=== PATIENT | male | born 1960 | race Caucasian/White ===

== ENCOUNTER 2016-05-21 01:19 | Inpatient (IN) | payer MEDICARE, OTHER ==
[~2016-05-21] VITALS: Ht 193 cm; Wt 142.9 kg
[2016-05-21 01:24] VITALS: BP 127/78
[2016-05-21] MEDS ORDERED: TRAM50TA PO (01:57)
[2016-05-21] MEDS ORDERED: DULO60CA6 PO (01:57)
[2016-05-21] MEDS ORDERED: LISI1TAB5 PO (01:57)
[2016-05-21] MEDS ORDERED: SITA100T PO (01:57)
[2016-05-21] MEDS ORDERED: DEXTROSE 50% 25 GM / 50ML DISP.SYRIN. IV PRN (02:00)
[2016-05-21] MEDS ORDERED: 0.9 % SODIUM CHLORIDE 10 ML DISP.SYRIN. IV PRN (02:00)
[2016-05-21] MEDS: TRAMADOL 50 MG TABLET. PO PRN ×2 (03:28→09:29)
[2016-05-21 03:42] VITALS: BP 122/58
[2016-05-21 05:48] LABS: ALBUMIN 3.1 g/dL (3.4-5.0); ALBUMIN/GLOBULIN RATIO 0.8 (1.0-1.7); CALCIUM 8.8 mg/dL (8.5-10.1); CREATININE 0.9 mg/dL (0.7-1.3); POTASSIUM 3.1 mmol/L (3.5-5.1); TOTAL BILIRUBIN 0.3 mg/dL (0.2-1.0); TOTAL PROTEIN 6.9 g/dL (6.4-8.2)
[2016-05-21 05:59] LABS: CHOLESTEROL/HDL RATIO 6.9
[2016-05-21 07:00] VITALS: BP 133/82
[2016-05-21] MEDS: INSULIN ASPART 300 UNITS/3 ML INSULN.PEN SQ SCH ×2 (07:47→12:00)
[2016-05-21] MEDS ORDERED: HYDROCHLOROTHIAZIDE 25 MG TABLET PO SCH (09:00)
[2016-05-21] MEDS ORDERED: DULOXETINE HCL 30 MG CAPSULE.DR. PO SCH (09:00)
[2016-05-21] MEDS ORDERED: LINAGLIPTIN 5 MG TABLET PO SCH (09:00)
[2016-05-21] MEDS ORDERED: LISINOPRIL 40 MG TABLET. PO SCH (09:00)
[2016-05-21] MEDS ORDERED: POTASSIUM CHLORIDE 20 MEQ TABLET.ER. PO ONE (09:00)
[2016-05-21] MEDS ORDERED: LEVETIRACETAM 500 MG TABLET PO SCH (09:00)
[2016-05-21 10:50] VITALS: BP 129/82
[2016-05-21] MEDS ORDERED: GADOBUTROL 7.5 MMOL/7.5 ML VIAL IV ONE (12:45)
--- NOTE | 2016-05-21 12:55 | PDOC2 ---
NEUROLOGY CONSULT Date of Admission Date of Admission DATE: 05/21/16 TIME: 12:49 Reason for Consult Reason for Consult: Seizure Referring Physician Referring Physician: Dr. Huynh PCP: LINCOLN Thayer Source Source: Caregiver, Chart review, Patient History of Present Illness History of Present Illness The patient is a 55-year-old right-handed male who had his first seizure. I cannot discern from the chart the purpose of transferring him from [facility] for an acute hospital admission, as he had a 2 or 3 minute seizure without tongue biting or incontinence and a brief postictal state. He denies any new activities, medications, stress, sleep deprivation, infection, or substance abuse. Past Medical History Cardiovascular: HTN Musculoskeletal: low back pain Past Surgical History Past Surgical History: Other (Lumbar) Family History Family History: Other ( uncle had seizures) Social History Social History , smokes tobacco, no alcohol or drugs, on disability due to his back problems. Current Medications Current Medications Current Medications Sodium Chloride (Normal Saline Flush) 3 ml PRN DAILY PRN IV AFTER MEDS AND BLOOD DRAWS; Start 05/21/16 at 02:00 Insulin Aspart (Novolog) 0-5 UNITS TIDWMEALS SQ ; Start 05/21/16 at 08:00 Dextrose 12.5 gm PRN Q15MIN PRN IV SEE COMMENTS; Start 05/21/16 at 02:00 Tramadol HCl (Ultram) 100 mg PRN Q6HRS PRN PO MODERATE PAIN Last administered on 05/21/16 09:29; Start 05/21/16 at 03:00 Duloxetine HCl (Cymbalta) 60 mg DAILY PO Last administered on 05/21/16 09:29; Start 05/21/16 at 09:00 Lisinopril (Prinivil) 40 mg DAILY PO Last administered on 05/21/16 09:29; Start 05/21/16 at 09:00 Linagliptin (Tradjenta) 5 mg DAILY PO Last administered on 05/21/16 09:29; Start 05/21/16 at 09:00 Levetiracetam (Keppra) 500 mg BID PO Last administered on 05/21/16 09:28; Start 05/21/16 at 09:00 Hydrochlorothiazide (Hydrodiuril) 25 mg DAILY PO Last administered on 09:28; Start 05/21/16 at 09:00 Potassium Chloride (Klor-Con) 40 meq 1X ONCE PO Last administered on 09:29; Start 05/21/16 at 09:00; Stop 05/21/16 at 09:01; Status DC Gadobutrol (Gadavist) 14 mmol 1X ONCE IV ; Start 05/21/16 at 12:45; Stop at 12:46; Status DC Active Scripts Active Reported Cymbalta (Duloxetine Hcl) 60 Mg Capsule.dr 60 Mg PO DAILY Tramadol Hcl 50 Mg Tablet 100 Mg PO Q6H PRN Lisinopril-Hctz 20-12.5 Mg Tab (Lisinopril/Hydrochlorothiazide) 1 Each Tablet 2 Tab PO DAILY Januvia (Sitagliptin Phosphate) 100 Mg Tablet 100 Mg PO DAILY Allergies Allergies: Coded Allergies: aspirin (Verified Allergy, Intermediate, 05/21/16) gabapentin (Verified Allergy, Intermediate, 05/21/16) ROS Review of System Negative for fevers, chills, weight loss, shortness of breath, chest pain, indigestion, hematochezia, melena, dysuria. Full 14-point review systems is negative. Physical Exam Physical Examination PHYSICAL EXAMINATION: Vital signs: see above. General appearance is normal and in no acute distress. HEENT: Normocephalic and nontraumatic. Eyes, nose, ears, and throat are unremarkable. Neck is supple. No lymphadenopathy. No bruits are heard over the carotid artery. No crepitus. NEUROLOGICAL EXAMINATION: Mental Status Examination: Alert. Oriented to time, place, and person. Answers questions and follows commends. Pupils are equal round and reactive to light and accommodation. Extraocular movements are intact. Visual field exam shows no defect on the direct confrontation. No motor or sensory deficits on the facial exam. Uvula in the midline and the soft palate elevated symmetrically. No deviation of the tongue to any direction. Gross hearing is normal. Shoulder shrug normal. Muscle tone is normal. Muscle strength is 5. Deep tendon reflexes are 2+ all around. Plantar reflex is with flexion response bilaterally. [id number] test performance is accurate. Alternative movements are accurate. Romberg test is negative. Gait is normal. Sensory exam shows no deficits. No cerebellar signs are elicited. Vitals VITALS Vital Signs Date Time Temp Pulse Resp B/P Pulse Ox O2 Delivery O2 Flow Rate FiO2 05/21/16 10:50 98.1 85 18 129/82 93 Room Air 98.1 Labs Labs Laboratory Tests Test 05/21/16 04:02 05/21/16 04:12 05/21/16 07:12 Thyroid Stimulating Hormone (TSH) 2.991uIU/mL (0.358-3.74) Sodium Level 139mmol/L (136-145) Potassium Level 3.1mmol/L (3.5-5.1) Chloride Level 102mmol/L (98-107) Carbon Dioxide Level 27mmol/L (21-32) Anion Gap 10 (6-14) Blood Urea Nitrogen 7mg/dL (8-26) Creatinine 0.9mg/dL (0.7-1.3) Estimated GFR (Cockcroft-Gault) 87.0 BUN/Creatinine Ratio 8 (6-20) Glucose Level 140mg/dL (70-99) Calcium Level 8.8mg/dL (8.5-10.1) Magnesium Level 2.0mg/dL (1.8-2.4) Total Bilirubin 0.3mg/dL (0.2-1.0) Aspartate Amino Transf (AST/SGOT) 14U/L (15-37) Alanine Aminotransferase (ALT/SGPT) 21U/L (16-63) Alkaline Phosphatase 43U/L (46-116) Total Protein 6.9g/dL (6.4-8.2) Albumin 3.1g/dL (3.4-5.0) Albumin/Globulin Ratio 0.8 (1.0-1.7) Triglycerides Level 252mg/dL (0-150) Cholesterol Level 193mg/dL (0-200) LDL Cholesterol, Calculated 115mg/dL (0-100) VLDL Cholesterol, Calculated 50mg/dL (0-40) HDL Cholesterol 28mg/dL (40-60) Cholesterol/HDL Ratio 6.9 Glucose (Fingerstick) 140mg/dL (70-99) Laboratory Tests Test 05/21/16 04:02 05/21/16 04:12 05/21/16 07:12 Thyroid Stimulating Hormone (TSH) 2.991uIU/mL (0.358-3.74) Sodium Level 139mmol/L (136-145) Potassium Level 3.1mmol/L (3.5-5.1) Chloride Level 102mmol/L (98-107) Carbon Dioxide Level 27mmol/L (21-32) Anion Gap 10 (6-14) Blood Urea Nitrogen 7mg/dL (8-26) Creatinine 0.9mg/dL (0.7-1.3) Estimated GFR (Cockcroft-Gault) 87.0 BUN/Creatinine Ratio 8 (6-20) Glucose Level 140mg/dL (70-99) Calcium Level 8.8mg/dL (8.5-10.1) Magnesium Level 2.0mg/dL (1.8-2.4) Total Bilirubin 0.3mg/dL (0.2-1.0) Aspartate Amino Transf (AST/SGOT) 14U/L (15-37) Alanine Aminotransferase (ALT/SGPT) 21U/L (16-63) Alkaline Phosphatase 43U/L (46-116) Total Protein 6.9g/dL (6.4-8.2) Albumin 3.1g/dL (3.4-5.0) Albumin/Globulin Ratio 0.8 (1.0-1.7) Triglycerides Level 252mg/dL (0-150) Cholesterol Level 193mg/dL (0-200) LDL Cholesterol, Calculated 115mg/dL (0-100) VLDL Cholesterol, Calculated 50mg/dL (0-40) HDL Cholesterol 28mg/dL (40-60) Cholesterol/HDL Ratio 6.9 Glucose (Fingerstick) 140mg/dL (70-99) Assessment/Plan Assessment/Plan Impression: First seizure, already started on anticonvulsant and sent for inpatient hospitalization without consent of the on-call neurologist. Medication review: tramadol could lower seizure threshold, not a new medication for him Recommendations: Brain MRI EEG Home later today Follow-up with me in 6 weeks, and will decide then if we need to continue the anticonvulsant I informed the patient that he cannot drive until he has gone 6 months without a seizure. Thank you for letting me help with the patient's care. LISA ELLINGTON MD May 21, 2016 12:55
--- NOTE | 2016-05-21 13:23 | PDOC1 ---
History and Physical Date of Admission Date of Admission 05/21/16 Identification/Chief Complaint Chief Complaint seizure Problems: Source Source: Patient History of Present Illness History of Present Illness 55yo M, with dm2, htn, was transferred from [facility] for seizure, no H AND P was sent with pt. Pt cannot remember what happened, but said he was sitting in couch at home yesterday, then woke up finding ambulance around him. As per his to him, he was shaking with exts, didnot bite his tougne or loose BM/urine control. Pt said he continuted to be confused for about 1h. he feels good now, this is his first seizure, denies taking drugs or alcohol. Past Medical History Cardiovascular: HTN Past Surgical History Past Surgical History: Other (Lumbar) Social History Smoke: 1 pack per day ALCOHOL: social Drugs: None Current Medications Current Medications Current Medications Medications (Trade) Dose Ordered Sig/Olesya Start Time Stop Time Status Last Admin Dose Admin Dextrose 12.5 gm PRN Q15MIN PRN 05/21/16 02:00 Duloxetine HCl (Cymbalta) 60 mg DAILY 05/21/16 09:00 05/21/16 09:29 60 MG Gadobutrol (Gadavist) 14 mmol 1X ONCE 05/21/16 12:45 05/21/16 12:46 DC 05/21/16 12:52 14 MMOL Hydrochlorothiazide (Hydrodiuril) 25 mg DAILY 05/21/16 09:00 05/21/16 09:28 25 MG Insulin Aspart (Novolog) 0-5 UNITS TIDWMEALS 05/21/16 08:00 Levetiracetam (Keppra) 500 mg BID 05/21/16 09:00 05/21/16 09:28 500 MG Linagliptin (Tradjenta) 5 mg DAILY 05/21/16 09:00 05/21/16 09:29 5 MG Lisinopril (Prinivil) 40 mg DAILY 05/21/16 09:00 05/21/16 09:29 40 MG Potassium Chloride (Klor-Con) 40 meq 1X ONCE 05/21/16 09:00 05/21/16 09:01 DC 05/21/16 09:29 40 MEQ Sodium Chloride (Normal Saline Flush) 3 ml PRN DAILY PRN 05/21/16 02:00 Tramadol HCl (Ultram) 100 mg PRN Q6HRS PRN 05/21/16 03:00 05/21/16 09:29 100 MG Allergies Allergies Allergies Coded Allergies Type Severity Reaction Last Updated Verified aspirin Allergy Intermediate 05/21/16 Yes gabapentin Allergy Intermediate 05/21/16 Yes ROS Review of System CONSTITUTIONAL: No fever or chills EYES: No recent changes SKIN: No rash or itching CARDIOVASCULAR: No chest pain, syncope, palpitations, or edema RESPIRATORY: No SOB or cough GASTROINTESTINAL: No nausea, vomiting or abdominal pain NEUROLOGICAL: No headaches or weakness ENDOCRINE: No cold or heat intolerance GENITOURINARY: No urgency or frequency of urination MUSCULOSKELETAL: No back pain or joint pain LYMPHATICS: No enlarged lymph nodes PSYCHIATRIC: No anxiety or depression Physical Exam Physical Exam GEN.: No apparent distress. Alert and oriented. HEENT: Head is normocephalic, atraumatic NECK: Supple. LUNGS: Clear to auscultation. HEART: RRR, S1, S2 present. Peripheral pulses intact ABDOMEN: Soft, nontender. Positive bowel sounds. EXTREMITIES: Without any cyanosis. NEUROLOGIC: Normal speech, normal tone PSYCHIATRIC: Normal affect, normal mood. SKIN: No ulcerations Vitals Vitals Vital Signs Date Time Temp Pulse Resp B/P Pulse Ox O2 Delivery O2 Flow Rate FiO2 05/21/16 10:50 98.1 85 18 129/82 93 Room Air 98.1 Labs Labs Laboratory Tests Test 05/21/16 04:02 05/21/16 04:12 05/21/16 07:12 Thyroid Stimulating Hormone (TSH) 2.991uIU/mL (0.358-3.74) Sodium Level 139mmol/L (136-145) Potassium Level 3.1mmol/L (3.5-5.1) Chloride Level 102mmol/L (98-107) Carbon Dioxide Level 27mmol/L (21-32) Anion Gap 10 (6-14) Blood Urea Nitrogen 7mg/dL (8-26) Creatinine 0.9mg/dL (0.7-1.3) Estimated GFR (Cockcroft-Gault) 87.0 BUN/Creatinine Ratio 8 (6-20) Glucose Level 140mg/dL (70-99) Calcium Level 8.8mg/dL (8.5-10.1) Magnesium Level 2.0mg/dL (1.8-2.4) Total Bilirubin 0.3mg/dL (0.2-1.0) Aspartate Amino Transf (AST/SGOT) 14U/L (15-37) Alanine Aminotransferase (ALT/SGPT) 21U/L (16-63) Alkaline Phosphatase 43U/L (46-116) Total Protein 6.9g/dL (6.4-8.2) Albumin 3.1g/dL (3.4-5.0) Albumin/Globulin Ratio 0.8 (1.0-1.7) Triglycerides Level 252mg/dL (0-150) Cholesterol Level 193mg/dL (0-200) LDL Cholesterol, Calculated 115mg/dL (0-100) VLDL Cholesterol, Calculated 50mg/dL (0-40) HDL Cholesterol 28mg/dL (40-60) Cholesterol/HDL Ratio 6.9 Glucose (Fingerstick) 140mg/dL (70-99) Laboratory Tests Test 05/21/16 04:02 05/21/16 04:12 05/21/16 07:12 Thyroid Stimulating Hormone (TSH) 2.991uIU/mL (0.358-3.74) Sodium Level 139mmol/L (136-145) Potassium Level 3.1mmol/L (3.5-5.1) Chloride Level 102mmol/L (98-107) Carbon Dioxide Level 27mmol/L (21-32) Anion Gap 10 (6-14) Blood Urea Nitrogen 7mg/dL (8-26) Creatinine 0.9mg/dL (0.7-1.3) Estimated GFR (Cockcroft-Gault) 87.0 BUN/Creatinine Ratio 8 (6-20) Glucose Level 140mg/dL (70-99) Calcium Level 8.8mg/dL (8.5-10.1) Magnesium Level 2.0mg/dL (1.8-2.4) Total Bilirubin 0.3mg/dL (0.2-1.0) Aspartate Amino Transf (AST/SGOT) 14U/L (15-37) Alanine Aminotransferase (ALT/SGPT) 21U/L (16-63) Alkaline Phosphatase 43U/L (46-116) Total Protein 6.9g/dL (6.4-8.2) Albumin 3.1g/dL (3.4-5.0) Albumin/Globulin Ratio 0.8 (1.0-1.7) Triglycerides Level 252mg/dL (0-150) Cholesterol Level 193mg/dL (0-200) LDL Cholesterol, Calculated 115mg/dL (0-100) VLDL Cholesterol, Calculated 50mg/dL (0-40) HDL Cholesterol 28mg/dL (40-60) Cholesterol/HDL Ratio 6.9 Glucose (Fingerstick) 140mg/dL (70-99) VTE Prophylaxis Ordered VTE Prophylaxis Devices: Yes VTE Pharmacological Prophylaxi: Yes Assessment/Plan Assessment/Plan 1. seizure like activity 2. htn 3. dm2 4. hypokalemia 5. TOBaccoism plan: 1 . fu with neuro, EEG, BRAIN MRI today 2. cont home meds dc today or tmr dvt ppx replete RAKEL JAIN MD May 21, 2016 13:23
[2016-05-21] MEDS ORDERED: ACETAMINOPHEN 325 MG TABLET. PO PRN (13:30)
[2016-05-21] MEDS ORDERED: ONDANSETRON PF 4 MG/2 ML VIAL. IV PRN (13:30)
--- NOTE | 2016-05-21 13:39 | RAD ---
PROCEDURE MRI of the brain without and with contrast 05/21/2016 HISTORY Acute seizures. TECHNIQUE Unenhanced T1 weighted sagittal and axial and FLAIR, gradient echo, T2 weighted and diffusion weighted axial images of the brain were obtained. Additionally thin section FLAIR coronal images through the temporal lobes were obtained. After the intravenous administration of 14 cc of Gadavist, enhanced T1 weighted axial and coronal images of the brain were obtained. FINDINGS There is generalized parenchymal atrophy. Patchy and small scattered areas of abnormally increased signal intensity are seen within the periventricular and subcortical white matter of both cerebral hemispheres along with the javad on the FLAIR and T2 weighted images consistent most likely with areas of small vessel ischemic disease. A 4 centimeter arachnoid cyst is seen posterior to the cerebellum within the midline. There is no significant mass effect. No acute parenchymal abnormality is seen. No acute extra-axial fluid collection is noted. There is no MRI evidence of acute ischemia/infarction. No area of abnormal contrast enhancement is seen. Images through the temporal lobes are within normal limits. Mild mucosal thickening is seen scattered throughout the paranasal sinuses. There are minimal bilateral mastoid effusions. Normal flow voids are seen within the major vascular structures surrounding the brain parenchyma. IMPRESSION No acute parenchymal abnormality is seen. Electronically signed by: Roger Melendez MD (May 21, 2016 13:38:34)
[2016-05-21] MEDS ORDERED: ENOXAPARIN 40 MG/0.4 ML DISP.SYRIN. SQ SCH (14:00)
[2016-05-21 15:02] VITALS: BP 143/69
[2016-05-21] MEDS ORDERED: LEVE500T56 PO (15:08)
--- NOTE | 2016-05-21 15:10 | PDOC3 ---
Discharge Summary [facility] Date of Admission: May 20, 2016 Discharge Date: May 21, 2016 Admitting Diagnosis 1. seizure like activity, not clear etiology 2. htn 3. dm2 4. hypokalemia 5. TOBaccoism Problems: Final Diagnosis Problems Medical Problems: (1) Seizure Status: Acute CONSULTS neuro Brief Hospital Course 55yo M, with dm2, htn, was transferred from [facility] for seizure, no H AND P was sent with pt. Pt cannot remember what happened, but said he was sitting in couch at home yesterday, then woke up finding ambulance around him. As per his to him, he was shaking with exts, didnot bite his tougne or loose BM/urine control. Pt said he continuted to be confused for about 1h. he feels good now, this is his first seizure, denies taking drugs or alcohol. Brain MRI neg. EEG done, no result yet. Neuro consulted, started keppra, cont 500mg bid. fu with them in 4weeks. dc time 40min Patient History: FH: congestive heart failure 33 FATHER Family history: Cardiovascular disease (situation) 32 MOTHER Family history: Diabetes mellitus (situation) 33 FATHER Family history: Hypertension (situation) 33 FATHER Problems: Disposition home CONDITION AT DISCHARGE: Improved Diet regular Scheduled Duloxetine Hcl (Cymbalta) 60 MG PO DAILY (Reported) Levetiracetam (Keppra) 500 MG PO BID Lisinopril/Hydrochlorothiazide (Lisinopril-Hctz 20-12.5 Mg Tab) 2 TAB PO DAILY ( Reported) Sitagliptin Phosphate (Januvia) 100 MG PO DAILY (Reported) Scheduled PRN Tramadol Hcl (Tramadol Hcl) 100 MG PO Q6H PRN PRN PAIN (Reported) Follow Up pcp and neuro in 4 weeks RAKEL LI MD May 21, 2016 15:09
--- NOTE | 2016-05-21 18:17 | EEG ---
DATE OF SERVICE: 05/21/2016 ATTENDING PHYSICIAN: Dr. Huynh. EEG NUMBER: [id number]. DATE OF STUDY: 05/21/2016. OBJECTIVE: The patient is a 55-year-old male with new onset of seizures. DESCRIPTION: This is a digital study. Electrodes are placed according to the international 10-20 system. Bipolar and referential montages are available. Activation procedures typically include hyperventilation and intermittent photic stimulation. INTERPRETATION: The waking background consists of 10-11 Hz, 50-100 microvolt activity, symmetrically distributed over parietooccipital regions and reactive to eye opening. Hyperventilation and intermittent photic stimulation are noncontributory. Stage II sleep is achieved with normal electroencephalogram patterns. IMPRESSION: This electroencephalogram with the patient awake and asleep is within normal limits. There is no focal, paroxysmal, or epileptiform activity. Thank you for letting us help with the patient's care. LISA ELLINGTON MD DR: EUGENIO/denita JOB#: [id number] / [id number]
== END 2016-05-21 15:45 | disposition home or self-care (01) | DRG 101 ==
LOC: CVICU 01:19 → 2 SOUTH 12:40
PROVIDERS: ADMIT Internal Medicine Hematology & Oncology; ATTEND Internal Medicine Hematology & Oncology
DX: R56.9 Unspecified convulsions (principal); E87.6 Hypokalemia; E11.9 Type 2 diabetes mellitus without complications; M54.5 Low back pain; F17.200 Nicotine dependence, unspecified, uncomplicated; I10 Essential (primary) hypertension; Z82.49 Family history of ischemic heart disease and other diseases of the circulatory system; Z83.3 Family history of diabetes mellitus; Z88.6 Allergy status to analgesic agent; Z88.8 Allergy status to other drugs, medicaments and biological substances
CPT/HCPCS: 36415; 70553; 80053; 80061; 82947; 83036; 83735; 84443; 95816; J1815; A9585

== ENCOUNTER → 2016-12-06 | Outpatient (CLI) | payer MEDICARE, OTHER ==
[~2016-12-06] MED LIST: DULO60CA6 PO; LEVE500T56 PO; LISI1TAB5 PO; SITA100T PO; TRAM50TA PO
== END | disposition home or self-care (01) ==
LOC: KCIC MRI 16:03
PROVIDERS: ATTEND Family Medicine

== ENCOUNTER 2018-11-25 20:00 | Emergency (ER) | payer MEDICARE, OTHER ==
[~2018-11-25] VITALS: Ht 190.5 cm; Wt 124.7 kg
[~2018-11-25 20:00] MED LIST changes: +LISI1TAB19 PO; -LISI1TAB5 PO
[2018-11-25] MEDS ORDERED: IV NORMAL SALINE 1000ML BAG 1,000 ML IV ONE (20:30)
[2018-11-25] MEDS ORDERED: PIPERACILLIN/TAZOBACTAM 4.5 GM in IV NORMAL SALINE 100ML 100 ML IV ONE (20:30)
[2018-11-25] MEDS ORDERED: VANCOMYCIN PER PHARMACY MC PRN (20:30)
--- NOTE | 2018-11-25 20:30 | PHYS DOC ---
Adult General HPI HPI 58-year-old male with underlying history of diabetes, uncontrolled presents to the emergency department with complaints of foot infection. It appears patient had a transmetatarsal amputation of his right foot approximate 5-6 months ago at [facility] in [facility]. Patient states he's been doing "fine." States over the weekend he had a virus infection with nausea, not feeling well. States he went to his primary care physician today and she recommended direct admission. Patient arrives via EMS with no orders for direct admission. He denies any fever currently, does have some pain to his right lower extremity and foot, denies any nausea, vomiting, diarrhea. Review of Systems Review of Systems Constitutional: Subjective fever, chills Respiratory: Denies cough or shortness of breath [] Cardiovascular: No additional information not addressed in HPI [] GI: Denies abdominal pain, nausea, vomiting, bloody stools or diarrhea [] Integument: Denies rash or skin lesions, redness appreciated to the right foot, drainage, wound to the bottom part of his foot Neurologic: Denies headache, focal weakness or sensory changes [] Endocrine: Denies polyuria or polydipsia [] All other systems were reviewed and found to be within normal limits, except as documented in this note. Current Medications Current Medications Current Medications Medications (Trade) Dose Ordered Sig/Olesya Start Time Stop Time Status Last Admin Dose Admin Piperacillin Sod/ Tazobactam Sod 4.5 gm/Sodium Chloride 100 ml @ 200 mls/hr 1X ONCE 11/25/18 20:30 11/25/18 20:59 DC 11/25/18 21:25 200 MLS/HR Sodium Chloride 1,000 ml @ 1,000 mls/hr 1X ONCE 11/25/18 20:30 11/25/18 21:29 DC 11/25/18 21:17 1,000 MLS/HR Vancomycin HCl (Vanco Per Pharmacy) 1 each PRN DAILY PRN 11/25/18 20:30 UNV Vancomycin HCl 2 gm/Sodium Chloride 500 ml @ 250 mls/hr 1X ONCE 11/25/18 21:30 11/25/18 23:29 Allergies Allergies Allergies Coded Allergies Type Severity Reaction Last Updated Verified aspirin Allergy Intermediate 05/21/16 Yes gabapentin Allergy Intermediate 05/21/16 Yes morphine Allergy Unknown 11/25/18 Yes Physical Exam Physical Exam Constitutional: Well developed, well nourished, no acute distress, non-toxic appearance. [] HENT: Normocephalic, atraumatic, bilateral external ears normal, oropharynx moist, no oral exudates, nose normal. [] Eyes: PERRLA, EOMI, conjunctiva normal, no discharge. [] Cardiovascular:Heart rate regular rhythm, no murmur [] Lungs & Thorax: Bilateral breath sounds clear to auscultation [] Abdomen: Bowel sounds normal, soft, no tenderness, no masses, no pulsatile masses. [] Skin: Warm, dry, no erythema, no rash - see description of extremity below [] Extremities: Right foot status post transmetatarsal amputation, incision site fairly unremarkable, skin is fluffing from bottom of foot, redness appreciated, sero-sanguinous drainage with significant odor appreciated from round wound [id number] with tunneling up to 2 cm Neurologic: Alert and oriented X 3, no focal deficits noted. [] Psychologic: Affect normal, judgement normal, mood normal. [] Current Patient Data Vital Signs Vital Signs Date Time Temp Pulse Resp B/P (MAP) Pulse Ox O2 Delivery O2 Flow Rate FiO2 11/25/18 20:00 98.5 102 18 119/74 (89) 100 Room Air 98.5 Lab Values Laboratory Tests Test 11/25/18 20:25 White Blood Count 10.4 x10^3/uL (4.0-11.0) Red Blood Count 4.09 x10^6/uL (4.30-5.70) L Hemoglobin 10.8 g/dL (13.0-17.5) L Hematocrit 32.8 % (39.0-53.0) L Mean Corpuscular Volume 80 fL (79-100) Mean Corpuscular Hemoglobin 26 pg (25-35) Mean Corpuscular Hemoglobin Concent 33 g/dL (31-37) Red Cell Distribution Width 17.4 % (11.5-14.5) H Platelet Count 317 x10^3/uL (140-400) Neutrophils (%) (Auto) 72 % (31-73) Lymphocytes (%) (Auto) 15 % (24-48) L Monocytes (%) (Auto) 12 % (0-9) H Eosinophils (%) (Auto) 0 % (0-3) Basophils (%) (Auto) 0 % (0-3) Neutrophils # (Auto) 7.5 x10^3/uL (1.8-7.7) Lymphocytes # (Auto) 1.6 x10^3/uL (1.0-4.8) Monocytes # (Auto) 1.3 x10^3/uL (0.0-1.1) H Eosinophils # (Auto) 0.0 x10^3/uL (0.0-0.7) Basophils # (Auto) 0.0 x10^3/uL (0.0-0.2) Sodium Level 130 mmol/L (136-145) L Potassium Level 3.2 mmol/L (3.5-5.1) L Chloride Level 96 mmol/L (98-107) L Carbon Dioxide Level 23 mmol/L (21-32) Anion Gap 11 (6-14) Blood Urea Nitrogen 19 mg/dL (8-26) Creatinine 1.9 mg/dL (0.7-1.3) H Estimated GFR (Cockcroft-Gault) 36.3 BUN/Creatinine Ratio 10 (6-20) Glucose Level 136 mg/dL (70-99) H Lactic Acid Level 1.5 mmol/L (0.4-2.0) Calcium Level 8.8 mg/dL (8.5-10.1) Total Bilirubin 0.4 mg/dL (0.2-1.0) Aspartate Amino Transferase (AST) 29 U/L (15-37) Alanine Aminotransferase (ALT) 22 U/L (16-63) Alkaline Phosphatase 73 U/L (46-116) Total Protein 8.5 g/dL (6.4-8.2) H Albumin 2.4 g/dL (3.4-5.0) L Albumin/Globulin Ratio 0.4 (1.0-1.7) L Procalcitonin 0.55 ng/mL (0.00-0.10) H Laboratory Tests 11/25/18 20:25 Laboratory Tests 11/25/18 20:25 EKG EKG [] Radiology/Procedures Radiology/Procedures [facility] [address] [place] [address] IMAGING REPORT Signed PATIENT: FLORINDA MIMS ACCOUNT: [id number] : 1960 LOCATION: ER AGE: 58 SEX: M EXAM STATUS: REG ER ORD. PHYSICIAN: PAUL DEAN MD REASON: wound infection PROCEDURE: FOOT RIGHT 3V Three-view right foot dated 11/25/2018. No comparison available. CLINICAL INDICATION: Wound infection. FINDINGS: 3 views the right foot show evidence of prior amputation at the level of the Lisfranc joints. There is extensive soft tissue swelling and soft tissue gas distally near the resection site. There is bony fragmentation of the cuneiform bones and cuboid with ill-definition of the outer cortical margins. The hindfoot is intact. Degenerative changes of the tibiotalar joint, subtalar joints and talonavicular joint. There is diffuse soft tissue swelling. No apparent ankle joint effusion. IMPRESSION: 1. Extensive soft tissue swelling and soft tissue gas at the Lisfranc joint resection site, consistent with cellulitis. Underlying abscess with gas-forming organism cannot be excluded. 2. There is cortical irregularity and bony fragmentation at the amputation site of the midfoot. This could be related to acute or chronic osteomyelitis or sequela of prior surgery. Recommend correlation with prior imaging studies to assess for interval change. Electronically signed by: Jamel Bravo MD (11/25/2018 9:21 PM) [facility] DICTATED and SIGNED BY: JAMEL BRAVO MD DATE: 11/25/182120 [] Course & Med Decision Making Course & Med Decision Making Pertinent Labs and Imaging studies reviewed. (See chart for details) []58-year-old male with underlying history of diabetes, uncontrolled presents to the emergency department with complaints of foot infection. It appears patient had a transmetatarsal amputation of his right foot approximate 5-6 months ago at [facility] in [facility]. Patient states he's been doing "fine." States over the weekend he had a virus infection with nausea, not feeling well. States he went to his primary care physician today and she recommended direct admission. Patient arrives via EMS with no orders for direct admission. He denies any fever currently, does have some pain to his right lower extremity and foot, denies any nausea, vomiting, diarrhea. Labs reviewed, does count 10.4, lactic acid 1.5. X-ray reveals evidence of gas within the tissue concern for underlying abscess cannot be ruled out concerns as well for osteomyelitis. Creatinine is elevated at 1.9 plan for MRI in the a.m. Antibiotics provided, cultures obtained. Plan for admission and further orthopedic consultation in the a.m. Dragon Disclaimer Dragon Disclaimer This electronic medical record was generated, in whole or in part, using a voice recognition dictation system. Departure Departure Impression: Primary Impression: Cellulitis and abscess of foot Additional Impressions: Status post transmetatarsal amputation of right foot Uncontrolled diabetes mellitus TANG (acute kidney injury) Disposition: 09 ADMITTED INPATIENT Admitting Physician: LYNSEY Condition: STABLE Referrals: TRINIDAD MAC (PCP) Problem Qualifiers Additional Impressions: Uncontrolled diabetes mellitus Diabetes mellitus type: type 2 Glycemic state: with hyperglycemia Qualified Codes: E11.65 - Type 2 diabetes mellitus with hyperglycemia PAUL DEAN MD Nov 25, 2018 20:30
[2018-11-25 20:38] LABS: BASO % 0 % (0-3); EOS % 0 % (0-3); HEMATOCRIT 32.8 % (39.0-53.0); HEMOGLOBIN 10.8 g/dL (13.0-17.5); LYMPH # 1.6 x10^3/uL (1.0-4.8); LYMPH % 15 % (24-48); MEAN CORPUSCULAR HEMOGLOBIN 26 pg (25-35); MEAN CORPUSCULAR HGB CONC 33 g/dL (31-37); MEAN CORPUSCULAR VOLUME 80 fL (79-100); MONO # 1.3 x10^3/uL (0.0-1.1); MONO % 12 % (0-9); NEUT # 7.5 x10^3/uL (1.8-7.7); NEUT % 72 % (31-73); PLATELET COUNT 317 x10^3/uL (140-400); RED BLOOD COUNT 4.09 x10^6/uL (4.30-5.70); RED CELL DISTRIBUTION WIDTH 17.4 % (11.5-14.5); WHITE BLOOD COUNT 10.4 x10^3/uL (4.0-11.0)
[2018-11-25 20:46] LABS: CALCIUM 8.8 mg/dL (8.5-10.1); CREATININE 1.9 mg/dL (0.7-1.3); GFR 36.3; POTASSIUM 3.2 mmol/L (3.5-5.1)
[2018-11-25 20:52] LABS: ALBUMIN 2.4 g/dL (3.4-5.0); ALBUMIN/GLOBULIN RATIO 0.4 (1.0-1.7); TOTAL BILIRUBIN 0.4 mg/dL (0.2-1.0); TOTAL PROTEIN 8.5 g/dL (6.4-8.2)
--- NOTE | 2018-11-25 21:24 | RAD ---
Three-view right foot dated 11/25/2018. No comparison available. CLINICAL INDICATION: Wound infection. FINDINGS: 3 views the right foot show evidence of prior amputation at the level of the Lisfranc joints. There is extensive soft tissue swelling and soft tissue gas distally near the resection site. There is bony fragmentation of the cuneiform bones and cuboid with ill-definition of the outer cortical margins. The hindfoot is intact. Degenerative changes of the tibiotalar joint, subtalar joints and talonavicular joint. There is diffuse soft tissue swelling. No apparent ankle joint effusion. IMPRESSION: 1. Extensive soft tissue swelling and soft tissue gas at the Lisfranc joint resection site, consistent with cellulitis. Underlying abscess with gas-forming organism cannot be excluded. 2. There is cortical irregularity and bony fragmentation at the amputation site of the midfoot. This could be related to acute or chronic osteomyelitis or sequela of prior surgery. Recommend correlation with prior imaging studies to assess for interval change. Electronically signed by: Jamel Bravo MD (11/25/2018 9:21 PM) [facility]
[2018-11-25] MEDS ORDERED: VANCOMYCIN 2 GM in IV NORMAL SALINE 500ML BAG 500 ML IV ONE (21:30)
[2018-11-25] MEDS ORDERED: IV DEXTROSE 5% 250 ML BAG. IV PRN (22:00)
[2018-11-25] MEDS ORDERED: DEXTROSE 50% 25 GM / 50ML DISP.SYRIN. IV PRN (22:00)
[2018-11-25] MEDS ORDERED: ONDANSETRON PF 4 MG/2 ML VIAL. IV PRN (22:00)
[2018-11-25] MEDS ORDERED: fentaNYL PF VIAL 100 MCG/2 ML VIAL IV ONE (22:15)
[2018-11-26] MEDS: fentaNYL PF VIAL 100 MCG/2 ML VIAL IV PRN ×4 (02:06→09:56)
[2018-11-26 03:18] LABS: BASO # 0.1 x10^3/uL (0.0-0.2); BASO % 1 % (0-3); EOS # 0.1 x10^3/uL (0.0-0.7); EOS % 1 % (0-3); HEMATOCRIT 28.7 % (39.0-53.0); HEMOGLOBIN 9.4 g/dL (13.0-17.5); LYMPH # 1.1 x10^3/uL (1.0-4.8); LYMPH % 9 % (24-48); MEAN CORPUSCULAR HEMOGLOBIN 26 pg (25-35); MEAN CORPUSCULAR HGB CONC 33 g/dL (31-37); MEAN CORPUSCULAR VOLUME 80 fL (79-100); MONO # 1.1 x10^3/uL (0.0-1.1); MONO % 10 % (0-9); NEUT # 9.4 x10^3/uL (1.8-7.7); NEUT % 80 % (31-73); PLATELET COUNT 298 x10^3/uL (140-400); RED BLOOD COUNT 3.61 x10^6/uL (4.30-5.70); RED CELL DISTRIBUTION WIDTH 17.2 % (11.5-14.5); WHITE BLOOD COUNT 11.7 x10^3/uL (4.0-11.0)
[2018-11-26 03:31] LABS: ALBUMIN 2.1 g/dL (3.4-5.0); ALBUMIN/GLOBULIN RATIO 0.4 (1.0-1.7); CALCIUM 8.3 mg/dL (8.5-10.1); GFR 34.3; POTASSIUM 3.4 mmol/L (3.5-5.1); TOTAL BILIRUBIN 0.4 mg/dL (0.2-1.0); TOTAL PROTEIN 7.2 g/dL (6.4-8.2)
[2018-11-26] MEDS ORDERED: INSU100V13 SQ (05:18)
[2018-11-26] MEDS ORDERED: AMOX1TAB61 PO (05:18)
[2018-11-26] MEDS ORDERED: DULO30CA2 PO (05:18)
[2018-11-26] MEDS ORDERED: PREG100C PO (05:18)
[2018-11-26] MEDS ORDERED: CIPR500T94 PO (05:18)
[2018-11-26] MEDS ORDERED: OXYC5CAP PO (05:18)
[2018-11-26] MEDS ORDERED: CYCL10TA2 PO (05:18)
[2018-11-26] MEDS ORDERED: RANI-376 PO (05:18)
[2018-11-26] MEDS ORDERED: HYDR50CA2 PO (05:18)
[2018-11-26] MEDS ORDERED: METH10TA2 PO (05:18)
[2018-11-26] MEDS ORDERED: INSULIN LISPRO 300 UNITS/3 ML VIAL. SQ SCH (08:00)
[2018-11-26 10:49] VITALS: BP 141/73
--- NOTE | 2018-11-26 11:25 | NUR ---
Pharmacy Vancomycin Dosing Note S:Consulted to monitor and dose vancomycin started 11/25/18. O:FLORINDA MIMS is a 58 year old M with Abscess Cellulitis R/O OSTEO . Height: 6 feet, 3 inches Weight: 124.387982 kg [place] Body Weight: 84.50 Adjusted Body Weight: 100.30 Dosing Weight: Actual Other Antibiotics: ZOSYN X1 11/25 LABS: Last BUN: 23 Last Creatinine: 2.0 Creatinine Clearance: 55 mL/min Last WBC: 11.7 Last Procalcitonin: 0.55 Tmax (past 24 hours): 98.5 Microbiology: 11/26 PENDING I/O: - Drug Levels: Last level: on at Last dose given 11/25/18 at 2200 Vancomycin Dosing: Loading Dose: x1 Dosing Weight: Actual Target Trough: 15-20 A: Based on: WEIGHT, CRCL~55 P: 1. INITIATE Vancomycin 2000 mg IV q24h 2. Follow up Trough level on 11/27/18 at 2130 3. Pharmacy will continue to monitor, follow and adjust therapy as needed. HADLEY ELDER [facility], 11/26/18 0520
--- NOTE | 2018-11-26 14:59 | PDOC1 ---
History and Physical Date of Admission Date of Admission DATE: 11/26/18 TIME: 14:58 Identification/Chief Complaint Chief Complaint PATIENT LEFT AMA FROM ED BEFORE BEING SEEN Past Medical History Cardiovascular: HTN Musculoskeletal: low back pain Past Surgical History Past Surgical History: Other Social History ALCOHOL: social Drugs: None Current Problem List Problem List Problems Medical Problems: (1) TANG (acute kidney injury) Status: Acute (2) Cellulitis and abscess of foot Status: Acute Current Medications Current Medications Current Medications Piperacillin Sod/ Tazobactam Sod 4.5 gm/Sodium Chloride 100 ml @ 200 mls/hr 1X ONCE IV Last administered on 11/25/18at 21:25; Start 11/25/18 at 20:30; Stop 11/25/18 at 20:59; Status DC Vancomycin HCl (Vanco Per Pharmacy) 1 each PRN DAILY PRN MC SEE COMMENTS Last administered on 11/26/18at 11:18; Start 11/25/18 at 20:30 Sodium Chloride 1,000 ml @ 1,000 mls/hr 1X ONCE IV Last administered on 11/25/18at 21:17; Start 11/25/18 at 20:30; Stop 11/25/18 at 21:29; Status DC Vancomycin HCl 2 gm/Sodium Chloride 500 ml @ 250 mls/hr 1X ONCE IV Last adm inistered on 11/25/18at 22:00; Start 11/25/18 at 21:30; Stop 11/25/18 at 23:29; Status DC Ondansetron HCl (Zofran) 4 mg PRN Q8HRS PRN IV NAUSEA/VOMITING; Start 11/25/18 at 22:00; Stop 11/26/18 at 21:59 Insulin Human Lispro (HumaLOG) 0-9 UNITS TIDWMEALS SQ ; Start 11/26/18 at 08:00 Dextrose (Dextrose 50%-Water Syringe) 12.5 gm PRN Q15MIN PRN IV SEE COMMENTS; Start 11/25/18 at 22:00 Dextrose 250 ml PRN Q15MIN PRN IV SEE COMMENTS; Start 11/25/18 at 22:00 Fentanyl Citrate (Fentanyl 2ml Vial) 50 mcg PRN Q2HR ONCE IV Last administered on 11/25/18at 22:47; Start 11/25/18 at 22:15; Stop 11/25/18 at 22:16; Status DC Fentanyl Citrate (Fentanyl 2ml Vial) 50 mcg PRN Q2HR PRN IV PAIN Last administered on 11/26/18at 09:56; Start 11/26/18 at 02:15 Vancomycin HCl 2 gm/Sodium Chloride 500 ml @ 250 mls/hr Q24H IV ; Start 11/26/18 at 22:00 Active Scripts Active Keppra (Levetiracetam) 500 Mg Tablet 500 Mg PO BID 30 Days Reported Oxycodone Hcl 5 Mg Capsule 10 Mg PO PRN Q6HRS PRN Methadone Hcl 10 Mg Tablet 10 Mg PO TID Lyrica (Pregabalin) 100 Mg Capsule 100 Mg PO BID Zantac (Ranitidine Hcl) 150 Mg Tablet 150 Mg PO BID Hydroxyzine Pamoate 50 Mg Capsule 50 Mg PO Cyclobenzaprine Hcl 10 Mg Tablet 10 Mg PO BID Cymbalta (Duloxetine Hcl) 30 Mg Capsule.dr 30 Mg PO BID Augmentin 875-125 Tablet (Amoxicillin/Potassium Clav) 1 Each Tablet 1 Tab PO BID Cipro (Ciprofloxacin Hcl) 500 Mg Tablet 500 Mg PO BID Levemir (Insulin Detemir) 100 Unit/1 Ml Vial 20 Unit SQ BID Cymbalta (Duloxetine Hcl) 60 Mg Capsule.dr 60 Mg PO DAILY Tramadol Hcl 50 Mg Tablet 100 Mg PO Q6H PRN Lisinopril-Hctz 20-12.5 Mg Tab (Lisinopril/Hydrochlorothiazide) 1 Each Tablet 2 Tab PO DAILY Januvia (Sitagliptin Phosphate) 100 Mg Tablet 100 Mg PO DAILY Allergies Allergies: Coded Allergies: aspirin (Verified Allergy, Intermediate, 05/21/16) gabapentin (Verified Allergy, Intermediate, 05/21/16) morphine (Verified Allergy, Unknown, 11/25/18) Vitals Vitals Vital Signs Date Time Temp Pulse Resp B/P (MAP) Pulse Ox O2 Delivery O2 Flow Rate FiO2 11/26/18 09:58 16 99 11/26/18 09:56 Room Air 11/26/18 09:50 94 131/59 (83) 11/25/18 20:00 98.5 98.5 Labs Labs Laboratory Tests Test 11/25/18 20:25 11/26/18 02:00 11/26/18 03:05 11/26/18 07:56 White Blood Count 10.4 x10^3/uL (4.0-11.0) 11.7 x10^3/uL (4.0-11.0) Red Blood Count 4.09 x10^6/uL (4.30-5.70) 3.61 x10^6/uL (4.30-5.70) Hemoglobin 10.8 g/dL (13.0-17.5) 9.4 g/dL (13.0-17.5) Hematocrit 32.8 % (39.0-53.0) 28.7 % (39.0-53.0) Mean Corpuscular Volume 80 fL (79-100) 80 fL (79-100) Mean Corpuscular Hemoglobin 26 pg (25-35) 26 pg (25-35) Mean Corpuscular Hemoglobin Concent 33 g/dL (31-37) 33 g/dL (31-37) Red Cell Distribution Width 17.4 % (11.5-14.5) 17.2 % (11.5-14.5) Platelet Count 317 x10^3/uL (140-400) 298 x10^3/uL (140-400) Neutrophils (%) (Auto) 72 % (31-73) 80 % (31-73) Lymphocytes (%) (Auto) 15 % (24-48) 9 % (24-48) Monocytes (%) (Auto) 12 % (0-9) 10 % (0-9) Eosinophils (%) (Auto) 0 % (0-3) 1 % (0-3) Basophils (%) (Auto) 0 % (0-3) 1 % (0-3) Neutrophils # (Auto) 7.5 x10^3/uL (1.8-7.7) 9.4 x10^3/uL (1.8-7.7) Lymphocytes # (Auto) 1.6 x10^3/uL (1.0-4.8) 1.1 x10^3/uL (1.0-4.8) Monocytes # (Auto) 1.3 x10^3/uL (0.0-1.1) 1.1 x10^3/uL (0.0-1.1) Eosinophils # (Auto) 0.0 x10^3/uL (0.0-0.7) 0.1 x10^3/uL (0.0-0.7) Basophils # (Auto) 0.0 x10^3/uL (0.0-0.2) 0.1 x10^3/uL (0.0-0.2) Sodium Level 130 mmol/L (136-145) 130 mmol/L (136-145) Potassium Level 3.2 mmol/L (3.5-5.1) 3.4 mmol/L (3.5-5.1) Chloride Level 96 mmol/L (98-107) 99 mmol/L (98-107) Carbon Dioxide Level 23 mmol/L (21-32) 21 mmol/L (21-32) Anion Gap 11 (6-14) 10 (6-14) Blood Urea Nitrogen 19 mg/dL (8-26) 23 mg/dL (8-26) Creatinine 1.9 mg/dL (0.7-1.3) 2.0 mg/dL (0.7-1.3) Estimated GFR (Cockcroft-Gault) 36.3 34.3 BUN/Creatinine Ratio 10 (6-20) 12 (6-20) Glucose Level 136 mg/dL (70-99) 153 mg/dL (70-99) Lactic Acid Level 1.5 mmol/L (0.4-2.0) 1.1 mmol/L (0.4-2.0) Calcium Level 8.8 mg/dL (8.5-10.1) 8.3 mg/dL (8.5-10.1) Total Bilirubin 0.4 mg/dL (0.2-1.0) 0.4 mg/dL (0.2-1.0) Aspartate Amino Transf (AST/SGOT) 29 U/L (15-37) 22 U/L (15-37) Alanine Aminotransferase (ALT/SGPT) 22 U/L (16-63) 18 U/L (16-63) Alkaline Phosphatase 73 U/L (46-116) 63 U/L (46-116) Total Protein 8.5 g/dL (6.4-8.2) 7.2 g/dL (6.4-8.2) Albumin 2.4 g/dL (3.4-5.0) 2.1 g/dL (3.4-5.0) Albumin/Globulin Ratio 0.4 (1.0-1.7) 0.4 (1.0-1.7) Procalcitonin 0.55 ng/mL (0.00-0.10) Glucose (Fingerstick) 111 mg/dL (70-99) 85 mg/dL (70-99) Laboratory Tests Test 11/25/18 20:25 11/26/18 02:00 11/26/18 03:05 11/26/18 07:56 White Blood Count 10.4 x10^3/uL (4.0-11.0) 11.7 x10^3/uL (4.0-11.0) Red Blood Count 4.09 x10^6/uL (4.30-5.70) 3.61 x10^6/uL (4.30-5.70) Hemoglobin 10.8 g/dL (13.0-17.5) 9.4 g/dL (13.0-17.5) Hematocrit 32.8 % (39.0-53.0) 28.7 % (39.0-53.0) Mean Corpuscular Volume 80 fL (79-100) 80 fL (79-100) Mean Corpuscular Hemoglobin 26 pg (25-35) 26 pg (25-35) Mean Corpuscular Hemoglobin Concent 33 g/dL (31-37) 33 g/dL (31-37) Red Cell Distribution Width 17.4 % (11.5-14.5) 17.2 % (11.5-14.5) Platelet Count 317 x10^3/uL (140-400) 298 x10^3/uL (140-400) Neutrophils (%) (Auto) 72 % (31-73) 80 % (31-73) Lymphocytes (%) (Auto) 15 % (24-48) 9 % (24-48) Monocytes (%) (Auto) 12 % (0-9) 10 % (0-9) Eosinophils (%) (Auto) 0 % (0-3) 1 % (0-3) Basophils (%) (Auto) 0 % (0-3) 1 % (0-3) Neutrophils # (Auto) 7.5 x10^3/uL (1.8-7.7) 9.4 x10^3/uL (1.8-7.7) Lymphocytes # (Auto) 1.6 x10^3/uL (1.0-4.8) 1.1 x10^3/uL (1.0-4.8) Monocytes # (Auto) 1.3 x10^3/uL (0.0-1.1) 1.1 x10^3/uL (0.0-1.1) Eosinophils # (Auto) 0.0 x10^3/uL (0.0-0.7) 0.1 x10^3/uL (0.0-0.7) Basophils # (Auto) 0.0 x10^3/uL (0.0-0.2) 0.1 x10^3/uL (0.0-0.2) Sodium Level 130 mmol/L (136-145) 130 mmol/L (136-145) Potassium Level 3.2 mmol/L (3.5-5.1) 3.4 mmol/L (3.5-5.1) Chloride Level 96 mmol/L (98-107) 99 mmol/L (98-107) Carbon Dioxide Level 23 mmol/L (21-32) 21 mmol/L (21-32) Anion Gap 11 (6-14) 10 (6-14) Blood Urea Nitrogen 19 mg/dL (8-26) 23 mg/dL (8-26) Creatinine 1.9 mg/dL (0.7-1.3) 2.0 mg/dL (0.7-1.3) Estimated GFR (Cockcroft-Gault) 36.3 34.3 BUN/Creatinine Ratio 10 (6-20) 12 (6-20) Glucose Level 136 mg/dL (70-99) 153 mg/dL (70-99) Lactic Acid Level 1.5 mmol/L (0.4-2.0) 1.1 mmol/L (0.4-2.0) Calcium Level 8.8 mg/dL (8.5-10.1) 8.3 mg/dL (8.5-10.1) Total Bilirubin 0.4 mg/dL (0.2-1.0) 0.4 mg/dL (0.2-1.0) Aspartate Amino Transf (AST/SGOT) 29 U/L (15-37) 22 U/L (15-37) Alanine Aminotransferase (ALT/SGPT) 22 U/L (16-63) 18 U/L (16-63) Alkaline Phosphatase 73 U/L (46-116) 63 U/L (46-116) Total Protein 8.5 g/dL (6.4-8.2) 7.2 g/dL (6.4-8.2) Albumin 2.4 g/dL (3.4-5.0) 2.1 g/dL (3.4-5.0) Albumin/Globulin Ratio 0.4 (1.0-1.7) 0.4 (1.0-1.7) Procalcitonin 0.55 ng/mL (0.00-0.10) Glucose (Fingerstick) 111 mg/dL (70-99) 85 mg/dL (70-99) VTE Prophylaxis Ordered VTE Prophylaxis Devices: Yes VTE Pharmacological Prophylaxi: Yes SUZY CAMERON MD Nov 26, 2018 14:59
[2018-11-26] MEDS ORDERED: VANCOMYCIN 2 GM in IV NORMAL SALINE 500ML BAG 500 ML IV SCH (22:00)
== END 2018-11-26 11:00 | disposition left against medical advice (07) ==
LOC: ER 20:00 → ED HOLD 23:23 → UNDOADMIN 23:23
DX: N17.9 Acute kidney failure, unspecified (principal); L03.115 Cellulitis of right lower limb; L02.611 Cutaneous abscess of right foot; E11.65 Type 2 diabetes mellitus with hyperglycemia; Z89.431 Acquired absence of right foot; Z88.6 Allergy status to analgesic agent; Z88.8 Allergy status to other drugs, medicaments and biological substances
CPT/HCPCS: 99285; J2543; J3010; J3370; J7030; J7040; 36415; 73630; 80053; 82962; 83605; 84145; 85025; 87040; 87071; 87075; 87077; 87186; 87205; 96365; 96366; 96367; 96368; 96375; 96376

== ENCOUNTER 2018-11-28 19:48 | Inpatient (IN) | payer MEDICARE, OTHER ==
[~2018-11-28] VITALS: Ht 193 cm; Wt 127.0 kg
[~2018-11-28 19:48] MED LIST changes: +AMOX1TAB61 PO; +CIPR500T94 PO; +CYCL10TA2 PO; +DULO30CA2 PO; +HYDR50CA2 PO; +INSU100V13 SQ; +METH10TA2 PO; +OXYC5CAP PO; +PREG100C PO; +RANI-376 PO
[2018-11-28] MEDS ORDERED: VANCOMYCIN 1GM IVPB FOR OMNI 250 ML IV ONE (21:00)
[2018-11-28 21:10] LABS: BASO % 1 % (0-3); EOS # 0.2 x10^3/uL (0.0-0.7); EOS % 3 % (0-3); HEMATOCRIT 33.2 % (39.0-53.0); HEMOGLOBIN 10.9 g/dL (13.0-17.5); LYMPH # 1.6 x10^3/uL (1.0-4.8); LYMPH % 26 % (24-48); MEAN CORPUSCULAR HEMOGLOBIN 26 pg (25-35); MEAN CORPUSCULAR HGB CONC 33 g/dL (31-37); MEAN CORPUSCULAR VOLUME 80 fL (79-100); MONO # 0.8 x10^3/uL (0.0-1.1); MONO % 14 % (0-9); NEUT # 3.3 x10^3/uL (1.8-7.7); NEUT % 56 % (31-73); PLATELET COUNT 334 x10^3/uL (140-400); RED BLOOD COUNT 4.17 x10^6/uL (4.30-5.70); RED CELL DISTRIBUTION WIDTH 17.4 % (11.5-14.5)
[2018-11-28 21:37] LABS: CREATININE 1.2 mg/dL (0.7-1.3); GFR 61.8; POTASSIUM 3.1 mmol/L (3.5-5.1)
--- NOTE | 2018-11-28 21:39 | PHYS DOC ---
Past Medical History Past Medical History: Anxiety, Depression, Diabetes-Type II, GERD, Hypertension, Other Additional Past Medical Histor: NEUROPATHY, HERNIATED DISCS, CHRONIC PAIN Past Surgical History: Other Additional Past Surgical Histo: RIGHT TOES AMPUTATED 09/17/18 Alcohol Use: None Drug Use: None Adult General Chief Complaint Chief Complaint: LOWER EXTREMITY SWELLING HPI HPI Patient is a 58 year old male with history of diabetes mellitus and right toes amputation about 6 months ago who presents with feeling of pain and swelling of right foot. Patient complaining of pain and swelling of right foot that started several days ago and seen by primary care physician was told to come to the hospital and was seen in this emergency room 2 nights ago and treated with antibiotic without improvement of his condition. Patient states the edema and erythema and pain getting worse. Patient denies fever and chills, nausea and vomiting, chest pain or shortness of breath. Review of Systems Review of Systems Constitutional: Denies fever or chills [] Eyes: Denies change in visual acuity, redness, or eye pain [] HENT: Denies nasal congestion or sore throat [] Respiratory: Denies cough or shortness of breath [] Cardiovascular: No additional information not addressed in HPI [] GI: Denies abdominal pain, nausea, vomiting, bloody stools or diarrhea [] : Denies dysuria or hematuria [] Musculoskeletal: Denies back pain, reports joint pain [] Integument: Denies rash or skin lesions [] Neurologic: Denies headache, focal weakness or sensory changes [] Endocrine: Denies polyuria or polydipsia [] All other systems were reviewed and found to be within normal limits, except as documented in this note. Current Medications Current Medications Current Medications Medications (Trade) Dose Ordered Sig/Olesya Start Time Stop Time Status Last Admin Dose Admin Cefazolin Sodium/ Dextrose 50 ml @ 100 mls/hr 1X ONCE 11/28/18 21:00 11/28/18 21:29 DC 11/28/18 21:54 100 MLS/HR Vancomycin HCl 250 ml @ 250 mls/hr 1X ONCE 11/28/18 21:00 11/28/18 21:59 DC 11/28/18 22:20 250 MLS/HR Allergies Allergies Allergies Coded Allergies Type Severity Reaction Last Updated Verified aspirin Allergy Intermediate 05/21/16 Yes gabapentin Allergy Intermediate 05/21/16 Yes Physical Exam Physical Exam Constitutional: Well developed, well nourished, mild distress, non-toxic appearance. [] HENT: Normocephalic, atraumatic. Eyes: PERRLA, EOMI, conjunctiva normal, no discharge. [] Neck: Normal range of motion, no tenderness, supple, no stridor. [] Cardiovascular:Heart rate regular rhythm, no murmur [] Lungs & Thorax: Bilateral breath sounds clear to auscultation [] Abdomen: Bowel sounds normal, soft, no tenderness, no masses, no pulsatile masses. [] Skin: Warm, dry, no erythema, no rash. [] Back: No tenderness, no CVA tenderness. [] Extremities: Right foot with missing WITH moderate edema and erythema and mild tenderness with warmth Neurologic: Alert and oriented X 3, no focal deficits noted. [] Psychologic: Affect normal, judgement normal, mood normal. [] Current Patient Data Vital Signs Vital Signs Date Time Temp Pulse Resp B/P (MAP) Pulse Ox O2 Delivery O2 Flow Rate FiO2 11/28/18 21:31 101 153/118 (130) 11/28/18 20:00 97.3 20 97 Room Air 97.3 Lab Values Laboratory Tests Test 11/28/18 20:55 White Blood Count 6.0 x10^3/uL (4.0-11.0) Red Blood Count 4.17 x10^6/uL (4.30-5.70) L Hemoglobin 10.9 g/dL (13.0-17.5) L Hematocrit 33.2 % (39.0-53.0) L Mean Corpuscular Volume 80 fL (79-100) Mean Corpuscular Hemoglobin 26 pg (25-35) Mean Corpuscular Hemoglobin Concent 33 g/dL (31-37) Red Cell Distribution Width 17.4 % (11.5-14.5) H Platelet Count 334 x10^3/uL (140-400) Neutrophils (%) (Auto) 56 % (31-73) Lymphocytes (%) (Auto) 26 % (24-48) Monocytes (%) (Auto) 14 % (0-9) H Eosinophils (%) (Auto) 3 % (0-3) Basophils (%) (Auto) 1 % (0-3) Neutrophils # (Auto) 3.3 x10^3/uL (1.8-7.7) Lymphocytes # (Auto) 1.6 x10^3/uL (1.0-4.8) Monocytes # (Auto) 0.8 x10^3/uL (0.0-1.1) Eosinophils # (Auto) 0.2 x10^3/uL (0.0-0.7) Basophils # (Auto) 0.0 x10^3/uL (0.0-0.2) Sodium Level 134 mmol/L (136-145) L Potassium Level 3.1 mmol/L (3.5-5.1) L Chloride Level 98 mmol/L (98-107) Carbon Dioxide Level 26 mmol/L (21-32) Anion Gap 10 (6-14) Blood Urea Nitrogen 13 mg/dL (8-26) Creatinine 1.2 mg/dL (0.7-1.3) Estimated GFR (Cockcroft-Gault) 61.8 BUN/Creatinine Ratio 11 (6-20) Glucose Level 141 mg/dL (70-99) H Lactic Acid Level 1.5 mmol/L (0.4-2.0) Calcium Level 9.0 mg/dL (8.5-10.1) Total Bilirubin 0.2 mg/dL (0.2-1.0) Aspartate Amino Transferase (AST) 32 U/L (15-37) Alanine Aminotransferase (ALT) 29 U/L (16-63) Alkaline Phosphatase 85 U/L (46-116) Total Protein 9.0 g/dL (6.4-8.2) H Albumin 2.4 g/dL (3.4-5.0) L Albumin/Globulin Ratio 0.4 (1.0-1.7) L Laboratory Tests 11/28/18 20:55 Laboratory Tests 11/28/18 20:55 EKG EKG [] Radiology/Procedures Radiology/Procedures [facility] [address] [place] [address] IMAGING REPORT Signed PATIENT: FLORINDA MIMS ACCOUNT: [id number] : 1960 LOCATION: ER AGE: 58 SEX: M EXAM STATUS: REG ER ORD. PHYSICIAN: EL ZAPIEN MD REASON: diabetic foot PROCEDURE: FOOT RIGHT 3V Indication:Diabetic foot. TECHNIQUE: 3 views of the right foot COMPARISON: 11/25/2018 FINDINGS: Status post partial foot amputation. Stable soft tissue gas is seen in the distal stump. Cortical erosions are seen in the distal tarsal bones. Diffuse soft tissue edema noted. IMPRESSION: Findings are concerning for osteomyelitis of the residual tarsal bones. Stable soft tissue emphysema concerning for anaerobic infection. Findings not significantly changed compared to previous exam from 11/25/2018. Electronically signed by: Caesar Lazar DO (11/28/2018 9:44 PM) [facility] DICTATED and SIGNED BY: CAESAR LAZAR DO DATE: 11/28/182143 Course & Med Decision Making Course & Med Decision Making Pertinent Labs and Imaging studies reviewed. (See chart for details) Evaluation of patient in ER showed 58-year-old male patient with history of diabetes mellitus and right toes amputation presented with complaining of increasing edema and tenderness and erythema right foot that did not get better with outpatient treatment. Patient was afebrile in ER and did not have hypotension or elevation of lactic acid. X-ray was concern for possible osteomyelitis. Patient requiring admission for further evaluation and treatment. Discussed with Dr. Madsen who is in agreement with admission. Discussed findings and plan with patient and family, who acknowledge understanding and agreement. Dragon Disclaimer Dragon Disclaimer This electronic medical record was generated, in whole or in part, using a voice recognition dictation system. Departure Departure Impression: Primary Impression: Diabetic foot ulcer Additional Impressions: Status post transmetatarsal amputation of right foot Hypokalemia Anemia Osteomyelitis of foot Disposition: ADMITTED INPATIENT (at 2056) Admitting Physician: LYNSEY (Dr Madsen accepted admission at 2055) Condition: IMPROVED Referrals: UNKNOWN PCP NAME (PCP) Problem Qualifiers Primary Impression: Diabetic foot ulcer Diabetic foot ulcer location: unspecified part of foot Diabetes mellitus type: type 2 Laterality: right Non-pressure ulcer stage: unspecified non-pressure ulcer stage Qualified Codes: E11.621 - Type 2 diabetes mellitus with foot ulcer; L97.519 - Non-pressure chronic ulcer of other part of right foot with unspecified severity Additional Impressions: Anemia Anemia type: unspecified type Qualified Codes: D64.9 - Anemia, unspecified Osteomyelitis of foot Osteomyelitis type: unspecified type Laterality: right Qualified Codes: M86.9 - Osteomyelitis, unspecified EL ZAPIEN MD Nov 28, 2018 21:39
[2018-11-28 21:43] LABS: ALBUMIN 2.4 g/dL (3.4-5.0); ALBUMIN/GLOBULIN RATIO 0.4 (1.0-1.7); TOTAL BILIRUBIN 0.2 mg/dL (0.2-1.0)
--- NOTE | 2018-11-28 21:47 | RAD ---
Indication:Diabetic foot. TECHNIQUE: 3 views of the right foot COMPARISON: 11/25/2018 FINDINGS: Status post partial foot amputation. Stable soft tissue gas is seen in the distal stump. Cortical erosions are seen in the distal tarsal bones. Diffuse soft tissue edema noted. IMPRESSION: Findings are concerning for osteomyelitis of the residual tarsal bones. Stable soft tissue emphysema concerning for anaerobic infection. Findings not significantly changed compared to previous exam from 11/25/2018. Electronically signed by: Caesar Lazar DO (11/28/2018 9:44 PM) [facility]
[2018-11-28 22:50] VITALS: BP 141/82
--- NOTE | 2018-11-28 22:56 | NUR ---
The patient, FLORINDA MIMS, 58 y/o, M admitted by JAGUAR VIDALES MD, was given written information regarding hospital policies, unit procedures and contact persons. Valuables were checked and left with him.
[2018-11-29] MEDS ORDERED: DEXTROSE 50% 25 GM / 50ML DISP.SYRIN. IV PRN (01:15)
[2018-11-29] MEDS: fentaNYL PF VIAL 100 MCG/2 ML VIAL IV PRN ×3 (02:49→22:34)
[2018-11-29 03:00] VITALS: BP 122/52
[2018-11-29 07:00] VITALS: BP 140/58
[2018-11-29] MEDS ORDERED: INSULIN LISPRO 300 UNITS/3 ML VIAL. SQ SCH (08:00)
[2018-11-29] MEDS ORDERED: fentaNYL PF VIAL 100 MCG/2 ML VIAL IV PRN (08:15)
[2018-11-29] MEDS ORDERED: ACETAMINOPHEN 500 MG TABLET PO PRN (08:15)
[2018-11-29] MEDS ORDERED: traMADol 50 MG TABLET PO PRN (08:15)
[2018-11-29] MEDS: INSULIN GLARGINE SYRINGE. SQ SCH ×2 (08:26→20:31)
[2018-11-29] MEDS: INSULIN LISPRO 300 UNITS/3 ML VIAL. SQ SCH ×3 (08:26→16:50)
[2018-11-29] MEDS: CYCLOBENZAPRINE 10 MG TABLET. PO SCH ×2 (08:41→20:28)
[2018-11-29] MEDS: hydroCHLOROthiazide 25 MG TABLET PO SCH (08:41)
[2018-11-29] MEDS: FAMOTIDINE 20 MG TABLET. PO SCH ×2 (08:42→20:30)
[2018-11-29] MEDS: LINAGLIPTIN 5 MG TABLET PO SCH (08:42)
[2018-11-29] MEDS: LISINOPRIL 20 MG TABLET PO SCH (08:42)
[2018-11-29] MEDS: DULoxetine HCL 30 MG CAPSULE.DR PO SCH ×2 (08:42→20:30)
[2018-11-29] MEDS: PREGABALIN 50 MG CAPSULE PO SCH ×2 (08:42→20:30)
[2018-11-29] MEDS: levETIRAcetam 500 MG TABLET PO SCH ×2 (08:42→20:29)
[2018-11-29] MEDS: METHADONE 10 MG TABLET. PO SCH ×3 (08:42→20:29)
[2018-11-29] MEDS: hydrOXYzine 25 MG TABLET PO SCH (08:43)
[2018-11-29] MEDS ORDERED: [UNRECOGNIZED DRUG - OTHER] PO SCH (09:00)
[2018-11-29] MEDS ORDERED: NON FORMULARY ITEM (Duloxetine Hcl (Cymbalta) 60 MG) PO SCH (09:00)
[2018-11-29] MEDS ORDERED: LISINOPRIL PO SCH (09:00)
[2018-11-29] MEDS ORDERED: HYDROCHLOROTHIAZIDE PO SCH (09:00)
[2018-11-29] MEDS ORDERED: PIP/TAZO PER PHARMACY MC PRN (10:15)
--- NOTE | 2018-11-29 10:16 | PDOC1 ---
History and Physical Date of Admission Date of Admission DATE: 11/29/18 TIME: 10:10 Identification/Chief Complaint Chief Complaint Foot pain, right Source Source: Caregiver, Chart review, Patient History of Present Illness History of Present Illness 58-year-old male with diabetes with unknown A1c but claims blood sugars at home runs between 1 50s to 200s at home, has history of all toes amputated on the right done one and half months ago at [place] in [place]. Decides to come here because he's closer to home here and has right foot pain and on imaging at the emergency room was found to have high likelihood of oste omyelitis involving that right foot hence subsequently admitted. He has minimal pain in that area. Blood sugars are not too bad but A1c I have ordered and still pending. We will consult ID and orthopedics Get records from [facility] in [place] regarding his similar issues one and half months ago. He denies needing IV antibiotics prolonged PICC line etc. one and half months ago Hemoglobin and, WBC 6, sodium 134 with potassium 3.1. He is nontoxic appearing Past Medical History Cardiovascular: HTN Musculoskeletal: low back pain Endocrine: Diabetes Past Surgical History Past Surgical History: Other (all rt toes amputated 1,5 mos ago [facility]) Family History Family History: Diabetes, High Cholestrol, Hypertension Social History Smoke: No ALCOHOL: none Drugs: None Current Problem List Problem List Problems Medical Problems: (1) Anemia Status: Acute (2) Osteomyelitis of foot Status: Acute Current Medications Current Medications Current Medications Cefazolin Sodium/ Dextrose 50 ml @ 100 mls/hr 1X ONCE IV Last administered on 11/28/18at 21:54; Start 11/28/18 at 21:00; Stop 11/28/18 at 21:29; Status DC Vancomycin HCl 250 ml @ 250 mls/hr 1X ONCE IV Last administered on 11/28/18at 22:20; Start 11/28/18 at 21:00; Stop 11/28/18 at 21:59; Status DC Fentanyl Citrate (Fentanyl 2ml Vial) 50 mcg PRN Q2HR PRN IV SEVERE PAIN 7-10 Last administered on 11/29/18at 05:06; Start 11/29/18 at 01:00 Insulin Human Lispro (HumaLOG) 0-5 UNITS TIDWMEALS SQ ; Start 11/29/18 at 08:00; Stop 11/29/18 at 08:12; Status DC Dextrose (Dextrose 50%-Water Syringe) 12.5 gm PRN Q15MIN PRN IV SEE COMMENTS; Start 11/29/18 at 01:15 Insulin Human Lispro (HumaLOG) 0-9 UNITS TIDWMEALS SQ ; Start 11/29/18 at 09:00 Dextrose (Dextrose 50%-Water Syringe) 12.5 gm PRN Q15MIN PRN IV SEE COMMENTS; Start 11/29/18 at 08:15 Acetaminophen (Tylenol) 500 mg PRN Q6HRS PRN PO MILD PAIN / TEMP; Start 11/29/18 at 08:15 Fentanyl Citrate (Fentanyl 2ml Vial) 50 mcg PRN Q2HR PRN IV PAIN; Start 11/29/18 at 08:15 Tramadol HCl (Ultram) 50 mg PRN Q6HRS PRN PO PAIN; Start 11/29/18 at 08:15 Zolpidem Tartrate (Ambien) 5 mg PRN QHS PRN PO INSOMNIA; Start 11/29/18 at 08: 15 Cyclobenzaprine HCl (Flexeril) 10 mg BID PO ; Start 11/29/18 at 09:00 Duloxetine HCl (Cymbalta) 30 mg BID PO Last administered on 11/29/18at 08:42; Start 11/29/18 at 09:00 Levetiracetam (Keppra) 500 mg BID PO Last administered on 11/29/18at 08:42; Start 11/29/18 at 09:00 Methadone HCl (Dolophine) 10 mg TID PO Last administered on 11/29/18at 08:42; Start 11/29/18 at 09:00 Non-Formulary Medication (Duloxetine Hcl (Cymbalta)) 60 mg DAILY PO ; Start 11/29/18 at 09:00; Status UNV Insulin Glargine (Lantus Syringe) 20 unit BID SQ ; Start 11/29/18 at 09:00 Non-Formulary Medication (Lisinopril/ Hydrochlorothiazide (Lisinopril-Hctz 20-12.5 Mg Tab)) 2 tab DAILY PO ; Start 11/29/18 at 09:00; Status UNV Oxycodone HCl (Roxicodone) 10 mg PRN Q6HRS PRN PO SEVERE PAIN; Start 11/29/18 at 08:30 Pregabalin (Lyrica) 100 mg BID PO Last administered on 11/29/18at 08:42; Start 11/29/18 at 09:00 Famotidine (Pepcid) 20 mg BID PO Last administered on 11/29/18at 08:42; Start 11/29/18 at 09:00 Linagliptin (Tradjenta) 5 mg DAILY PO Last administered on 11/29/18 08:42; Start 11/29/18 at 09:00 Hydroxyzine HCl (Atarax) 50 mg DAILY PO Last administered on 11/29/18at 08:43; Start 11/29/18 at 09:00 Lisinopril (Prinivil) 40 mg DAILY PO Last administered on 11/29/18at 08:42; Start 11/29/18 at 09:00 Hydrochlorothiazide (Hydrodiuril) 25 mg DAILY PO ; Start 11/29/18 at 09:00 Active Scripts Active Keppra (Levetiracetam) 500 Mg Tablet 500 Mg PO BID 30 Days Reported Oxycodone Hcl 5 Mg Capsule 10 Mg PO PRN Q6HRS PRN Methadone Hcl 10 Mg Tablet 10 Mg PO TID Lyrica (Pregabalin) 100 Mg Capsule 100 Mg PO BID Zantac (Ranitidine Hcl) 150 Mg Tablet 150 Mg PO BID Hydroxyzine Pamoate 50 Mg Capsule 50 Mg PO Cyclobenzaprine Hcl 10 Mg Tablet 10 Mg PO BID Cymbalta (Duloxetine Hcl) 30 Mg Capsule.dr 30 Mg PO BID Augmentin 875-125 Tablet (Amoxicillin/Potassium Clav) 1 Each Tablet 1 Tab PO BID Cipro (Ciprofloxacin Hcl) 500 Mg Tablet 500 Mg PO BID Levemir (Insulin Detemir) 100 Unit/1 Ml Vial 20 Unit SQ BID Cymbalta (Duloxetine Hcl) 60 Mg Capsule.dr 60 Mg PO DAILY Tramadol Hcl 50 Mg Tablet 100 Mg PO Q6H PRN Lisinopril-Hctz 20-12.5 Mg Tab (Lisinopril/Hydrochlorothiazide) 1 Each Tablet 2 Tab PO DAILY Januvia (Sitagliptin Phosphate) 100 Mg Tablet 100 Mg PO DAILY Allergies Allergies: Coded Allergies: aspirin (Verified Allergy, Intermediate, 05/21/16) gabapentin (Verified Allergy, Intermediate, 05/21/16) morphine (Verified Allergy, Intermediate, 11/29/18) ROS Review of System chronic bilateral legs neuropathy otherwise rest of ROS 14 point negative Physical Exam General: Alert, Oriented X3, Cooperative, No acute distress HEENT: Atraumatic, PERRLA, EOMI Lungs: Clear to auscultation, Normal air movement Heart: S1S2, RRR, no thrills, no rubs, no gallops, no murmurs Cardiovascular: S1, S2 Abdomen: Normal bowel sounds, Soft, No tenderness, No hepatosplenomegaly, No masses Male Genitals Exam: normal genitalia, normal prostate Rectal Exam: not examined PELVIC: Nml ext genitalia Skin: Other (all right toes amputated, dressing, lesions or juicy Wet, poor overall hygiene) Neuro: Normal gait, Normal speech, Strength at 5/5 X4 ext, Normal tone, Sensation intact, Cranial nerves 3-12 NL, Reflexes 2+ Psych/Mental Status: Mental status NL, Mood NL Vitals Vitals Vital Signs Date Time Temp Pulse Resp B/P (MAP) Pulse Ox O2 Delivery O2 Flow Rate FiO2 11/29/18 08:42 72 140/58 11/29/18 07:41 Room Air 11/29/18 07:00 97.8 16 99 97.8 Labs Labs Laboratory Tests Test 11/28/18 20:55 11/29/18 07:14 White Blood Count 6.0 x10^3/uL (4.0-11.0) Red Blood Count 4.17 x10^6/uL (4.30-5.70) Hemoglobin 10.9 g/dL (13.0-17.5) Hematocrit 33.2 % (39.0-53.0) Mean Corpuscular Volume 80 fL (79-100) Mean Corpuscular Hemoglobin 26 pg (25-35) Mean Corpuscular Hemoglobin Concent 33 g/dL (31-37) Red Cell Distribution Width 17.4 % (11.5-14.5) Platelet Count 334 x10^3/uL (140-400) Neutrophils (%) (Auto) 56 % (31-73) Lymphocytes (%) (Auto) 26 % (24-48) Monocytes (%) (Auto) 14 % (0-9) Eosinophils (%) (Auto) 3 % (0-3) Basophils (%) (Auto) 1 % (0-3) Neutrophils # (Auto) 3.3 x10^3/uL (1.8-7.7) Lymphocytes # (Auto) 1.6 x10^3/uL (1.0-4.8) Monocytes # (Auto) 0.8 x10^3/uL (0.0-1.1) Eosinophils # (Auto) 0.2 x10^3/uL (0.0-0.7) Basophils # (Auto) 0.0 x10^3/uL (0.0-0.2) Sodium Level 134 mmol/L (136-145) Potassium Level 3.1 mmol/L (3.5-5.1) Chloride Level 98 mmol/L (98-107) Carbon Dioxide Level 26 mmol/L (21-32) Anion Gap 10 (6-14) Blood Urea Nitrogen 13 mg/dL (8-26) Creatinine 1.2 mg/dL (0.7-1.3) Estimated GFR (Cockcroft-Gault) 61.8 BUN/Creatinine Ratio 11 (6-20) Glucose Level 141 mg/dL (70-99) Lactic Acid Level 1.5 mmol/L (0.4-2.0) Calcium Level 9.0 mg/dL (8.5-10.1) Total Bilirubin 0.2 mg/dL (0.2-1.0) Aspartate Amino Transf (AST/SGOT) 32 U/L (15-37) Alanine Aminotransferase (ALT/SGPT) 29 U/L (16-63) Alkaline Phosphatase 85 U/L (46-116) Total Protein 9.0 g/dL (6.4-8.2) Albumin 2.4 g/dL (3.4-5.0) Albumin/Globulin Ratio 0.4 (1.0-1.7) Glucose (Fingerstick) 95 mg/dL (70-99) Laboratory Tests Test 11/28/18 20:55 11/29/18 07:14 White Blood Count 6.0 x10^3/uL (4.0-11.0) Red Blood Count 4.17 x10^6/uL (4.30-5.70) Hemoglobin 10.9 g/dL (13.0-17.5) Hematocrit 33.2 % (39.0-53.0) Mean Corpuscular Volume 80 fL (79-100) Mean Corpuscular Hemoglobin 26 pg (25-35) Mean Corpuscular Hemoglobin Concent 33 g/dL (31-37) Red Cell Distribution Width 17.4 % (11.5-14.5) Platelet Count 334 x10^3/uL (140-400) Neutrophils (%) (Auto) 56 % (31-73) Lymphocytes (%) (Auto) 26 % (24-48) Monocytes (%) (Auto) 14 % (0-9) Eosinophils (%) (Auto) 3 % (0-3) Basophils (%) (Auto) 1 % (0-3) Neutrophils # (Auto) 3.3 x10^3/uL (1.8-7.7) Lymphocytes # (Auto) 1.6 x10^3/uL (1.0-4.8) Monocytes # (Auto) 0.8 x10^3/uL (0.0-1.1) Eosinophils # (Auto) 0.2 x10^3/uL (0.0-0.7) Basophils # (Auto) 0.0 x10^3/uL (0.0-0.2) Sodium Level 134 mmol/L (136-145) Potassium Level 3.1 mmol/L (3.5-5.1) Chloride Level 98 mmol/L (98-107) Carbon Dioxide Level 26 mmol/L (21-32) Anion Gap 10 (6-14) Blood Urea Nitrogen 13 mg/dL (8-26) Creatinine 1.2 mg/dL (0.7-1.3) Estimated GFR (Cockcroft-Gault) 61.8 BUN/Creatinine Ratio 11 (6-20) Glucose Level 141 mg/dL (70-99) Lactic Acid Level 1.5 mmol/L (0.4-2.0) Calcium Level 9.0 mg/dL (8.5-10.1) Total Bilirubin 0.2 mg/dL (0.2-1.0) Aspartate Amino Transf (AST/SGOT) 32 U/L (15-37) Alanine Aminotransferase (ALT/SGPT) 29 U/L (16-63) Alkaline Phosphatase 85 U/L (46-116) Total Protein 9.0 g/dL (6.4-8.2) Albumin 2.4 g/dL (3.4-5.0) Albumin/Globulin Ratio 0.4 (1.0-1.7) Glucose (Fingerstick) 95 mg/dL (70-99) VTE Prophylaxis Ordered VTE Prophylaxis Devices: Yes VTE Pharmacological Prophylaxi: Yes Assessment/Plan Assessment/Plan OsteoMyelitis right foot Diabetes type 2 unknown A1c Diabetes type 2 with neuropathy History of all toes AMPUTATION, rt foot one and half months ago [facility] Plan consult ID, consult Ortho, get records from [facility] Antibiotics Sliding scale insulin, check A1c I have reconciled home meds Further conditions pending course wound care I have undressed and personally inspected the wound Full code time >40 JAGUAR VIDALES MD Nov 29, 2018 10:16
[2018-11-29] MEDS ORDERED: POTASSIUM CHLORIDE 20 MEQ TABLET.ER. PO ONE (10:30)
[2018-11-29 11:00] VITALS: BP 107/68
[2018-11-29] MEDS ORDERED: VANCOMYCIN 2 GM in IV NORMAL SALINE 500ML BAG 500 ML IV ONE (11:00)
[2018-11-29] MEDS: PIPERACILLIN/TAZOBACTAM 4.5 GM in IV NORMAL SALINE 100ML 100 ML IV SCH ×3 (11:23→23:12)
[2018-11-29] MEDS: oxyCODONE IR 5 MG TABLET PO PRN ×2 (12:39→20:30)
--- NOTE | 2018-11-29 14:07 | PDOC ---
Infectious Disease Note Vital Sign Vital Signs Vital Signs Date Time Temp Pulse Resp B/P (MAP) Pulse Ox O2 Delivery O2 Flow Rate FiO2 11/29/18 12:39 99 Room Air 11/29/18 11:00 97.7 74 16 107/68 (81) 97.7 Labs Lab Laboratory Tests Test 11/28/18 20:55 11/29/18 07:14 11/29/18 11:24 White Blood Count 6.0 x10^3/uL (4.0-11.0) Red Blood Count 4.17 x10^6/uL (4.30-5.70) Hemoglobin 10.9 g/dL (13.0-17.5) Hematocrit 33.2 % (39.0-53.0) Mean Corpuscular Volume 80 fL (79-100) Mean Corpuscular Hemoglobin 26 pg (25-35) Mean Corpuscular Hemoglobin Concent 33 g/dL (31-37) Red Cell Distribution Width 17.4 % (11.5-14.5) Platelet Count 334 x10^3/uL (140-400) Neutrophils (%) (Auto) 56 % (31-73) Lymphocytes (%) (Auto) 26 % (24-48) Monocytes (%) (Auto) 14 % (0-9) Eosinophils (%) (Auto) 3 % (0-3) Basophils (%) (Auto) 1 % (0-3) Neutrophils # (Auto) 3.3 x10^3/uL (1.8-7.7) Lymphocytes # (Auto) 1.6 x10^3/uL (1.0-4.8) Monocytes # (Auto) 0.8 x10^3/uL (0.0-1.1) Eosinophils # (Auto) 0.2 x10^3/uL (0.0-0.7) Basophils # (Auto) 0.0 x10^3/uL (0.0-0.2) Sodium Level 134 mmol/L (136-145) Potassium Level 3.1 mmol/L (3.5-5.1) Chloride Level 98 mmol/L (98-107) Carbon Dioxide Level 26 mmol/L (21-32) Anion Gap 10 (6-14) Blood Urea Nitrogen 13 mg/dL (8-26) Creatinine 1.2 mg/dL (0.7-1.3) Estimated GFR (Cockcroft-Gault) 61.8 BUN/Creatinine Ratio 11 (6-20) Glucose Level 141 mg/dL (70-99) Lactic Acid Level 1.5 mmol/L (0.4-2.0) Calcium Level 9.0 mg/dL (8.5-10.1) Total Bilirubin 0.2 mg/dL (0.2-1.0) Aspartate Amino Transf (AST/SGOT) 32 U/L (15-37) Alanine Aminotransferase (ALT/SGPT) 29 U/L (16-63) Alkaline Phosphatase 85 U/L (46-116) Total Protein 9.0 g/dL (6.4-8.2) Albumin 2.4 g/dL (3.4-5.0) Albumin/Globulin Ratio 0.4 (1.0-1.7) Glucose (Fingerstick) 95 mg/dL (70-99) 123 mg/dL (70-99) Micro 11/25. BLOOD CULTURE Final GRAM POSITIVE COCCI IN CLUSTERS IN 1 OF 4 BOTTLES (2 SETS COLLECTED). CALLED TO SAMIR HERNÁNDEZ IN ER 11/27/18 AT 0948 BY Larry BHATTI. CULTURE HAS BEEN SENT TO [facility] FOR FURTHER IDENTIFICATION. 11/25. AEROBIC RES 1 Preliminary Staphylococcus aureus Objective Assessment GPC bacteremia from 11/25. Repeat BC 11/26 NGTD Infected diabetic ulcer w/ OM, right foot. Staph aureus so far s/p TMA right foot around August 2018 at [facility] quit OP IV abx due to transportation issues and was switched to orals Peripheral neuropathy HTN Plan Plan of Care Continue vancomycin and Zosyn Monitor renal function closely ESR Repeat BC have been ordered Local wound care and offloading Records from [facility] requested Awaiting ortho eval D/w nursing Thank you [phone] Patient seen and examined. Chart reviewed in detail. Case discussed with AGILE BUSINESS ANALYST. Agree with above plan. KRISTIE GREENE APRN Nov 29, 2018 14:07 CODEY BOOTH MD Nov 29, 2018 19:33
[2018-11-29 15:00] VITALS: BP 110/61
[2018-11-29] MEDS: VANCOMYCIN PER PHARMACY MC PRN ×2 (15:06→15:08)
--- NOTE | 2018-11-29 15:07 | NUR ---
Pharmacy Vancomycin Dosing Note S:Consulted to monitor and dose vancomycin started 11/29/18. O:FLORINDA MIMS is a 58 year old M with Osteomyelitis DFU S/P TMA . Height: 6 feet, 4 inches Weight: 127.580978 kg [place] Body Weight: 86.80 Adjusted Body Weight: 102.88 Dosing Weight: Actual Other Antibiotics: ZOSYN 4.5G 11/29 - LABS: Last BUN: 13 Last Creatinine: 1.2 Creatinine Clearance: 95 mL/min Last WBC: 6 Last Procalcitonin: - Tmax (past 24 hours): 97.8 Microbiology: 11/29 BCX NGTD, WOUND CX STAPH AUREUS I/O: 780/2 Drug Levels: Last level: on at Last dose given 11/29/18 at 1300 Vancomycin Dosing: Loading Dose: x1 Dosing Weight: Actual Target Trough: 15-20 A: Based on: WEIGHT, CRCL~95 WITH SCR=1.2, P: 1. INITIATE Vancomycin 2000 mg IV q12h 2. Follow up level 12/01 0030 3. Pharmacy will continue to monitor, follow and adjust therapy as needed. HADLEY ELDER [facility], 11/29/18 1007
[2018-11-29 19:00] VITALS: BP 116/66
--- NOTE | 2018-11-29 22:28 | CONS ---
DATE OF CONSULTATION: 11/29/2018 REFERRING PHYSICIAN: Daniela Madsen MD REASON FOR CONSULTATION: Osteomyelitis, right foot. HISTORY OF PRESENT ILLNESS: This patient is a 58-year-old male with a past medical history of diabetes type 2 and peripheral neuropathy, who says about 3 months ago, was admitted to [facility] in [place], [place] where he underwent a TMA, right foot, due to infection. He was treated with IV antibiotics, outpatient, until transportation issues arose. He apparently was switched to oral antibiotics up until about a month ago. The patient says over the last 2 weeks or so, he has been having worsening pain, redness and swelling of right foot. On 11/25, he was seen here at [facility]. A foot x-ray at that time showed extensive soft tissue swelling and soft tissue gas at the Lisfranc joint resection site consistent with cellulitis. Underlying abscess with gas forming organism cannot be excluded and cortical irregularity and bony fragmentation at the amputation site of the mid foot. This could be related to acute or chronic osteomyelitis or sequela of prior surgery. A culture is showing Staph aureus and blood cultures were positive for gram-positive cocci in clusters in 1 of 4 bottles. He was admitted and dosed with vancomycin and Zosyn. However, the following day, he left AMA. The patient says he returned because he was worried about his foot infection. PAST MEDICAL HISTORY: Diabetes mellitus type 2, peripheral neuropathy, hyperlipidemia, hypertension, gastroesophageal reflux, degenerative disk disease, back pain, depression, anxiety. PAST SURGICAL HISTORY: Right TMA, back surgery and left eye surgery. FAMILY HISTORY: Positive for hypertension, diabetes, cardiovascular disease and congestive heart failure. SOCIAL HISTORY: The patient is and lives at home. Current smoker. ALLERGIES: ASPIRIN, GABAPENTIN, MORPHINE. MEDICATIONS: Vancomycin and Zosyn. Other medications are available and have been reviewed on the MAY. REVIEW OF SYSTEMS: The patient says he spiked a temperature of 102 a couple days ago associated with body aches. He denies headache, sinus congestion or sore throat. Denies shortness of air, cough or chest discomfort. Denies nausea, vomiting or diarrhea. Denies difficulty passing his urine. Denies rash. PHYSICAL EXAMINATION: VITAL SIGNS: Temperature is 97.7, blood pressure 107/68, heart rate 74, respiratory rate 16, pulse oximetry is 99% on room air. BMI 34. GENERAL: The patient is propped up in bed, alert, no apparent distress. HEENT: Pupils equally round and reactive. Oropharynx pink and moist, in dentures. NECK: Supple. LUNGS: Clear to auscultation. HEART: S1, S2. ABDOMEN: Obese, soft, nontender with bowel sounds present. EXTREMITIES: Trace edema, right lower extremity. Previous right TMA. He has a plantar ulcer with drainage and probes to bone. His foot is mildly erythematous and dry cracks. He has a callus on his left foot. SKIN: Warm to touch. No signs of rash. NEUROLOGIC: Alert and answering questions appropriately. Peripheral IV. LABORATORY DATA: On admission, WBC 6.0, hemoglobin 10.9, platelets 334,000. Creatinine 1.2, BUN 13, sodium 134, potassium 3.1. Lactic acid 1.5, glucose is 123, total bilirubin 0.2, AST 32, ALT 29, albumin 2.4. Blood cultures from 11/26, negative to date and 11/28 pending. IMAGING: A repeat foot x-ray showed findings concerning for osteomyelitis of residual tarsal bones. Stable soft tissue emphysema concerning for anaerobic infection. Findings not significantly changed compared to previous exam from 11/25. Cultures per HPI. IMPRESSION: 1. Gram-positive cocci bacteremia from 11/25. 2. Infected diabetic ulcer with osteomyelitis, right foot, Staph aureus so far. 3. Status post transmetatarsal amputation, right foot, around 08/2018 at [facility]. 4. Peripheral neuropathy. 5. Hypertension. PLAN: Continue the vancomycin and Zosyn. Monitor renal function closely. Check ESR. Repeat blood cultures have been ordered. Continue local wound care and offloading. Records from [facility] have been requested. Awaiting ortho evaluation. Thank you, Dr. Madsen, for asking us to participate in this patient's care. Should you have further questions or concerns, please call. OCDEY BOOTH MD DR: CAM/denita JOB#: [id number] / [id number]
[2018-11-29 23:00] VITALS: BP 109/72
[2018-11-30] MEDS: VANCOMYCIN 2 GM in IV NORMAL SALINE 500ML BAG 500 ML IV SCH ×2 (01:11→12:57)
[2018-11-30] MEDS: PIPERACILLIN/TAZOBACTAM 4.5 GM in IV NORMAL SALINE 100ML 100 ML IV SCH (05:40)
[2018-11-30] MEDS: oxyCODONE IR 5 MG TABLET PO PRN ×2 (05:46→16:50)
[2018-11-30] MEDS: fentaNYL PF VIAL 100 MCG/2 ML VIAL IV PRN ×2 (05:48→08:17)
[2018-11-30 06:33] VITALS: BP 133/66
[2018-11-30 07:05] LABS: CREATININE 1.3 mg/dL (0.7-1.3); GFR 56.3
[2018-11-30] MEDS: INSULIN LISPRO 300 UNITS/3 ML VIAL. SQ SCH ×3 (07:47→16:33)
[2018-11-30] MEDS: INSULIN GLARGINE SYRINGE. SQ SCH ×2 (07:47→20:27)
[2018-11-30] MEDS: CYCLOBENZAPRINE 10 MG TABLET. PO SCH ×2 (09:00→20:19)
[2018-11-30] MEDS: hydroCHLOROthiazide 25 MG TABLET PO SCH (09:00)
[2018-11-30] MEDS: DULoxetine HCL 30 MG CAPSULE.DR PO SCH ×2 (09:37→20:17)
[2018-11-30] MEDS: FAMOTIDINE 20 MG TABLET. PO SCH ×2 (09:37→20:17)
[2018-11-30] MEDS: PREGABALIN 50 MG CAPSULE PO SCH ×2 (09:37→20:16)
[2018-11-30] MEDS: LISINOPRIL 20 MG TABLET PO SCH (09:38)
[2018-11-30] MEDS: METHADONE 10 MG TABLET. PO SCH ×3 (09:38→20:16)
[2018-11-30] MEDS: hydrOXYzine 25 MG TABLET PO SCH (09:38)
[2018-11-30] MEDS: LINAGLIPTIN 5 MG TABLET PO SCH (09:38)
[2018-11-30] MEDS: levETIRAcetam 500 MG TABLET PO SCH ×2 (09:38→20:17)
--- NOTE | 2018-11-30 10:02 | PDOC ---
Infectious Disease Note Subjective Subjective Doing alright Some foot pain No F/C/N/V/D ROS ROS per HPI Vital Sign Vital Signs Vital Signs Date Time Temp Pulse Resp B/P (MAP) Pulse Ox O2 Delivery O2 Flow Rate FiO2 11/30/18 09:38 76 133/66 11/30/18 08:52 96 Room Air 11/30/18 06:33 98.1 12 98.1 Physical Exam PHYSICAL EXAM GENERAL: Propped up in bed, alert, no apparent distress. HEENT: Pupils equally round and reactive. Normal conjunctivae. oropharynx pink and moist, edentulous NECK: Supple. LUNGS: Clear to auscultation. HEART: S1, S2. ABDOMEN: Obese, soft, nontender with bowel sounds present. EXTREMITIES: Trace edema, right lower extremity. Previous right TMA. Plantar ulcer with copious drainage, probes to bone. Smaller adjacent ulcer and dry peeling skin. He has a callus on his left foot. SKIN: Warm to touch. No signs of rash. NEUROLOGIC: Alert and answering questions appropriately. Peripheral IV. Labs Lab Laboratory Tests Test 11/29/18 11:24 11/29/18 14:43 11/29/18 16:45 11/29/18 20:26 Glucose (Fingerstick) 123 mg/dL (70-99) 102 mg/dL (70-99) 117 mg/dL (70-99) Erythrocyte Sedimentation Rate 120 (0-15) Test 11/30/18 06:30 11/30/18 07:22 Creatinine 1.3 mg/dL (0.7-1.3) Estimated GFR (Cockcroft-Gault) 56.3 Glucose (Fingerstick) 158 mg/dL (70-99) Micro 11/25. BLD CULT RESULT 1 Preliminary Staphylococcus aureus 11/25. Right foot ANAEROBIC RES 1 PENDING AEROBIC RES 1 Final Staphylococcus aureus MICS are expressed in micrograms per mL Antibiotic RSLT#1 Ciprofloxacin I =2 Clindamycin S<=0.25 Erythromycin S =0.5 Gentamicin S<=0.5 Levofloxacin S =2 Linezolid S =2 Moxifloxacin S =0.5 Oxacillin S =0.5 Penicillin R>=0.5 Quinupristin/Dalfopristin S<=0.25 Rifampin S<=0.5 Tetracycline S<=1 Trimethoprim/Sulfa R>=320 Vancomycin S =1 11/26. BLOOD CULTURE Preliminary NO GROWTH AFTER 4 DAYS 11/28. BLOOD CULTURE Preliminary NO GROWTH AFTER 1 DAY Objective Assessment Staph aureus bacteremia from 11/25. Repeat BC 11/26 & NGTD Infected diabetic ulcer w/ OM, right foot. MSSA aureus so far s/p TMA right foot around August 2018 at [facility] quit OP IV abx due to transportation issues and was switched to orals Peripheral neuropathy HTN Plan Plan of Care Continue vancomycin for now, awaiting BC susceptibilities Continue Zosyn (dose adjusted) Monitor renal function closely ESR 120 f/u blood cultures Local wound care and offloading Awaiting records from [facility] Arterial US D/w nursing D/w Dr. Hugo Patient seen and examined. Chart reviewed in detail. Case discussed with MOTEL KEEPER. Agree with above plan. KRISTIE GREENE APRN Nov 30, 2018 10:02 CODEY BOOTH MD Nov 30, 2018 20:30
[2018-11-30 11:00] VITALS: BP 143/63
[2018-11-30] MEDS: PIPERACILLIN/TAZOBACTAM 3.375 GM in IV NORMAL SALINE 50ML 50 ML IV SCH ×2 (11:24→16:47)
--- NOTE | 2018-11-30 11:58 | PDOC ---
PROGRESS NOTES Chief Complaint Chief Complaint OsteoMyelitis right foot Diabetes type 2 unknown A1c Diabetes type 2 with neuropathy History of all toes AMPUTATION, rt foot one and half months ago [facility] History of Present Illness History of Present Illness NO complaints I have inspected wound personally All toes gone, that foot obviously more swollen than the left Ortho has seen and ordered arterial dopplers- done but read is still pending BC prelim neg growth HE has never had IV PICC abx for prolonged time the last time REcords from another facility (1.5 mos ago admissioN), in the works ID has okayed my iV vanc and zosyn which i empirically started PLAN: IV vanc , zosyn Wound care ff up [id number] - so far BS are great\ Obtaining records in the works (1.,5 mo ago, admission for the same) ff up arterial dopplers results Vitals Vitals Vital Signs Date Time Temp Pulse Resp B/P (MAP) Pulse Ox O2 Delivery O2 Flow Rate FiO2 11/30/18 09:38 76 133/66 11/30/18 08:52 96 Room Air 11/30/18 06:33 98.1 12 98.1 Physical Exam Physical Exam GENERAL: Propped up in bed, alert, no apparent distress. HEENT: Pupils equally round and reactive. Normal conjunctivae. oropharynx pink and moist, edentulous NECK: Supple. LUNGS: Clear to auscultation. HEART: S1, S2. ABDOMEN: Obese, soft, nontender with bowel sounds present. EXTREMITIES: Trace edema, right lower extremity. Previous right TMA. Plantar ulcer with copious drainage, probes to bone. Smaller adjacent ulcer and dry peeling skin. He has a callus on his left foot. SKIN: Warm to touch. No signs of rash. NEUROLOGIC: Alert and answering questions appropriately. Peripheral IV. General: Alert, Oriented X3, Cooperative, No acute distress Heart: Regular rate, Normal S1, Normal S2 Lungs: Clear Abdomen: Normal bowel sounds, Soft, No tenderness, No hepatosplenomegaly, No masses Skin: Other (all right toes amputated, dressing, lesions or juicy Wet, poor overall hygiene) Labs LABS Laboratory Tests Test 11/29/18 14:43 11/29/18 16:45 11/29/18 20:26 11/30/18 06:30 Erythrocyte Sedimentation Rate 120 (0-15) Glucose (Fingerstick) 102 mg/dL (70-99) 117 mg/dL (70-99) Creatinine 1.3 mg/dL (0.7-1.3) Estimated GFR (Cockcroft-Gault) 56.3 Test 11/30/18 07:22 11/30/18 11:08 Glucose (Fingerstick) 158 mg/dL (70-99) 117 mg/dL (70-99) Review of Systems Review of Systems neg 14 pt reviewed with him, very minimal pain on concerning foot Assessment and Plan Assessmemt and Plan Problems Medical Problems: (1) Anemia Status: Acute (2) Osteomyelitis of foot Status: Acute Comment Review of Relevant I have reviewed the following items wilber (where applicable) has been applied. Labs Laboratory Tests Test 11/28/18 20:55 11/29/18 07:14 11/29/18 11:24 11/29/18 14:43 White Blood Count 6.0 x10^3/uL (4.0-11.0) Red Blood Count 4.17 x10^6/uL (4.30-5.70) Hemoglobin 10.9 g/dL (13.0-17.5) Hematocrit 33.2 % (39.0-53.0) Mean Corpuscular Volume 80 fL (79-100) Mean Corpuscular Hemoglobin 26 pg (25-35) Mean Corpuscular Hemoglobin Concent 33 g/dL (31-37) Red Cell Distribution Width 17.4 % (11.5-14.5) Platelet Count 334 x10^3/uL (140-400) Neutrophils (%) (Auto) 56 % (31-73) Lymphocytes (%) (Auto) 26 % (24-48) Monocytes (%) (Auto) 14 % (0-9) Eosinophils (%) (Auto) 3 % (0-3) Basophils (%) (Auto) 1 % (0-3) Neutrophils # (Auto) 3.3 x10^3/uL (1.8-7.7) Lymphocytes # (Auto) 1.6 x10^3/uL (1.0-4.8) Monocytes # (Auto) 0.8 x10^3/uL (0.0-1.1) Eosinophils # (Auto) 0.2 x10^3/uL (0.0-0.7) Basophils # (Auto) 0.0 x10^3/uL (0.0-0.2) Sodium Level 134 mmol/L (136-145) Potassium Level 3.1 mmol/L (3.5-5.1) Chloride Level 98 mmol/L (98-107) Carbon Dioxide Level 26 mmol/L (21-32) Anion Gap 10 (6-14) Blood Urea Nitrogen 13 mg/dL (8-26) Creatinine 1.2 mg/dL (0.7-1.3) Estimated GFR (Cockcroft-Gault) 61.8 BUN/Creatinine Ratio 11 (6-20) Glucose Level 141 mg/dL (70-99) Lactic Acid Level 1.5 mmol/L (0.4-2.0) Calcium Level 9.0 mg/dL (8.5-10.1) Total Bilirubin 0.2 mg/dL (0.2-1.0) Aspartate Amino Transf (AST/SGOT) 32 U/L (15-37) Alanine Aminotransferase (ALT/SGPT) 29 U/L (16-63) Alkaline Phosphatase 85 U/L (46-116) Total Protein 9.0 g/dL (6.4-8.2) Albumin 2.4 g/dL (3.4-5.0) Albumin/Globulin Ratio 0.4 (1.0-1.7) Glucose (Fingerstick) 95 mg/dL (70-99) 123 mg/dL (70-99) Erythrocyte Sedimentation Rate 120 (0-15) Test 11/29/18 16:45 11/29/18 20:26 11/30/18 06:30 11/30/18 07:22 Glucose (Fingerstick) 102 mg/dL (70-99) 117 mg/dL (70-99) 158 mg/dL (70-99) Creatinine 1.3 mg/dL (0.7-1.3) Estimated GFR (Cockcroft-Gault) 56.3 Test 11/30/18 11:08 Glucose (Fingerstick) 117 mg/dL (70-99) Laboratory Tests Test 11/29/18 14:43 11/29/18 16:45 11/29/18 20:26 11/30/18 06:30 Erythrocyte Sedimentation Rate 120 (0-15) Glucose (Fingerstick) 102 mg/dL (70-99) 117 mg/dL (70-99) Creatinine 1.3 mg/dL (0.7-1.3) Estimated GFR (Cockcroft-Gault) 56.3 Test 11/30/18 07:22 11/30/18 11:08 Glucose (Fingerstick) 158 mg/dL (70-99) 117 mg/dL (70-99) Microbiology 11/28/18 Blood Culture - Preliminary, Resulted NO GROWTH AFTER 1 DAY Medications Current Medications Cefazolin Sodium/ Dextrose 50 ml @ 100 mls/hr 1X ONCE IV Last administered on 11/28/18at 21:54; Start 11/28/18 at 21:00; Stop 11/28/18 at 21:29; Status DC Vancomycin HCl 250 ml @ 250 mls/hr 1X ONCE IV Last administered on 11/28/18at 22:20; Start 11/28/18 at 21:00; Stop 11/28/18 at 21:59; Status DC Fentanyl Citrate (Fentanyl 2ml Vial) 50 mcg PRN Q2HR PRN IV SEVERE PAIN 7-10 Last administered on 11/30/18at 08:17; Start 11/29/18 at 01:00 Insulin Human Lispro (HumaLOG) 0-5 UNITS TIDWMEALS SQ ; Start 11/29/18 at 08:00; Stop 11/29/18 at 08:12; Status DC Dextrose (Dextrose 50%-Water Syringe) 12.5 gm PRN Q15MIN PRN IV SEE COMMENTS; Start 11/29/18 at 01:15; Status Cancel Insulin Human Lispro (HumaLOG) 0-9 UNITS TIDWMEALS SQ ; Start 11/29/18 at 09:00 Dextrose (Dextrose 50%-Water Syringe) 12.5 gm PRN Q15MIN PRN IV SEE COMMENTS; Start 11/29/18 at 08:15 Acetaminophen (Tylenol) 500 mg PRN Q6HRS PRN PO MILD PAIN / TEMP; Start 11/29/18 at 08:15 Fentanyl Citrate (Fentanyl 2ml Vial) 50 mcg PRN Q2HR PRN IV PAIN; Start 11/29/18 at 08:15; Stop 11/30/18 at 11:35; Status DC Tramadol HCl (Ultram) 50 mg PRN Q6HRS PRN PO PAIN MILD TO MOD; Start 11/29/18 at 08:15 Zolpidem Tartrate (Ambien) 5 mg PRN QHS PRN PO INSOMNIA; Start 11/29/18 at 08 :15 Cyclobenzaprine HCl (Flexeril) 10 mg BID PO ; Start 11/29/18 at 09:00 Duloxetine HCl (Cymbalta) 30 mg BID PO Last administered on 11/30/18 09:37; Start 11/29/18 at 09:00 Levetiracetam (Keppra) 500 mg BID PO Last administered on 11/30/18 09:38; Sta rt 11/29/18 at 09:00 Methadone HCl (Dolophine) 10 mg TID PO Last administered on 11/30/18 09:38; Start 11/29/18 at 09:00 Non-Formulary Medication (Duloxetine Hcl (Cymbalta)) 60 mg DAILY PO ; Start 11/29/18 at 09:00; Status UNV Insulin Glargine (Lantus Syringe) 20 unit BID SQ ; Start 11/29/18 at 09:00 Non-Formulary Medication (Lisinopril/ Hydrochlorothiazide (Lisinopril-Hctz 20-12 .5 Mg Tab)) 2 tab DAILY PO ; Start 11/29/18 at 09:00; Status UNV Oxycodone HCl (Roxicodone) 10 mg PRN Q6HRS PRN PO SEVERE PAIN Last administered on 11/30/18at 05:46; Start 11/29/18 at 08:30 Pregabalin (Lyrica) 100 mg BID PO Last administered on 11/30/18 09:37; Start 11/29/18 at 09:00 Famotidine (Pepcid) 20 mg BID PO Last administered on 11/30/18 09:37; Start 11/29/18 at 09:00 Linagliptin (Tradjenta) 5 mg DAILY PO Last administered on 11/30/18 09:38; Start 11/29/18 at 09:00 Hydroxyzine HCl (Atarax) 50 mg DAILY PO Last administered on 11/30/18 09:38; Start 11/29/18 at 09:00 Lisinopril (Prinivil) 40 mg DAILY PO Last administered on 11/30/18 09:38; Start 11/29/18 at 09:00 Hydrochlorothiazide (Hydrodiuril) 25 mg DAILY PO ; Start 11/29/18 at 09:00 Potassium Chloride (Klor-Con) 40 meq 1X ONCE PO Last administered on 11/29/18at 11:22; Start 11/29/18 at 10:30; Stop 11/29/18 at 10:31; Status DC Vancomycin HCl (Vanco Per Pharmacy) 1 each PRN DAILY PRN MC SEE COMMENTS Last administered on 11/29/18at 15:08; Start 11/29/18 at 10:15 Piperacillin Sod/ Tazobactam Sod (Zosyn Per Pharmacy) 1 each PRN DAILY PRN MC SEE COMMENTS; Start 11/29/18 at 10:15; Stop 11/30/18 at 10:03; Status DC Piperacillin Sod/ Tazobactam Sod 4.5 gm/Sodium Chloride 100 ml @ 200 mls/hr Q6H RS IV Last administered on 11/30/18at 05:40; Start 11/29/18 at 11:00; Stop 11/30/18 at 10:03; Status DC Vancomycin HCl 2 gm/Sodium Chloride 500 ml @ 250 mls/hr 1X ONCE IV Last administered on 11/29/18at 12:38; Start 11/29/18 at 11:00; Stop 11/29/18 at 1 2:59; Status DC Vancomycin HCl 2 gm/Sodium Chloride 500 ml @ 250 mls/hr Q12H IV Last administered on 11/30/18at 01:11; Start 11/30/18 at 01:00 Vancomycin HCl (Vancomycin Trough Level) 1 each 1X ONCE MC ; Start 12/01/18 at 00:30; Stop 12/01/18 at 00:31 Piperacillin Sod/ Tazobactam Sod 3.375 gm/Sodium Chloride 50 ml @ 100 mls/hr Q6HRS IV Last administered on 11/30/18at 11:24; Start 11/30/18 at 12:00 Active Scripts Active Keppra (Levetiracetam) 500 Mg Tablet 500 Mg PO BID 30 Days Reported Oxycodone Hcl 5 Mg Capsule 10 Mg PO PRN Q6HRS PRN Methadone Hcl 10 Mg Tablet 10 Mg PO TID Lyrica (Pregabalin) 100 Mg Capsule 100 Mg PO BID Zantac (Ranitidine Hcl) 150 Mg Tablet 150 Mg PO BID Hydroxyzine Pamoate 50 Mg Capsule 50 Mg PO Cyclobenzaprine Hcl 10 Mg Tablet 10 Mg PO BID Cymbalta (Duloxetine Hcl) 30 Mg Capsule.dr 30 Mg PO BID Augmentin 875-125 Tablet (Amoxicillin/Potassium Clav) 1 Each Tablet 1 Tab PO BID Cipro (Ciprofloxacin Hcl) 500 Mg Tablet 500 Mg PO BID Levemir (Insulin Detemir) 100 Unit/1 Ml Vial 20 Unit SQ BID Cymbalta (Duloxetine Hcl) 60 Mg Capsule.dr 60 Mg PO DAILY Tramadol Hcl 50 Mg Tablet 100 Mg PO Q6H PRN Lisinopril-Hctz 20-12.5 Mg Tab (Lisinopril/Hydrochlorothiazide) 1 Each Tablet 2 Tab PO DAILY Januvia (Sitagliptin Phosphate) 100 Mg Tablet 100 Mg PO DAILY Vitals/I & O Vital Sign - Last 24 Hours 11/29/18 11/29/18 11/29/18 11/29/18 12:39 13:26 15:00 19:00 Temp 98.0 97.4 98.0 97.4 Pulse 70 67 Resp 14 18 B/P (MAP) 110/61 (77) 116/66 (83) Pulse Ox 99 99 97 100 O2 Delivery Room Air Room Air Room Air Room Air 11/29/18 11/29/18 11/29/18 11/29/18 19:31 20:30 21:30 22:34 Pulse Ox 100 O2 Delivery Room Air Room Air Room Air Room Air 11/29/18 11/29/18 11/30/18 11/30/18 23:00 23:04 05:46 05:48 Temp 97.4 97.4 Pulse 73 Resp 18 B/P (MAP) 109/72 (84) Pulse Ox 98 100 O2 Delivery Room Air Room Air Room Air Room Air 11/30/18 11/30/18 11/30/18 11/30/18 06:18 06:33 07:10 07:12 Temp 98.1 98.1 Pulse 76 Resp 12 B/P (MAP) 133/66 (88) Pulse Ox 96 96 O2 Delivery Room Air Room Air Room Air Room Air 11/30/18 11/30/18 11/30/18 08:17 08:52 09:38 Pulse 76 B/P (MAP) 133/66 Pulse Ox 96 96 O2 Delivery Room Air Room Air Intake and Output 11/29/18 11/29/18 11/30/18 15:00 23:00 07:00 Intake Total 600 ml 700 ml 1100 ml Balance 600 ml 700 ml 1100 ml JAGUAR VIDALES MD Nov 30, 2018 11:58
--- NOTE | 2018-11-30 12:35 | RAD ---
EXAM: Bradshaw scale and color Doppler right lower extremity arterial sonogram. HISTORY: Ulcer. TECHNIQUE: Bradshaw scale and color Doppler sonographic imaging of the right lower extremity arteries with spectral waveform analysis was performed. COMPARISON: None. FINDINGS: There are normal triphasic waveforms within the right common femoral and superficial femoral artery and there is a biphasic waveform within the right dorsalis pedis artery. There are abnormal monophasic waveforms due to hemodynamically significant proximal stenosis involving the popliteal, posterior tibial, peroneal and anterior tibial arteries. There are elevated peak systolic velocities within the right common femoral artery measuring 167 cm/s, the proximal superficial femoral artery measuring 151 cm/s, the popliteal artery measuring 184 cm/s, the distal posterior tibial artery measuring 187 cm/s, and anterior tibial artery measuring 168 cm/s. There is also relatively elevated peak systolic velocity within the right dorsalis pedis artery measuring 133 cm/s. IMPRESSION: Monophasic waveforms involving the popliteal, posterior and anterior tibial and peroneal arteries due to hemodynamically significant proximal stenosis. There are also elevated peak systolic velocities due to stenosis involving the common femoral, proximal superficial femoral, popliteal, distal posterior tibial, anterior tibial and dorsalis pedis arteries. No occlusion is seen. Electronically signed by: Adelia Smith MD (11/30/2018 12:32 PM) [facility]
[2018-11-30] MEDS: VANCOMYCIN PER PHARMACY MC PRN (14:25)
[2018-11-30 15:00] VITALS: BP 141/70
--- NOTE | 2018-11-30 15:21 | CONS ---
DATE OF CONSULTATION: 11/30/2018 ORTHOPEDIC CONSULTATION REQUESTING PHYSICIAN: Dr. Daniela Madsen. REASON FOR CONSULTATION: Right foot infection. HISTORY OF PRESENT ILLNESS: The patient is a 58-year-old male with type 2 diabetes that it apparently had a longstanding right foot infection. He had been treated at [facility] in [place], [place] culminating an amputation of his toes on his right foot on 09/17/2018. Apparently, he says healed up initially, but when he was brought off antibiotics he started to have continued drainage and wound opened up on the bottom of his foot, which has been ongoing since then despite wound care. He denies any fever or chills currently, but pain, swelling of his right foot. Apparently, he was seen in the Emergency Department a couple days ago, was given some antibiotics, but no improvement. PAST MEDICAL HISTORY: Significant for type 2 diabetes, hypertension, reflux disease, anxiety, depression, neuropathy, chronic pain syndrome. PAST SURGICAL HISTORY: Significant for the right forefoot amputation in 09/2018. MEDICATIONS: List is reviewed. ALLERGIES: INCLUDE ASPIRIN AND GABAPENTIN. SOCIAL HISTORY: Denies tobacco, alcohol or drug use. FAMILY HISTORY: Noncontributory. REVIEW OF SYSTEMS: Again significant for the right foot pain, swelling and drainage. Denies any chest pain, shortness of breath, any other joint pain, focal weakness, numbness, tingling, chest pain, fever or chills. Reports his diabetes is reasonably controlled. No other constitutional complaints. PHYSICAL EXAMINATION: GENERAL: Pleasant, cooperative 58-year-old male conversational. VITAL SIGNS: Temperature 97.3. EXTREMITIES: Examination of the right foot, he has a draining wound on the plantar aspect of his foot about a centimeter long surrounding redness. The whole foot is swollen. I am not able to directly palpate pulses, but the skin is warm, really has no significant swelling or calf tenderness of the leg or redness or streaking. He is able to move the ankle without difficulty or pain. No instability noted. Although he has a well-healed incision distally on the forefoot, he does have significant very thick dry skin over the area of his lateral foot and somewhat less over the forefoot and medial aspect of his foot as well. He does have some surrounding skin breakdown to the plantar aspect of the foot surrounding the draining wound. Draining wound does palpate to bone. No foul odor is noted. Aside from neuropathy, he has normal examination of the contralateral foot. Normal motion and stability of bilateral hips and knees. LABORATORY DATA: White count from admission 6.0. Apparently, he does have Staph bacteremia and cultures in his foot from previous. IMAGING DATA: X-rays show some soft tissue gas in the distal stump not surprising due to his open wound. He has cortical erosion of the distal tarsal bones, suspicious for osteomyelitis that is also confirmed on the radiology report. IMPRESSION: Right foot infection with osteomyelitis and history of previous forefoot amputation. TREATMENT PLAN: I went over with him that this does appear to be chronic in nature following a previous procedure elsewhere. My main concern is his vascular status distally and ability to heal this area. In discussing this with the Infectious Disease consultants, they are going to order some arterial Doppler studies and vascular consultation. I likewise ordered transcutaneous oxygen measurements as well for some additional information regarding the possibility of efficacy of debridement versus whether amputation has to be considered at a higher level. All his questions were answered for the moment. Ongoing treatment really would be dependent on vascular evaluation and results. MELISSA YORK MD DR: KAREN/denita JOB#: [id number] / [id number]
[2018-11-30 19:00] VITALS: BP 162/75
[2018-11-30] MEDS: LACTOBACILLUS RHAMNOSUS GG 1 CAPSULE. PO SCH (20:15)
[2018-11-30 23:07] VITALS: BP 167/83
[2018-12-01] MEDS: PIPERACILLIN/TAZOBACTAM 3.375 GM in IV NORMAL SALINE 50ML 50 ML IV SCH ×4 (00:01→19:05)
[2018-12-01 01:06] LABS: BASO % 1 % (0-3); EOS # 0.2 x10^3/uL (0.0-0.7); EOS % 6 % (0-3); HEMATOCRIT 27.4 % (39.0-53.0); LYMPH # 1.3 x10^3/uL (1.0-4.8); LYMPH % 36 % (24-48); MEAN CORPUSCULAR HEMOGLOBIN 26 pg (25-35); MEAN CORPUSCULAR HGB CONC 33 g/dL (31-37); MEAN CORPUSCULAR VOLUME 80 fL (79-100); MONO # 0.3 x10^3/uL (0.0-1.1); MONO % 9 % (0-9); NEUT # 1.8 x10^3/uL (1.8-7.7); NEUT % 48 % (31-73); PLATELET COUNT 275 x10^3/uL (140-400); RED BLOOD COUNT 3.44 x10^6/uL (4.30-5.70); RED CELL DISTRIBUTION WIDTH 17.4 % (11.5-14.5); WHITE BLOOD COUNT 3.7 x10^3/uL (4.0-11.0)
[2018-12-01 01:13] LABS: CREATININE 1.2 mg/dL (0.7-1.3); GFR 61.8
[2018-12-01 01:20] LABS: VANC TR 26.2 mcg/mL (10.0-20.0)
[2018-12-01 02:08] LABS: HEMOGLOBIN A1C 7.7 % (4.8-5.6)
[2018-12-01] MEDS: VANCOMYCIN PER PHARMACY MC PRN (02:13)
--- NOTE | 2018-12-01 02:13 | NUR ---
Pharmacy Vancomycin Dosing Note S:Consulted to monitor and dose vancomycin started 11/29/18. O:FLORINDA MIMS is a 58 year old M with Osteomyelitis DFU S/P TMA . Height: 6 feet, 4 inches Weight: 127.010153 kg Dexter Body Weight: 86.80 Adjusted Body Weight: 102.88 Dosing Weight: Actual Other Antibiotics: ZOSYN 4.5G 11/29 - LABS: Last BUN: 13 Last Creatinine: 1.3 Creatinine Clearance: 87 mL/min Last WBC: 6 Last Procalcitonin: - Tmax (past 24 hours): 98.1 Microbiology: 11/29 BCX NGTD, WOUND CX MSSA I/O: 780/2 Drug Levels: Last Trough level: 26.2 on 12/01/18 at 0030 Last dose given 11/30/18 at 1300 Vancomycin Dosing: Loading Dose: x1 Dosing Weight: Actual Target Trough: 15-20 A: Based on: TROUGH P: 1. Hold Vancomycin 2000 mg IV q12h 2. Follow up Trough level on 12/01/18 at 1000 3. Pharmacy will continue to monitor, follow and adjust therapy as needed. KEENAN MARIE RPH, 12/01/18212 Signed: 12/01/18 at 212 by KEENAN MARIE RPH PHA
[2018-12-01 03:14] VITALS: BP 161/80
[2018-12-01 03:58] LABS: % EOS 5 % (0-5); % LYMPHS 40 % (24-48); % MONOS 7 % (0-10); % SEGS 48 % (35-66)
[2018-12-01 03:59] LABS: ANISOCYTOSIS SLIGHT; PLT ESTIMATE ADEQUATE (ADEQUATE)
[2018-12-01 07:00] VITALS: BP 138/61
--- NOTE | 2018-12-01 07:59 | PDOC ---
PROGRESS NOTES Chief Complaint Chief Complaint OsteoMyelitis right foot Diabetes type 2 - A1c 7.7 Diabetes type 2 with neuropathy H/o TMA - rt foot one and half months [facility] Peripheral arterial disease - confirmed with RLE arterial doppler History of Present Illness History of Present Illness Mr Pires is a 58-year-old male with a past medical history of diabetes type 2 and peripheral neuropathy, smoker s/p TMA 3 months ago at [facility] in [place], [place] where he underwent a TMA, right foot, due to infection. Initially treated with IV antibiotics, outpatient, until transportation issues arose, transitioned to oral antibiotics up until about a m onth ago. He came to ED c/o worsening pain, redness and swelling of right foot since 11/11/18. On 11/25, he was seen here at [facility]. A foot x-ray at that time showed extensive soft tissue swelling and soft tissue gas at the Lisfranc joint resection site consistent with cellulitis. A culture is showing Staph aureus and blood cultures were positive for gram-positive cocci in clusters in 1 of 4 bottles. He was admitted and dosed with vancomycin and Zosyn. However, the following day, he left AMA. The patient says he returned because he was worried about his foot infection. Monophasic on RLE doppler. Has some foot pain. No SOB or CP. PLAN: IV zosyn for MSSA Wound care Obtaining records in the works (1.,5 mo ago, admission for the same) Vitals Vitals Vital Signs Date Time Temp Pulse Resp B/P (MAP) Pulse Ox O2 Delivery O2 Flow Rate FiO2 12/01/18 03:14 98.7 68 20 161/80 (107) 93 Room Air 98.7 Physical Exam Physical Exam GENERAL: Propped up in bed, alert, no apparent distress. HEENT: Pupils equally round and reactive. Normal conjunctivae. oropharynx pink and moist, edentulous NECK: Supple. LUNGS: Clear to auscultation. HEART: S1, S2. ABDOMEN: Obese, soft, nontender with bowel sounds present. EXTREMITIES: Trace edema, right lower extremity. Previous right TMA. Plantar ulcer with copious drainage, probes to bone. Smaller adjacent ulcer and dry peeling skin. He has a callus on his left foot. SKIN: Warm to touch. No signs of rash. NEUROLOGIC: Alert and answering questions appropriately. Peripheral IV. General: Alert, Oriented X3, Cooperative, No acute distress Heart: Regular rate, Normal S1, Normal S2 Lungs: Clear Abdomen: Normal bowel sounds, Soft, No tenderness, No hepatosplenomegaly, No masses Skin: Other (all right toes amputated, dressing, lesions or juicy Wet, poor overall hygiene) Labs LABS Laboratory Tests Test 11/30/18 11:08 11/30/18 16:28 11/30/18 20:23 12/01/18 00:55 Glucose (Fingerstick) 117 mg/dL (70-99) 121 mg/dL (70-99) 215 mg/dL (70-99) White Blood Count 3.7 x10^3/uL (4.0-11.0) Red Blood Count 3.44 x10^6/uL (4.30-5.70) Hemoglobin 9.0 g/dL (13.0-17.5) Hematocrit 27.4 % (39.0-53.0) Mean Corpuscular Volume 80 fL (79-100) Mean Corpuscular Hemoglobin 26 pg (25-35) Mean Corpuscular Hemoglobin Concent 33 g/dL (31-37) Red Cell Distribution Width 17.4 % (11.5-14.5) Platelet Count 275 x10^3/uL (140-400) Neutrophils (%) (Auto) 48 % (31-73) Lymphocytes (%) (Auto) 36 % (24-48) Monocytes (%) (Auto) 9 % (0-9) Eosinophils (%) (Auto) 6 % (0-3) Basophils (%) (Auto) 1 % (0-3) Neutrophils # (Auto) 1.8 x10^3/uL (1.8-7.7) Lymphocytes # (Auto) 1.3 x10^3/uL (1.0-4.8) Monocytes # (Auto) 0.3 x10^3/uL (0.0-1.1) Eosinophils # (Auto) 0.2 x10^3/uL (0.0-0.7) Basophils # (Auto) 0.0 x10^3/uL (0.0-0.2) Segmented Neutrophils % 48 % (35-66) Lymphocytes % 40 % (24-48) Monocytes % 7 % (0-10) Eosinophils % 5 % (0-5) Platelet Estimate Adequate (ADEQUATE) Anisocytosis Slight Creatinine 1.2 mg/dL (0.7-1.3) Estimated GFR (Cockcroft-Gault) 61.8 Vancomycin Level Trough 26.2 mcg/mL (10.0-20.0) Vancomycin Last Dose Date Vancomycin Last Dose Time Assessment and Plan Assessmemt and Plan Problems Medical Problems: (1) Anemia Status: Acute (2) Osteomyelitis of foot Status: Acute Comment Review of Relevant I have reviewed the following items wilber (where applicable) has been applied. Labs Laboratory Tests Test 11/29/18 11:24 11/29/18 14:43 11/29/18 16:45 11/29/18 20:26 Glucose (Fingerstick) 123 mg/dL (70-99) 102 mg/dL (70-99) 117 mg/dL (70-99) Erythrocyte Sedimentation Rate 120 (0-15) Test 11/30/18 06:30 11/30/18 07:22 11/30/18 11:08 11/30/18 16:28 Creatinine 1.3 mg/dL (0.7-1.3) Estimated GFR (Cockcroft-Gault) 56.3 Glucose (Fingerstick) 158 mg/dL (70-99) 117 mg/dL (70-99) 121 mg/dL (70-99) Test 11/30/18 20:23 12/01/18 00:55 Glucose (Fingerstick) 215 mg/dL (70-99) White Blood Count 3.7 x10^3/uL (4.0-11.0) Red Blood Count 3.44 x10^6/uL (4.30-5.70) Hemoglobin 9.0 g/dL (13.0-17.5) Hematocrit 27.4 % (39.0-53.0) Mean Corpuscular Volume 80 fL (79-100) Mean Corpuscular Hemoglobin 26 pg (25-35) Mean Corpuscular Hemoglobin Concent 33 g/dL (31-37) Red Cell Distribution Width 17.4 % (11.5-14.5) Platelet Count 275 x10^3/uL (140-400) Neutrophils (%) (Auto) 48 % (31-73) Lymphocytes (%) (Auto) 36 % (24-48) Monocytes (%) (Auto) 9 % (0-9) Eosinophils (%) (Auto) 6 % (0-3) Basophils (%) (Auto) 1 % (0-3) Neutrophils # (Auto) 1.8 x10^3/uL (1.8-7.7) Lymphocytes # (Auto) 1.3 x10^3/uL (1.0-4.8) Monocytes # (Auto) 0.3 x10^3/uL (0.0-1.1) Eosinophils # (Auto) 0.2 x10^3/uL (0.0-0.7) Basophils # (Auto) 0.0 x10^3/uL (0.0-0.2) Segmented Neutrophils % 48 % (35-66) Lymphocytes % 40 % (24-48) Monocytes % 7 % (0-10) Eosinophils % 5 % (0-5) Platelet Estimate Adequate (ADEQUATE) Anisocytosis Slight Creatinine 1.2 mg/dL (0.7-1.3) Estimated GFR (Cockcroft-Gault) 61.8 Vancomycin Level Trough 26.2 mcg/mL (10.0-20.0) Vancomycin Last Dose Date Vancomycin Last Dose Time Laboratory Tests Test 11/30/18 11:08 11/30/18 16:28 11/30/18 20:23 12/01/18 00:55 Glucose (Fingerstick) 117 mg/dL (70-99) 121 mg/dL (70-99) 215 mg/dL (70-99) White Blood Count 3.7 x10^3/uL (4.0-11.0) Red Blood Count 3.44 x10^6/uL (4.30-5.70) Hemoglobin 9.0 g/dL (13.0-17.5) Hematocrit 27.4 % (39.0-53.0) Mean Corpuscular Volume 80 fL (79-100) Mean Corpuscular Hemoglobin 26 pg (25-35) Mean Corpuscular Hemoglobin Concent 33 g/dL (31-37) Red Cell Distribution Width 17.4 % (11.5-14.5) Platelet Count 275 x10^3/uL (140-400) Neutrophils (%) (Auto) 48 % (31-73) Lymphocytes (%) (Auto) 36 % (24-48) Monocytes (%) (Auto) 9 % (0-9) Eosinophils (%) (Auto) 6 % (0-3) Basophils (%) (Auto) 1 % (0-3) Neutrophils # (Auto) 1.8 x10^3/uL (1.8-7.7) Lymphocytes # (Auto) 1.3 x10^3/uL (1.0-4.8) Monocytes # (Auto) 0.3 x10^3/uL (0.0-1.1) Eosinophils # (Auto) 0.2 x10^3/uL (0.0-0.7) Basophils # (Auto) 0.0 x10^3/uL (0.0-0.2) Segmented Neutrophils % 48 % (35-66) Lymphocytes % 40 % (24-48) Monocytes % 7 % (0-10) Eosinophils % 5 % (0-5) Platelet Estimate Adequate (ADEQUATE) Anisocytosis Slight Creatinine 1.2 mg/dL (0.7-1.3) Estimated GFR (Cockcroft-Gault) 61.8 Vancomycin Level Trough 26.2 mcg/mL (10.0-20.0) Vancomycin Last Dose Date Vancomycin Last Dose Time Microbiology 11/28/18 Blood Culture - Preliminary, Resulted NO GROWTH AFTER 2 DAYS Medications Current Medications Cefazolin Sodium/ Dextrose 50 ml @ 100 mls/hr 1X ONCE IV Last administered on 11/28/18at 21:54; Start 11/28/18 at 21:00; Stop 11/28/18 at 21:29; Status DC Vancomycin HCl 250 ml @ 250 mls/hr 1X ONCE IV Last administered on 11/28/18at 22:20; Start 11/28/18 at 21:00; Stop 11/28/18 at 21:59; Status DC Fentanyl Citrate (Fentanyl 2ml Vial) 50 mcg PRN Q2HR PRN IV SEVERE PAIN 7-10 Last administered on 11/30/18at 08:17; Start 11/29/18 at 01:00 Insulin Human Lispro (HumaLOG) 0-5 UNITS TIDWMEALS SQ ; Start 11/29/18 at 08:00; Stop 11/29/18 at 08:12; Status DC Dextrose (Dextrose 50%-Water Syringe) 12.5 gm PRN Q15MIN PRN IV SEE COMMENTS; Start 11/29/18 at 01:15; Status Cancel Insulin Human Lispro (HumaLOG) 0-9 UNITS TIDWMEALS SQ ; Start 11/29/18 at 09:00 Dextrose (Dextrose 50%-Water Syringe) 12.5 gm PRN Q15MIN PRN IV SEE COMMENTS; Start 11/29/18 at 08:15 Acetaminophen (Tylenol) 500 mg PRN Q6HRS PRN PO MILD PAIN / TEMP; Start 11/29/18 at 08:15 Fentanyl Citrate (Fentanyl 2ml Vial) 50 mcg PRN Q2HR PRN IV PAIN; Start 11/29/18 at 08:15; Stop 11/30/18 at 11:35; Status DC Tramadol HCl (Ultram) 50 mg PRN Q6HRS PRN PO PAIN MILD TO MOD; Start 11/29/18 at 08:15 Zolpidem Tartrate (Ambien) 5 mg PRN QHS PRN PO INSOMNIA; Start 11/29/18 at 08:15 Cyclobenzaprine HCl (Flexeril) 10 mg BID PO ; Start 11/29/18 at 09:00 Duloxetine HCl (Cymbalta) 30 mg BID PO Last administered on 11/30/18 20:17; Start 11/29/18 at 09:00 Levetiracetam (Keppra) 500 mg BID PO Last administered on 11/30/18 20:17; Start 11/29/18 at 09:00 Methadone HCl (Dolophine) 10 mg TID PO Last administered on 11/30/18at 20:16; Start 11/29/18 at 09:00 Non-Formulary Medication (Duloxetine Hcl (Cymbalta)) 60 mg DAILY PO ; Start 11/29/18 at 09:00; Status UNV Insulin Glargine (Lantus Syringe) 20 unit BID SQ Last administered on 11/30/18at 20:27; Start 11/29/18 at 09:00 Non-Formulary Medication (Lisinopril/ Hydrochlorothiazide (Lisinopril-Hctz 20- 12.5 Mg Tab)) 2 tab DAILY PO ; Start 11/29/18 at 09:00; Status UNV Oxycodone HCl (Roxicodone) 10 mg PRN Q6HRS PRN PO SEVERE PAIN Last administered on 11/30/18at 16:50; Start 11/29/18 at 08:30 Pregabalin (Lyrica) 100 mg BID PO Last administered on 11/30/18at 09:37; Start 11/29/18 at 09:00 Famotidine (Pepcid) 20 mg BID PO Last administered on 11/30/18at 20:17; Start 11/29/18 at 09:00 Linagliptin (Tradjenta) 5 mg DAILY PO Last administered on 11/30/18at 09:38; Start 11/29/18 at 09:00 Hydroxyzine HCl (Atarax) 50 mg DAILY PO Last administered on 11/30/18at 09:38; Start 11/29/18 at 09:00 Lisinopril (Prinivil) 40 mg DAILY PO Last administered on 11/30/18at 09:38; Start 11/29/18 at 09:00 Hydrochlorothiazide (Hydrodiuril) 25 mg DAILY PO ; Start 11/29/18 at 09:00 Potassium Chloride (Klor-Con) 40 meq 1X ONCE PO Last administered on 11/29/18at 11:22; Start 11/29/18 at 10:30; Stop 11/29/18 at 10:31; Status DC Vancomycin HCl (Vanco Per Pharmacy) 1 each PRN DAILY PRN MC SEE COMMENTS Last administered on 12/01/18at 02:13; Start 11/29/18 at 10:15 Piperacillin Sod/ Tazobactam Sod (Zosyn Per Pharmacy) 1 each PRN DAILY PRN MC SEE COMMENTS; Start 11/29/18 at 10:15; Stop 11/30/18 at 10:03; Status DC Piperacillin Sod/ Tazobactam Sod 4.5 gm/Sodium Chloride 100 ml @ 200 mls/hr Q6HRS IV Last administered on 11/30/18at 05:40; Start 11/29/18 at 11:00; Stop 11/30/18 at 10:03; Status DC Vancomycin HCl 2 gm/Sodium Chloride 500 ml @ 250 mls/hr 1X ONCE IV Last administered on 11/29/18at 12:38; Start 11/29/18 at 11:00; Stop 11/29/18 at 12:59; Status DC Vancomycin HCl 2 gm/Sodium Chloride 500 ml @ 250 mls/hr Q12H IV Last administered on 11/30/18at 12:57; Start 11/30/18 at 01:00; Stop 12/01/18 at 01:53; Status DC Vancomycin HCl (Vancomycin Trough Level) 1 each 1X ONCE MC Last administered on 12/01/18at 00:30; Start 12/01/18 at 00:30; Stop 12/01/18 at 00:31; Status DC Piperacillin Sod/ Tazobactam Sod 3.375 gm/Sodium Chloride 50 ml @ 100 mls/hr Q6HRS IV Last administered on 12/01/18at 05:30; Start 11/30/18 at 12:00 Lactobacillus Rhamnosus (Culturelle) 1 cap BID PO Last administered on 11/30/18at 20:15; Start 11/30/18 at 21:00 Vancomycin HCl (Vancomycin Random Level) 1 each 1X ONCE MC ; Start 12/01/18 at 10:00; Stop 12/01/18 at 10:01 Active Scripts Active Keppra (Levetiracetam) 500 Mg Tablet 500 Mg PO BID 30 Days Reported Oxycodone Hcl 5 Mg Capsule 10 Mg PO PRN Q6HRS PRN Methadone Hcl 10 Mg Tablet 10 Mg PO TID Lyrica (Pregabalin) 100 Mg Capsule 100 Mg PO BID Zantac (Ranitidine Hcl) 150 Mg Tablet 150 Mg PO BID Hydroxyzine Pamoate 50 Mg Capsule 50 Mg PO Cyclobenzaprine Hcl 10 Mg Tablet 10 Mg PO BID Cymbalta (Duloxetine Hcl) 30 Mg Capsule.dr 30 Mg PO BID Augmentin 875-125 Tablet (Amoxicillin/Potassium Clav) 1 Each Tablet 1 Tab PO BID Cipro (Ciprofloxacin Hcl) 500 Mg Tablet 500 Mg PO BID Levemir (Insulin Detemir) 100 Unit/1 Ml Vial 20 Unit SQ BID Cymbalta (Duloxetine Hcl) 60 Mg Capsule.dr 60 Mg PO DAILY Tramadol Hcl 50 Mg Tablet 100 Mg PO Q6H PRN Lisinopril-Hctz 20-12.5 Mg Tab (Lisinopril/Hydrochlorothiazide) 1 Each Tablet 2 Tab PO DAILY Januvia (Sitagliptin Phosphate) 100 Mg Tablet 100 Mg PO DAILY Vitals/I & O Vital Sign - Last 24 Hours 9/29/19 9/29/19 9/29/19 9/29/19 08:17 08:52 09:38 11:00 Temp 98.2 98.2 Pulse 76 72 Resp 16 B/P (MAP) 133/66 143/63 (89) Pulse Ox 96 96 98 O2 Delivery Room Air Room Air Room Air 11/30/18 11/30/18 11/30/18 11/30/18 15:00 16:50 18:03 19:00 Temp 97.9 99.1 97.9 99.1 Pulse 70 77 Resp 16 20 B/P (MAP) 141/70 (93) 162/75 (104) Pulse Ox 100 100 100 99 O2 Delivery Room Air Room Air Room Air Room Air 11/30/18 11/30/18 12/01/18 19:30 23:07 03:14 Temp 97.5 98.7 97.5 98.7 Pulse 83 68 Resp 20 20 B/P (MAP) 167/83 (111) 161/80 (107) Pulse Ox 94 93 O2 Delivery Room Air Room Air Room Air Intake and Output 11/30/18 11/30/18 12/01/18 15:00 23:00 07:00 Intake Total 450 ml 400 ml Output Total 2 ml Balance 450 ml 398 ml CLAYTON LEARY MD Dec 01, 2018 07:59
--- NOTE | 2018-12-01 08:14 | PDOC ---
ORTHO PROGRESS NOTES Subjective Patient with no complaint of pain with longstanding open wound plantar surface of right foot. Procedure Open wound plantar right foot, open to the bone. Vitals Vital Signs Date Time Temp Pulse Resp B/P (MAP) Pulse Ox O2 Delivery O2 Flow Rate FiO2 12/01/18 03:14 98.7 68 20 161/80 (107) 93 Room Air 98.7 Labs Laboratory Tests Test 11/29/18 11:24 11/29/18 14:43 11/29/18 16:45 11/29/18 20:26 Glucose (Fingerstick) 123 mg/dL (70-99) 102 mg/dL (70-99) 117 mg/dL (70-99) Erythrocyte Sedimentation Rate 120 (0-15) Test 11/30/18 06:30 11/30/18 07:22 11/30/18 11:08 11/30/18 16:28 Creatinine 1.3 mg/dL (0.7-1.3) Estimated GFR (Cockcroft-Gault) 56.3 Glucose (Fingerstick) 158 mg/dL (70-99) 117 mg/dL (70-99) 121 mg/dL (70-99) Test 11/30/18 20:23 12/01/18 00:55 12/01/18 07:48 Glucose (Fingerstick) 215 mg/dL (70-99) 183 mg/dL (70-99) White Blood Count 3.7 x10^3/uL (4.0-11.0) Red Blood Count 3.44 x10^6/uL (4.30-5.70) Hemoglobin 9.0 g/dL (13.0-17.5) Hematocrit 27.4 % (39.0-53.0) Mean Corpuscular Volume 80 fL (79-100) Mean Corpuscular Hemoglobin 26 pg (25-35) Mean Corpuscular Hemoglobin Concent 33 g/dL (31-37) Red Cell Distribution Width 17.4 % (11.5-14.5) Platelet Count 275 x10^3/uL (140-400) Neutrophils (%) (Auto) 48 % (31-73) Lymphocytes (%) (Auto) 36 % (24-48) Monocytes (%) (Auto) 9 % (0-9) Eosinophils (%) (Auto) 6 % (0-3) Basophils (%) (Auto) 1 % (0-3) Neutrophils # (Auto) 1.8 x10^3/uL (1.8-7.7) Lymphocytes # (Auto) 1.3 x10^3/uL (1.0-4.8) Monocytes # (Auto) 0.3 x10^3/uL (0.0-1.1) Eosinophils # (Auto) 0.2 x10^3/uL (0.0-0.7) Basophils # (Auto) 0.0 x10^3/uL (0.0-0.2) Segmented Neutrophils % 48 % (35-66) Lymphocytes % 40 % (24-48) Monocytes % 7 % (0-10) Eosinophils % 5 % (0-5) Platelet Estimate Adequate (ADEQUATE) Anisocytosis Slight Creatinine 1.2 mg/dL (0.7-1.3) Estimated GFR (Cockcroft-Gault) 61.8 Vancomycin Level Trough 26.2 mcg/mL (10.0-20.0) Vancomycin Last Dose Date Vancomycin Last Dose Time Laboratory Tests Test 11/30/18 11:08 11/30/18 16:28 11/30/18 20:23 12/01/18 00:55 Glucose (Fingerstick) 117 mg/dL (70-99) 121 mg/dL (70-99) 215 mg/dL (70-99) White Blood Count 3.7 x10^3/uL (4.0-11.0) Red Blood Count 3.44 x10^6/uL (4.30-5.70) Hemoglobin 9.0 g/dL (13.0-17.5) Hematocrit 27.4 % (39.0-53.0) Mean Corpuscular Volume 80 fL (79-100) Mean Corpuscular Hemoglobin 26 pg (25-35) Mean Corpuscular Hemoglobin Concent 33 g/dL (31-37) Red Cell Distribution Width 17.4 % (11.5-14.5) Platelet Count 275 x10^3/uL (140-400) Neutrophils (%) (Auto) 48 % (31-73) Lymphocytes (%) (Auto) 36 % (24-48) Monocytes (%) (Auto) 9 % (0-9) Eosinophils (%) (Auto) 6 % (0-3) Basophils (%) (Auto) 1 % (0-3) Neutrophils # (Auto) 1.8 x10^3/uL (1.8-7.7) Lymphocytes # (Auto) 1.3 x10^3/uL (1.0-4.8) Monocytes # (Auto) 0.3 x10^3/uL (0.0-1.1) Eosinophils # (Auto) 0.2 x10^3/uL (0.0-0.7) Basophils # (Auto) 0.0 x10^3/uL (0.0-0.2) Segmented Neutrophils % 48 % (35-66) Lymphocytes % 40 % (24-48) Monocytes % 7 % (0-10) Eosinophils % 5 % (0-5) Platelet Estimate Adequate (ADEQUATE) Anisocytosis Slight Creatinine 1.2 mg/dL (0.7-1.3) Estimated GFR (Cockcroft-Gault) 61.8 Vancomycin Level Trough 26.2 mcg/mL (10.0-20.0) Vancomycin Last Dose Date Vancomycin Last Dose Time Test 12/01/18 07:48 Glucose (Fingerstick) 183 mg/dL (70-99) Notes awake and alert on acute distress. Assessment and Plan Patient with history of right foot infection and toes amputated in [facility] approximately 3 months ago. Here now with open wound over plantar surface of right foot tunneling to bone. Vascular here as well for consult. Unable to palpate pulses Studies ordered Doppler indicates proximal disease. Will await study results and vascular opinion for further recommendations. YARIEL HUGHES APRN Dec 01, 2018 08:14
--- NOTE | 2018-12-01 09:05 | PDOC2 ---
CONSULT Date of Consult Date of Consult DATE: 12/01/18 TIME: 08:44 Reason for Consult Reason for Consult: Abnormal doppler right leg with right foot wound Referring Physician Referring Physician: Dr. Madsen Identification/Chief Complaint Chief Complaint Draining right foot wound Source Source: Chart review, Patient History of Present Illness Reason for Visit: This is a 58 year old male with diabetes, recent right transmetatarsal amputation that presented with draining right plantar foot wound. The patient was treated at [facility] in [facility] with right foot TMA approximately 3 months ago. The patient states he has had difficulty healing the incision and now has a plantar wound that is draining and penetrates to the bone. Plain film x-rays concerning for osteomyelitis of the residual tarsal bones. In addition he has soft tissue emphysema that is concerning for an anaerobic infection. Arterial Ultrasound suggests Monophasic waveforms involving the popliteal, posterior and anterior tibial and peroneal arteries due to hemodynamically significant proximal stenosis. He does complain of pain and swelling in his right foot. The patient denies any history of lower extremity claudication. In addition has not had any lower extremity arterial interventions. Past Medical History Cardiovascular: HTN Musculoskeletal: low back pain Endocrine: Diabetes Past Surgical History Past Surgical History: Other (right transmetatarsal amputation) Family History Family History: Diabetes, High Cholestrol, Hypertension Social History No ALCOHOL: none Drugs: None Current Problem List Problem List Problems Medical Problems: (1) Anemia Status: Acute (2) Osteomyelitis of foot Status: Acute Current Medications Current Medications Current Medications Cefazolin Sodium/ Dextrose 50 ml @ 100 mls/hr 1X ONCE IV Last administered on 11/28/18at 21:54; Start 11/28/18 at 21:00; Stop 11/28/18 at 21:29; Status DC Vancomycin HCl 250 ml @ 250 mls/hr 1X ONCE IV Last administered on 11/28/18at 22:20; Start 11/28/18 at 21:00; Stop 11/28/18 at 21:59; Status DC Fentanyl Citrate (Fentanyl 2ml Vial) 50 mcg PRN Q2HR PRN IV SEVERE PAIN 7-10 Last administered on 11/30/18at 08:17; Start 11/29/18 at 01:00 Insulin Human Lispro (HumaLOG) 0-5 UNITS TIDWMEALS SQ ; Start 11/29/18 at 08:00; Stop 11/29/18 at 08:12; Status DC Dextrose (Dextrose 50%-Water Syringe) 12.5 gm PRN Q15MIN PRN IV SEE COMMENTS; Start 11/29/18 at 01:15; Status Cancel Insulin Human Lispro (HumaLOG) 0-9 UNITS TIDWMEALS SQ ; Start 11/29/18 at 09:00 Dextrose (Dextrose 50%-Water Syringe) 12.5 gm PRN Q15MIN PRN IV SEE COMMENTS; Start 11/29/18 at 08:15 Acetaminophen (Tylenol) 500 mg PRN Q6HRS PRN PO MILD PAIN / TEMP; Start 11/29/18 at 08:15 Fentanyl Citrate (Fentanyl 2ml Vial) 50 mcg PRN Q2HR PRN IV PAIN; Start 11/29/18 at 08:15; Stop 11/30/18 at 11:35; Status DC Tramadol HCl (Ultram) 50 mg PRN Q6HRS PRN PO PAIN MILD TO MOD; Start 11/29/18 at 08:15 Zolpidem Tartrate (Ambien) 5 mg PRN QHS PRN PO INSOMNIA; Start 11/29/18 at 08:15 Cyclobenzaprine HCl (Flexeril) 10 mg BID PO ; Start 11/29/18 at 09:00 Duloxetine HCl (Cymbalta) 30 mg BID PO Last administered on 11/30/18at 20:17; Start 11/29/18 at 09:00 Levetiracetam (Keppra) 500 mg BID PO Last administered on 11/30/18at 20:17; Start 11/29/18 at 09:00 Methadone HCl (Dolophine) 10 mg TID PO Last administered on 11/30/18at 20:16; Start 11/29/18 at 09:00 Non-Formulary Medication (Duloxetine Hcl (Cymbalta)) 60 mg DAILY PO ; Start 11/29/18 at 09:00; Status UNV Insulin Glargine (Lantus Syringe) 20 unit BID SQ Last administered on 11/30/18at 20:27; Start 11/29/18 at 09:00 Non-Formulary Medication (Lisinopril/ Hydrochlorothiazide (Lisinopril-Hctz 20- 12.5 Mg Tab)) 2 tab DAILY PO ; Start 11/29/18 at 09:00; Status UNV Oxycodone HCl (Roxicodone) 10 mg PRN Q6HRS PRN PO SEVERE PAIN Last administered on 11/30/18 16:50; Start 11/29/18 at 08:30 Pregabalin (Lyrica) 100 mg BID PO Last administered on 11/30/18at 09:37; Start 11/29/18 at 09:00 Famotidine (Pepcid) 20 mg BID PO Last administered on 11/30/18at 20:17; Start 11/29/18 at 09:00 Linagliptin (Tradjenta) 5 mg DAILY PO Last administered on 11/30/18 09:38; Start 11/29/18 at 09:00 Hydroxyzine HCl (Atarax) 50 mg DAILY PO Last administered on 11/30/18 09:38; Start 11/29/18 at 09:00 Lisinopril (Prinivil) 40 mg DAILY PO Last administered on 11/30/18at 09:38; Start 11/29/18 at 09:00 Hydrochlorothiazide (Hydrodiuril) 25 mg DAILY PO ; Start 11/29/18 at 09:00 Potassium Chloride (Klor-Con) 40 meq 1X ONCE PO Last administered on 11/29/18at 11:22; Start 11/29/18 at 10:30; Stop 11/29/18 at 10:31; Status DC Vancomycin HCl (Vanco Per Pharmacy) 1 each PRN DAILY PRN MC SEE COMMENTS Last administered on 12/01/18at 02:13; Start 11/29/18 at 10:15 Piperacillin Sod/ Tazobactam Sod (Zosyn Per Pharmacy) 1 each PRN DAILY PRN MC SEE COMMENTS; Start 11/29/18 at 10:15; Stop 11/30/18 at 10:03; Status DC Piperacillin Sod/ Tazobactam Sod 4.5 gm/Sodium Chloride 100 ml @ 200 mls/hr Q6HRS IV Last administered on 11/30/18at 05:40; Start 11/29/18 at 11:00; Stop 11/30/18 at 10:03; Status DC Vancomycin HCl 2 gm/Sodium Chloride 500 ml @ 250 mls/hr 1X ONCE IV Last administered on 11/29/18at 12:38; Start 11/29/18 at 11:00; Stop 11/29/18 at 12:59; Status DC Vancomycin HCl 2 gm/Sodium Chloride 500 ml @ 250 mls/hr Q12H IV Last administered on 11/30/18at 12:57; Start 11/30/18 at 01:00; Stop 12/01/18 at 01:53; Status DC Vancomycin HCl (Vancomycin Trough Level) 1 each 1X ONCE MC Last administered on 12/01/18at 00:30; Start 12/01/18 at 00:30; Stop 12/01/18 at 00:31; Status DC Piperacillin Sod/ Tazobactam Sod 3.375 gm/Sodium Chloride 50 ml @ 100 mls/hr Q6HRS IV Last administered on 12/01/18at 05:30; Start 11/30/18 at 12:00 Lactobacillus Rhamnosus (Culturelle) 1 cap BID PO Last administered on 11/30/18at 20:15; Start 11/30/18 at 21:00 Vancomycin HCl (Vancomycin Random Level) 1 each 1X ONCE MC ; Start 12/01/18 at 10:00; Stop 12/01/18 at 10:01 Active Scripts Active Keppra (Levetiracetam) 500 Mg Tablet 500 Mg PO BID 30 Days Reported Oxycodone Hcl 5 Mg Capsule 10 Mg PO PRN Q6HRS PRN Methadone Hcl 10 Mg Tablet 10 Mg PO TID Lyrica (Pregabalin) 100 Mg Capsule 100 Mg PO BID Zantac (Ranitidine Hcl) 150 Mg Tablet 150 Mg PO BID Hydroxyzine Pamoate 50 Mg Capsule 50 Mg PO Cyclobenzaprine Hcl 10 Mg Tablet 10 Mg PO BID Cymbalta (Duloxetine Hcl) 30 Mg Capsule.dr 30 Mg PO BID Augmentin 875-125 Tablet (Amoxicillin/Potassium Clav) 1 Each Tablet 1 Tab PO BID Cipro (Ciprofloxacin Hcl) 500 Mg Tablet 500 Mg PO BID Levemir (Insulin Detemir) 100 Unit/1 Ml Vial 20 Unit SQ BID Cymbalta (Duloxetine Hcl) 60 Mg Capsule.dr 60 Mg PO DAILY Tramadol Hcl 50 Mg Tablet 100 Mg PO Q6H PRN Lisinopril-Hctz 20-12.5 Mg Tab (Lisinopril/Hydrochlorothiazide) 1 Each Tablet 2 Tab PO DAILY Januvia (Sitagliptin Phosphate) 100 Mg Tablet 100 Mg PO DAILY Allergies Allergies: Coded Allergies: aspirin (Verified Allergy, Intermediate, 05/21/16) gabapentin (Verified Allergy, Intermediate, 05/21/16) morphine (Verified Allergy, Intermediate, 11/29/18) ROS Review of System Constitutional: No fever, chills, fatigue or weight loss. Respiratory: No cough or sputum production. Cardiovascular: No chest pain, palpitations or peripheral edema. Gastrointestinal: No abdominal pain, nausea, constipation or diarrhea. Integumentary/breast: As per HPI Musculoskeletal: As per HPI Neurological: No gross deficits All other reviews systems negative except history of present illness. Physical Exam Physical Exam Gen.: Alert and oriented �3. Cardiac: Heart rate regular. Lungs: CTA, Nonlabored respirations. Abdomen: Soft, nontender, nondistended, no palpable masses. Extremities: 2+ bilateral radial, femoral pulses unable to palpate distal pulses, foot warm, mild swelling right foot. Skin: Right foot open ulcer, draining serous fluid, penetrates to bone. Mild surrounding erythema and swelling. Periwound with mild maceration. Neurological: Motor and sensation intact Vitals VITALS Vital Signs Date Time Temp Pulse Resp B/P (MAP) Pulse Ox O2 Delivery O2 Flow Rate FiO2 12/01/18 03:14 98.7 68 20 161/80 (107) 93 Room Air 98.7 Labs Labs Laboratory Tests Test 11/29/18 11:24 11/29/18 14:43 11/29/18 16:45 11/29/18 20:26 Glucose (Fingerstick) 123 mg/dL (70-99) 102 mg/dL (70-99) 117 mg/dL (70-99) Erythrocyte Sedimentation Rate 120 (0-15) Test 11/30/18 06:30 11/30/18 07:22 11/30/18 11:08 11/30/18 16:28 Creatinine 1.3 mg/dL (0.7-1.3) Estimated GFR (Cockcroft-Gault) 56.3 Glucose (Fingerstick) 158 mg/dL (70-99) 117 mg/dL (70-99) 121 mg/dL (70-99) Test 11/30/18 20:23 12/01/18 00:55 12/01/18 07:48 Glucose (Fingerstick) 215 mg/dL (70-99) 183 mg/dL (70-99) White Blood Count 3.7 x10^3/uL (4.0-11.0) Red Blood Count 3.44 x10^6/uL (4.30-5.70) Hemoglobin 9.0 g/dL (13.0-17.5) Hematocrit 27.4 % (39.0-53.0) Mean Corpuscular Volume 80 fL (79-100) Mean Corpuscular Hemoglobin 26 pg (25-35) Mean Corpuscular Hemoglobin Concent 33 g/dL (31-37) Red Cell Distribution Width 17.4 % (11.5-14.5) Platelet Count 275 x10^3/uL (140-400) Neutrophils (%) (Auto) 48 % (31-73) Lymphocytes (%) (Auto) 36 % (24-48) Monocytes (%) (Auto) 9 % (0-9) Eosinophils (%) (Auto) 6 % (0-3) Basophils (%) (Auto) 1 % (0-3) Neutrophils # (Auto) 1.8 x10^3/uL (1.8-7.7) Lymphocytes # (Auto) 1.3 x10^3/uL (1.0-4.8) Monocytes # (Auto) 0.3 x10^3/uL (0.0-1.1) Eosinophils # (Auto) 0.2 x10^3/uL (0.0-0.7) Basophils # (Auto) 0.0 x10^3/uL (0.0-0.2) Segmented Neutrophils % 48 % (35-66) Lymphocytes % 40 % (24-48) Monocytes % 7 % (0-10) Eosinophils % 5 % (0-5) Platelet Estimate Adequate (ADEQUATE) Anisocytosis Slight Creatinine 1.2 mg/dL (0.7-1.3) Estimated GFR (Cockcroft-Gault) 61.8 Vancomycin Level Trough 26.2 mcg/mL (10.0-20.0) Vancomycin Last Dose Date Vancomycin Last Dose Time Laboratory Tests Test 11/30/18 11:08 11/30/18 16:28 11/30/18 20:23 12/01/18 00:55 Glucose (Fingerstick) 117 mg/dL (70-99) 121 mg/dL (70-99) 215 mg/dL (70-99) White Blood Count 3.7 x10^3/uL (4.0-11.0) Red Blood Count 3.44 x10^6/uL (4.30-5.70) Hemoglobin 9.0 g/dL (13.0-17.5) Hematocrit 27.4 % (39.0-53.0) Mean Corpuscular Volume 80 fL (79-100) Mean Corpuscular Hemoglobin 26 pg (25-35) Mean Corpuscular Hemoglobin Concent 33 g/dL (31-37) Red Cell Distribution Width 17.4 % (11.5-14.5) Platelet Count 275 x10^3/uL (140-400) Neutrophils (%) (Auto) 48 % (31-73) Lymphocytes (%) (Auto) 36 % (24-48) Monocytes (%) (Auto) 9 % (0-9) Eosinophils (%) (Auto) 6 % (0-3) Basophils (%) (Auto) 1 % (0-3) Neutrophils # (Auto) 1.8 x10^3/uL (1.8-7.7) Lymphocytes # (Auto) 1.3 x10^3/uL (1.0-4.8) Monocytes # (Auto) 0.3 x10^3/uL (0.0-1.1) Eosinophils # (Auto) 0.2 x10^3/uL (0.0-0.7) Basophils # (Auto) 0.0 x10^3/uL (0.0-0.2) Segmented Neutrophils % 48 % (35-66) Lymphocytes % 40 % (24-48) Monocytes % 7 % (0-10) Eosinophils % 5 % (0-5) Platelet Estimate Adequate (ADEQUATE) Anisocytosis Slight Creatinine 1.2 mg/dL (0.7-1.3) Estimated GFR (Cockcroft-Gault) 61.8 Vancomycin Level Trough 26.2 mcg/mL (10.0-20.0) Vancomycin Last Dose Date Vancomycin Last Dose Time Test 12/01/18 07:48 Glucose (Fingerstick) 183 mg/dL (70-99) Images Images Right Foot xray IMPRESSION: Findings are concerning for osteomyelitis of the residual tarsal bones. Stable soft tissue emphysema concerning for anaerobic infection. Findings not significantly changed compared to previous exam from 11/25/2018. Arterial US: FINDINGS: There are normal triphasic waveforms within the right common femoral and superficial femoral artery and there is a biphasic waveform within the right dorsalis pedis artery. There are abnormal monophasic waveforms due to hemodynamically significant proximal stenosis involving the popliteal, posterior tibial, peroneal and anterior tibial arteries. There are elevated peak systolic velocities within the right common femoral artery measuring 167 cm/s, the proximal superficial femoral artery measuring 151 cm/s, the popliteal artery measuring 184 cm/s, the distal posterior tibial artery measuring 187 cm/s, and anterior tibial artery measuring 168 cm/s. There is also relatively elevated peak systolic velocity within the right dorsalis pedis artery measuring 133 cm/s. IMPRESSION: Monophasic waveforms involving the popliteal, posterior and anterior tibial and peroneal arteries due to hemodynamically significant proximal stenosis. There are also elevated peak systolic velocities due to stenosis involving the common femoral, proximal superficial femoral, popliteal, distal posterior tibial, anterior tibial and dorsalis pedis arteries. No occlusion is seen. Assessment/Plan Assessment/Plan 58 year old male with healed right transmetatarsal amputation with plantar foot wound that penetrates to bone. Plain foot xray consistent with osteomyelitis of tarsal bones and possible infection. Diminished pulses and abnormal arterial Doppler suggesting hemodynamically significant stenosis. Recommend aortogram with runoff and possible intervention right leg. Recommend MRI to evaluate the extensiveness of his wound and any bone involvement. The patient will need surgical debridement versus amputation pending the results of the arteriogram and MRI. Continue local wound care and antibiotics per Infectious Disease. Strict off-loading right foot. Discussed plan of care with Orthopedics. A Vascular surgeon will see patient and review images and make additional recommendations as needed. Thank you for the opportunity participate this patient's care. Will continue to follow. JOSESITO GOLDMAN APRN Dec 01, 2018 09:05
[2018-12-01] MEDS ORDERED: VANCOMYCIN RANDOM LEVEL. MC ONE (10:00)
[2018-12-01] MEDS: levETIRAcetam 500 MG TABLET PO SCH ×2 (10:00→21:46)
[2018-12-01] MEDS: METHADONE 10 MG TABLET. PO SCH ×3 (10:00→21:46)
[2018-12-01] MEDS: PREGABALIN 50 MG CAPSULE PO SCH ×2 (10:01→21:47)
[2018-12-01] MEDS: LACTOBACILLUS RHAMNOSUS GG 1 CAPSULE. PO SCH ×2 (10:01→21:00)
[2018-12-01] MEDS: FAMOTIDINE 20 MG TABLET. PO SCH ×2 (10:01→21:46)
[2018-12-01] MEDS: hydrOXYzine 25 MG TABLET PO SCH (10:01)
[2018-12-01] MEDS: hydroCHLOROthiazide 25 MG TABLET PO SCH (10:01)
[2018-12-01] MEDS: CYCLOBENZAPRINE 10 MG TABLET. PO SCH ×2 (10:01→21:00)
[2018-12-01] MEDS: LINAGLIPTIN 5 MG TABLET PO SCH (10:01)
[2018-12-01] MEDS: LISINOPRIL 20 MG TABLET PO SCH (10:01)
[2018-12-01] MEDS: DULoxetine HCL 30 MG CAPSULE.DR PO SCH ×2 (10:01→21:46)
[2018-12-01] MEDS: INSULIN GLARGINE SYRINGE. SQ SCH ×2 (10:08→21:51)
[2018-12-01] MEDS: INSULIN LISPRO 300 UNITS/3 ML VIAL. SQ SCH ×3 (10:10→16:38)
[2018-12-01 10:41] LABS: PROTHROMBIN TIME PATIENT 14.7 SEC (11.7-14.0)
[2018-12-01 11:00] VITALS: BP 160/72
[2018-12-01] MEDS ORDERED: VANCOMYCIN 2 GM in IV NORMAL SALINE 500ML BAG 500 ML IV SCH (11:30)
--- NOTE | 2018-12-01 11:56 | PDOC ---
Infectious Disease Note Subjective Subjective Doing alright Some foot pain No F/C/N/V/D ROS ROS per HPI Vital Sign Vital Signs Vital Signs Date Time Temp Pulse Resp B/P (MAP) Pulse Ox O2 Delivery O2 Flow Rate FiO2 12/01/18 10:01 68 138/61 12/01/18 07:00 98.9 18 97 Room Air 98.9 Physical Exam PHYSICAL EXAM GENERAL: Propped up in bed, alert, no apparent distress. HEENT: Pupils equally round and reactive. Normal conjunctivae. oropharynx pink and moist, edentulous NECK: Supple. LUNGS: Clear to auscultation. HEART: S1, S2. ABDOMEN: Obese, soft, nontender with bowel sounds present. EXTREMITIES: Trace edema, right lower extremity. Previous right TMA. Plantar ulcer with copious drainage, probes to bone. Smaller adjacent ulcer and dry peeling skin. + callus left foot. SKIN: Warm to touch. No signs of rash. NEUROLOGIC: Alert and answering questions appropriately. Peripheral IV. Labs Lab Laboratory Tests Test 11/30/18 16:28 11/30/18 20:23 12/01/18 00:55 12/01/18 07:48 Glucose (Fingerstick) 121 mg/dL (70-99) 215 mg/dL (70-99) 183 mg/dL (70-99) White Blood Count 3.7 x10^3/uL (4.0-11.0) Red Blood Count 3.44 x10^6/uL (4.30-5.70) Hemoglobin 9.0 g/dL (13.0-17.5) Hematocrit 27.4 % (39.0-53.0) Mean Corpuscular Volume 80 fL (79-100) Mean Corpuscular Hemoglobin 26 pg (25-35) Mean Corpuscular Hemoglobin Concent 33 g/dL (31-37) Red Cell Distribution Width 17.4 % (11.5-14.5) Platelet Count 275 x10^3/uL (140-400) Neutrophils (%) (Auto) 48 % (31-73) Lymphocytes (%) (Auto) 36 % (24-48) Monocytes (%) (Auto) 9 % (0-9) Eosinophils (%) (Auto) 6 % (0-3) Basophils (%) (Auto) 1 % (0-3) Neutrophils # (Auto) 1.8 x10^3/uL (1.8-7.7) Lymphocytes # (Auto) 1.3 x10^3/uL (1.0-4.8) Monocytes # (Auto) 0.3 x10^3/uL (0.0-1.1) Eosinophils # (Auto) 0.2 x10^3/uL (0.0-0.7) Basophils # (Auto) 0.0 x10^3/uL (0.0-0.2) Segmented Neutrophils % 48 % (35-66) Lymphocytes % 40 % (24-48) Monocytes % 7 % (0-10) Eosinophils % 5 % (0-5) Platelet Estimate Adequate (ADEQUATE) Anisocytosis Slight Creatinine 1.2 mg/dL (0.7-1.3) Estimated GFR (Cockcroft-Gault) 61.8 Vancomycin Level Trough 26.2 mcg/mL (10.0-20.0) Vancomycin Last Dose Date Vancomycin Last Dose Time Test 12/01/18 10:00 12/01/18 11:24 Prothrombin Time 14.7 SEC (11.7-14.0) Prothromb Time International Ratio 1.2 (0.8-1.1) Activated Partial Thromboplast Time 29 SEC (24-38) Random Vancomycin Level 19.9 mcg/mL Glucose (Fingerstick) 117 mg/dL (70-99) IMPRESSION: Monophasic waveforms involving the popliteal, posterior and anterior tibial and peroneal arteries due to hemodynamically significant proximal stenosis. There are also elevated peak systolic velocities due to stenosis involving the common femoral, proximal superficial femoral, popliteal, distal posterior tibial, anterior tibial and dorsalis pedis arteries. No occlusion is seen. Micro 11/25. BLD CULT RESULT 1 Final Staphylococcus aureus MICS are expressed in micrograms per mL Antibiotic RSLT#1 Ciprofloxacin I =2 Gentamicin S<=0.5 Levofloxacin S =1 Linezolid S =2 Moxifloxacin S<=0.25 Nitrofurantoin S<=16 Oxacillin S =0.5 Penicillin R>=0.5 Quinupristin/Dalfopristin S<=0.25 Rifampin S<=0.5 Tetracycline S<=1 Trimethoprim/Sulfa R>=320 Vancomycin S<=0.5 11/25. Right foot ANAEROBIC RES 1 PENDING AEROBIC RES 1 Final Staphylococcus aureus MICS are expressed in micrograms per mL Antibiotic RSLT#1 Ciprofloxacin I =2 Clindamycin S<=0.25 Erythromycin S =0.5 Gentamicin S<=0.5 Levofloxacin S =2 Linezolid S =2 Moxifloxacin S =0.5 Oxacillin S =0.5 Penicillin R>=0.5 Quinupristin/Dalfopristin S<=0.25 Rifampin S<=0.5 Tetracycline S<=1 Trimethoprim/Sulfa R>=320 Vancomycin S =1 ANAEROBIC RES 1 PENDING 11/26. BLOOD CULTURE Preliminary NO GROWTH AFTER 5 DAYS 11/28. BLOOD CULTURE Preliminary NO GROWTH AFTER 2 DAY Objective Assessment MSSA bacteremia from 11/25. Repeat BC 11/26 & NGTD Infected diabetic ulcer w/ OM, right foot. MSSA aureus so far Leukopenia PAD s/p TMA right foot around August 2018 at [facility] quit OP IV abx due to transportation issues and was switched to orals Peripheral neuropathy HTN Plan Plan of Care D/c vancomycin Continue Zosyn ESR 120 Local wound care and offloading Awaiting records from [facility] following with plans for arteriogram f/u MRI Attending Co-Sign Attending Co-Sign The patient was seen and interviewed as well as examined at the bedside. The chart was reviewed. The case was discussed. Agree with the plan of care. KRISTIE GREENE APRN Dec 01, 2018 11:56 MAI GONSALEZ MD Dec 01, 2018 16:57
[2018-12-01] MEDS: ASCORBIC ACID 500 MG TABLET PO SCH (14:16)
[2018-12-01] MEDS: MULTIVITAMIN with MINERAL TABLET. PO SCH (14:17)
--- NOTE | 2018-12-01 14:56 | NUR ---
TCOM completed. Results will be placed in chart after test is dictated on 12/02/18. A temporary copy was going to be placed in chart, but patient was off the unit having an MRI.
--- NOTE | 2018-12-01 16:09 | NUR ---
SS following for discharge planning. SS reviewed pt chart. Pt is from home with spouse and is currently on room air. PT/OT ordered. SS will continue to follow for discharge planning.
--- NOTE | 2018-12-01 16:25 | NUR ---
Wound Care Wound care consult for DFU to right plantar foot. Pt right foot is red, swollen and warm to touch. Cleansed wound and measured depth of 6.8cm with CTA, releasing a large amount of serosanguineous fluid. Discussed with pt and Sumit NOLANDRTawanna about treatment options. Packed wound with Aquacel Ag, covered with ABD and Kerlix, recommend to change daily and PRN for drainage. Pt left on his back with Azucena, HBO tech, doing a t-com. WC will continue to follow for possible changes.
--- NOTE | 2018-12-01 17:00 | RAD ---
Examination: MRI of the right foot without contrast HISTORY: History of right foot wound , osteomyelitis Comparison: None available TECHNIQUE: Multiplanar, multisequence MR imaging of the right foot was performed without contrast FINDINGS: The attachment of the Achilles tendon to the calcaneus grossly appears intact. The attachment of plantar fascia to the inferior aspect of the calcaneus grossly appears intact. There is increased T2 signal with corresponding diffuse decreased T1 signal identified involving the cuboid, the tarsal bones throughout involving the cuboid, cuneiform bones with bony destructive changes laterally and diffuse soft tissue swelling with diffuse increased T2 signal and multiple foci of air in the soft tissue at the amputation site likely diffuse osteomyelitis and gangrenous foot. Examination limited due to motion artifact. A 1 cm probable old osteochondral defect medial talar dome. The evaluation of the tendons is limited. Small ankle joint effusion is identified. IMPRESSION: 1. Gangrenous foot with osteomyelitis involving the cuboid and the cuneiform bones as described above. Electronically signed by: Rashad Chew MD (12/01/2018 4:57 PM) [id number]
[2018-12-01 19:00] VITALS: BP 188/86
[2018-12-01 23:00] VITALS: BP 151/76
[2018-12-02] VITALS (12 sets, daily range): BP systolic 123–173; BP diastolic 63–97
[2018-12-02] MEDS: PIPERACILLIN/TAZOBACTAM 3.375 GM in IV NORMAL SALINE 50ML 50 ML IV SCH ×5 (00:04→23:35)
[2018-12-02 05:22] LABS: CREATININE 1.2 mg/dL (0.7-1.3); GFR 61.8
[2018-12-02] MEDS: fentaNYL PF VIAL 100 MCG/2 ML VIAL IV PRN ×3 (06:03→23:41)
--- NOTE | 2018-12-02 07:44 | PDOC ---
TCOM NOTE Transcutaneous oximetry is performed at the request of Dr. Warren. This is a 58-year-old patient who has undergone right TMA and is demonstrating poor healing with subsequent infection. No vasoactive medications are ongoing at this time. Patient is demonstrating 97% pulse oximetry and no evidence of respiratory distress. Other vital signs are stable and he is noted to be afebrile. He is resting quietly at this time. He demonstrates modest edema in the right lower extremity. Nelson electrodes are placed in the following physicians: Lead 1 is lateral TMA location and lead 4 is medial TMA location. Lead 2 is posterior proximal calf and lead 3 is medial proximal lower leg. Lead 5 is an AKA placement and lead 6 his contralateral extremity. On room air at 1 kemar, distal leads 1 and 4 are 4 mmHg and 8 mmHg respectively. Posterior calf lead 2 and lower leg medial lead 3 are 52 mmHg and 83 mmHg respectively. AKA position lead 5 is 69 mmHg. Breathing 100% oxygen at 1 kemar, distal leads 1 and 4 are 71 mmHg and 50 mmHg. Posterior calf lead 2 and lower leg medial lead 3 are 157 mmHg and 184 mmHg. AKA position lead 5 is 155 mmHg. Transcutaneous oximetry suggested very poor healing and critical ischemia at TMA location and even with oxygen augmentation transcutaneous oximetry readings do not exceed 100 mmHg suggesting poor result even with adjunctive hyperbaric oxygen therapy at this time. BKA and AKA level readings also suggested adequate tissue oxygenation for healing. STEPHANIE BRITTON DO Dec 02, 2018 07:44
[2018-12-02] MEDS: INSULIN LISPRO 300 UNITS/3 ML VIAL. SQ SCH ×3 (07:59→17:00)
[2018-12-02] MEDS: levETIRAcetam 500 MG TABLET PO SCH ×2 (08:59→20:25)
[2018-12-02] MEDS: METHADONE 10 MG TABLET. PO SCH ×3 (08:59→20:26)
[2018-12-02] MEDS: FAMOTIDINE 20 MG TABLET. PO SCH ×2 (09:00→20:26)
[2018-12-02] MEDS: hydroCHLOROthiazide 25 MG TABLET PO SCH (09:00)
[2018-12-02] MEDS: LISINOPRIL 20 MG TABLET PO SCH (09:00)
[2018-12-02] MEDS: PREGABALIN 50 MG CAPSULE PO SCH ×2 (09:00→20:25)
[2018-12-02] MEDS: CYCLOBENZAPRINE 10 MG TABLET. PO SCH ×2 (09:00→20:25)
[2018-12-02] MEDS: MULTIVITAMIN with MINERAL TABLET. PO SCH (09:00)
[2018-12-02] MEDS: LINAGLIPTIN 5 MG TABLET PO SCH (09:00)
[2018-12-02] MEDS: hydrOXYzine 25 MG TABLET PO SCH (09:00)
[2018-12-02] MEDS: LACTOBACILLUS RHAMNOSUS GG 1 CAPSULE. PO SCH ×2 (09:00→20:25)
[2018-12-02] MEDS: ASCORBIC ACID 500 MG TABLET PO SCH (09:00)
[2018-12-02] MEDS: DULoxetine HCL 30 MG CAPSULE.DR PO SCH ×2 (09:00→20:26)
--- NOTE | 2018-12-02 09:35 | PDOC ---
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 Peripheral arterial disease - confirmed with RLE arterial doppler History of Present Illness History of Present Illness 12/02/18 Pt seen and examined at bedside Was in good spirits Was sitting up in bed, right foot bandaged Charts and labs reviewed ID confirmed Staph aureus infection Consulting with vascular surgery and ortho 12/01/[address] Madsen at bedside Treated with IV antibiotics 3 months ago in [place], [place] after TMA Left AMA, returned due to concerns about foot infection Monophasic on RLE doppler. Has some foot pain. No SOB or CP Obtaining records from prior hospitalization Vitals/I&O Vitals/I&O: Vital Signs Date Time Temp Pulse Resp B/P (MAP) Pulse Ox O2 Delivery O2 Flow Rate FiO2 12/02/18 08:59 16 Room Air 12/02/18 07:00 98.0 64 151/93 (112) 94 98.0 I & O 12/01/18 12/01/18 12/02/18 14:59 22:59 06:59 Intake Total 960 ml 620 ml 100 ml Balance 960 ml 620 ml 100 ml Physical Exam Physical Exam: GENERAL: Propped up in bed, alert, no apparent distress. HEENT: Pupils equally round and reactive. Normal conjunctivae. oropharynx pink and moist, edentulous NECK: Supple. LUNGS: Clear to auscultation. HEART: S1, S2. ABDOMEN: Obese, soft, nontender with bowel sounds present. EXTREMITIES: Trace edema, right lower extremity. Previous right TMA. Plantar ulcer with copious drainage, probes to bone. Smaller adjacent ulcer and dry peeling skin. + callus left foot. SKIN: Warm to touch. No signs of rash. NEUROLOGIC: Alert and answering questions appropriately. Peripheral IV. General: Alert, Oriented X3, Cooperative, No acute distress Heart: Regular rate, Normal S1, Normal S2 Lungs: Clear Abdomen: Normal bowel sounds, Soft, No tenderness, No hepatosplenomegaly, No masses Skin: Other (all right toes amputated, dressing, lesions or juicy Wet, poor overall hygiene) Labs Labs: Laboratory Tests Test 12/01/18 10:00 12/01/18 11:24 12/01/18 16:36 12/01/18 20:32 Prothrombin Time 14.7 SEC (11.7-14.0) Prothromb Time International Ratio 1.2 (0.8-1.1) Activated Partial Thromboplast Time 29 SEC (24-38) Random Vancomycin Level 19.9 mcg/mL Glucose (Fingerstick) 117 mg/dL (70-99) 69 mg/dL (70-99) 137 mg/dL (70-99) Test 12/02/18 03:30 12/02/18 07:36 Creatinine 1.2 mg/dL (0.7-1.3) Estimated GFR (Cockcroft-Gault) 61.8 Glucose (Fingerstick) 79 mg/dL (70-99) Review of Systems Review of Systems: No nausea, no vomiting No chest pain, no palpitations Assessment and Plan Assessmemt and Plan Problems Medical Problems: (1) Anemia Status: Acute (2) Osteomyelitis of foot Status: Acute Assessment Osteomyelitis Diabetes Mellitus Diabetic neuropathy Peripheral artery disease Plan IV Zosyn for MSSA Wound care Vascular surgery consulted PT/OT Control blood sugar DVT prophylaxis Full code Comment Review of Relevant I have reviewed the following items wilber (where applicable) has been applied. Medications: Current Medications Medications (Trade) Dose Ordered Sig/Olesya Route PRN Reason Start Time Stop Time Status Last Admin Dose Admin Ascorbic Acid (Vitamin C) 500 mg DAILY PO 12/01/18 13:00 12/01/18 14:16 Multivitamins (Thera M Plus) 1 tab DAILY PO 12/01/18 13:00 12/01/18 14:17 EZEKIEL TONG III DO Dec 02, 2018 09:35
--- NOTE | 2018-12-02 09:57 | NUR ---
TCOM test completed and dictated. The results are in the patients chart under the blue progress notes tab.
[2018-12-02] MEDS ORDERED: LIDOCAINE WITH 8.4% SOD BICARB 3 ML DISP.SYRIN. ONE (10:01)
[2018-12-02] MEDS ORDERED: IODIXANOL 320 MG/ML 100 ML VIAL. ONE (10:01)
[2018-12-02] MEDS ORDERED: fentaNYL PF VIAL 250 MCG/5 ML VIAL ONE (10:16)
[2018-12-02] MEDS ORDERED: MIDAZOLAM HCL/PF 5 MG/5 ML VIAL. ONE (10:16)
[2018-12-02] MEDS ORDERED: HEPARIN for IV BOLUS 10,000 UNIT/10 ML VIAL. ONE (10:16)
[2018-12-02] MEDS ORDERED: diphenhydrAMINE 50 MG/ML VIAL ONE (10:49)
[2018-12-02] MEDS ORDERED: LIDOCAINE WITH 8.4% SOD BICARB 3 ML DISP.SYRIN. IJ ONE (11:15)
[2018-12-02] MEDS ORDERED: HEPARIN for IV BOLUS 10,000 UNIT/10 ML VIAL. IV ONE (11:15)
[2018-12-02] MEDS ORDERED: IODIXANOL 320 MG/ML 100 ML VIAL. IART ONE (11:15)
[2018-12-02] MEDS ORDERED: diphenhydrAMINE 50 MG/ML VIAL IVP ONE (11:15)
[2018-12-02] MEDS ORDERED: MIDAZOLAM HCL/PF 5 MG/5 ML VIAL. IV ONE (11:15)
[2018-12-02] MEDS ORDERED: fentaNYL PF VIAL 250 MCG/5 ML VIAL IV ONE (11:15)
--- NOTE | 2018-12-02 11:34 | NUR ---
SS following up with discharge planning. PT/OT recommended prison [facility]. SS attempted to meet with pt to discuss discharge planning but pt currently out of the room for angiogram. SS will attempt to follow up with pt at a later time.
--- NOTE | 2018-12-02 11:48 | PDOC ---
MODERATE SEDATION ASSESSMENT RISKS/ALTERNATIVES Risks/Alternatives Risks and alternatives of this type of sedation and procedure discussed with: RISK/ALTERNATIVES: Patient H & P ON CHART H & P H & P on chart and reviewed for co-morbid conditions and appropriate labs. H&P ON CHART: Yes STATUS PREG STATUS ASSESSED: Yes MEDS/ALLERGIES REVIEWED Meds/Allergies Reviewed Medications and Allergies including time and route of recently administered narcotics and sedatives. MEDS/ALLERGIES REVIEWED: Yes ASA RATING ASA RATING: III AIRWAY ASSESSMENT Airway Assessment Airway patency, oral function limitations, presence of caps, crowns, dentures, partials, and ability to extend neck assessed. AIRWAY ASSESSMENT: Yes MALLAMPATI SCORE MALLAMPATI SCORE: II, III PRE-SEDATION ASSESSMENT PRE-SEDATION ASSESSMENT: Yes RAYSHAWN CHRISTIANSEN MD Dec 02, 2018 11:48
--- NOTE | 2018-12-02 11:51 | PDOC ---
BRIEF OPERATIVE NOTE Pre-Op Diagnosis diabetic foot ulcer, non-healing amputation Post-Op Diagnosis same Procedure Performed Angiogram and popliteal artery angioplasty, right Surgeon Mima Anesthesia Type: Conscious Sedation Findings multifocal calcified atherosclerosis with no significant aortoiliofemoral stenoses. Focal moderate stenosis of the right popliteal artery, with minimal stenosis of the runoff vessels to the foot. Severe microvascular disease of the midfoot with an absent pedal arch. Following angioplasty of the popliteal stenosis there is < 30% residual disease with luminal patency > 5.5mm. Complications No immediate RAYSHAWN CHRISTIANSEN MD Dec 02, 2018 11:51
[2018-12-02] MEDS ORDERED: CLOPIDOGREL BISULFATE 75 MG TABLET PO ONE (12:30)
[2018-12-02] MEDS: INSULIN GLARGINE SYRINGE. SQ SCH ×2 (12:33→20:31)
--- NOTE | 2018-12-02 13:55 | PDOC ---
Infectious Disease Note Subjective Subjective s/p angiogram and popliteal artery angioplasty, right Patient says preparing self for a possible amputation. Having some pain with ongoing drainage Denies F/C/N/V/D/SOA ROS ROS per HPI Vital Sign Vital Signs Vital Signs Date Time Temp Pulse Resp B/P (MAP) Pulse Ox O2 Delivery O2 Flow Rate FiO2 12/02/18 12:00 98 18 123/67 (85) 99 Room Air 12/02/18 11:15 2.0 12/02/18 07:00 98.0 98.0 Physical Exam PHYSICAL EXAM GENERAL: Propped up in bed, alert, NAD HEENT: Pupils equally round and reactive. Normal conjunctivae. oropharynx pink and moist, edentulous NECK: Supple. LUNGS: Clear to auscultation. HEART: S1, S2. ABDOMEN: Obese, soft, nontender with bowel sounds present. EXTREMITIES: Trace edema, right lower extremity. Previous right TMA. Plantar ulcer with copious drainage, probes to bone. Smaller adjacent ulcer and dry peeling skin. + callus left foot. SKIN: Warm to touch. No signs of rash. NEUROLOGIC: Alert and answering questions appropriately. Peripheral IV. Labs Lab Laboratory Tests Test 12/01/18 16:36 12/01/18 20:32 12/02/18 03:30 12/02/18 07:36 Glucose (Fingerstick) 69 mg/dL (70-99) 137 mg/dL (70-99) 79 mg/dL (70-99) Creatinine 1.2 mg/dL (0.7-1.3) Estimated GFR (Cockcroft-Gault) 61.8 Test 12/02/18 12:08 Glucose (Fingerstick) 120 mg/dL (70-99) MRI, right foot FINDINGS: The attachment of the Achilles tendon to the calcaneus grossly appears intact. The attachment of plantar fascia to the inferior aspect of the calcaneus grossly appears intact. There is increased T2 signal with corresponding diffuse decreased T1 signal identified involving the cuboid, the tarsal bones throughout involving the cuboid, cuneiform bones with bony destructive changes laterally and diffuse soft tissue swelling with diffuse increased T2 signal and multiple foci of air in the soft tissue at the amputation site likely diffuse osteomyelitis and gangrenous foot. Examination limited due to motion artifact. A 1 cm probable old osteochondral defect medial talar dome. The evaluation of the tendons is limited. Small ankle joint effusion is identified. IMPRESSION: 1. Gangrenous foot with osteomyelitis involving the cuboid and the cuneiform bones as described above. Micro 11/25. BLD CULT RESULT 1 Final Staphylococcus aureus MICS are expressed in micrograms per mL Antibiotic RSLT#1 Ciprofloxacin I =2 Gentamicin S<=0.5 Levofloxacin S =1 Linezolid S =2 Moxifloxacin S<=0.25 Nitrofurantoin S<=16 Oxacillin S =0.5 Penicillin R>=0.5 Quinupristin/Dalfopristin S<=0.25 Rifampin S<=0.5 Tetracycline S<=1 Trimethoprim/Sulfa R>=320 Vancomycin S<=0.5 11/25. Right foot ANAEROBIC RES 1 PENDING AEROBIC RES 1 Final Staphylococcus aureus MICS are expressed in micrograms per mL Antibiotic RSLT#1 Ciprofloxacin I =2 Clindamycin S<=0.25 Erythromycin S =0.5 Gentamicin S<=0.5 Levofloxacin S =2 Linezolid S =2 Moxifloxacin S =0.5 Oxacillin S =0.5 Penicillin R>=0.5 Quinupristin/Dalfopristin S<=0.25 Rifampin S<=0.5 Tetracycline S<=1 Trimethoprim/Sulfa R>=320 Vancomycin S =1 ANAEROBIC RES 1 Final Comment No anaerobic growth in 72 hours. 11/26. BLOOD CULTURE Preliminary NO GROWTH AFTER 5 DAYS 11/28. BLOOD CULTURE Preliminary NO GROWTH AFTER 3 DAY Objective Assessment MSSA bacteremia from 11/25. Repeat BC 11/26 & NGTD Infected diabetic ulcer w/ OM, right foot. MSSA Leukopenia PAD s/p angioplasty right leg, 12/02 s/p TMA right foot around August 2018 at [facility] quit OP IV abx due to transportation issues and was switched to orals Peripheral neuropathy HTN Plan Plan of Care Continue Zosyn ESR 120 Local wound care and offloading Awaiting records from [facility] Awaiting ortho surgical plans IR recommending BKA f/u labs in am D/w Dr. Hurtado D/w nursing Attending Co-Sign Attending Co-Sign The patient was seen and interviewed as well as examined at the bedside. The chart was reviewed. The case was discussed. Agree with the plan of care. KRISTIE GREENE APRN Dec 02, 2018 13:55 MAI GONSALEZ MD Dec 02, 2018 16:33
--- NOTE | 2018-12-02 14:13 | PDOC ---
PROGRESS NOTES Subjective Subjective Patient resting in bed, eating lunch. He is s/p angiogram. Objective Objective Vital Signs Date Time Temp Pulse Resp B/P (MAP) Pulse Ox O2 Delivery O2 Flow Rate FiO2 12/02/18 13:45 85 144/77 (99) 99 Room Air 12/02/18 12:00 18 12/02/18 11:15 2.0 12/02/18 07:00 98.0 98.0 Intake and Output 12/02/18 07:00 Intake Total 1680 ml Balance 1680 ml Intake Oral 1580 ml Other 100 ml # Voids 5 Physical Exam Heart: Regular rate Extremities: Other (left femoral access site dressing dry and intact) General: Alert, Oriented X3 Lungs: Normal air movement Skin: Other (right foot dressing soaked with drainage.) Assessment Assessment Problems Medical Problems: (1) Anemia Status: Acute (2) Osteomyelitis of foot Status: Acute Plan Plan of Care 58 year old male with peripheral arterial disease and right foot wound. The wound is deep and penetrates to bone. Angiogram: multifocal calcified atherosclerosis with no significant aortoiliofemoral stenoses. Focal moderate stenosis of the right popliteal artery, with minimal stenosis of the runoff vessels to the foot. Severe microvascular disease of the midfoot with an absent pedal arch. Following angioplasty of the popliteal stenosis there is < 30% residual disease with luminal patency > 5.5mm. Recommend right below knee amputation, the patient should have adequate arterial circulation to heal a BKA. Discussed recommendations with the patient. Will defer management to Orthopedics. Patient seen and examined with Dr. Hurtado. Comment Review of Relevant I have reviewed the following items wilber (where applicable) has been applied. Labs Laboratory Tests Test 11/30/18 16:28 11/30/18 20:23 12/01/18 00:55 12/01/18 07:48 Glucose (Fingerstick) 121 mg/dL (70-99) 215 mg/dL (70-99) 183 mg/dL (70-99) White Blood Count 3.7 x10^3/uL (4.0-11.0) Red Blood Count 3.44 x10^6/uL (4.30-5.70) Hemoglobin 9.0 g/dL (13.0-17.5) Hematocrit 27.4 % (39.0-53.0) Mean Corpuscular Volume 80 fL (79-100) Mean Corpuscular Hemoglobin 26 pg (25-35) Mean Corpuscular Hemoglobin Concent 33 g/dL (31-37) Red Cell Distribution Width 17.4 % (11.5-14.5) Platelet Count 275 x10^3/uL (140-400) Neutrophils (%) (Auto) 48 % (31-73) Lymphocytes (%) (Auto) 36 % (24-48) Monocytes (%) (Auto) 9 % (0-9) Eosinophils (%) (Auto) 6 % (0-3) Basophils (%) (Auto) 1 % (0-3) Neutrophils # (Auto) 1.8 x10^3/uL (1.8-7.7) Lymphocytes # (Auto) 1.3 x10^3/uL (1.0-4.8) Monocytes # (Auto) 0.3 x10^3/uL (0.0-1.1) Eosinophils # (Auto) 0.2 x10^3/uL (0.0-0.7) Basophils # (Auto) 0.0 x10^3/uL (0.0-0.2) Segmented Neutrophils % 48 % (35-66) Lymphocytes % 40 % (24-48) Monocytes % 7 % (0-10) Eosinophils % 5 % (0-5) Platelet Estimate Adequate (ADEQUATE) Anisocytosis Slight Creatinine 1.2 mg/dL (0.7-1.3) Estimated GFR (Cockcroft-Gault) 61.8 Vancomycin Level Trough 26.2 mcg/mL (10.0-20.0) Vancomycin Last Dose Date Vancomycin Last Dose Time Test 12/01/18 10:00 12/01/18 11:24 12/01/18 16:36 12/01/18 20:32 Prothrombin Time 14.7 SEC (11.7-14.0) Prothromb Time International Ratio 1.2 (0.8-1.1) Activated Partial Thromboplast Time 29 SEC (24-38) Random Vancomycin Level 19.9 mcg/mL Glucose (Fingerstick) 117 mg/dL (70-99) 69 mg/dL (70-99) 137 mg/dL (70-99) Test 12/02/18 03:30 12/02/18 07:36 12/02/18 12:08 Creatinine 1.2 mg/dL (0.7-1.3) Estimated GFR (Cockcroft-Gault) 61.8 Glucose (Fingerstick) 79 mg/dL (70-99) 120 mg/dL (70-99) Laboratory Tests Test 12/01/18 16:36 12/01/18 20:32 12/02/18 03:30 12/02/18 07:36 Glucose (Fingerstick) 69 mg/dL (70-99) 137 mg/dL (70-99) 79 mg/dL (70-99) Creatinine 1.2 mg/dL (0.7-1.3) Estimated GFR (Cockcroft-Gault) 61.8 Test 12/02/18 12:08 Glucose (Fingerstick) 120 mg/dL (70-99) Microbiology 11/28/18 Blood Culture - Preliminary, Resulted NO GROWTH AFTER 3 DAYS Medications Current Medications Cefazolin Sodium/ Dextrose 50 ml @ 100 mls/hr 1X ONCE IV Last administered on 11/28/18at 21:54; Start 11/28/18 at 21:00; Stop 11/28/18 at 21:29; Status DC Vancomycin HCl 250 ml @ 250 mls/hr 1X ONCE IV Last administered on 11/28/18at 22:20; Start 11/28/18 at 21:00; Stop 11/28/18 at 21:59; Status DC Fentanyl Citrate (Fentanyl 2ml Vial) 50 mcg PRN Q2HR PRN IV SEVERE PAIN 7-10 Last administered on 12/02/18at 08:59; Start 11/29/18 at 01:00 Insulin Human Lispro (HumaLOG) 0-5 UNITS TIDWMEALS SQ ; Start 11/29/18 at 08:00; Stop 11/29/18 at 08:12; Status DC Dextrose (Dextrose 50%-Water Syringe) 12.5 gm PRN Q15MIN PRN IV SEE COMMENTS; Start 11/29/18 at 01:15; Status Cancel Insulin Human Lispro (HumaLOG) 0-9 UNITS TIDWMEALS SQ Last administered on 12/01/18at 10:10; Start 11/29/18 at 09:00 Dextrose (Dextrose 50%-Water Syringe) 12.5 gm PRN Q15MIN PRN IV SEE COMMENTS; Start 11/29/18 at 08:15 Acetaminophen (Tylenol) 500 mg PRN Q6HRS PRN PO MILD PAIN / TEMP; Start 11/29/18 at 08:15 Fentanyl Citrate (Fentanyl 2ml Vial) 50 mcg PRN Q2HR PRN IV PAIN; Start 11/03 10/20 at 08:15; Stop 11/30/18 at 11:35; Status DC Tramadol HCl (Ultram) 50 mg PRN Q6HRS PRN PO MODERATE PAIN; Start 11/29/18 at 08:15 Zolpidem Tartrate (Ambien) 5 mg PRN QHS PRN PO INSOMNIA; Start 11/29/18 at 08:15 Cyclobenzaprine HCl (Flexeril) 10 mg BID PO Last administered on 12/01/18at 10:01; Start 11/29/18 at 09:00 Duloxetine HCl (Cymbalta) 30 mg BID PO Last administered on 12/01/18at 21:46; Start 11/29/18 at 09:00 Levetiracetam (Keppra) 500 mg BID PO Last administered on 12/02/18at 08:59; Start 11/29/18 at 09:00 Methadone HCl (Dolophine) 10 mg TID PO Last administered on 12/02/18at 08:59; Start 11/29/18 at 09:00 Non-Formulary Medication (Duloxetine Hcl (Cymbalta)) 60 mg DAILY PO ; Start 11/29/18 at 09:00; Status UNV Insulin Glargine (Lantus Syringe) 20 unit BID SQ Last administered on 12/02/18at 12:33; Start 11/29/18 at 09:00 Non-Formulary Medication (Lisinopril/ Hydrochlorothiazide (Lisinopril-Hctz 20- 12.5 Mg Tab)) 2 tab DAILY PO ; Start 11/29/18 at 09:00; Status UNV Oxycodone HCl (Roxicodone) 10 mg PRN Q6HRS PRN PO SEVERE PAIN Last administered on 11/30/18at 16:50; Start 11/29/18 at 08:30 Pregabalin (Lyrica) 100 mg BID PO Last administered on 12/01/18at 21:47; Start 11/29/18 at 09:00 Famotidine (Pepcid) 20 mg BID PO Last administered on 12/01/18at 21:46; Start 11/29/18 at 09:00 Linagliptin (Tradjenta) 5 mg DAILY PO Last administered on 12/01/18at 10:01; Start 11/29/18 at 09:00 Hydroxyzine HCl (Atarax) 50 mg DAILY PO Last administered on 12/01/18at 10:01; Start 11/29/18 at 09:00 Lisinopril (Prinivil) 40 mg DAILY PO Last administered on 12/01/18at 10:01; Start 11/29/18 at 09:00 Hydrochlorothiazide (Hydrodiuril) 25 mg DAILY PO Last administered on 12/01/18at 10:01; Start 11/29/18 at 09:00 Potassium Chloride (Klor-Con) 40 meq 1X ONCE PO Last administered on 11/29/18at 11:22; Start 11/29/18 at 10:30; Stop 11/29/18 at 10:31; Status DC Vancomycin HCl (Vanco Per Pharmacy) 1 each PRN DAILY PRN MC SEE COMMENTS Last administered on 12/01/18at 02:13; Start 11/29/18 at 10:15; Stop 12/01/18 at 11:47; Status DC Piperacillin Sod/ Tazobactam Sod (Zosyn Per Pharmacy) 1 each PRN DAILY PRN MC SEE COMMENTS; Start 11/29/18 at 10:15; Stop 11/30/18 at 10:03; Status DC Piperacillin Sod/ Tazobactam Sod 4.5 gm/Sodium Chloride 100 ml @ 200 mls/hr Q6HRS IV Last administered on 11/30/18at 05:40; Start 11/29/18 at 11:00; Stop 11/30/18 at 10:03; Status DC Vancomycin HCl 2 gm/Sodium Chloride 500 ml @ 250 mls/hr 1X ONCE IV Last administered on 11/29/18at 12:38; Start 11/29/18 at 11:00; Stop 11/29/18 at 12:59; Status DC Vancomycin HCl 2 gm/Sodium Chloride 500 ml @ 250 mls/hr Q12H IV Last administered on 11/30/18at 12:57; Start 11/30/18 at 01:00; Stop 12/01/18 at 01:53; Status DC Vancomycin HCl (Vancomycin Trough Level) 1 each 1X ONCE MC Last administered on 12/01/18at 00:30; Start 12/01/18 at 00:30; Stop 12/01/18 at 00:31; Status DC Piperacillin Sod/ Tazobactam Sod 3.375 gm/Sodium Chloride 50 ml @ 100 mls/hr Q6HRS IV Last administered on 12/02/18at 12:26; Start 11/30/18 at 12:00 Lactobacillus Rhamnosus (Culturelle) 1 cap BID PO Last administered on 12/01/18at 21:00; Start 11/30/18 at 21:00 Vancomycin HCl (Vancomycin Random Level) 1 each 1X ONCE MC ; Start 12/01/18 at 10:00; Stop 12/01/18 at 10:01; Status DC Vancomycin HCl 2 gm/Sodium Chloride 500 ml @ 250 mls/hr Q18H IV ; Start 12/01/18 at 11:30; Stop 12/01/18 at 11:47; Status DC Vancomycin HCl (Vancomycin Trough Level) 1 each 1X ONCE MC ; Start 12/02/18 at 23:00; Stop 12/01/18 at 11:55; Status DC Ascorbic Acid (Vitamin C) 500 mg DAILY PO Last administered on 12/01/18at 14:16; Start 12/01/18 at 13:00 Multivitamins (Thera M Plus) 1 tab DAILY PO Last administered on 12/01/18at 14:17; Start 12/01/18 at 13:00 Iodixanol (Visipaque 320) 100 ml STK-MED ONCE .ROUTE ; Start 12/02/18 at 10:01; Stop 12/02/18 at 10:01; Status DC Lidocaine/Sodium Bicarbonate (Buffered Lidocaine 1%) 3 ml STK-MED ONCE .ROUTE ; Start 12/02/18 at 10:01; Stop 12/02/18 at 10:01; Status DC Heparin Sodium/ Sodium Chloride 1,000 ml @ As Directed STK-MED ONCE .ROUTE ; Start 12/02/18 at 10:03; Stop 12/02/18 at 10:03; Status DC Midazolam HCl (Versed) 5 mg STK-MED ONCE .ROUTE ; Start 12/02/18 at 10:16; Stop 12/02/18 at 10:16; Status DC Fentanyl Citrate (Fentanyl 5ml Vial) 250 mcg STK-MED ONCE .ROUTE ; Start 12/02/18 at 10:16; Stop 12/02/18 at 10:16; Status DC Heparin Sodium (Porcine) (Heparin Sodium) 10,000 unit STK-MED ONCE .ROUTE ; Start 12/02/18 at 10:16; Stop 12/02/18 at 10:16; Status DC Diphenhydramine HCl (Benadryl) 50 mg STK-MED ONCE .ROUTE ; Start 12/02/18 at 10:49; Stop 12/02/18 at 10:49; Status DC Lidocaine/Sodium Bicarbonate (Buffered Lidocaine 1%) 3 ml 1X ONCE IJ Last administered on 12/02/18at 11:15; Start 12/02/18 at 11:15; Stop 12/02/18 at 11:16; Status DC Midazolam HCl (Versed) 5 mg 1X ONCE IV Last administered on 12/02/18at 11:15; Start 12/02/18 at 11:15; Stop 12/02/18 at 11:16; Status DC Fentanyl Citrate (Fentanyl 5ml Vial) 100 mcg 1X ONCE IV Last administered on 12/02/18at 11:15; Start 12/02/18 at 11:15; Stop 12/02/18 at 11:16; Status DC Iodixanol (Visipaque 320) 100 ml 1X ONCE IART Last administered on 12/02/18at 11:15; Start 12/02/18 at 11:15; Stop 12/02/18 at 11:16; Status DC Heparin Sodium (Porcine) (Heparin Sodium) 5,000 unit 1X ONCE IV Last administered on 12/02/18at 11:15; Start 12/02/18 at 11:15; Stop 12/02/18 at 11:16; Status DC Diphenhydramine HCl (Benadryl) 25 mg 1X ONCE IVP Last administered on 12/02/18at 11:15; Start 12/02/18 at 11:15; Stop 12/02/18 at 11:16; Status DC Clopidogrel Bisulfate (Plavix) 300 mg 1X ONCE PO Last administered on 12/02/18at 12:28; Start 12/02/18 at 12:30; Stop 12/02/18 at 12:31; Status DC Clopidogrel Bisulfate (Plavix) 75 mg DAILYWBKFT PO ; Start 12/03/18 at 08:00 Active Scripts Active Keppra (Levetiracetam) 500 Mg Tablet 500 Mg PO BID 30 Days Reported Oxycodone Hcl 5 Mg Capsule 10 Mg PO PRN Q6HRS PRN Methadone Hcl 10 Mg Tablet 10 Mg PO TID Lyrica (Pregabalin) 100 Mg Capsule 100 Mg PO BID Zantac (Ranitidine Hcl) 150 Mg Tablet 150 Mg PO BID Hydroxyzine Pamoate 50 Mg Capsule 50 Mg PO Cyclobenzaprine Hcl 10 Mg Tablet 10 Mg PO BID Cymbalta (Duloxetine Hcl) 30 Mg Capsule.dr 30 Mg PO BID Augmentin 875-125 Tablet (Amoxicillin/Potassium Clav) 1 Each Tablet 1 Tab PO BID Cipro (Ciprofloxacin Hcl) 500 Mg Tablet 500 Mg PO BID Levemir (Insulin Detemir) 100 Unit/1 Ml Vial 20 Unit SQ BID Cymbalta (Duloxetine Hcl) 60 Mg Capsule.dr 60 Mg PO DAILY Tramadol Hcl 50 Mg Tablet 100 Mg PO Q6H PRN Lisinopril-Hctz 20-12.5 Mg Tab (Lisinopril/Hydrochlorothiazide) 1 Each Tablet 2 Tab PO DAILY Januvia (Sitagliptin Phosphate) 100 Mg Tablet 100 Mg PO DAILY Vitals/I & O Vital Sign - Last 24 Hours 12/01/18 12/01/18 12/01/18 12/02/18 19:00 20:10 23:00 03:00 Temp 98.9 98.9 99.0 98.9 98.9 99.0 Pulse 71 72 74 Resp 18 18 18 B/P (MAP) 188/86 (120) 151/76 (101) 128/68 (88) Pulse Ox 96 98 98 O2 Delivery Room Air Room Air Room Air Room Air 12/02/18 12/02/18 12/02/18 12/02/18 06:03 06:33 07:00 08:00 Temp 98.0 98.0 Pulse 64 Resp 20 20 18 B/P (MAP) 151/93 (112) Pulse Ox 94 O2 Delivery Room Air Room Air Room Air Room Air 12/02/18 12/02/18 12/02/18 12/02/18 08:59 10:33 11:15 11:47 Pulse 75 Resp 16 16 12 12 Pulse Ox 95 95 O2 Delivery Room Air Room Air Nasal Cannula Room Air O2 Flow Rate 2.0 12/02/18 12/02/18 12/02/18 12/02/18 12:00 12:30 12:45 13:00 Pulse 98 74 79 81 Resp 18 B/P (MAP) 123/67 (85) 128/67 (87) 131/66 (87) 138/69 (92) Pulse Ox 99 100 100 97 O2 Delivery Room Air Room Air Room Air Room Air 12/02/18 12/02/18 13:15 13:45 Pulse 78 85 B/P (MAP) 140/71 (94) 144/77 (99) Pulse Ox 99 99 O2 Delivery Room Air Room Air Intake and Output 12/01/18 12/01/18 12/02/18 15:00 23:00 07:00 Intake Total 960 ml 620 ml 100 ml Balance 960 ml 620 ml 100 ml JOSESITO GOLDMAN APRN Dec 02, 2018 14:13
--- NOTE | 2018-12-02 15:27 | RAD ---
Procedure: Aortogram, right lower extremity arteriogram, and angioplasty of the popliteal artery. 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 Sedation: Conscious sedation was administered with a total intraprocedural [id number] time of 70 minutes. The patient was monitored by a qualified independent observer throughout the time of sedation. Please refer to the medical record for exact doses of medications utilized to achieve moderate sedation. Antibiotics: None Exposure: Kerma-Area Product: 338 Gycm2 Contrast: 92 cc of Omnipaque 320 contrast media Sterility: All elements of maximal sterile barrier technique including the use of a cap, mask, sterile gown, sterile gloves, large sterile sheet, appropriate hand hygiene, and 2% chlorhexidine for cutaneous antisepsis (or acceptable alternative antiseptic per current guidelines) were followed for this procedure. Consent: The procedure was explained in its entirety to the patient or the patients designated premium representative by a member of the treatment team, including a discussion of the risks, benefits and commonly accepted alternatives to the procedure, as well as the expected consequences of no therapy whatsoever. Discussion of the risks included, but was not limited to, those that are most frequent and those that are rare but possibly severe or life-threatening, as well as the possibility of unforeseen complications. Technique and Findings: Following informed consent, the patient was prepped and draped in usual sterile fashion. Ultrasound interrogation of the left groin revealed patency of the left common femoral artery. A Hardcopy ultrasound image was recorded. As a 21-gauge micropuncture needle was used to gain access to this vessel. The needle was exchanged over wire for 5 Chinese sheath. A flush catheter was advanced into the abdominal aorta and contrast aortography was performed. There is moderate multifocal atherosclerosis with no significant stenosis or area of aneurysmal dilatation. There is symmetric flow within the celiac and superior mesenteric arteries. Minimal stenosis of both renal arteries is seen. Both common iliac arteries are widely patent despite moderate coarse calcification. The catheter was then withdrawn to just above the aortic bifurcation and contrast angiography of the pelvis was performed in multiple obliquities. There is moderate ostial stenosis of both internal iliac arteries, with wide patency of both external iliac and common femoral arteries. A Glidewire was then used in conjunction with the catheter to cross to the contralateral right common femoral artery. Contrast angiography the right leg was then performed. There is wide patency of the right superficial femoral artery with only minimal atherosclerosis. Within the right popliteal artery, there is a single focal short segment eccentric stenosis which appears to narrow the lumen by roughly 1/3. The guide catheter was then removed, and the 5 Chinese sheath was exchanged for 6 Chinese Ansell sheath which was advanced to the contralateral right common femoral artery. An angled catheter was then advanced into the popliteal artery on the right side and contrast angiography below the knee was performed. There is wide patency of the anterior tibial artery throughout, as well as the tibioperoneal trunk, peroneal artery, and posterior tibial arteries. No significant stenosis of these runoff vessels is observed in any distribution. Flow is brisk in all distributions. Anterior tibial artery perfuses the dorsalis pedis artery at the ankle, however there is abrupt occlusion of the dorsalis pedis artery after about 2 cm, with no significant vascular perfusion to the dorsum of the midfoot. Similarly, the posterior tibial artery perfuses the plantar surface of the hindfoot, and gives rise to a patent calcaneal branch, however both promptly occlude at the junction of the mid and hindfoot, with only a few small poorly developed collaterals providing some reactive hyperemia to the midfoot. No pedal arch is present. Microvasculature throughout the midfoot is extremely poor. The popliteal artery stenosis was then measured and found to represent 32% reduction in flow diameter, with a patent luminal diameter of less than 4 mm. In order to optimize perfusion to the foot, this artery was then angioplastied using a 5 mm x 40 mm angioplasty balloon. This balloon was inflated to maximum profile of 5.5 mm, but was found to be under size, suggesting inaccurate earlier measurements, and confirming a true patent luminal diameter greater than 5 mm. The balloon was then removed and repeat angiogram was performed demonstrating minimal morphologic change in the appearance of the plaque with persistent brisk flow through the lumen. The balloon and wire were removed, and the left groin sheath was exchanged for a minx closure device which was successfully utilized to obtain hemostasis. Complications: No immediate Impression: 1. 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 There is some hyperemia on delayed phase imaging which is likely reactive to the recent surgery. 2. Intact proximal dorsalis pedis artery and intact posterior tibial and calcaneal arteries of the hindfoot. 3. Intact three-vessel runoff with no significant stenosis of the runoff vessels. 4. Focal borderline stenosis of the popliteal artery, which was angioplastied resulting in mild residual stenosis and a patent luminal diameter of greater than 5 mm. 5. Widely patent aortoiliofemoral and mesenteric arteries.
--- NOTE | 2018-12-02 15:35 | CARD ---
MR#: [id number] Date of Study: 12/02/2018 Ordering Physician: MAI GONSALEZ, Referring Physician: MAI GONSALEZ, Tech: Kandice Willett APPROVED REPORT EXAM: Two-dimensional and M-mode echocardiogram with Doppler and color Doppler. Other Information Quality : AverageHR: 72bpm INDICATION Sepsis, MRSA RISK FACTORS Diabetes Smoking 2D DIMENSIONS RVDd2.9 (2.9-3.5cm)Left Atrium(2D)3.5 (1.6-4.0cm) IVSd1.0 (0.7-1.1cm)Aortic Root(2D)3.2 (2.0-3.7cm) LVDd5.9 (3.9-5.9cm)LVOT Diameter2.3 (1.8-2.4cm) PWd1.1 (0.7-1.1cm)LVDs4.2 (2.5-4.0cm) FS (%) 29.4 %SV96.8 ml LVEF(%)55.5 (>50%) Aortic Valve AoV Peak Flakito.146.7cm/sAoV VTI32.0cm AO Peak GR.8.6mmHgLVOT Peak Flakito.111.9cm/s LVOT VTI 23.04cmAO Mean GR.5mmHg MARTA (VMAX)2.08wy3ASE (VTI)3.03cm2 Mitral Valve MV E Apzaqmum89.9cm/sMV DECEL [id number] MV A Wecflima289.1cm/sMV CSS50sp E/A Ratio0.9MVA (PHT)3.35cm2 TDI E/Lateral E'10.0E/Medial E'9.7 Pulmonary Valve PV Peak Jreihzhk36.9cm/sPV Peak Grad.4mmHg Tricuspid Valve RAP [id number] Peak Gr.22mmHg [id number] Pulmonary Vein S1 Kgqnmyme08.5cm/sD2 Arfcrpop68.4cm/s PVa [id number] LEFT VENTRICLE The Left Ventricle is borderline dilated. There is borderline concentric left ventricular hypertrophy . The left ventricular systolic function is normal and the ejection fraction is within normal range. The Ejection Fraction is 50-55%. There is normal LV segmental wall motion. Transmitral Doppler flow p attern is Grade I-abnormal relaxation pattern. RIGHT VENTRICLE The right ventricle is mildly dilated. There is normal right ventricular wall thickness. The right ve ntricular systolic function is normal. ATRIA The left atrium is borderline dilated. The right atrium is mildly dilated. The interatrial septum is intact with no evidence for an atrial septal defect or patent foramen ovale as noted on 2-D or Dopple r imaging. AORTIC VALVE The aortic valve is thickened but opens well. Doppler and Color Flow revealed trace aortic regurgitat ion. There is no significant aortic valvular stenosis. MITRAL VALVE The mitral valve is thickened but opens well. There is no evidence of mitral valve prolapse. There is no mitral valve stenosis. Doppler and Color Flow revealed no mitral valve regurgitation noted. TRICUSPID VALVE The tricuspid valve is normal in structure and function. Doppler and Color Flow revealed trace tricus pid regurgitation with an estimated PAP of 25 mmHg. There is no tricuspid valve prolapse or vegetatio n. There is no tricuspid valve stenosis. PULMONIC VALVE The pulmonic valve is not well visualized. Doppler and Color Flow revealed no pulmonic valvular regur gitation. There is no pulmonic valvular stenosis. GREAT VESSELS The aortic root is normal in size. The IVC is normal in size and collapses >50% with inspiration. PERICARDIAL EFFUSION There is no evidence of significant pericardial effusion. Critical Notification Critical Value: No <Conclusion> The left ventricular systolic function is normal and the ejection fraction is within normal range. Th e Ejection Fraction is 50-55%. There is normal LV segmental wall motion. Signed by : Poncho De Anda, Electronically Approved : 12/02/2018 15:35:17
[2018-12-02] MEDS: ZOLPIDEM 5 MG TABLET. PO PRN (20:34)
--- NOTE | 2018-12-03 | NUR ---
1999-- Pt. wanted this nurse to change his dressing but became irritable when it took longer to get to him. Pt. started changing his own dressing. This nurse changed it that time. 5 minutes later, pt. calls and yells into call light phone to "hurry" and that he needs help. This nurse finds pool of blood throughout the floor. Dressing was changed again. Dressing was changed a total of 4 times throughout the night. Pt. is very non-compliant with his diabetes diagnosis. Teaching was given about changing eating habits but pt. does not seem to care. Pt. became upset because he did not want to stop eating at midnight. This nurse explained why he was NPO at midnight but pt. needed reinforcement.
[2018-12-03 03:00] VITALS: BP 146/64
[2018-12-03 03:53] LABS: BASO % 1 % (0-3); EOS # 0.2 x10^3/uL (0.0-0.7); EOS % 2 % (0-3); HEMATOCRIT 29.7 % (39.0-53.0); HEMOGLOBIN 9.7 g/dL (13.0-17.5); LYMPH # 1.3 x10^3/uL (1.0-4.8); LYMPH % 15 % (24-48); MEAN CORPUSCULAR HEMOGLOBIN 26 pg (25-35); MEAN CORPUSCULAR HGB CONC 33 g/dL (31-37); MEAN CORPUSCULAR VOLUME 80 fL (79-100); MONO # 0.6 x10^3/uL (0.0-1.1); MONO % 7 % (0-9); NEUT # 6.6 x10^3/uL (1.8-7.7); NEUT % 75 % (31-73); PLATELET COUNT 329 x10^3/uL (140-400); RED CELL DISTRIBUTION WIDTH 17.5 % (11.5-14.5); WHITE BLOOD COUNT 8.8 x10^3/uL (4.0-11.0)
[2018-12-03 04:14] LABS: ALBUMIN 2.2 g/dL (3.4-5.0); ALBUMIN/GLOBULIN RATIO 0.3 (1.0-1.7); CALCIUM 8.8 mg/dL (8.5-10.1); CREATININE 1.6 mg/dL (0.7-1.3); GFR 44.3; POTASSIUM 4.6 mmol/L (3.5-5.1); TOTAL BILIRUBIN 0.3 mg/dL (0.2-1.0); TOTAL PROTEIN 8.7 g/dL (6.4-8.2)
[2018-12-03] MEDS: PIPERACILLIN/TAZOBACTAM 3.375 GM in IV NORMAL SALINE 50ML 50 ML IV SCH ×4 (05:43→23:06)
[2018-12-03] MEDS: fentaNYL PF VIAL 100 MCG/2 ML VIAL IV PRN ×2 (05:43→23:06)
[2018-12-03 07:00] VITALS: BP 129/63
[2018-12-03] MEDS: CLOPIDOGREL BISULFATE 75 MG TABLET PO SCH (08:00)
[2018-12-03] MEDS: INSULIN LISPRO 300 UNITS/3 ML VIAL. SQ SCH ×3 (08:00→16:50)
[2018-12-03] MEDS: CYCLOBENZAPRINE 10 MG TABLET. PO SCH ×3 (09:00→21:33)
[2018-12-03] MEDS: hydroCHLOROthiazide 25 MG TABLET PO SCH ×2 (09:00→10:48)
--- NOTE | 2018-12-03 10:03 | PDOC ---
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 foot one and half months ago [facility] Peripheral arterial disease - confirmed with RLE arterial doppler History of Present Illness History of Present Illness 12/03/18 Pt seen and examined at bedside Sitting up in bed, alert and oriented Consented to surgery Wants to be informed about when surgery will take place so he can tell his family Consulting with vascular surgery and ortho Charts and labs reviewed KATIE COOLEY 12/02/18 Pt seen and examined at bedside Was in good spirits Was sitting up in bed, right foot bandaged Charts and labs reviewed ID confirmed Staph aureus infection Consulting with vascular surgery and ortho 12/01/[address] Madsen at bedside Treated with IV antibiotics 3 months ago in [place], [place] after TMA Left AMA, returned due to concerns about foot infection Monophasic on RLE doppler. Has some foot pain. No SOB or CP Obtaining records from prior hospitalization Vitals/I&O Vitals/I&O: Vital Signs Date Time Temp Pulse Resp B/P (MAP) Pulse Ox O2 Delivery O2 Flow Rate FiO2 12/03/18 07:00 99.4 90 18 129/63 (85) 90 Room Air 99.4 12/02/18 11:15 2.0 I & O 12/02/18 12/02/18 12/03/18 15:00 23:00 07:00 Intake Total 800 ml 800 ml 1500 ml Balance 800 ml 800 ml 1500 ml Physical Exam Physical Exam: GENERAL: Propped up in bed, alert, NAD HEENT: Pupils equally round and reactive. Normal conjunctivae. oropharynx pink and moist, edentulous NECK: Supple. LUNGS: Clear to auscultation. HEART: S1, S2. ABDOMEN: Obese, soft, nontender with bowel sounds present. EXTREMITIES: Trace edema, right lower extremity. Previous right TMA. Plantar ulcer with copious drainage, probes to bone. Smaller adjacent ulcer and dry peeling skin. + callus left foot. SKIN: Warm to touch. No signs of rash. NEUROLOGIC: Alert and answering questions appropriately. Peripheral IV. General: Alert, Oriented X3, Cooperative, No acute distress Heart: Regular rate Lungs: Clear Abdomen: Normal bowel sounds, Soft, No tenderness, No hepatosplenomegaly, No masses Extremities: No clubbing, Other (left femoral access site dressing dry and intact) Skin: Other (right foot dressing soaked with drainage.) Labs Labs: Laboratory Tests Test 12/02/18 12:08 12/02/18 16:12 12/02/18 20:27 12/03/18 03:10 Glucose (Fingerstick) 120 mg/dL (70-99) 99 mg/dL (70-99) 134 mg/dL (70-99) White Blood Count 8.8 x10^3/uL (4.0-11.0) Red Blood Count 3.70 x10^6/uL (4.30-5.70) Hemoglobin 9.7 g/dL (13.0-17.5) Hematocrit 29.7 % (39.0-53.0) Mean Corpuscular Volume 80 fL (79-100) Mean Corpuscular Hemoglobin 26 pg (25-35) Mean Corpuscular Hemoglobin Concent 33 g/dL (31-37) Red Cell Distribution Width 17.5 % (11.5-14.5) Platelet Count 329 x10^3/uL (140-400) Neutrophils (%) (Auto) 75 % (31-73) Lymphocytes (%) (Auto) 15 % (24-48) Monocytes (%) (Auto) 7 % (0-9) Eosinophils (%) (Auto) 2 % (0-3) Basophils (%) (Auto) 1 % (0-3) Neutrophils # (Auto) 6.6 x10^3/uL (1.8-7.7) Lymphocytes # (Auto) 1.3 x10^3/uL (1.0-4.8) Monocytes # (Auto) 0.6 x10^3/uL (0.0-1.1) Eosinophils # (Auto) 0.2 x10^3/uL (0.0-0.7) Basophils # (Auto) 0.0 x10^3/uL (0.0-0.2) Sodium Level 136 mmol/L (136-145) Potassium Level 4.6 mmol/L (3.5-5.1) Chloride Level 97 mmol/L (98-107) Carbon Dioxide Level 33 mmol/L (21-32) Anion Gap 6 (6-14) Blood Urea Nitrogen 11 mg/dL (8-26) Creatinine 1.6 mg/dL (0.7-1.3) Estimated GFR (Cockcroft-Gault) 44.3 BUN/Creatinine Ratio 7 (6-20) Glucose Level 111 mg/dL (70-99) Calcium Level 8.8 mg/dL (8.5-10.1) Total Bilirubin 0.3 mg/dL (0.2-1.0) Aspartate Amino Transf (AST/SGOT) 14 U/L (15-37) Alanine Aminotransferase (ALT/SGPT) 12 U/L (16-63) Alkaline Phosphatase 66 U/L (46-116) Total Protein 8.7 g/dL (6.4-8.2) Albumin 2.2 g/dL (3.4-5.0) Albumin/Globulin Ratio 0.3 (1.0-1.7) Test 12/03/18 07:25 Glucose (Fingerstick) 101 mg/dL (70-99) Review of Systems Review of Systems: No nausea, no vomiting No chest pain, no palpitations Assessment and Plan Assessmemt and Plan Problems Medical Problems: (1) Anemia Status: Acute (2) Osteomyelitis of foot Status: Acute Assessment Osteomyelitis of right foot Diabetes mellitus Peripheral artery disease Diabetic neuropathy S/p right leg angioplasty Plan BKA recommended per vascular surgery Wound care IV abx PT/OT Full code Appreciate recommendations from vascular surgery and ortho Comment Review of Relevant I have reviewed the following items wilber (where applicable) has been applied. Medications: Current Medications Medications (Trade) Dose Ordered Sig/Olesya Route PRN Reason Start Time Stop Time Status Last Admin Dose Admin Lidocaine/Sodium Bicarbonate (Buffered Lidocaine 1%) 3 ml 1X ONCE IJ 12/02/18 11:15 12/02/18 11:16 DC 12/02/18 11:15 Midazolam HCl (Versed) 5 mg 1X ONCE IV 12/02/18 11:15 12/02/18 11:16 DC 12/02/18 11:15 Fentanyl Citrate (Fentanyl 5ml Vial) 100 mcg 1X ONCE IV 12/02/18 11:15 12/02/18 11:16 DC 12/02/18 11:15 Iodixanol (Visipaque 320) 100 ml 1X ONCE IART 12/02/18 11:15 12/02/18 11:16 DC 12/02/18 11:15 Heparin Sodium (Porcine) (Heparin Sodium) 5,000 unit 1X ONCE IV 12/02/18 11:15 12/02/18 11:16 DC 12/02/18 11:15 Diphenhydramine HCl (Benadryl) 25 mg 1X ONCE IVP 12/02/18 11:15 12/02/18 11:16 DC 12/02/18 11:15 Clopidogrel Bisulfate (Plavix) 300 mg 1X ONCE PO 12/02/18 12:30 12/02/18 12:31 DC 12/02/18 12:28 EZEKIEL TONG III DO Dec 03, 2018 10:03
--- NOTE | 2018-12-03 10:28 | PDOC ---
ORTHO PROGRESS NOTES Subjective Patient stating pain and bleeding at foot and understands and agrees that surgery is needed. Procedure Infected right foot with bleeding Vitals Vital Signs Date Time Temp Pulse Resp B/P (MAP) Pulse Ox O2 Delivery O2 Flow Rate FiO2 12/03/18 07:00 99.4 90 18 129/63 (85) 90 Room Air 99.4 12/02/18 11:15 2.0 Labs Laboratory Tests Test 12/01/18 11:24 12/01/18 16:36 12/01/18 20:32 12/02/18 03:30 Glucose (Fingerstick) 117 mg/dL (70-99) 69 mg/dL (70-99) 137 mg/dL (70-99) Creatinine 1.2 mg/dL (0.7-1.3) Estimated GFR (Cockcroft-Gault) 61.8 Test 12/02/18 07:36 12/02/18 12:08 12/02/18 16:12 12/02/18 20:27 Glucose (Fingerstick) 79 mg/dL (70-99) 120 mg/dL (70-99) 99 mg/dL (70-99) 134 mg/dL (70-99) Test 12/03/18 03:10 12/03/18 07:25 White Blood Count 8.8 x10^3/uL (4.0-11.0) Red Blood Count 3.70 x10^6/uL (4.30-5.70) Hemoglobin 9.7 g/dL (13.0-17.5) Hematocrit 29.7 % (39.0-53.0) Mean Corpuscular Volume 80 fL (79-100) Mean Corpuscular Hemoglobin 26 pg (25-35) Mean Corpuscular Hemoglobin Concent 33 g/dL (31-37) Red Cell Distribution Width 17.5 % (11.5-14.5) Platelet Count 329 x10^3/uL (140-400) Neutrophils (%) (Auto) 75 % (31-73) Lymphocytes (%) (Auto) 15 % (24-48) Monocytes (%) (Auto) 7 % (0-9) Eosinophils (%) (Auto) 2 % (0-3) Basophils (%) (Auto) 1 % (0-3) Neutrophils # (Auto) 6.6 x10^3/uL (1.8-7.7) Lymphocytes # (Auto) 1.3 x10^3/uL (1.0-4.8) Monocytes # (Auto) 0.6 x10^3/uL (0.0-1.1) Eosinophils # (Auto) 0.2 x10^3/uL (0.0-0.7) Basophils # (Auto) 0.0 x10^3/uL (0.0-0.2) Sodium Level 136 mmol/L (136-145) Potassium Level 4.6 mmol/L (3.5-5.1) Chloride Level 97 mmol/L (98-107) Carbon Dioxide Level 33 mmol/L (21-32) Anion Gap 6 (6-14) Blood Urea Nitrogen 11 mg/dL (8-26) Creatinine 1.6 mg/dL (0.7-1.3) Estimated GFR (Cockcroft-Gault) 44.3 BUN/Creatinine Ratio 7 (6-20) Glucose Level 111 mg/dL (70-99) Calcium Level 8.8 mg/dL (8.5-10.1) Total Bilirubin 0.3 mg/dL (0.2-1.0) Aspartate Amino Transf (AST/SGOT) 14 U/L (15-37) Alanine Aminotransferase (ALT/SGPT) 12 U/L (16-63) Alkaline Phosphatase 66 U/L (46-116) Total Protein 8.7 g/dL (6.4-8.2) Albumin 2.2 g/dL (3.4-5.0) Albumin/Globulin Ratio 0.3 (1.0-1.7) Glucose (Fingerstick) 101 mg/dL (70-99) Laboratory Tests Test 12/02/18 12:08 12/02/18 16:12 12/02/18 20:27 12/03/18 03:10 Glucose (Fingerstick) 120 mg/dL (70-99) 99 mg/dL (70-99) 134 mg/dL (70-99) White Blood Count 8.8 x10^3/uL (4.0-11.0) Red Blood Count 3.70 x10^6/uL (4.30-5.70) Hemoglobin 9.7 g/dL (13.0-17.5) Hematocrit 29.7 % (39.0-53.0) Mean Corpuscular Volume 80 fL (79-100) Mean Corpuscular Hemoglobin 26 pg (25-35) Mean Corpuscular Hemoglobin Concent 33 g/dL (31-37) Red Cell Distribution Width 17.5 % (11.5-14.5) Platelet Count 329 x10^3/uL (140-400) Neutrophils (%) (Auto) 75 % (31-73) Lymphocytes (%) (Auto) 15 % (24-48) Monocytes (%) (Auto) 7 % (0-9) Eosinophils (%) (Auto) 2 % (0-3) Basophils (%) (Auto) 1 % (0-3) Neutrophils # (Auto) 6.6 x10^3/uL (1.8-7.7) Lymphocytes # (Auto) 1.3 x10^3/uL (1.0-4.8) Monocytes # (Auto) 0.6 x10^3/uL (0.0-1.1) Eosinophils # (Auto) 0.2 x10^3/uL (0.0-0.7) Basophils # (Auto) 0.0 x10^3/uL (0.0-0.2) Sodium Level 136 mmol/L (136-145) Potassium Level 4.6 mmol/L (3.5-5.1) Chloride Level 97 mmol/L (98-107) Carbon Dioxide Level 33 mmol/L (21-32) Anion Gap 6 (6-14) Blood Urea Nitrogen 11 mg/dL (8-26) Creatinine 1.6 mg/dL (0.7-1.3) Estimated GFR (Cockcroft-Gault) 44.3 BUN/Creatinine Ratio 7 (6-20) Glucose Level 111 mg/dL (70-99) Calcium Level 8.8 mg/dL (8.5-10.1) Total Bilirubin 0.3 mg/dL (0.2-1.0) Aspartate Amino Transf (AST/SGOT) 14 U/L (15-37) Alanine Aminotransferase (ALT/SGPT) 12 U/L (16-63) Alkaline Phosphatase 66 U/L (46-116) Total Protein 8.7 g/dL (6.4-8.2) Albumin 2.2 g/dL (3.4-5.0) Albumin/Globulin Ratio 0.3 (1.0-1.7) Test 12/03/18 07:25 Glucose (Fingerstick) 101 mg/dL (70-99) Notes awake and alert ready to proceed with surgery Assessment and Plan Patient with non healing wound,bleeding and infection of right foot. Per vascular recommendations after arterial studies indicate insufficient blood flow for healing. Patient understands need for BKA and agrees. Will discuss with staff for planning YARIEL HUGHES APRN Dec 03, 2018 10:28
[2018-12-03] MEDS: PREGABALIN 50 MG CAPSULE PO SCH ×2 (10:49→21:32)
[2018-12-03] MEDS: LISINOPRIL 20 MG TABLET PO SCH (10:49)
[2018-12-03] MEDS: DULoxetine HCL 30 MG CAPSULE.DR PO SCH ×2 (10:49→21:32)
[2018-12-03] MEDS: levETIRAcetam 500 MG TABLET PO SCH ×2 (10:50→21:32)
[2018-12-03] MEDS: LINAGLIPTIN 5 MG TABLET PO SCH (10:50)
[2018-12-03] MEDS: MULTIVITAMIN with MINERAL TABLET. PO SCH (10:50)
[2018-12-03] MEDS: hydrOXYzine 25 MG TABLET PO SCH (10:50)
[2018-12-03] MEDS: METHADONE 10 MG TABLET. PO SCH ×3 (10:50→21:33)
[2018-12-03] MEDS: LACTOBACILLUS RHAMNOSUS GG 1 CAPSULE. PO SCH ×2 (10:50→21:32)
[2018-12-03] MEDS: FAMOTIDINE 20 MG TABLET. PO SCH ×2 (10:50→21:33)
[2018-12-03] MEDS: ASCORBIC ACID 500 MG TABLET PO SCH (10:51)
[2018-12-03 11:00] VITALS: BP 127/73
[2018-12-03] MEDS: INSULIN GLARGINE SYRINGE. SQ SCH ×2 (11:04→21:00)
--- NOTE | 2018-12-03 14:01 | PDOC ---
Infectious Disease Note Subjective Subjective Comfortable, pain controlled Feeling alright No F/C/N/V ROS ROS per HPI Vital Sign Vital Signs Vital Signs Date Time Temp Pulse Resp B/P (MAP) Pulse Ox O2 Delivery O2 Flow Rate FiO2 12/03/18 11:00 98.0 82 18 127/73 (91) 96 Room Air 98.0 12/02/18 11:15 2.0 Physical Exam PHYSICAL EXAM GENERAL: Propped up in bed, alert, NAD HEENT: Pupils equally round and reactive. Normal conjunctivae. oropharynx pink and moist, edentulous NECK: Supple. LUNGS: Clear to auscultation. HEART: S1, S2. ABDOMEN: Obese, soft, nontender with bowel sounds present. EXTREMITIES: Trace edema, right lower extremity. Right foot bandaged. SKIN: Warm to touch. No signs of rash. NEUROLOGIC: Alert and answering questions appropriately. Peripheral IV. Labs Lab Laboratory Tests Test 12/02/18 16:12 12/02/18 20:27 12/03/18 03:10 12/03/18 07:25 Glucose (Fingerstick) 99 mg/dL (70-99) 134 mg/dL (70-99) 101 mg/dL (70-99) White Blood Count 8.8 x10^3/uL (4.0-11.0) Red Blood Count 3.70 x10^6/uL (4.30-5.70) Hemoglobin 9.7 g/dL (13.0-17.5) Hematocrit 29.7 % (39.0-53.0) Mean Corpuscular Volume 80 fL (79-100) Mean Corpuscular Hemoglobin 26 pg (25-35) Mean Corpuscular Hemoglobin Concent 33 g/dL (31-37) Red Cell Distribution Width 17.5 % (11.5-14.5) Platelet Count 329 x10^3/uL (140-400) Neutrophils (%) (Auto) 75 % (31-73) Lymphocytes (%) (Auto) 15 % (24-48) Monocytes (%) (Auto) 7 % (0-9) Eosinophils (%) (Auto) 2 % (0-3) Basophils (%) (Auto) 1 % (0-3) Neutrophils # (Auto) 6.6 x10^3/uL (1.8-7.7) Lymphocytes # (Auto) 1.3 x10^3/uL (1.0-4.8) Monocytes # (Auto) 0.6 x10^3/uL (0.0-1.1) Eosinophils # (Auto) 0.2 x10^3/uL (0.0-0.7) Basophils # (Auto) 0.0 x10^3/uL (0.0-0.2) Sodium Level 136 mmol/L (136-145) Potassium Level 4.6 mmol/L (3.5-5.1) Chloride Level 97 mmol/L (98-107) Carbon Dioxide Level 33 mmol/L (21-32) Anion Gap 6 (6-14) Blood Urea Nitrogen 11 mg/dL (8-26) Creatinine 1.6 mg/dL (0.7-1.3) Estimated GFR (Cockcroft-Gault) 44.3 BUN/Creatinine Ratio 7 (6-20) Glucose Level 111 mg/dL (70-99) Calcium Level 8.8 mg/dL (8.5-10.1) Total Bilirubin 0.3 mg/dL (0.2-1.0) Aspartate Amino Transf (AST/SGOT) 14 U/L (15-37) Alanine Aminotransferase (ALT/SGPT) 12 U/L (16-63) Alkaline Phosphatase 66 U/L (46-116) Total Protein 8.7 g/dL (6.4-8.2) Albumin 2.2 g/dL (3.4-5.0) Albumin/Globulin Ratio 0.3 (1.0-1.7) Test 12/03/18 10:46 Glucose (Fingerstick) 230 mg/dL (70-99) Micro 11/25. BLD CULT RESULT 1 Final Staphylococcus aureus MICS are expressed in micrograms per mL Antibiotic RSLT#1 Ciprofloxacin I =2 Gentamicin S<=0.5 Levofloxacin S =1 Linezolid S =2 Moxifloxacin S<=0.25 Nitrofurantoin S<=16 Oxacillin S =0.5 Penicillin R>=0.5 Quinupristin/Dalfopristin S<=0.25 Rifampin S<=0.5 Tetracycline S<=1 Trimethoprim/Sulfa R>=320 Vancomycin S<=0.5 11/25. Right foot ANAEROBIC RES 1 PENDING AEROBIC RES 1 Final Staphylococcus aureus MICS are expressed in micrograms per mL Antibiotic RSLT#1 Ciprofloxacin I =2 Clindamycin S<=0.25 Erythromycin S =0.5 Gentamicin S<=0.5 Levofloxacin S =2 Linezolid S =2 Moxifloxacin S =0.5 Oxacillin S =0.5 Penicillin R>=0.5 Quinupristin/Dalfopristin S<=0.25 Rifampin S<=0.5 Tetracycline S<=1 Trimethoprim/Sulfa R>=320 Vancomycin S =1 ANAEROBIC RES 1 Final Comment No anaerobic growth in 72 hours. 11/26. BLOOD CULTURE Preliminary NO GROWTH AFTER 5 DAYS 11/28. BLOOD CULTURE Preliminary NO GROWTH AFTER 3 DAY Objective Assessment MSSA bacteremia from 11/25. Repeat BC 11/26 & NGTD Infected diabetic ulcer w/ OM, right foot. MSSA Leukopenia - better TANG PAD s/p angioplasty right leg, 12/02 s/p TMA right foot around August 2018 at [facility] quit OP IV abx due to transportation issues and was switched to orals Peripheral neuropathy HTN Plan Plan of Care Continue Zosyn ESR 120 Local wound care and offloading BKA planned for 12/04 Attending Co-Sign Attending Co-Sign The patient was seen and interviewed as well as examined at the bedside. The chart was reviewed. The case was discussed. Agree with the plan of care. KRISTIE GREENE APRN Dec 03, 2018 14:01 MAI GONSALEZ MD Dec 03, 2018 16:39
[2018-12-03 15:00] VITALS: BP 157/81
[2018-12-03 19:00] VITALS: BP 138/47
[2018-12-03] MEDS: ZOLPIDEM 5 MG TABLET. PO PRN (21:33)
[2018-12-03 23:00] VITALS: BP 133/74
--- NOTE | 2018-12-03 23:39 | NUR ---
pt right ft dressing changed 2x this shift, patient always putting his wt and ambulates to bathroom, will bleed from dressing, pt is fall risks but does not asked for assistance, fall precautions in plaed but refused his bed alarm on .
[2018-12-04] VITALS (13 sets, daily range): BP systolic 126–178; BP diastolic 57–89
[2018-12-04] MEDS: PIPERACILLIN/TAZOBACTAM 3.375 GM in IV NORMAL SALINE 50ML 50 ML IV SCH ×4 (05:53→23:54)
[2018-12-04] MEDS: CLOPIDOGREL BISULFATE 75 MG TABLET PO SCH (05:56)
[2018-12-04] MEDS: fentaNYL PF VIAL 100 MCG/2 ML VIAL IV PRN ×6 (06:57→17:47)
[2018-12-04] MEDS ORDERED: HYDROmorphone 2 MG/ML VIAL IV PRN (07:00)
[2018-12-04] MEDS ORDERED: MORPHINE SULFATE 2 MG/ML VIAL. IV PRN (07:00)
[2018-12-04] MEDS ORDERED: fentaNYL PF VIAL 100 MCG/2 ML VIAL IV PRN ×2 (07:00)
[2018-12-04] MEDS ORDERED: ONDANSETRON PF 4 MG/2 ML VIAL. IV PRN (07:00)
[2018-12-04] MEDS ORDERED: LIDOCAINE 1% PF 2 ML VIAL. ID PRN (07:00)
[2018-12-04] MEDS ORDERED: IV RINGERS,LACTATED 1000ML 1,000 ML IV SCH (07:00)
[2018-12-04] MEDS ORDERED: PROCHLORPERAZINE 10 MG/2 ML VIAL. IV PRN (07:00)
[2018-12-04 07:25] LABS: BASO # 0.1 x10^3/uL (0.0-0.2); BASO % 1 % (0-3); EOS # 0.2 x10^3/uL (0.0-0.7); EOS % 2 % (0-3); HEMATOCRIT 24.7 % (39.0-53.0); HEMOGLOBIN 8.1 g/dL (13.0-17.5); LYMPH # 1.6 x10^3/uL (1.0-4.8); LYMPH % 18 % (24-48); MEAN CORPUSCULAR HEMOGLOBIN 26 pg (25-35); MEAN CORPUSCULAR HGB CONC 33 g/dL (31-37); MEAN CORPUSCULAR VOLUME 80 fL (79-100); MONO # 0.9 x10^3/uL (0.0-1.1); MONO % 10 % (0-9); NEUT % 69 % (31-73); PLATELET COUNT 311 x10^3/uL (140-400); RED BLOOD COUNT 3.08 x10^6/uL (4.30-5.70); RED CELL DISTRIBUTION WIDTH 17.4 % (11.5-14.5); WHITE BLOOD COUNT 8.7 x10^3/uL (4.0-11.0)
[2018-12-04] MEDS: INSULIN LISPRO 300 UNITS/3 ML VIAL. SQ SCH ×3 (07:49→17:07)
[2018-12-04] MEDS: DEXTROSE 50% 25 GM / 50ML DISP.SYRIN. IV PRN ×4 (08:02→10:22)
[2018-12-04] MEDS ORDERED: fentaNYL PF VIAL 100 MCG/2 ML VIAL ONE ×3 (08:12→13:29)
[2018-12-04] MEDS ORDERED: PROPOFOL 20 ML IV ONE (08:12)
[2018-12-04] MEDS ORDERED: ROCURONIUM 50 MG/5 ML VIAL. ONE (08:12)
[2018-12-04] MEDS ORDERED: LIDOCAINE 2% PF 5 ML VIAL. ONE (08:12)
[2018-12-04 08:16] LABS: ALBUMIN/GLOBULIN RATIO 0.3 (1.0-1.7); CALCIUM 8.6 mg/dL (8.5-10.1); CREATININE 1.3 mg/dL (0.7-1.3); GFR 56.3; POTASSIUM 4.3 mmol/L (3.5-5.1); TOTAL BILIRUBIN 0.4 mg/dL (0.2-1.0); TOTAL PROTEIN 7.9 g/dL (6.4-8.2)
[2018-12-04] MEDS: ASCORBIC ACID 500 MG TABLET PO SCH (09:00)
[2018-12-04] MEDS: METHADONE 10 MG TABLET. PO SCH ×3 (09:00→20:59)
[2018-12-04] MEDS: LINAGLIPTIN 5 MG TABLET PO SCH (09:00)
[2018-12-04] MEDS: MULTIVITAMIN with MINERAL TABLET. PO SCH (09:00)
[2018-12-04] MEDS: INSULIN GLARGINE SYRINGE. SQ SCH ×2 (09:00→21:06)
[2018-12-04] MEDS: DULoxetine HCL 30 MG CAPSULE.DR PO SCH ×2 (09:00→21:01)
[2018-12-04] MEDS: LACTOBACILLUS RHAMNOSUS GG 1 CAPSULE. PO SCH ×2 (09:00→20:58)
[2018-12-04] MEDS: PREGABALIN 50 MG CAPSULE PO SCH ×2 (09:00→20:58)
[2018-12-04] MEDS: levETIRAcetam 500 MG TABLET PO SCH ×2 (09:00→20:59)
[2018-12-04] MEDS: CYCLOBENZAPRINE 10 MG TABLET. PO SCH ×2 (09:00→20:59)
--- NOTE | 2018-12-04 09:45 | PDOC ---
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 foot one and half months ago [facility] Peripheral arterial disease - confirmed with RLE arterial doppler History of Present Illness History of Present Illness 12/04/18 Pt seen and examined at bedside Pt was seen resting in bed BKA scheduled for later today Consulting with vascular surgery and ortho Charts and labs reviewed KATIE COOLEY 12/03/18 Pt seen and examined at bedside Sitting up in bed, alert and oriented Consented to surgery Wants to be informed about when surgery will take place so he can tell his family Consulting with vascular surgery and ortho Charts and labs reviewed KATIE COOLEY 12/02/18 Pt seen and examined at bedside Was in good spirits Was sitting up in bed, right foot bandaged Charts and labs reviewed ID confirmed Staph aureus infection Consulting with vascular surgery and ortho 12/01/[address] Madsen at bedside Treated with IV antibiotics 3 months ago in [place], [place] after TMA Left AMA, returned due to concerns about foot infection Monophasic on RLE doppler. Has some foot pain. No SOB or CP Obtaining records from prior hospitalization Vitals/I&O Vitals/I&O: Vital Signs Date Time Temp Pulse Resp B/P (MAP) Pulse Ox O2 Delivery O2 Flow Rate FiO2 12/04/18 07:50 94 Room Air 2.0 12/04/18 07:00 97.8 72 16 144/57 (86) 97.8 I & O 12/03/18 12/04/18 12/04/18 17:00 01:00 09:00 Intake Total 1360 ml 200 ml 100 ml Balance 1360 ml 200 ml 100 ml Physical Exam Physical Exam: GENERAL: Propped up in bed, alert, NAD HEENT: Pupils equally round and reactive. Normal conjunctivae. oropharynx pink and moist, edentulous NECK: Supple. LUNGS: Clear to auscultation. HEART: S1, S2. ABDOMEN: Obese, soft, nontender with bowel sounds present. EXTREMITIES: Trace edema, right lower extremity. Right foot bandaged. SKIN: Warm to touch. No signs of rash. NEUROLOGIC: Alert and answering questions appropriately. Peripheral IV. General: Alert, Oriented X3, Cooperative, No acute distress Heart: Regular rate Lungs: Clear Abdomen: Normal bowel sounds, Soft, No tenderness, No hepatosplenomegaly, No masses Extremities: No clubbing, Other (left femoral access site dressing dry and intact) Skin: Other (right foot dressing soaked with drainage.) Labs Labs: Laboratory Tests Test 12/03/18 10:46 12/03/18 15:56 12/03/18 20:18 12/04/18 06:40 Glucose (Fingerstick) 230 mg/dL (70-99) 79 mg/dL (70-99) 110 mg/dL (70-99) White Blood Count 8.7 x10^3/uL (4.0-11.0) Red Blood Count 3.08 x10^6/uL (4.30-5.70) Hemoglobin 8.1 g/dL (13.0-17.5) Hematocrit 24.7 % (39.0-53.0) Mean Corpuscular Volume 80 fL (79-100) Mean Corpuscular Hemoglobin 26 pg (25-35) Mean Corpuscular Hemoglobin Concent 33 g/dL (31-37) Red Cell Distribution Width 17.4 % (11.5-14.5) Platelet Count 311 x10^3/uL (140-400) Neutrophils (%) (Auto) 69 % (31-73) Lymphocytes (%) (Auto) 18 % (24-48) Monocytes (%) (Auto) 10 % (0-9) Eosinophils (%) (Auto) 2 % (0-3) Basophils (%) (Auto) 1 % (0-3) Neutrophils # (Auto) 6.0 x10^3/uL (1.8-7.7) Lymphocytes # (Auto) 1.6 x10^3/uL (1.0-4.8) Monocytes # (Auto) 0.9 x10^3/uL (0.0-1.1) Eosinophils # (Auto) 0.2 x10^3/uL (0.0-0.7) Basophils # (Auto) 0.1 x10^3/uL (0.0-0.2) Sodium Level 135 mmol/L (136-145) Potassium Level 4.3 mmol/L (3.5-5.1) Chloride Level 98 mmol/L (98-107) Carbon Dioxide Level 33 mmol/L (21-32) Anion Gap 4 (6-14) Blood Urea Nitrogen 12 mg/dL (8-26) Creatinine 1.3 mg/dL (0.7-1.3) Estimated GFR (Cockcroft-Gault) 56.3 BUN/Creatinine Ratio 9 (6-20) Glucose Level 59 mg/dL (70-99) Calcium Level 8.6 mg/dL (8.5-10.1) Total Bilirubin 0.4 mg/dL (0.2-1.0) Aspartate Amino Transf (AST/SGOT) 11 U/L (15-37) Alanine Aminotransferase (ALT/SGPT) 10 U/L (16-63) Alkaline Phosphatase 49 U/L (46-116) Total Protein 7.9 g/dL (6.4-8.2) Albumin 2.0 g/dL (3.4-5.0) Albumin/Globulin Ratio 0.3 (1.0-1.7) Test 12/04/18 07:36 12/04/18 09:11 Glucose (Fingerstick) 58 mg/dL (70-99) 61 mg/dL (70-99) Review of Systems Review of Systems: No nausea, no vomiting No chest pain, no palpitations Assessment and Plan Assessmemt and Plan Problems Medical Problems: (1) Anemia Status: Acute (2) Osteomyelitis of foot Status: Acute Assessment Osteomyelitis, right foot Diabetes mellitus Diabetic neuropathy Peripheral artery disease Plan BKA as scheduled Continue Zosyn Ortho following ID following IV abx Wound care post surgery PT/OT DVT prophylaxis Full code Comment Review of Relevant I have reviewed the following items wilber (where applicable) has been applied. EZEKIEL TNOG III DO Dec 04, 2018 09:45
[2018-12-04] MEDS ORDERED: LIDOCAINE 1% PF 30 ML VIAL. ONE (10:10)
[2018-12-04] MEDS ORDERED: BUPIVACAINE MPF 0.5% 30 ML VIAL. ONE (10:11)
--- NOTE | 2018-12-04 10:39 | PDOC4 ---
Operative Note Operative Note Date of procedure: 12/04/2018 Surgeon: Basil Zendejas.: Emily Jarvis, certified medical aide, was necessary to position the patient, provide retraction and help with wound closure Preoperative diagnosis: Chronic right foot infection Postoperative diagnosis: Same Procedure performed: Right below knee amputation Anesthesia: Gen. Findings: Viable margins at amputation site, grossly Blood loss: 800 mL Tourniquet time: Less than 1 hour Specimens: Amputated portion sent to pathology Complications: none Reason for procedure: Patient is a very pleasant 58-year-old gentleman who developed a foot wound that has failed irrigation and debridement. He was evaluated by vascular surgery as well as by myself and we recommended amputation. We discussed the rationale for this as well as the risks, benefits, alternatives and he wished to proceed. Description of procedure: Patient was greeted in the preoperative area by myself where the correct extremity was verified and marked. He was taken to the operative suite and his antibiotics were started as he was brought back. Once in the operating room, he was transferred gently supine to the operative room table and secured to the bed with all pressure points padded and had successful induction of a general anesthetic. A nonsterile tourniquet was taped in place to his right upper thigh. Right lower extremity was prepped and draped with Betadine paint. We conducted our standard preoperative timeout. I then measured from his joint line and lisa a line from anticipated bony cut. I then fashioned a fishmouth incision with a marker on skin based on this. I then inspected the circumferentially. Marion was used to exsanguinate the extremity and tourniquet was insufflated to 250 mmHg. After this, I incised skin over the anterior portion of the planned incision and dissected subcutaneous tissue and cauterized bleeders with electrocautery. I used a Dumas elevator once I encountered the tibial shaft as well as fibular shaft. I continued my dissection and transected muscle with electrocautery facilitated by delivery with a hemostat. Vessels were clamped with hemostats as needed. After dissecting around the anterior portion, I incised skin for my posterior flap and dissected subcutaneous tissue and cauterized bleeders with electrocautery. I incised fascia in line with my skin incision. I then again dissected and transected muscle with electrocautery. After this, I used a large saw to cut the tibia, as well as the fibula at a more proximal level. I was unable to deliver the distal right leg from the operative field. After this, tourniquet was let down and bleeders were cauterized or tied off with silk as needed. Once we had a dry field, I performed a thorough irri gation. At this point, I closed fascia using my large posterior flap to cover the amputation site, it was secured with simple interrupted #1 Vicryl. Prior to closing this layer in its entirety, placed a 1/8 inch Hemovac exiting superolaterally from the wound bed. After this, subcutaneous tissues tissue was closed with inverted interrupted 2-0 Vicryl and meghana for skin. All counts correct �2 prior to wound closure. We then fashioned a large well-padded posterior splint after we applied a sterile dressing. Patient was then awakened from anesthesia and transferred gently supine to the hospital bed and taken to PACU in a stable and extubated condition. Postoperative plan is to readmitted to the floor. [facility] prosthetics will come by for early stump prosthesis fitting. I will follow along with his postoperative course. BASIL GREGORIO II, MD Dec 04, 2018 10:39
[2018-12-04] MEDS ORDERED: ONDANSETRON PF 4 MG/2 ML VIAL. ONE (10:43)
[2018-12-04] MEDS ORDERED: DEXAMETHASONE SOD PHOS 4 MG/ML VIAL ONE (10:43)
[2018-12-04] MEDS ORDERED: GLYCOPYRROLATE 1 MG/5 ML VIAL. ONE (10:44)
[2018-12-04] MEDS ORDERED: NEOSTIGMINE METHYLSULFATE 5 MG/5 ML SYRINGE. ONE (10:44)
[2018-12-04] MEDS ORDERED: KETAMINE HCL IN NACL, ISO-OSM 50 MG/5 ML SYRINGE ONE (10:44)
[2018-12-04] MEDS ORDERED: ceFAZolin SODIUM 1 GM VIAL ONE (11:01)
[2018-12-04 12:45] LABS: HEMATOCRIT 24.6 % (39.0-53.0); HEMOGLOBIN 8.3 g/dL (13.0-17.5); WHITE BLOOD COUNT 4.9 x10^3/uL (4.0-11.0)
[2018-12-04 12:56] LABS: ALBUMIN 1.8 g/dL (3.4-5.0); ALBUMIN/GLOBULIN RATIO 0.3 (1.0-1.7); CALCIUM 7.9 mg/dL (8.5-10.1); CREATININE 1.2 mg/dL (0.7-1.3); GFR 61.8; TOTAL BILIRUBIN 0.3 mg/dL (0.2-1.0)
[2018-12-04 12:59] LABS: POTASSIUM 3.9 mmol/L (3.5-5.1)
[2018-12-04] MEDS ORDERED: ePHEDrine PF IN SALINE 50 MG/10 ML SYRINGE. IV ONE (13:06)
[2018-12-04] MEDS ORDERED: ALBUMIN HUMAN 5% 500 ML IV ONE (13:06)
[2018-12-04] MEDS ORDERED: PHENYLEPHRINE in 0.9% NACL PF 1 MG/10 ML SYRINGE. IV ONE (13:06)
[2018-12-04] MEDS ORDERED: SEVOFLURANE > 120 MINUTES. IH ONE (13:06)
[2018-12-04] MEDS: IV DEXTROSE 5% - 0.9 % NACL 1,000 ML IV SCH ×2 (13:09→23:59)
[2018-12-04] MEDS ORDERED: PROCHLORPERAZINE 10 MG/2 ML VIAL. ONE (13:29)
[2018-12-04] MEDS ORDERED: HYDROmorphone 2 MG/ML VIAL ONE ×2 (13:34→14:01)
[2018-12-04] MEDS: HYDROmorphone 2 MG/ML VIAL IV PRN ×3 (14:07→14:48)
[2018-12-04] MEDS ORDERED: IV NORMAL SALINE 1000ML BAG 1,000 ML IV ONE (14:15)
--- NOTE | 2018-12-04 14:29 | NUR ---
SS following up with discharge planning. Pt having BKA today. material planner and SS still attempting to discuss halfway unit and discharge planning with pt's spouse. SS will continue to follow for discharge planning.
[2018-12-04] MEDS: hydroCHLOROthiazide 25 MG TABLET PO SCH (15:33)
[2018-12-04] MEDS: hydrOXYzine 25 MG TABLET PO SCH (15:33)
[2018-12-04] MEDS: FAMOTIDINE 20 MG TABLET. PO SCH ×2 (15:33→20:58)
[2018-12-04] MEDS: LISINOPRIL 20 MG TABLET PO SCH (15:34)
[2018-12-04] MEDS: oxyCODONE IR 5 MG TABLET PO PRN (16:39)
[2018-12-04] MEDS: ceFAZolin SODIUM 3 GM in IV DEXTROSE 5% 100ML 100 ML IV SCH ×2 (16:39→22:00)
--- NOTE | 2018-12-04 17:26 | PDOC ---
Infectious Disease Note Subjective Subjective s/p right BKA c/o pain and spasms No fevers/chills/N/V/D/SOA Vital Sign Vital Signs Vital Signs Date Time Temp Pulse Resp B/P (MAP) Pulse Ox O2 Delivery O2 Flow Rate FiO2 12/04/18 16:49 96 Room Air 12.0 12/04/18 15:34 84 158/67 12/04/18 15:00 98.1 18 98.1 Physical Exam PHYSICAL EXAM GENERAL: Propped up in bed, alert, grimacing HEENT: Pupils equal, oropharynx pink and moist, edentulous NECK: Supple. LUNGS: Clear to auscultation. HEART: S1, S2. ABDOMEN: Obese, soft, nontender with bowel sounds present. EXTREMITIES: s/p right BKA, post-op dressing dry, hemavac in place SKIN: Warm to touch. No signs of rash. NEUROLOGIC: Alert and answering questions appropriately. Peripheral IV. Labs Lab Laboratory Tests Test 12/03/18 20:18 12/04/18 06:40 12/04/18 07:36 12/04/18 09:11 Glucose (Fingerstick) 110 mg/dL (70-99) 58 mg/dL (70-99) 61 mg/dL (70-99) White Blood Count 8.7 x10^3/uL (4.0-11.0) Red Blood Count 3.08 x10^6/uL (4.30-5.70) Hemoglobin 8.1 g/dL (13.0-17.5) Hematocrit 24.7 % (39.0-53.0) Mean Corpuscular Volume 80 fL (79-100) Mean Corpuscular Hemoglobin 26 pg (25-35) Mean Corpuscular Hemoglobin Concent 33 g/dL (31-37) Red Cell Distribution Width 17.4 % (11.5-14.5) Platelet Count 311 x10^3/uL (140-400) Neutrophils (%) (Auto) 69 % (31-73) Lymphocytes (%) (Auto) 18 % (24-48) Monocytes (%) (Auto) 10 % (0-9) Eosinophils (%) (Auto) 2 % (0-3) Basophils (%) (Auto) 1 % (0-3) Neutrophils # (Auto) 6.0 x10^3/uL (1.8-7.7) Lymphocytes # (Auto) 1.6 x10^3/uL (1.0-4.8) Monocytes # (Auto) 0.9 x10^3/uL (0.0-1.1) Eosinophils # (Auto) 0.2 x10^3/uL (0.0-0.7) Basophils # (Auto) 0.1 x10^3/uL (0.0-0.2) Sodium Level 135 mmol/L (136-145) Potassium Level 4.3 mmol/L (3.5-5.1) Chloride Level 98 mmol/L (98-107) Carbon Dioxide Level 33 mmol/L (21-32) Anion Gap 4 (6-14) Blood Urea Nitrogen 12 mg/dL (8-26) Creatinine 1.3 mg/dL (0.7-1.3) Estimated GFR (Cockcroft-Gault) 56.3 BUN/Creatinine Ratio 9 (6-20) Glucose Level 59 mg/dL (70-99) Calcium Level 8.6 mg/dL (8.5-10.1) Total Bilirubin 0.4 mg/dL (0.2-1.0) Aspartate Amino Transf (AST/SGOT) 11 U/L (15-37) Alanine Aminotransferase (ALT/SGPT) 10 U/L (16-63) Alkaline Phosphatase 49 U/L (46-116) Total Protein 7.9 g/dL (6.4-8.2) Albumin 2.0 g/dL (3.4-5.0) Albumin/Globulin Ratio 0.3 (1.0-1.7) Test 12/04/18 09:56 12/04/18 10:18 12/04/18 10:38 12/04/18 11:08 Glucose (Fingerstick) 65 mg/dL (70-99) 73 mg/dL (70-99) 103 mg/dL (70-99) 85 mg/dL (70-99) Test 12/04/18 11:19 12/04/18 11:40 12/04/18 12:02 12/04/18 12:27 Glucose (Fingerstick) 75 mg/dL (70-99) 94 mg/dL (70-99) 89 mg/dL (70-99) 101 mg/dL (70-99) Test 12/04/18 12:30 12/04/18 13:15 12/04/18 13:57 12/04/18 16:46 White Blood Count 4.9 x10^3/uL (4.0-11.0) Hemoglobin 8.3 g/dL (13.0-17.5) Hematocrit 24.6 % (39.0-53.0) Platelet Count 253 x10^3/uL (140-400) Sodium Level 137 mmol/L (136-145) Potassium Level 3.9 mmol/L (3.5-5.1) Chloride Level 102 mmol/L (98-107) Carbon Dioxide Level 28 mmol/L (21-32) Anion Gap 7 (6-14) Blood Urea Nitrogen 11 mg/dL (8-26) Creatinine 1.2 mg/dL (0.7-1.3) Estimated GFR (Cockcroft-Gault) 61.8 BUN/Creatinine Ratio 9 (6-20) Glucose Level 93 mg/dL (70-99) Calcium Level 7.9 mg/dL (8.5-10.1) Total Bilirubin 0.3 mg/dL (0.2-1.0) Aspartate Amino Transf (AST/SGOT) 15 U/L (15-37) Alanine Aminotransferase (ALT/SGPT) 8 U/L (16-63) Alkaline Phosphatase 43 U/L (46-116) Total Protein 7.0 g/dL (6.4-8.2) Albumin 1.8 g/dL (3.4-5.0) Albumin/Globulin Ratio 0.3 (1.0-1.7) Glucose (Fingerstick) 85 mg/dL (70-99) 102 mg/dL (70-99) 178 mg/dL (70-99) Micro 11/25. BLD CULT RESULT 1 Final Staphylococcus aureus MICS are expressed in micrograms per mL Antibiotic RSLT#1 Ciprofloxacin I =2 Gentamicin S<=0.5 Levofloxacin S =1 Linezolid S =2 Moxifloxacin S<=0.25 Nitrofurantoin S<=16 Oxacillin S =0.5 Penicillin R>=0.5 Quinupristin/Dalfopristin S<=0.25 Rifampin S<=0.5 Tetracycline S<=1 Trimethoprim/Sulfa R>=320 Vancomycin S<=0.5 11/25. Right foot ANAEROBIC RES 1 PENDING AEROBIC RES 1 Final Staphylococcus aureus MICS are expressed in micrograms per mL Antibiotic RSLT#1 Ciprofloxacin I =2 Clindamycin S<=0.25 Erythromycin S =0.5 Gentamicin S<=0.5 Levofloxacin S =2 Linezolid S =2 Moxifloxacin S =0.5 Oxacillin S =0.5 Penicillin R>=0.5 Quinupristin/Dalfopristin S<=0.25 Rifampin S<=0.5 Tetracycline S<=1 Trimethoprim/Sulfa R>=320 Vancomycin S =1 ANAEROBIC RES 1 Final Comment No anaerobic growth in 72 hours. 11/26. BLOOD CULTURE Preliminary NO GROWTH AFTER 5 DAYS 11/28. BLOOD CULTURE Preliminary NO GROWTH AFTER 3 DAY Objective Assessment MSSA bacteremia from 11/25. Repeat BC 11/26 & neg. TTE neg Infected diabetic ulcer w/ OM, right foot. MSSA s/p BKA 12/04 Leukopenia - better TANG - better PAD s/p angioplasty right leg, 12/02 s/p TMA right foot around August 2018 at [facility] quit OP IV abx due to transportation issues and was switched to orals Peripheral neuropathy HTN Plan Plan of Care Continue Zosyn ESR 120 f/u am labs PICC placement Consult social media community manager for long-term abx Pain management per primary D/w nursing Psot -op now and has some pain o/w ok D/w nursing re pain Attending Co-Sign Attending Co-Sign The patient was seen and interviewed as well as examined at the bedside. The ambrocio vanessa was reviewed. The case was discussed. Agree with the plan of care. KRISTIE GREENE APRN Dec 04, 2018 17:26 MAI GONSALEZ MD Dec 04, 2018 17:33
[2018-12-04] MEDS: ZOLPIDEM 5 MG TABLET. PO PRN (22:55)
[2018-12-05] MEDS: fentaNYL PF VIAL 100 MCG/2 ML VIAL IV PRN ×4 (00:54→21:06)
[2018-12-05 03:42] VITALS: BP 145/74
[2018-12-05] MEDS: ceFAZolin SODIUM 3 GM in IV DEXTROSE 5% 100ML 100 ML IV SCH (03:52)
[2018-12-05] MEDS: oxyCODONE IR 5 MG TABLET PO PRN ×4 (03:57→17:31)
[2018-12-05 04:39] LABS: BASO # 0.1 x10^3/uL (0.0-0.2); BASO % 1 % (0-3); EOS % 0 % (0-3); HEMATOCRIT 25.7 % (39.0-53.0); HEMOGLOBIN 8.6 g/dL (13.0-17.5); LYMPH % 11 % (24-48); MEAN CORPUSCULAR HEMOGLOBIN 27 pg (25-35); MEAN CORPUSCULAR HGB CONC 33 g/dL (31-37); MEAN CORPUSCULAR VOLUME 81 fL (79-100); MONO # 0.6 x10^3/uL (0.0-1.1); MONO % 7 % (0-9); NEUT # 7.2 x10^3/uL (1.8-7.7); NEUT % 81 % (31-73); PLATELET COUNT 274 x10^3/uL (140-400); RED BLOOD COUNT 3.17 x10^6/uL (4.30-5.70); RED CELL DISTRIBUTION WIDTH 16.6 % (11.5-14.5); WHITE BLOOD COUNT 8.9 x10^3/uL (4.0-11.0)
[2018-12-05 04:50] LABS: ALBUMIN 2.1 g/dL (3.4-5.0); ALBUMIN/GLOBULIN RATIO 0.4 (1.0-1.7); CALCIUM 8.2 mg/dL (8.5-10.1); CREATININE 1.3 mg/dL (0.7-1.3); GFR 56.3; POTASSIUM 4.1 mmol/L (3.5-5.1); TOTAL BILIRUBIN 0.2 mg/dL (0.2-1.0); TOTAL PROTEIN 7.5 g/dL (6.4-8.2)
[2018-12-05] MEDS: PIPERACILLIN/TAZOBACTAM 3.375 GM in IV NORMAL SALINE 50ML 50 ML IV SCH ×2 (05:15→12:03)
[2018-12-05 07:00] VITALS: BP 141/75
[2018-12-05] MEDS: METHADONE 10 MG TABLET. PO SCH ×3 (08:06→21:05)
[2018-12-05] MEDS: LACTOBACILLUS RHAMNOSUS GG 1 CAPSULE. PO SCH ×2 (08:06→21:04)
[2018-12-05] MEDS: hydroCHLOROthiazide 25 MG TABLET PO SCH (08:07)
[2018-12-05] MEDS: LINAGLIPTIN 5 MG TABLET PO SCH (08:07)
[2018-12-05] MEDS: MULTIVITAMIN with MINERAL TABLET. PO SCH (08:08)
[2018-12-05] MEDS: LISINOPRIL 20 MG TABLET PO SCH (08:08)
[2018-12-05] MEDS: levETIRAcetam 500 MG TABLET PO SCH ×2 (08:08→21:04)
[2018-12-05] MEDS: FAMOTIDINE 20 MG TABLET. PO SCH ×2 (08:08→21:04)
[2018-12-05] MEDS: PREGABALIN 50 MG CAPSULE PO SCH ×2 (08:09→21:04)
[2018-12-05] MEDS: ASCORBIC ACID 500 MG TABLET PO SCH (08:09)
[2018-12-05] MEDS: hydrOXYzine 25 MG TABLET PO SCH (08:09)
[2018-12-05] MEDS: CLOPIDOGREL BISULFATE 75 MG TABLET PO SCH (08:09)
[2018-12-05] MEDS: DULoxetine HCL 30 MG CAPSULE.DR PO SCH ×2 (08:09→21:05)
[2018-12-05] MEDS: INSULIN GLARGINE SYRINGE. SQ SCH ×2 (08:11→21:05)
[2018-12-05] MEDS: INSULIN LISPRO 300 UNITS/3 ML VIAL. SQ SCH ×3 (08:12→17:00)
[2018-12-05] MEDS: CYCLOBENZAPRINE 10 MG TABLET. PO SCH ×2 (08:12→21:04)
--- NOTE | 2018-12-05 08:39 | PDOC ---
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 He is covered in chocolate ice cream. Hemovac in place, pain well controlled. Labs reviewed. 12/04/18 Pt seen and examined at bedside Pt was seen resting in bed BKA scheduled for later today Consulting with vascular surgery and ortho Charts and labs reviewed KATIE RN 12/03/18 Pt seen and examined at bedside Sitting up in bed, alert and oriented Consented to surgery Wants to be informed about when surgery will take place so he can tell his family Consulting with vascular surgery and ortho Charts and labs reviewed KATIE COOLEY 12/02/18 Pt seen and examined at bedside Was in good spirits Was sitting up in bed, right foot bandaged Charts and labs reviewed ID confirmed Staph aureus infection Consulting with vascular surgery and ortho 12/01/[address] Madsen at bedside Treated with IV antibiotics 3 months ago in [place], [place] after TMA Left AMA, returned due to concerns about foot infection Monophasic on RLE doppler. Has some foot pain. No SOB or CP Obtaining records from prior hospitalization Vitals Vitals Vital Signs Date Time Temp Pulse Resp B/P (MAP) Pulse Ox O2 Delivery O2 Flow Rate FiO2 12/05/18 08:08 81 141/75 12/05/18 07:00 97.8 16 98 Room Air 97.8 12/04/18 17:47 12.0 Physical Exam Physical Exam GENERAL: Propped up in bed, alert, grimacing HEENT: Pupils equal, oropharynx pink and moist, edentulous NECK: Supple. LUNGS: Clear to auscultation. HEART: S1, S2. ABDOMEN: Obese, soft, nontender with bowel sounds present. EXTREMITIES: s/p right BKA, post-op dressing dry, hemavac in place SKIN: Warm to touch. No signs of rash. NEUROLOGIC: Alert and answering questions appropriately. Peripheral IV. General: Alert, Oriented X3, Cooperative, No acute distress Heart: Regular rate Lungs: Clear Abdomen: Normal bowel sounds, Soft, No tenderness, No hepatosplenomegaly, No masses Extremities: No clubbing, Other (left femoral access site dressing dry and intact) Skin: Other (right foot dressing soaked with drainage.) Labs LABS Laboratory Tests Test 12/04/18 09:11 12/04/18 09:56 12/04/18 10:18 12/04/18 10:38 Glucose (Fingerstick) 61 mg/dL (70-99) 65 mg/dL (70-99) 73 mg/dL (70-99) 103 mg/dL (70-99) Test 12/04/18 11:08 12/04/18 11:19 12/04/18 11:40 12/04/18 12:02 Glucose (Fingerstick) 85 mg/dL (70-99) 75 mg/dL (70-99) 94 mg/dL (70-99) 89 mg/dL (70-99) Test 12/04/18 12:27 12/04/18 12:30 12/04/18 13:15 12/04/18 13:57 Glucose (Fingerstick) 101 mg/dL (70-99) 85 mg/dL (70-99) 102 mg/dL (70-99) White Blood Count 4.9 x10^3/uL (4.0-11.0) Hemoglobin 8.3 g/dL (13.0-17.5) Hematocrit 24.6 % (39.0-53.0) Platelet Count 253 x10^3/uL (140-400) Sodium Level 137 mmol/L (136-145) Potassium Level 3.9 mmol/L (3.5-5.1) Chloride Level 102 mmol/L (98-107) Carbon Dioxide Level 28 mmol/L (21-32) Anion Gap 7 (6-14) Blood Urea Nitrogen 11 mg/dL (8-26) Creatinine 1.2 mg/dL (0.7-1.3) Estimated GFR (Cockcroft-Gault) 61.8 BUN/Creatinine Ratio 9 (6-20) Glucose Level 93 mg/dL (70-99) Calcium Level 7.9 mg/dL (8.5-10.1) Total Bilirubin 0.3 mg/dL (0.2-1.0) Aspartate Amino Transf (AST/SGOT) 15 U/L (15-37) Alanine Aminotransferase (ALT/SGPT) 8 U/L (16-63) Alkaline Phosphatase 43 U/L (46-116) Total Protein 7.0 g/dL (6.4-8.2) Albumin 1.8 g/dL (3.4-5.0) Albumin/Globulin Ratio 0.3 (1.0-1.7) Test 12/04/18 16:46 12/04/18 20:47 12/05/18 04:00 12/05/18 07:39 Glucose (Fingerstick) 178 mg/dL (70-99) 196 mg/dL (70-99) 151 mg/dL (70-99) White Blood Count 8.9 x10^3/uL (4.0-11.0) Red Blood Count 3.17 x10^6/uL (4.30-5.70) Hemoglobin 8.6 g/dL (13.0-17.5) Hematocrit 25.7 % (39.0-53.0) Mean Corpuscular Volume 81 fL (79-100) Mean Corpuscular Hemoglobin 27 pg (25-35) Mean Corpuscular Hemoglobin Concent 33 g/dL (31-37) Red Cell Distribution Width 16.6 % (11.5-14.5) Platelet Count 274 x10^3/uL (140-400) Neutrophils (%) (Auto) 81 % (31-73) Lymphocytes (%) (Auto) 11 % (24-48) Monocytes (%) (Auto) 7 % (0-9) Eosinophils (%) (Auto) 0 % (0-3) Basophils (%) (Auto) 1 % (0-3) Neutrophils # (Auto) 7.2 x10^3/uL (1.8-7.7) Lymphocytes # (Auto) 1.0 x10^3/uL (1.0-4.8) Monocytes # (Auto) 0.6 x10^3/uL (0.0-1.1) Eosinophils # (Auto) 0.0 x10^3/uL (0.0-0.7) Basophils # (Auto) 0.1 x10^3/uL (0.0-0.2) Sodium Level 139 mmol/L (136-145) Potassium Level 4.1 mmol/L (3.5-5.1) Chloride Level 104 mmol/L (98-107) Carbon Dioxide Level 31 mmol/L (21-32) Anion Gap 4 (6-14) Blood Urea Nitrogen 10 mg/dL (8-26) Creatinine 1.3 mg/dL (0.7-1.3) Estimated GFR (Cockcroft-Gault) 56.3 BUN/Creatinine Ratio 8 (6-20) Glucose Level 175 mg/dL (70-99) Calcium Level 8.2 mg/dL (8.5-10.1) Total Bilirubin 0.2 mg/dL (0.2-1.0) Aspartate Amino Transf (AST/SGOT) 16 U/L (15-37) Alanine Aminotransferase (ALT/SGPT) 6 U/L (16-63) Alkaline Phosphatase 43 U/L (46-116) Total Protein 7.5 g/dL (6.4-8.2) Albumin 2.1 g/dL (3.4-5.0) Albumin/Globulin Ratio 0.4 (1.0-1.7) Assessment and Plan Assessmemt and Plan Problems Medical Problems: (1) Acute kidney injury Status: Acute (2) Cellulitis, unspecified Status: Acute Comment Review of Relevant I have reviewed the following items wilber (where applicable) has been applied. Labs Laboratory Tests Test 12/03/18 10:46 12/03/18 15:56 12/03/18 20:18 12/04/18 06:40 Glucose (Fingerstick) 230 mg/dL (70-99) 79 mg/dL (70-99) 110 mg/dL (70-99) White Blood Count 8.7 x10^3/uL (4.0-11.0) Red Blood Count 3.08 x10^6/uL (4.30-5.70) Hemoglobin 8.1 g/dL (13.0-17.5) Hematocrit 24.7 % (39.0-53.0) Mean Corpuscular Volume 80 fL (79-100) Mean Corpuscular Hemoglobin 26 pg (25-35) Mean Corpuscular Hemoglobin Concent 33 g/dL (31-37) Red Cell Distribution Width 17.4 % (11.5-14.5) Platelet Count 311 x10^3/uL (140-400) Neutrophils (%) (Auto) 69 % (31-73) Lymphocytes (%) (Auto) 18 % (24-48) Monocytes (%) (Auto) 10 % (0-9) Eosinophils (%) (Auto) 2 % (0-3) Basophils (%) (Auto) 1 % (0-3) Neutrophils # (Auto) 6.0 x10^3/uL (1.8-7.7) Lymphocytes # (Auto) 1.6 x10^3/uL (1.0-4.8) Monocytes # (Auto) 0.9 x10^3/uL (0.0-1.1) Eosinophils # (Auto) 0.2 x10^3/uL (0.0-0.7) Basophils # (Auto) 0.1 x10^3/uL (0.0-0.2) Sodium Level 135 mmol/L (136-145) Potassium Level 4.3 mmol/L (3.5-5.1) Chloride Level 98 mmol/L (98-107) Carbon Dioxide Level 33 mmol/L (21-32) Anion Gap 4 (6-14) Blood Urea Nitrogen 12 mg/dL (8-26) Creatinine 1.3 mg/dL (0.7-1.3) Estimated GFR (Cockcroft-Gault) 56.3 BUN/Creatinine Ratio 9 (6-20) Glucose Level 59 mg/dL (70-99) Calcium Level 8.6 mg/dL (8.5-10.1) Total Bilirubin 0.4 mg/dL (0.2-1.0) Aspartate Amino Transf (AST/SGOT) 11 U/L (15-37) Alanine Aminotransferase (ALT/SGPT) 10 U/L (16-63) Alkaline Phosphatase 49 U/L (46-116) Total Protein 7.9 g/dL (6.4-8.2) Albumin 2.0 g/dL (3.4-5.0) Albumin/Globulin Ratio 0.3 (1.0-1.7) Test 12/04/18 07:36 12/04/18 09:11 12/04/18 09:56 12/04/18 10:18 Glucose (Fingerstick) 58 mg/dL (70-99) 61 mg/dL (70-99) 65 mg/dL (70-99) 73 mg/dL (70-99) Test 12/04/18 10:38 12/04/18 11:08 10/3/19 11:19 12/04/18 11:40 Glucose (Fingerstick) 103 mg/dL (70-99) 85 mg/dL (70-99) 75 mg/dL (70-99) 94 mg/dL (70-99) Test 12/04/18 12:02 12/04/18 12:27 12/04/18 12:30 12/04/18 13:15 Glucose (Fingerstick) 89 mg/dL (70-99) 101 mg/dL (70-99) 85 mg/dL (70-99) White Blood Count 4.9 x10^3/uL (4.0-11.0) Hemoglobin 8.3 g/dL (13.0-17.5) Hematocrit 24.6 % (39.0-53.0) Platelet Count 253 x10^3/uL (140-400) Sodium Level 137 mmol/L (136-145) Potassium Level 3.9 mmol/L (3.5-5.1) Chloride Level 102 mmol/L (98-107) Carbon Dioxide Level 28 mmol/L (21-32) Anion Gap 7 (6-14) Blood Urea Nitrogen 11 mg/dL (8-26) Creatinine 1.2 mg/dL (0.7-1.3) Estimated GFR (Cockcroft-Gault) 61.8 BUN/Creatinine Ratio 9 (6-20) Glucose Level 93 mg/dL (70-99) Calcium Level 7.9 mg/dL (8.5-10.1) Total Bilirubin 0.3 mg/dL (0.2-1.0) Aspartate Amino Transf (AST/SGOT) 15 U/L (15-37) Alanine Aminotransferase (ALT/SGPT) 8 U/L (16-63) Alkaline Phosphatase 43 U/L (46-116) Total Protein 7.0 g/dL (6.4-8.2) Albumin 1.8 g/dL (3.4-5.0) Albumin/Globulin Ratio 0.3 (1.0-1.7) Test 12/04/18 13:57 12/04/18 16:46 12/04/18 20:47 12/05/18 04:00 Glucose (Fingerstick) 102 mg/dL (70-99) 178 mg/dL (70-99) 196 mg/dL (70-99) White Blood Count 8.9 x10^3/uL (4.0-11.0) Red Blood Count 3.17 x10^6/uL (4.30-5.70) Hemoglobin 8.6 g/dL (13.0-17.5) Hematocrit 25.7 % (39.0-53.0) Mean Corpuscular Volume 81 fL (79-100) Mean Corpuscular Hemoglobin 27 pg (25-35) Mean Corpuscular Hemoglobin Concent 33 g/dL (31-37) Red Cell Distribution Width 16.6 % (11.5-14.5) Platelet Count 274 x10^3/uL (140-400) Neutrophils (%) (Auto) 81 % (31-73) Lymphocytes (%) (Auto) 11 % (24-48) Monocytes (%) (Auto) 7 % (0-9) Eosinophils (%) (Auto) 0 % (0-3) Basophils (%) (Auto) 1 % (0-3) Neutrophils # (Auto) 7.2 x10^3/uL (1.8-7.7) Lymphocytes # (Auto) 1.0 x10^3/uL (1.0-4.8) Monocytes # (Auto) 0.6 x10^3/uL (0.0-1.1) Eosinophils # (Auto) 0.0 x10^3/uL (0.0-0.7) Basophils # (Auto) 0.1 x10^3/uL (0.0-0.2) Sodium Level 139 mmol/L (136-145) Potassium Level 4.1 mmol/L (3.5-5.1) Chloride Level 104 mmol/L (98-107) Carbon Dioxide Level 31 mmol/L (21-32) Anion Gap 4 (6-14) Blood Urea Nitrogen 10 mg/dL (8-26) Creatinine 1.3 mg/dL (0.7-1.3) Estimated GFR (Cockcroft-Gault) 56.3 BUN/Creatinine Ratio 8 (6-20) Glucose Level 175 mg/dL (70-99) Calcium Level 8.2 mg/dL (8.5-10.1) Total Bilirubin 0.2 mg/dL (0.2-1.0) Aspartate Amino Transf (AST/SGOT) 16 U/L (15-37) Alanine Aminotransferase (ALT/SGPT) 6 U/L (16-63) Alkaline Phosphatase 43 U/L (46-116) Total Protein 7.5 g/dL (6.4-8.2) Albumin 2.1 g/dL (3.4-5.0) Albumin/Globulin Ratio 0.4 (1.0-1.7) Test 12/05/18 07:39 Glucose (Fingerstick) 151 mg/dL (70-99) Laboratory Tests Test 12/04/18 09:11 12/04/18 09:56 12/04/18 10:18 12/04/18 10:38 Glucose (Fingerstick) 61 mg/dL (70-99) 65 mg/dL (70-99) 73 mg/dL (70-99) 103 mg/dL (70-99) Test 12/04/18 11:08 12/04/18 11:19 12/04/18 11:40 12/04/18 12:02 Glucose (Fingerstick) 85 mg/dL (70-99) 75 mg/dL (70-99) 94 mg/dL (70-99) 89 mg/dL (70-99) Test 12/04/18 12:27 12/04/18 12:30 12/04/18 13:15 12/04/18 13:57 Glucose (Fingerstick) 101 mg/dL (70-99) 85 mg/dL (70-99) 102 mg/dL (70-99) White Blood Count 4.9 x10^3/uL (4.0-11.0) Hemoglobin 8.3 g/dL (13.0-17.5) Hematocrit 24.6 % (39.0-53.0) Platelet Count 253 x10^3/uL (140-400) Sodium Level 137 mmol/L (136-145) Potassium Level 3.9 mmol/L (3.5-5.1) Chloride Level 102 mmol/L (98-107) Carbon Dioxide Level 28 mmol/L (21-32) Anion Gap 7 (6-14) Blood Urea Nitrogen 11 mg/dL (8-26) Creatinine 1.2 mg/dL (0.7-1.3) Estimated GFR (Cockcroft-Gault) 61.8 BUN/Creatinine Ratio 9 (6-20) Glucose Level 93 mg/dL (70-99) Calcium Level 7.9 mg/dL (8.5-10.1) Total Bilirubin 0.3 mg/dL (0.2-1.0) Aspartate Amino Transf (AST/SGOT) 15 U/L (15-37) Alanine Aminotransferase (ALT/SGPT) 8 U/L (16-63) Alkaline Phosphatase 43 U/L (46-116) Total Protein 7.0 g/dL (6.4-8.2) Albumin 1.8 g/dL (3.4-5.0) Albumin/Globulin Ratio 0.3 (1.0-1.7) Test 12/04/18 16:46 12/04/18 20:47 12/05/18 04:00 12/05/18 07:39 Glucose (Fingerstick) 178 mg/dL (70-99) 196 mg/dL (70-99) 151 mg/dL (70-99) White Blood Count 8.9 x10^3/uL (4.0-11.0) Red Blood Count 3.17 x10^6/uL (4.30-5.70) Hemoglobin 8.6 g/dL (13.0-17.5) Hematocrit 25.7 % (39.0-53.0) Mean Corpuscular Volume 81 fL (79-100) Mean Corpuscular Hemoglobin 27 pg (25-35) Mean Corpuscular Hemoglobin Concent 33 g/dL (31-37) Red Cell Distribution Width 16.6 % (11.5-14.5) Platelet Count 274 x10^3/uL (140-400) Neutrophils (%) (Auto) 81 % (31-73) Lymphocytes (%) (Auto) 11 % (24-48) Monocytes (%) (Auto) 7 % (0-9) Eosinophils (%) (Auto) 0 % (0-3) Basophils (%) (Auto) 1 % (0-3) Neutrophils # (Auto) 7.2 x10^3/uL (1.8-7.7) Lymphocytes # (Auto) 1.0 x10^3/uL (1.0-4.8) Monocytes # (Auto) 0.6 x10^3/uL (0.0-1.1) Eosinophils # (Auto) 0.0 x10^3/uL (0.0-0.7) Basophils # (Auto) 0.1 x10^3/uL (0.0-0.2) Sodium Level 139 mmol/L (136-145) Potassium Level 4.1 mmol/L (3.5-5.1) Chloride Level 104 mmol/L (98-107) Carbon Dioxide Level 31 mmol/L (21-32) Anion Gap 4 (6-14) Blood Urea Nitrogen 10 mg/dL (8-26) Creatinine 1.3 mg/dL (0.7-1.3) Estimated GFR (Cockcroft-Gault) 56.3 BUN/Creatinine Ratio 8 (6-20) Glucose Level 175 mg/dL (70-99) Calcium Level 8.2 mg/dL (8.5-10.1) Total Bilirubin 0.2 mg/dL (0.2-1.0) Aspartate Amino Transf (AST/SGOT) 16 U/L (15-37) Alanine Aminotransferase (ALT/SGPT) 6 U/L (16-63) Alkaline Phosphatase 43 U/L (46-116) Total Protein 7.5 g/dL (6.4-8.2) Albumin 2.1 g/dL (3.4-5.0) Albumin/Globulin Ratio 0.4 (1.0-1.7) Microbiology 11/28/18 Blood Culture - Final, Complete NO GROWTH AFTER 5 DAYS Medications Current Medications Cefazolin Sodium/ Dextrose 50 ml @ 100 mls/hr 1X ONCE IV Last administered on 11/28/18at 21:54; Start 11/28/18 at 21:00; Stop 11/28/18 at 21:29; Status DC Vancomycin HCl 250 ml @ 250 mls/hr 1X ONCE IV Last administered on 11/28/18at 22:20; Start 11/28/18 at 21:00; Stop 11/28/18 at 21:59; Status DC Fentanyl Citrate (Fentanyl 2ml Vial) 50 mcg PRN Q2HR PRN IV SEVERE PAIN 7-10 Last administered on 12/05/18at 00:54; Start 11/29/18 at 01:00 Insulin Human Lispro (HumaLOG) 0-5 UNITS TIDWMEALS SQ ; Start 11/29/18 at 08:00; Stop 11/29/18 at 08:12; Status DC Dextrose (Dextrose 50%-Water Syringe) 12.5 gm PRN Q15MIN PRN IV SEE COMMENTS; Start 11/29/18 at 01:15; Status Cancel Insulin Human Lispro (HumaLOG) 0-9 UNITS TIDWMEALS SQ Last administered on 12/05/18 08:12; Start 11/29/18 at 09:00 Dextrose (Dextrose 50%-Water Syringe) 12.5 gm PRN Q15MIN PRN IV SEE COMMENTS Last administered on 12/04/18 10:22; Start 11/29/18 at 08:15 Acetaminophen (Tylenol) 500 mg PRN Q6HRS PRN PO MILD PAIN / TEMP; Start 11/29/18 at 08:15 Fentanyl Citrate (Fentanyl 2ml Vial) 50 mcg PRN Q2HR PRN IV PAIN; Start 11/29/18 at 08:15; Stop 11/30/18 at 11:35; Status DC Tramadol HCl (Ultram) 50 mg PRN Q6HRS PRN PO MODERATE PAIN; Start 11/29/18 at 08:15 Zolpidem Tartrate (Ambien) 5 mg PRN QHS PRN PO INSOMNIA Last administered on 12/04/18 22:55; Start 11/29/18 at 08:15 Cyclobenzaprine HCl (Flexeril) 10 mg BID PO Last administered on 12/04/18 20:59; Start 11/29/18 at 09:00 Duloxetine HCl (Cymbalta) 30 mg BID PO Last administered on 12/05/18 08:09; Start 11/29/18 at 09:00 Levetiracetam (Keppra) 500 mg BID PO Last administered on 12/05/18 08:08; Start 11/29/18 at 09:00 Methadone HCl (Dolophine) 10 mg TID PO Last administered on 12/05/18 08:06; Start 11/29/18 at 09:00 Non-Formulary Medication (Duloxetine Hcl (Cymbalta)) 60 mg DAILY PO ; Start 11/29/18 at 09:00; Status UNV Insulin Glargine (Lantus Syringe) 20 unit BID SQ Last administered on 12/05/18 08:11; Start 11/29/18 at 09:00 Non-Formulary Medication (Lisinopril/ Hydrochlorothiazide (Lisinopril-Hctz 20- 12.5 Mg Tab)) 2 tab DAILY PO ; Start 11/29/18 at 09:00; Status UNV Oxycodone HCl (Roxicodone) 10 mg PRN Q6HRS PRN PO SEVERE PAIN Last administered on 12/05/18at 03:57; Start 11/29/18 at 08:30 Pregabalin (Lyrica) 100 mg BID PO Last administered on 12/05/18 08:09; Start 11/29/18 at 09:00 Famotidine (Pepcid) 20 mg BID PO Last administered on 12/05/18 08:08; Start 11/29/18 at 09:00 Linagliptin (Tradjenta) 5 mg DAILY PO Last administered on 12/05/18 08:07; Start 11/29/18 at 09:00 Hydroxyzine HCl (Atarax) 50 mg DAILY PO Last administered on 12/05/18 08:09; Start 11/29/18 at 09:00 Lisinopril (Prinivil) 40 mg DAILY PO Last administered on 12/05/18 08:08; Start 11/29/18 at 09:00 Hydrochlorothiazide (Hydrodiuril) 25 mg DAILY PO Last administered on 12/05/18 08:07; Start 11/29/18 at 09:00 Potassium Chloride (Klor-Con) 40 meq 1X ONCE PO Last administered on 11/29/18at 11:22; Start 11/29/18 at 10:30; Stop 11/29/18 at 10:31; Status DC Vancomycin HCl (Vanco Per Pharmacy) 1 each PRN DAILY PRN MC SEE COMMENTS Last administered on 12/01/18at 02:13; Start 11/29/18 at 10:15; Stop 12/01/18 at 11:47; Status DC Piperacillin Sod/ Tazobactam Sod (Zosyn Per Pharmacy) 1 each PRN DAILY PRN MC SEE COMMENTS; Start 11/29/18 at 10:15; Stop 11/30/18 at 10:03; Status DC Piperacillin Sod/ Tazobactam Sod 4.5 gm/Sodium Chloride 100 ml @ 200 mls/hr Q6HRS IV Last administered on 11/30/18at 05:40; Start 11/29/18 at 11:00; Stop 11/30/18 at 10:03; Status DC Vancomycin HCl 2 gm/Sodium Chloride 500 ml @ 250 mls/hr 1X ONCE IV Last administered on 11/29/18at 12:38; Start 11/29/18 at 11:00; Stop 11/29/18 at 12:59; Status DC Vancomycin HCl 2 gm/Sodium Chloride 500 ml @ 250 mls/hr Q12H IV Last administered on 11/30/18at 12:57; Start 11/30/18 at 01:00; Stop 12/01/18 at 01:53; Status DC Vancomycin HCl (Vancomycin Trough Level) 1 each 1X ONCE MC Last administered on 12/01/18at 00:30; Start 12/01/18 at 00:30; Stop 12/01/18 at 00:31; Status DC Piperacillin Sod/ Tazobactam Sod 3.375 gm/Sodium Chloride 50 ml @ 100 mls/hr Q6HRS IV Last administered on 12/05/18at 05:15; Start 11/30/18 at 12:00 Lactobacillus Rhamnosus (Culturelle) 1 cap BID PO Last administered on 12/05/18at 08:06; Start 11/30/18 at 21:00 Vancomycin HCl (Vancomycin Random Level) 1 each 1X ONCE MC ; Start 12/01/18 at 10:00; Stop 12/01/18 at 10:01; Status DC Vancomycin HCl 2 gm/Sodium Chloride 500 ml @ 250 mls/hr Q18H IV ; Start 12/01/18 at 11:30; Stop 12/01/18 at 11:47; Status DC Vancomycin HCl (Vancomycin Trough Level) 1 each 1X ONCE MC ; Start 12/02/18 at 23:00; Stop 12/01/18 at 11:55; Status DC Ascorbic Acid (Vitamin C) 500 mg DAILY PO Last administered on 12/05/18at 08:09; Start 12/01/18 at 13:00 Multivitamins (Thera M Plus) 1 tab DAILY PO Last administered on 12/05/18at 08:08; Start 12/01/18 at 13:00 Iodixanol (Visipaque 320) 100 ml STK-MED ONCE .ROUTE ; Start 12/02/18 at 10:01; Stop 12/02/18 at 10:01; Status DC Lidocaine/Sodium Bicarbonate (Buffered Lidocaine 1%) 3 ml STK-MED ONCE .ROUTE ; Start 12/02/18 at 10:01; Stop 12/02/18 at 10:01; Status DC Heparin Sodium/ Sodium Chloride 1,000 ml @ As Directed STK-MED ONCE .ROUTE ; Start 12/02/18 at 10:03; Stop 12/02/18 at 10:03; Status DC Midazolam HCl (Versed) 5 mg STK-MED ONCE .ROUTE ; Start 12/02/18 at 10:16; Stop 12/02/18 at 10:16; Status DC Fentanyl Citrate (Fentanyl 5ml Vial) 250 mcg STK-MED ONCE .ROUTE ; Start at 10:16; Stop 12/02/18 at 10:16; Status DC Heparin Sodium (Porcine) (Heparin Sodium) 10,000 unit STK-MED ONCE .ROUTE ; Start 12/02/18 at 10:16; Stop 12/02/18 at 10:16; Status DC Diphenhydramine HCl (Benadryl) 50 mg STK-MED ONCE .ROUTE ; Start 12/02/18 at 10:49; Stop 12/02/18 at 10:49; Status DC Lidocaine/Sodium Bicarbonate (Buffered Lidocaine 1%) 3 ml 1X ONCE IJ Last ad ministered on 12/02/18at 11:15; Start 12/02/18 at 11:15; Stop 12/02/18 at 11:16; Status DC Midazolam HCl (Versed) 5 mg 1X ONCE IV Last administered on 12/02/18at 11:15; Start 12/02/18 at 11:15; Stop 12/02/18 at 11:16; Status DC Fentanyl Citrate (Fentanyl 5ml Vial) 100 mcg 1X ONCE IV Last administered on 12/02/18at 11:15; Start 12/02/18 at 11:15; Stop 12/02/18 at 11:16; Status DC Iodixanol (Visipaque 320) 100 ml 1X ONCE IART Last administered on 12/02/18at 11:15; Start 12/02/18 at 11:15; Stop 12/02/18 at 11:16; Status DC Heparin Sodium (Porcine) (Heparin Sodium) 5,000 unit 1X ONCE IV Last administered on 12/02/18at 11:15; Start 12/02/18 at 11:15; Stop 12/02/18 at 11:16; Status DC Diphenhydramine HCl (Benadryl) 25 mg 1X ONCE IVP Last administered on 12/02/18at 11:15; Start 12/02/18 at 11:15; Stop 12/02/18 at 11:16; Status DC Clopidogrel Bisulfate (Plavix) 300 mg 1X ONCE PO Last administered on 12/02/18at 12:28; Start 12/02/18 at 12:30; Stop 12/02/18 at 12:31; Status DC Clopidogrel Bisulfate (Plavix) 75 mg DAILYWBKFT PO Last administered on 12/05/18at 08:09; Start 12/03/18 at 08:00 Ondansetron HCl (Zofran) 4 mg PRN Q6HRS PRN IV NAUSEA/VOMITING; Start 12/04/18 at 07:00; Stop 12/05/18 at 06:59; Status DC Fentanyl Citrate (Fentanyl 2ml Vial) 25 mcg PRN Q5MIN PRN IV MILD PAIN 1-3; Start 12/04/18 at 07:00; Stop 12/05/18 at 06:59; Status DC Fentanyl Citrate (Fentanyl 2ml Vial) 50 mcg PRN Q5MIN PRN IV MODERATE TO SEVERE PAIN; Start 12/04/18 at 07:00; Stop 12/05/18 at 06:59; Status DC Morphine Sulfate (Morphine Sulfate) 1 mg PRN Q10MIN PRN IV SEVERE PAIN 7-10; Start 12/04/18 at 07:00; Stop 12/05/18 at 06:59; Status UNV Ringer's Solution 1,000 ml @ 30 mls/hr Q24H IV Last administered on 12/04/18at 10:06; Start 12/04/18 at 07:00; Stop 12/04/18 at 18:59; Status DC Lidocaine HCl (Xylocaine-Mpf 1% 2ml Vial) 2 ml PRN 1X PRN ID PRIOR TO IV START; Start 12/04/18 at 07:00; Stop 12/05/18 at 06:59; Status DC Hydromorphone HCl (Dilaudid) 0.5 mg PRN Q10MIN PRN IV SEV PAIN, Second choice; Start 12/04/18 at 07:00; Stop 12/05/18 at 06:59; Status UNV Prochlorperazine Edisylate (Compazine) 5 mg PACU PRN PRN IV NAUSEA, MRX1 Last administered on 12/04/18at 13:35; Start 12/04/18 at 07:00; Stop 12/05/18 at 06:59; Status DC Lidocaine HCl (Lidocaine Pf 2% Vial) 5 ml STK-MED ONCE .ROUTE ; Start 12/04/18 at 08:12; Stop 12/04/18 at 08:12; Status DC Propofol 20 ml @ As Directed STK-MED ONCE IV ; Start 12/04/18 at 08:12; Stop 12/04/18 at 08:12; Status DC Fentanyl Citrate (Fentanyl 2ml Vial) 100 mcg STK-MED ONCE .ROUTE ; Start 12/04/18 at 08:12; Stop 12/04/18 at 08:12; Status DC Rocuronium [place] (Zemuron) 50 mg STK-MED ONCE .ROUTE ; Start 12/04/18 at 08:12; Stop 12/04/18 at 08:12; Status DC Cefazolin Sodium/ Dextrose 50 ml @ 100 mls/hr 1X ONCE IV Last administered on 12/04/18at 10:32; Start 12/04/18 at 10:30; Stop 12/04/18 at 10:59; Status DC Lidocaine HCl (Xylocaine 1% Pf 30ml Vial) 30 ml STK-MED ONCE .ROUTE ; Start 12/04/18 at 10:10; Stop 12/04/18 at 10:11; Status DC Bupivacaine HCl (Sensorcaine Mpf 0.5%) 30 ml STK-MED ONCE .ROUTE ; Start 12/04/18 at 10:11; Stop 12/04/18 at 10:11; Status DC Ondansetron HCl (Zofran) 4 mg STK-MED ONCE .ROUTE ; Start 12/04/18 at 10:43; Stop 12/04/18 at 10:43; Status DC Dexamethasone Sodium Phosphate (Decadron) 4 mg STK-MED ONCE .ROUTE ; Start 12/04/18 at 10:43; Stop 12/04/18 at 10:43; Status DC Glycopyrrolate (Robinul) 1 mg STK-MED ONCE .ROUTE ; Start 12/04/18 at 10:44; Stop 12/04/18 at 10:44; Status DC Neostigmine Methylsulfate (Neostigmine Methylsulfate) 5 mg STK-MED ONCE .ROUTE ; Start 12/04/18 at 10:44; Stop 12/04/18 at 10:44; Status DC Ketamine HCl (Ketamine) 50 mg STK-MED ONCE .ROUTE ; Start 12/04/18 at 10:44; Stop 12/04/18 at 10:45; Status DC Cefazolin Sodium (Ancef) 1 gm STK-MED ONCE .ROUTE ; Start 12/04/18 at 11:01; Stop 12/04/18 at 11:01; Status DC Phenylephrine HCl (PHENYLEPHRINE in 0.9% NACL PF) 1 mg STK-MED ONCE IV ; Start 12/04/18 at 13:06; Stop 12/04/18 at 13:06; Status DC Ephedrine Sulfate (ePHEDrine PF IN SALINE SYRINGE) 50 mg STK-MED ONCE IV ; Start 12/04/18 at 13:06; Stop 12/04/18 at 13:06; Status DC Albumin Human 500 ml @ As Directed STK-MED ONCE IV ; Start 12/04/18 at 13:06; Stop 12/04/18 at 13:06; Status DC Sevoflurane (Ultane) 90 ml STK-MED ONCE IH ; Start 12/04/18 at 13:06; Stop 12/04/18 at 13:06; Status DC Fentanyl Citrate (Fentanyl 2ml Vial) 100 mcg STK-MED ONCE .ROUTE ; Start 12/04/18 at 13:06; Stop 12/04/18 at 13:07; Status DC Fentanyl Citrate (Fentanyl 2ml Vial) 100 mcg STK-MED ONCE .ROUTE ; Start 12/04/18 at 13:29; Stop 12/04/18 at 13:29; Status DC Prochlorperazine Edisylate (Compazine) 10 mg STK-MED ONCE .ROUTE ; Start 12/04/18 at 13:29; Stop 12/04/18 at 13:29; Status DC Hydromorphone HCl (Dilaudid) 2 mg STK-MED ONCE .ROUTE ; Start 12/04/18 at 13:34; Stop 12/04/18 at 13:34; Status DC Hydromorphone HCl (Dilaudid) 0.5 mg PRN Q10MIN PRN IV PAIN Last administered on 12/04/18at 14:48; Start 12/04/18 at 13:45 Cefazolin Sodium 3 gm/Dextrose 100 ml @ 200 mls/hr Q6H IV Last administered on 12/05/18at 03:52; Start 12/04/18 at 16:00; Stop 12/05/18 at 04:29; Status DC Hydromorphone HCl (Dilaudid) 2 mg STK-MED ONCE .ROUTE ; Start 12/04/18 at 14:01; Stop 12/04/18 at 14:02; Status DC Dextrose/Sodium Chloride 1,000 ml @ 75 mls/hr [id number] IV Last administered on 12/04/18at 23:59; Start 12/04/18 at 14:15 Sodium Chloride 1,000 ml @ 0 mls/hr 1X ONCE IV Last administered on 12/04/18at 13:09; Start 12/04/18 at 14:15; Stop 12/04/18 at 14:18; Status DC Active Scripts Active Keppra (Levetiracetam) 500 Mg Tablet 500 Mg PO BID 30 Days Reported Oxycodone Hcl 5 Mg Capsule 10 Mg PO PRN Q6HRS PRN Methadone Hcl 10 Mg Tablet 10 Mg PO TID Lyrica (Pregabalin) 100 Mg Capsule 100 Mg PO BID Zantac (Ranitidine Hcl) 150 Mg Tablet 150 Mg PO BID Hydroxyzine Pamoate 50 Mg Capsule 50 Mg PO Cyclobenzaprine Hcl 10 Mg Tablet 10 Mg PO BID Cymbalta (Duloxetine Hcl) 30 Mg Capsule.dr 30 Mg PO BID Augmentin 875-125 Tablet (Amoxicillin/Potassium Clav) 1 Each Tablet 1 Tab PO BID Cipro (Ciprofloxacin Hcl) 500 Mg Tablet 500 Mg PO BID Levemir (Insulin Detemir) 100 Unit/1 Ml Vial 20 Unit SQ BID Cymbalta (Duloxetine Hcl) 60 Mg Capsule.dr 60 Mg PO DAILY Tramadol Hcl 50 Mg Tablet 100 Mg PO Q6H PRN Lisinopril-Hctz 20-12.5 Mg Tab (Lisinopril/Hydrochlorothiazide) 1 Each Tablet 2 Tab PO DAILY Januvia (Sitagliptin Phosphate) 100 Mg Tablet 100 Mg PO DAILY Vitals/I & O Vital Sign - Last 24 Hours 12/04/18 12/04/18 12/04/18 12/04/18 09:52 10:10 13:09 13:09 Temp 98.2 97.2 98.2 97.2 Pulse 70 90 Resp 20 20 16 B/P (MAP) 114/54 130/91 Pulse Ox 99 100 85 O2 Delivery Room Air Room Air Simple Mask Mask O2 Flow Rate 2.0 12 12 12/04/18 12/04/18 12/04/18 12/04/18 13:25 13:33 13:40 13:51 Temp 97.2 97.2 97.2 97.2 Pulse 94 90 Resp 17 18 18 18 B/P (MAP) 143/87 144/66 Pulse Ox 87 94 98 97 O2 Delivery Simple Mask Simple Mask Simple Mask Simple Mask O2 Flow Rate 15 12.0 12.0 12.0 12/04/18 12/04/18 12/04/18 12/04/18 13:55 14:07 14:29 14:48 Temp 97.2 97.2 Pulse 84 Resp 16 17 18 16 B/P (MAP) 158/67 Pulse Ox 97 96 96 96 O2 Delivery Room Air Simple Mask Room Air Room Air O2 Flow Rate 12.0 12/04/18 12/04/18 12/04/18 12/04/18 15:00 15:05 15:12 15:12 Temp 98.1 98.1 Pulse 90 93 Resp 18 B/P (MAP) 151/71 (97) 151/71 (97) Pulse Ox 93 90 96 96 O2 Delivery Room Air Room Air Room Air O2 Flow Rate 12.0 12.0 12/04/18 12/04/18 12/04/18 12/04/18 15:12 15:12 15:14 15:14 Pulse Ox 96 96 96 96 O2 Delivery Room Air Room Air Room Air Room Air O2 Flow Rate 12.0 12.0 12.0 12.0 12/04/18 12/04/18 12/04/18 12/04/18 15:15 15:30 15:34 15:45 Pulse 93 95 84 97 B/P (MAP) 153/66 (95) 163/70 (101) 158/67 171/62 (98) Pulse Ox 93 92 10/05/2012/04/18 12/04/18 12/04/18 15:45 16:00 16:30 16:39 Pulse 104 100 B/P (MAP) 178/67 (104) 154/67 (96) Pulse Ox 96 88 90 96 O2 Delivery Room Air Room Air O2 Flow Rate 12.0 12.0 12/04/18 12/04/18 12/04/18 12/04/18 16:49 17:01 17:47 18:00 Pulse 104 101 B/P (MAP) 126/64 (84) 144/81 (102) Pulse Ox 96 96 96 89 O2 Delivery Room Air Room Air O2 Flow Rate 12.0 12.0 12/04/18 12/04/18 12/04/18 12/05/18 19:11 20:00 23:38 00:54 Temp 98.3 97.9 98.3 97.9 Pulse 100 92 Resp 18 18 20 B/P (MAP) 130/67 (88) 149/61 (90) Pulse Ox 97 97 97 O2 Delivery Room Air Room Air Room Air Room Air 12/05/18 12/05/18 12/05/18 12/05/18 01:24 03:42 03:57 04:57 Temp 97.5 97.5 Pulse 88 Resp 18 20 20 20 B/P (MAP) 145/74 (97) Pulse Ox 94 98 94 94 O2 Delivery Room Air Room Air Room Air Room Air 12/05/18 12/05/18 07:00 08:08 Temp 97.8 97.8 Pulse 81 81 Resp 16 B/P (MAP) 141/75 (97) 141/75 Pulse Ox 98 O2 Delivery Room Air Intake and Output 12/04/18 12/04/18 12/05/18 14:59 22:59 06:59 Intake Total 1750 ml 500 ml 500 ml Output Total 800 ml 650 ml 600 ml Balance 950 ml -150 ml -100 ml CLAYTON LEARY MD Dec 05, 2018 08:39
--- NOTE | 2018-12-05 08:58 | PDOC ---
ORTHO PROGRESS NOTES Subjective Patient tells me he is in quite a bit of pain. We discussed this pain medicines and he is on the regular dose of methadone and he takes supplemental oxycodone on top of that. Vitals Vital Signs Date Time Temp Pulse Resp B/P (MAP) Pulse Ox O2 Delivery O2 Flow Rate FiO2 12/05/18 08:08 81 141/75 12/05/18 07:00 97.8 16 98 Room Air 97.8 12/04/18 17:47 12.0 Labs Laboratory Tests Test 12/03/18 10:46 12/03/18 15:56 12/03/18 20:18 12/04/18 06:40 Glucose (Fingerstick) 230 mg/dL (70-99) 79 mg/dL (70-99) 110 mg/dL (70-99) White Blood Count 8.7 x10^3/uL (4.0-11.0) Red Blood Count 3.08 x10^6/uL (4.30-5.70) Hemoglobin 8.1 g/dL (13.0-17.5) Hematocrit 24.7 % (39.0-53.0) Mean Corpuscular Volume 80 fL (79-100) Mean Corpuscular Hemoglobin 26 pg (25-35) Mean Corpuscular Hemoglobin Concent 33 g/dL (31-37) Red Cell Distribution Width 17.4 % (11.5-14.5) Platelet Count 311 x10^3/uL (140-400) Neutrophils (%) (Auto) 69 % (31-73) Lymphocytes (%) (Auto) 18 % (24-48) Monocytes (%) (Auto) 10 % (0-9) Eosinophils (%) (Auto) 2 % (0-3) Basophils (%) (Auto) 1 % (0-3) Neutrophils # (Auto) 6.0 x10^3/uL (1.8-7.7) Lymphocytes # (Auto) 1.6 x10^3/uL (1.0-4.8) Monocytes # (Auto) 0.9 x10^3/uL (0.0-1.1) Eosinophils # (Auto) 0.2 x10^3/uL (0.0-0.7) Basophils # (Auto) 0.1 x10^3/uL (0.0-0.2) Sodium Level 135 mmol/L (136-145) Potassium Level 4.3 mmol/L (3.5-5.1) Chloride Level 98 mmol/L (98-107) Carbon Dioxide Level 33 mmol/L (21-32) Anion Gap 4 (6-14) Blood Urea Nitrogen 12 mg/dL (8-26) Creatinine 1.3 mg/dL (0.7-1.3) Estimated GFR (Cockcroft-Gault) 56.3 BUN/Creatinine Ratio 9 (6-20) Glucose Level 59 mg/dL (70-99) Calcium Level 8.6 mg/dL (8.5-10.1) Total Bilirubin 0.4 mg/dL (0.2-1.0) Aspartate Amino Transf (AST/SGOT) 11 U/L (15-37) Alanine Aminotransferase (ALT/SGPT) 10 U/L (16-63) Alkaline Phosphatase 49 U/L (46-116) Total Protein 7.9 g/dL (6.4-8.2) Albumin 2.0 g/dL (3.4-5.0) Albumin/Globulin Ratio 0.3 (1.0-1.7) Test 12/04/18 07:36 12/04/18 09:11 12/04/18 09:56 12/04/18 10:18 Glucose (Fingerstick) 58 mg/dL (70-99) 61 mg/dL (70-99) 65 mg/dL (70-99) 73 mg/dL (70-99) Test 12/04/18 10:38 12/04/18 11:08 12/04/18 11:19 12/04/18 11:40 Glucose (Fingerstick) 103 mg/dL (70-99) 85 mg/dL (70-99) 75 mg/dL (70-99) 94 mg/dL (70-99) Test 12/04/18 12:02 12/04/18 12:27 12/04/18 12:30 12/04/18 13:15 Glucose (Fingerstick) 89 mg/dL (70-99) 101 mg/dL (70-99) 85 mg/dL (70-99) White Blood Count 4.9 x10^3/uL (4.0-11.0) Hemoglobin 8.3 g/dL (13.0-17.5) Hematocrit 24.6 % (39.0-53.0) Platelet Count 253 x10^3/uL (140-400) Sodium Level 137 mmol/L (136-145) Potassium Level 3.9 mmol/L (3.5-5.1) Chloride Level 102 mmol/L (98-107) Carbon Dioxide Level 28 mmol/L (21-32) Anion Gap 7 (6-14) Blood Urea Nitrogen 11 mg/dL (8-26) Creatinine 1.2 mg/dL (0.7-1.3) Estimated GFR (Cockcroft-Gault) 61.8 BUN/Creatinine Ratio 9 (6-20) Glucose Level 93 mg/dL (70-99) Calcium Level 7.9 mg/dL (8.5-10.1) Total Bilirubin 0.3 mg/dL (0.2-1.0) Aspartate Amino Transf (AST/SGOT) 15 U/L (15-37) Alanine Aminotransferase (ALT/SGPT) 8 U/L (16-63) Alkaline Phosphatase 43 U/L (46-116) Total Protein 7.0 g/dL (6.4-8.2) Albumin 1.8 g/dL (3.4-5.0) Albumin/Globulin Ratio 0.3 (1.0-1.7) Test 12/04/18 13:57 12/04/18 16:46 12/04/18 20:47 12/05/18 04:00 Glucose (Fingerstick) 102 mg/dL (70-99) 178 mg/dL (70-99) 196 mg/dL (70-99) White Blood Count 8.9 x10^3/uL (4.0-11.0) Red Blood Count 3.17 x10^6/uL (4.30-5.70) Hemoglobin 8.6 g/dL (13.0-17.5) Hematocrit 25.7 % (39.0-53.0) Mean Corpuscular Volume 81 fL (79-100) Mean Corpuscular Hemoglobin 27 pg (25-35) Mean Corpuscular Hemoglobin Concent 33 g/dL (31-37) Red Cell Distribution Width 16.6 % (11.5-14.5) Platelet Count 274 x10^3/uL (140-400) Neutrophils (%) (Auto) 81 % (31-73) Lymphocytes (%) (Auto) 11 % (24-48) Monocytes (%) (Auto) 7 % (0-9) Eosinophils (%) (Auto) 0 % (0-3) Basophils (%) (Auto) 1 % (0-3) Neutrophils # (Auto) 7.2 x10^3/uL (1.8-7.7) Lymphocytes # (Auto) 1.0 x10^3/uL (1.0-4.8) Monocytes # (Auto) 0.6 x10^3/uL (0.0-1.1) Eosinophils # (Auto) 0.0 x10^3/uL (0.0-0.7) Basophils # (Auto) 0.1 x10^3/uL (0.0-0.2) Sodium Level 139 mmol/L (136-145) Potassium Level 4.1 mmol/L (3.5-5.1) Chloride Level 104 mmol/L (98-107) Carbon Dioxide Level 31 mmol/L (21-32) Anion Gap 4 (6-14) Blood Urea Nitrogen 10 mg/dL (8-26) Creatinine 1.3 mg/dL (0.7-1.3) Estimated GFR (Cockcroft-Gault) 56.3 BUN/Creatinine Ratio 8 (6-20) Glucose Level 175 mg/dL (70-99) Calcium Level 8.2 mg/dL (8.5-10.1) Total Bilirubin 0.2 mg/dL (0.2-1.0) Aspartate Amino Transf (AST/SGOT) 16 U/L (15-37) Alanine Aminotransferase (ALT/SGPT) 6 U/L (16-63) Alkaline Phosphatase 43 U/L (46-116) Total Protein 7.5 g/dL (6.4-8.2) Albumin 2.1 g/dL (3.4-5.0) Albumin/Globulin Ratio 0.4 (1.0-1.7) Test 12/05/18 07:39 Glucose (Fingerstick) 151 mg/dL (70-99) Laboratory Tests Test 12/04/18 09:11 12/04/18 09:56 12/04/18 10:18 12/04/18 10:38 Glucose (Fingerstick) 61 mg/dL (70-99) 65 mg/dL (70-99) 73 mg/dL (70-99) 103 mg/dL (70-99) Test 12/04/18 11:08 12/04/18 11:19 12/04/18 11:40 12/04/18 12:02 Glucose (Fingerstick) 85 mg/dL (70-99) 75 mg/dL (70-99) 94 mg/dL (70-99) 89 mg/dL (70-99) Test 12/04/18 12:27 12/04/18 12:30 12/04/18 13:15 12/04/18 13:57 Glucose (Fingerstick) 101 mg/dL (70-99) 85 mg/dL (70-99) 102 mg/dL (70-99) White Blood Count 4.9 x10^3/uL (4.0-11.0) Hemoglobin 8.3 g/dL (13.0-17.5) Hematocrit 24.6 % (39.0-53.0) Platelet Count 253 x10^3/uL (140-400) Sodium Level 137 mmol/L (136-145) Potassium Level 3.9 mmol/L (3.5-5.1) Chloride Level 102 mmol/L (98-107) Carbon Dioxide Level 28 mmol/L (21-32) Anion Gap 7 (6-14) Blood Urea Nitrogen 11 mg/dL (8-26) Creatinine 1.2 mg/dL (0.7-1.3) Estimated GFR (Cockcroft-Gault) 61.8 BUN/Creatinine Ratio 9 (6-20) Glucose Level 93 mg/dL (70-99) Calcium Level 7.9 mg/dL (8.5-10.1) Total Bilirubin 0.3 mg/dL (0.2-1.0) Aspartate Amino Transf (AST/SGOT) 15 U/L (15-37) Alanine Aminotransferase (ALT/SGPT) 8 U/L (16-63) Alkaline Phosphatase 43 U/L (46-116) Total Protein 7.0 g/dL (6.4-8.2) Albumin 1.8 g/dL (3.4-5.0) Albumin/Globulin Ratio 0.3 (1.0-1.7) Test 12/04/18 16:46 12/04/18 20:47 12/05/18 04:00 12/05/18 07:39 Glucose (Fingerstick) 178 mg/dL (70-99) 196 mg/dL (70-99) 151 mg/dL (70-99) White Blood Count 8.9 x10^3/uL (4.0-11.0) Red Blood Count 3.17 x10^6/uL (4.30-5.70) Hemoglobin 8.6 g/dL (13.0-17.5) Hematocrit 25.7 % (39.0-53.0) Mean Corpuscular Volume 81 fL (79-100) Mean Corpuscular Hemoglobin 27 pg (25-35) Mean Corpuscular Hemoglobin Concent 33 g/dL (31-37) Red Cell Distribution Width 16.6 % (11.5-14.5) Platelet Count 274 x10^3/uL (140-400) Neutrophils (%) (Auto) 81 % (31-73) Lymphocytes (%) (Auto) 11 % (24-48) Monocytes (%) (Auto) 7 % (0-9) Eosinophils (%) (Auto) 0 % (0-3) Basophils (%) (Auto) 1 % (0-3) Neutrophils # (Auto) 7.2 x10^3/uL (1.8-7.7) Lymphocytes # (Auto) 1.0 x10^3/uL (1.0-4.8) Monocytes # (Auto) 0.6 x10^3/uL (0.0-1.1) Eosinophils # (Auto) 0.0 x10^3/uL (0.0-0.7) Basophils # (Auto) 0.1 x10^3/uL (0.0-0.2) Sodium Level 139 mmol/L (136-145) Potassium Level 4.1 mmol/L (3.5-5.1) Chloride Level 104 mmol/L (98-107) Carbon Dioxide Level 31 mmol/L (21-32) Anion Gap 4 (6-14) Blood Urea Nitrogen 10 mg/dL (8-26) Creatinine 1.3 mg/dL (0.7-1.3) Estimated GFR (Cockcroft-Gault) 56.3 BUN/Creatinine Ratio 8 (6-20) Glucose Level 175 mg/dL (70-99) Calcium Level 8.2 mg/dL (8.5-10.1) Total Bilirubin 0.2 mg/dL (0.2-1.0) Aspartate Amino Transf (AST/SGOT) 16 U/L (15-37) Alanine Aminotransferase (ALT/SGPT) 6 U/L (16-63) Alkaline Phosphatase 43 U/L (46-116) Total Protein 7.5 g/dL (6.4-8.2) Albumin 2.1 g/dL (3.4-5.0) Albumin/Globulin Ratio 0.4 (1.0-1.7) Notes He is awake and alert in bed. His splint is intact. Assessment and Plan I did write a prescription for [employer] to fit an appendectomy shield. The drink and be removed. I did adjust his pain medicines to increase his oxycodone to his more regular level. I do not think he will need long-term antibiotics. DARIANA GREGORIO II, MD Dec 05, 2018 08:58
[2018-12-05 11:00] VITALS: BP 129/63
--- NOTE | 2018-12-05 12:22 | PDOC ---
Infectious Disease Note Subjective Subjective More comfortable today, pain better controlled with increase adjustment of pain medication Feeling better, appetite good Denies F/C/S/N/V/D/SOA ROS ROS per HPI Vital Sign Vital Signs Vital Signs Date Time Temp Pulse Resp B/P (MAP) Pulse Ox O2 Delivery O2 Flow Rate FiO2 12/05/18 12:03 Room Air 12/05/18 08:08 81 141/75 12/05/18 07:00 97.8 16 98 97.8 12/04/18 17:47 12.0 Physical Exam PHYSICAL EXAM GENERAL: Propped up in bed, alert, laughing HEENT: Pupils equal, oropharynx pink and moist, edentulous NECK: Supple. LUNGS: Clear to auscultation. HEART: S1, S2. ABDOMEN: Obese, soft, nontender with bowel sounds present. EXTREMITIES: s/p right BKA, post-op dressing dry, hemavac in place SKIN: Warm to touch. No signs of rash. NEUROLOGIC: Alert and answering questions appropriately. Peripheral IV. Labs Lab Laboratory Tests Test 12/04/18 12:27 12/04/18 12:30 12/04/18 13:15 12/04/18 13:57 Glucose (Fingerstick) 101 mg/dL (70-99) 85 mg/dL (70-99) 102 mg/dL (70-99) White Blood Count 4.9 x10^3/uL (4.0-11.0) Hemoglobin 8.3 g/dL (13.0-17.5) Hematocrit 24.6 % (39.0-53.0) Platelet Count 253 x10^3/uL (140-400) Sodium Level 137 mmol/L (136-145) Potassium Level 3.9 mmol/L (3.5-5.1) Chloride Level 102 mmol/L (98-107) Carbon Dioxide Level 28 mmol/L (21-32) Anion Gap 7 (6-14) Blood Urea Nitrogen 11 mg/dL (8-26) Creatinine 1.2 mg/dL (0.7-1.3) Estimated GFR (Cockcroft-Gault) 61.8 BUN/Creatinine Ratio 9 (6-20) Glucose Level 93 mg/dL (70-99) Calcium Level 7.9 mg/dL (8.5-10.1) Total Bilirubin 0.3 mg/dL (0.2-1.0) Aspartate Amino Transf (AST/SGOT) 15 U/L (15-37) Alanine Aminotransferase (ALT/SGPT) 8 U/L (16-63) Alkaline Phosphatase 43 U/L (46-116) Total Protein 7.0 g/dL (6.4-8.2) Albumin 1.8 g/dL (3.4-5.0) Albumin/Globulin Ratio 0.3 (1.0-1.7) Test 12/04/18 16:46 12/04/18 20:47 12/05/18 04:00 12/05/18 07:39 Glucose (Fingerstick) 178 mg/dL (70-99) 196 mg/dL (70-99) 151 mg/dL (70-99) White Blood Count 8.9 x10^3/uL (4.0-11.0) Red Blood Count 3.17 x10^6/uL (4.30-5.70) Hemoglobin 8.6 g/dL (13.0-17.5) Hematocrit 25.7 % (39.0-53.0) Mean Corpuscular Volume 81 fL (79-100) Mean Corpuscular Hemoglobin 27 pg (25-35) Mean Corpuscular Hemoglobin Concent 33 g/dL (31-37) Red Cell Distribution Width 16.6 % (11.5-14.5) Platelet Count 274 x10^3/uL (140-400) Neutrophils (%) (Auto) 81 % (31-73) Lymphocytes (%) (Auto) 11 % (24-48) Monocytes (%) (Auto) 7 % (0-9) Eosinophils (%) (Auto) 0 % (0-3) Basophils (%) (Auto) 1 % (0-3) Neutrophils # (Auto) 7.2 x10^3/uL (1.8-7.7) Lymphocytes # (Auto) 1.0 x10^3/uL (1.0-4.8) Monocytes # (Auto) 0.6 x10^3/uL (0.0-1.1) Eosinophils # (Auto) 0.0 x10^3/uL (0.0-0.7) Basophils # (Auto) 0.1 x10^3/uL (0.0-0.2) Sodium Level 139 mmol/L (136-145) Potassium Level 4.1 mmol/L (3.5-5.1) Chloride Level 104 mmol/L (98-107) Carbon Dioxide Level 31 mmol/L (21-32) Anion Gap 4 (6-14) Blood Urea Nitrogen 10 mg/dL (8-26) Creatinine 1.3 mg/dL (0.7-1.3) Estimated GFR (Cockcroft-Gault) 56.3 BUN/Creatinine Ratio 8 (6-20) Glucose Level 175 mg/dL (70-99) Calcium Level 8.2 mg/dL (8.5-10.1) Total Bilirubin 0.2 mg/dL (0.2-1.0) Aspartate Amino Transf (AST/SGOT) 16 U/L (15-37) Alanine Aminotransferase (ALT/SGPT) 6 U/L (16-63) Alkaline Phosphatase 43 U/L (46-116) Total Protein 7.5 g/dL (6.4-8.2) Albumin 2.1 g/dL (3.4-5.0) Albumin/Globulin Ratio 0.4 (1.0-1.7) Test 12/05/18 11:18 Glucose (Fingerstick) 66 mg/dL (70-99) Micro 11/25. BLD CULT RESULT 1 Final Staphylococcus aureus MICS are expressed in micrograms per mL Antibiotic RSLT#1 Ciprofloxacin I =2 Gentamicin S<=0.5 Levofloxacin S =1 Linezolid S =2 Moxifloxacin S<=0.25 Nitrofurantoin S<=16 Oxacillin S =0.5 Penicillin R>=0.5 Quinupristin/Dalfopristin S<=0.25 Rifampin S<=0.5 Tetracycline S<=1 Trimethoprim/Sulfa R>=320 Vancomycin S<=0.5 11/25. Right foot ANAEROBIC RES 1 PENDING AEROBIC RES 1 Final Staphylococcus aureus MICS are expressed in micrograms per mL Antibiotic RSLT#1 Ciprofloxacin I =2 Clindamycin S<=0.25 Erythromycin S =0.5 Gentamicin S<=0.5 Levofloxacin S =2 Linezolid S =2 Moxifloxacin S =0.5 Oxacillin S =0.5 Penicillin R>=0.5 Quinupristin/Dalfopristin S<=0.25 Rifampin S<=0.5 Tetracycline S<=1 Trimethoprim/Sulfa R>=320 Vancomycin S =1 ANAEROBIC RES 1 Final Comment No anaerobic growth in 72 hours. 11/26. BLOOD CULTURE Preliminary NO GROWTH AFTER 5 DAYS 11/28. BLOOD CULTURE Preliminary NO GROWTH AFTER 3 DAY Objective Assessment MSSA bacteremia from 11/25. Repeat BC 11/26 & neg. TTE neg Infected diabetic ulcer w/ OM, right foot. MSSA s/p BKA 12/04 Leukopenia - better TANG - better PAD s/p angioplasty right leg, 12/02 s/p TMA right foot around August 2018 at [facility] quit OP IV abx due to transportation issues and was switched to orals Peripheral neuropathy HTN Plan Plan of Care Continue Zosyn ESR 120 awaiting PICC placement Pain management per primary SNF plans in the works D/w nursing PICC in place now S/p amp so will change to Cefazolin D/w family Attending Co-Sign Attending Co-Sign The patient was seen and interviewed as well as examined at the bedside. The chart was reviewed. The case was discussed. Agree with the plan of care. KRISTIE GREENE APRN Dec 05, 2018 12:21 MAI GONSALEZ MD Dec 05, 2018 15:31
--- NOTE | 2018-12-05 13:15 | NUR ---
Allergies and reactions ASA, Gabapentin, Morphine INR 1.2 BUN 10 Cr 1.3 Platelets 274 Blood culture done Yes 11/28/18 blood culture results Negative Order Verified Yes Consent signed Yes Previous PICC placement Yes Past Medical/Surgical history and current diagnosis reviewed Yes Patient Medical /Surgical History Related to PICC line placement Diabetes History of acute/chronic renal failure Infectious Disease consult Past central line or venous access device placement Special considerations for PICC line placement Using crutches PICC placement indication alf antibiotic usage, LENORA Mcmillan, PICC Nurse Addendum: 12/05/18 at 1402 by BANDAR MIMS RN Amended: Links added.
--- NOTE | 2018-12-05 13:35 | NUR ---
Procedure: Following complete explanation of the PICC procedure including the indications, risks, and potential complications, informed consent was obtained. The possibility for infection was discussed along with signs, symptoms, and prevention. All the questions were answered. Written and verbal patient education was provided. Hand hygiene performed. Standardized central line checklist was utilized. The patient was placed in the supine position, the arm was prepped with chlorhexidine and patient draped with maximum sterile barrier. 3 mL 1% lidocaine was infiltrated into the skin to provide local anesthesia. A thorough assessment of Left upper extremity completed. Using real-time ultrasound guidance and standardized micro puncture set, the Basilic vein was punctured and a peel away sheath was placed using the modified Seldinger technique. A tip location device was used to ensure adequate catheter placement. The catheter was secured using a securement device and an antimicrobial patch was applied directly on the insertion site followed by a transparent dressing. All ports withdraw blood and flush without resistance. Patient tolerated the procedure without apparent complication(s). Double Lumen Power PICC placement successful and uncomplicated. Placement verified by EKG tip confirmation system and/or chest x-ray. Tip located in the Cavoatrial Junction Complications:None Catheter length is 55CM and inserted to the Hub. Addendum: 12/05/18 at 1406 by BANDAR MIMS RN Amended: Links added.
--- NOTE | 2018-12-05 13:55 | NUR ---
SS following up with discharge planning. SS met with pt and spoke with pt's spouse via phone. Pt and pt's spouse declining assisted unit at this time. Pt requesting that IV ABX, wound care, and outpatient PT/OT be arranged at [facility]. Pt also requesting wheelchair at discharge. development planner, Erica Martinez, reaching out to Dr. Cline for script. SS will continue to follow for discharge planning.
[2018-12-05] MEDS: IV NORMAL SALINE 1000ML BAG 1,000 ML IV SCH (14:00)
[2018-12-05 15:00] VITALS: BP 156/70
[2018-12-05 19:00] VITALS: BP 154/68
[2018-12-05] MEDS: ceFAZolin SODIUM 2 GM in IV DEXTROSE 5% 50 ML IV SCH (21:56)
[2018-12-05 23:04] VITALS: BP 159/78
[2018-12-06 03:04] VITALS: BP 145/78
[2018-12-06] MEDS: IV NORMAL SALINE 1000ML BAG 1,000 ML IV SCH ×2 (03:20→13:34)
[2018-12-06 05:34] LABS: BASO % 1 % (0-3); EOS # 0.2 x10^3/uL (0.0-0.7); EOS % 3 % (0-3); HEMATOCRIT 24.7 % (39.0-53.0); HEMOGLOBIN 8.1 g/dL (13.0-17.5); LYMPH # 1.9 x10^3/uL (1.0-4.8); LYMPH % 26 % (24-48); MEAN CORPUSCULAR HEMOGLOBIN 27 pg (25-35); MEAN CORPUSCULAR HGB CONC 33 g/dL (31-37); MEAN CORPUSCULAR VOLUME 82 fL (79-100); MONO # 0.6 x10^3/uL (0.0-1.1); MONO % 8 % (0-9); NEUT # 4.5 x10^3/uL (1.8-7.7); NEUT % 62 % (31-73); PLATELET COUNT 291 x10^3/uL (140-400); RED BLOOD COUNT 3.02 x10^6/uL (4.30-5.70); RED CELL DISTRIBUTION WIDTH 16.8 % (11.5-14.5); WHITE BLOOD COUNT 7.2 x10^3/uL (4.0-11.0)
[2018-12-06 05:36] LABS: ALBUMIN 2.1 g/dL (3.4-5.0); ALBUMIN/GLOBULIN RATIO 0.4 (1.0-1.7); ALK PHOS 44 U/L (46-116); ALT (SGPT) < 6 U/L (16-63); ANION GAP 3 (6-14); AST (SGOT) 18 U/L (15-37); BLOOD UREA NITROGEN 8 mg/dL (8-26); BUN/CREATININE RATIO 7 (6-20); CALCIUM 8.2 mg/dL (8.5-10.1); CARBON DIOXIDE 33 mmol/L (21-32); CHLORIDE 103 mmol/L (98-107); CREATININE 1.2 mg/dL (0.7-1.3); GFR 61.8; GLUCOSE 50 mg/dL (70-99); POTASSIUM 4.1 mmol/L (3.5-5.1); SODIUM 139 mmol/L (136-145); TOTAL BILIRUBIN 0.2 mg/dL (0.2-1.0)
[2018-12-06] MEDS: fentaNYL PF VIAL 100 MCG/2 ML VIAL IV PRN ×5 (06:19→23:19)
[2018-12-06] MEDS: ceFAZolin SODIUM 2 GM in IV DEXTROSE 5% 50 ML IV SCH ×3 (06:19→23:12)
--- NOTE | 2018-12-06 06:55 | PDOC ---
Infectious Disease Note Subjective Subjective More comfortable today, pain better controlled but hurts with movement Feeling better, appetite good Denies F/C/S/N/V/D/SOA Vital Sign Vital Signs Vital Signs Date Time Temp Pulse Resp B/P (MAP) Pulse Ox O2 Delivery O2 Flow Rate FiO2 12/06/18 06:19 96 Room Air 12.0 12/06/18 03:04 98.0 74 20 145/78 (100) 98.0 Physical Exam PHYSICAL EXAM GENERAL: Propped up in bed, alert, laughing HEENT: Pupils equal, oropharynx pink and moist, edentulous NECK: Supple. LUNGS: Clear to auscultation. HEART: S1, S2. ABDOMEN: Obese, soft, nontender with bowel sounds present. EXTREMITIES: s/p right BKA, post-op dressing dry, hemavac in place SKIN: Warm to touch. No signs of rash. NEUROLOGIC: Alert and answering questions appropriately. PICC IV - clean -LUE. Labs Lab Laboratory Tests Test 12/05/18 07:39 12/05/18 11:18 12/05/18 16:41 12/05/18 20:23 Glucose (Fingerstick) 151 mg/dL (70-99) 66 mg/dL (70-99) 143 mg/dL (70-99) 115 mg/dL (70-99) Test 12/06/18 05:15 White Blood Count 7.2 x10^3/uL (4.0-11.0) Red Blood Count 3.02 x10^6/uL (4.30-5.70) Hemoglobin 8.1 g/dL (13.0-17.5) Hematocrit 24.7 % (39.0-53.0) Mean Corpuscular Volume 82 fL (79-100) Mean Corpuscular Hemoglobin 27 pg (25-35) Mean Corpuscular Hemoglobin Concent 33 g/dL (31-37) Red Cell Distribution Width 16.8 % (11.5-14.5) Platelet Count 291 x10^3/uL (140-400) Neutrophils (%) (Auto) 62 % (31-73) Lymphocytes (%) (Auto) 26 % (24-48) Monocytes (%) (Auto) 8 % (0-9) Eosinophils (%) (Auto) 3 % (0-3) Basophils (%) (Auto) 1 % (0-3) Neutrophils # (Auto) 4.5 x10^3/uL (1.8-7.7) Lymphocytes # (Auto) 1.9 x10^3/uL (1.0-4.8) Monocytes # (Auto) 0.6 x10^3/uL (0.0-1.1) Eosinophils # (Auto) 0.2 x10^3/uL (0.0-0.7) Basophils # (Auto) 0.0 x10^3/uL (0.0-0.2) Sodium Level 139 mmol/L (136-145) Potassium Level 4.1 mmol/L (3.5-5.1) Chloride Level 103 mmol/L (98-107) Carbon Dioxide Level 33 mmol/L (21-32) Anion Gap 3 (6-14) Blood Urea Nitrogen 8 mg/dL (8-26) Creatinine 1.2 mg/dL (0.7-1.3) Estimated GFR (Cockcroft-Gault) 61.8 BUN/Creatinine Ratio 7 (6-20) Glucose Level 50 mg/dL (70-99) Calcium Level 8.2 mg/dL (8.5-10.1) Total Bilirubin 0.2 mg/dL (0.2-1.0) Aspartate Amino Transf (AST/SGOT) 18 U/L (15-37) Alanine Aminotransferase (ALT/SGPT) < 6 U/L (16-63) Alkaline Phosphatase 44 U/L (46-116) Total Protein 8.0 g/dL (6.4-8.2) Albumin 2.1 g/dL (3.4-5.0) Albumin/Globulin Ratio 0.4 (1.0-1.7) Micro Microbiology 11/28/18 Blood Culture - Final, Complete NO GROWTH AFTER 5 DAYS Objective Assessment MSSA bacteremia from 11/25. Repeat BC 11/26 & neg. TTE neg Infected diabetic ulcer w/ OM, right foot. MSSA s/p BKA 12/04 Leukopenia - better TANG - better PAD s/p angioplasty right leg, 12/02 s/p TMA right foot around August 2018 at [facility] quit OP IV abx due to transportation issues and was switched to orals Peripheral neuropathy HTN Plan Plan of Care Disontinued Zosyn begin Cefazolin 12/05 ESR 120 prior to amp Pain management per primary SNF plans in the works D/w nursing MAI GONSALEZ MD Dec 06, 2018 06:55
[2018-12-06 07:00] VITALS: BP 150/79
[2018-12-06] MEDS: INSULIN LISPRO 300 UNITS/3 ML VIAL. SQ SCH ×3 (08:00→17:00)
[2018-12-06] MEDS: levETIRAcetam 500 MG TABLET PO SCH ×2 (08:17→21:06)
[2018-12-06] MEDS: CLOPIDOGREL BISULFATE 75 MG TABLET PO SCH (08:17)
[2018-12-06] MEDS: PREGABALIN 50 MG CAPSULE PO SCH ×2 (08:17→21:06)
[2018-12-06] MEDS: MULTIVITAMIN with MINERAL TABLET. PO SCH (08:18)
[2018-12-06] MEDS: LACTOBACILLUS RHAMNOSUS GG 1 CAPSULE. PO SCH ×2 (08:18→21:05)
[2018-12-06] MEDS: ASCORBIC ACID 500 MG TABLET PO SCH (08:18)
[2018-12-06] MEDS: DULoxetine HCL 30 MG CAPSULE.DR PO SCH ×2 (08:18→21:12)
[2018-12-06] MEDS: LINAGLIPTIN 5 MG TABLET PO SCH (08:18)
[2018-12-06] MEDS: hydrOXYzine 25 MG TABLET PO SCH (08:18)
[2018-12-06] MEDS: METHADONE 10 MG TABLET. PO SCH ×3 (08:19→21:05)
[2018-12-06] MEDS: FAMOTIDINE 20 MG TABLET. PO SCH ×2 (08:19→21:06)
[2018-12-06] MEDS: hydroCHLOROthiazide 25 MG TABLET PO SCH (08:19)
[2018-12-06] MEDS: CYCLOBENZAPRINE 10 MG TABLET. PO SCH ×3 (08:19→21:06)
[2018-12-06] MEDS: LISINOPRIL 20 MG TABLET PO SCH (08:23)
[2018-12-06] MEDS: oxyCODONE IR 5 MG TABLET PO PRN ×3 (08:24→19:51)
[2018-12-06] MEDS: INSULIN GLARGINE SYRINGE. SQ SCH (09:00)
[2018-12-06 11:00] VITALS: BP 130/55
--- NOTE | 2018-12-06 12:29 | PDOC ---
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 He is covered in chocolate ice cream. Hemovac in place, pain well controlled. Labs reviewed. slept hard this AM, complains of pain, has gotten IV pain meds, on methdone at home, will increase IV dose to something more reasonable for his tolerance Vitals Vitals Vital Signs Date Time Temp Pulse Resp B/P (MAP) Pulse Ox O2 Delivery O2 Flow Rate FiO2 12/06/18 09:24 16 97 Room Air 12/06/18 08:23 74 145/78 12/06/18 07:00 97.9 97.9 12/06/18 06:49 12.0 Physical Exam Physical Exam GENERAL: Propped up in bed, alert, laughing HEENT: Pupils equal, oropharynx pink and moist, edentulous NECK: Supple. LUNGS: Clear to auscultation. HEART: S1, S2. ABDOMEN: Obese, soft, nontender with bowel sounds present. EXTREMITIES: s/p right BKA, post-op dressing dry, hemavac in place SKIN: Warm to touch. No signs of rash. NEUROLOGIC: Alert and answering questions appropriately. PICC IV - clean -LUE. General: Alert, Oriented X3, Cooperative, No acute distress Heart: Regular rate Lungs: Clear Abdomen: Normal bowel sounds, Soft, No tenderness, No hepatosplenomegaly, No masses Extremities: No clubbing, Other (left femoral access site dressing dry and intact) Skin: Other (right foot dressing soaked with drainage.) Labs LABS Laboratory Tests Test 12/05/18 16:41 12/05/18 20:23 12/06/18 05:15 12/06/18 08:12 Glucose (Fingerstick) 143 mg/dL (70-99) 115 mg/dL (70-99) 83 mg/dL (70-99) White Blood Count 7.2 x10^3/uL (4.0-11.0) Red Blood Count 3.02 x10^6/uL (4.30-5.70) Hemoglobin 8.1 g/dL (13.0-17.5) Hematocrit 24.7 % (39.0-53.0) Mean Corpuscular Volume 82 fL (79-100) Mean Corpuscular Hemoglobin 27 pg (25-35) Mean Corpuscular Hemoglobin Concent 33 g/dL (31-37) Red Cell Distribution Width 16.8 % (11.5-14.5) Platelet Count 291 x10^3/uL (140-400) Neutrophils (%) (Auto) 62 % (31-73) Lymphocytes (%) (Auto) 26 % (24-48) Monocytes (%) (Auto) 8 % (0-9) Eosinophils (%) (Auto) 3 % (0-3) Basophils (%) (Auto) 1 % (0-3) Neutrophils # (Auto) 4.5 x10^3/uL (1.8-7.7) Lymphocytes # (Auto) 1.9 x10^3/uL (1.0-4.8) Monocytes # (Auto) 0.6 x10^3/uL (0.0-1.1) Eosinophils # (Auto) 0.2 x10^3/uL (0.0-0.7) Basophils # (Auto) 0.0 x10^3/uL (0.0-0.2) Sodium Level 139 mmol/L (136-145) Potassium Level 4.1 mmol/L (3.5-5.1) Chloride Level 103 mmol/L (98-107) Carbon Dioxide Level 33 mmol/L (21-32) Anion Gap 3 (6-14) Blood Urea Nitrogen 8 mg/dL (8-26) Creatinine 1.2 mg/dL (0.7-1.3) Estimated GFR (Cockcroft-Gault) 61.8 BUN/Creatinine Ratio 7 (6-20) Glucose Level 50 mg/dL (70-99) Calcium Level 8.2 mg/dL (8.5-10.1) Total Bilirubin 0.2 mg/dL (0.2-1.0) Aspartate Amino Transf (AST/SGOT) 18 U/L (15-37) Alanine Aminotransferase (ALT/SGPT) < 6 U/L (16-63) Alkaline Phosphatase 44 U/L (46-116) Total Protein 8.0 g/dL (6.4-8.2) Albumin 2.1 g/dL (3.4-5.0) Albumin/Globulin Ratio 0.4 (1.0-1.7) Test 12/06/18 12:16 Glucose (Fingerstick) 90 mg/dL (70-99) Review of Systems Review of Systems pain w./ movement, pain between doses, some anxiety, very talkative Assessment and Plan Assessmemt and Plan Problems Medical Problems: (1) Acute kidney injury Status: Acute (2) Cellulitis, unspecified Status: Acute Comment Review of Relevant I have reviewed the following items wilber (where applicable) has been applied. Labs Laboratory Tests Test 12/04/18 12:27 12/04/18 12:30 12/04/18 13:15 12/04/18 13:57 Glucose (Fingerstick) 101 mg/dL (70-99) 85 mg/dL (70-99) 102 mg/dL (70-99) White Blood Count 4.9 x10^3/uL (4.0-11.0) Hemoglobin 8.3 g/dL (13.0-17.5) Hematocrit 24.6 % (39.0-53.0) Platelet Count 253 x10^3/uL (140-400) Sodium Level 137 mmol/L (136-145) Potassium Level 3.9 mmol/L (3.5-5.1) Chloride Level 102 mmol/L (98-107) Carbon Dioxide Level 28 mmol/L (21-32) Anion Gap 7 (6-14) Blood Urea Nitrogen 11 mg/dL (8-26) Creatinine 1.2 mg/dL (0.7-1.3) Estimated GFR (Cockcroft-Gault) 61.8 BUN/Creatinine Ratio 9 (6-20) Glucose Level 93 mg/dL (70-99) Calcium Level 7.9 mg/dL (8.5-10.1) Total Bilirubin 0.3 mg/dL (0.2-1.0) Aspartate Amino Transf (AST/SGOT) 15 U/L (15-37) Alanine Aminotransferase (ALT/SGPT) 8 U/L (16-63) Alkaline Phosphatase 43 U/L (46-116) Total Protein 7.0 g/dL (6.4-8.2) Albumin 1.8 g/dL (3.4-5.0) Albumin/Globulin Ratio 0.3 (1.0-1.7) Test 12/04/18 16:46 12/04/18 20:47 12/05/18 04:00 12/05/18 07:39 Glucose (Fingerstick) 178 mg/dL (70-99) 196 mg/dL (70-99) 151 mg/dL (70-99) White Blood Count 8.9 x10^3/uL (4.0-11.0) Red Blood Count 3.17 x10^6/uL (4.30-5.70) Hemoglobin 8.6 g/dL (13.0-17.5) Hematocrit 25.7 % (39.0-53.0) Mean Corpuscular Volume 81 fL (79-100) Mean Corpuscular Hemoglobin 27 pg (25-35) Mean Corpuscular Hemoglobin Concent 33 g/dL (31-37) Red Cell Distribution Width 16.6 % (11.5-14.5) Platelet Count 274 x10^3/uL (140-400) Neutrophils (%) (Auto) 81 % (31-73) Lymphocytes (%) (Auto) 11 % (24-48) Monocytes (%) (Auto) 7 % (0-9) Eosinophils (%) (Auto) 0 % (0-3) Basophils (%) (Auto) 1 % (0-3) Neutrophils # (Auto) 7.2 x10^3/uL (1.8-7.7) Lymphocytes # (Auto) 1.0 x10^3/uL (1.0-4.8) Monocytes # (Auto) 0.6 x10^3/uL (0.0-1.1) Eosinophils # (Auto) 0.0 x10^3/uL (0.0-0.7) Basophils # (Auto) 0.1 x10^3/uL (0.0-0.2) Sodium Level 139 mmol/L (136-145) Potassium Level 4.1 mmol/L (3.5-5.1) Chloride Level 104 mmol/L (98-107) Carbon Dioxide Level 31 mmol/L (21-32) Anion Gap 4 (6-14) Blood Urea Nitrogen 10 mg/dL (8-26) Creatinine 1.3 mg/dL (0.7-1.3) Estimated GFR (Cockcroft-Gault) 56.3 BUN/Creatinine Ratio 8 (6-20) Glucose Level 175 mg/dL (70-99) Calcium Level 8.2 mg/dL (8.5-10.1) Total Bilirubin 0.2 mg/dL (0.2-1.0) Aspartate Amino Transf (AST/SGOT) 16 U/L (15-37) Alanine Aminotransferase (ALT/SGPT) 6 U/L (16-63) Alkaline Phosphatase 43 U/L (46-116) Total Protein 7.5 g/dL (6.4-8.2) Albumin 2.1 g/dL (3.4-5.0) Albumin/Globulin Ratio 0.4 (1.0-1.7) Test 12/05/18 11:18 12/05/18 16:41 12/05/18 20:23 12/06/18 05:15 Glucose (Fingerstick) 66 mg/dL (70-99) 143 mg/dL (70-99) 115 mg/dL (70-99) White Blood Count 7.2 x10^3/uL (4.0-11.0) Red Blood Count 3.02 x10^6/uL (4.30-5.70) Hemoglobin 8.1 g/dL (13.0-17.5) Hematocrit 24.7 % (39.0-53.0) Mean Corpuscular Volume 82 fL (79-100) Mean Corpuscular Hemoglobin 27 pg (25-35) Mean Corpuscular Hemoglobin Concent 33 g/dL (31-37) Red Cell Distribution Width 16.8 % (11.5-14.5) Platelet Count 291 x10^3/uL (140-400) Neutrophils (%) (Auto) 62 % (31-73) Lymphocytes (%) (Auto) 26 % (24-48) Monocytes (%) (Auto) 8 % (0-9) Eosinophils (%) (Auto) 3 % (0-3) Basophils (%) (Auto) 1 % (0-3) Neutrophils # (Auto) 4.5 x10^3/uL (1.8-7.7) Lymphocytes # (Auto) 1.9 x10^3/uL (1.0-4.8) Monocytes # (Auto) 0.6 x10^3/uL (0.0-1.1) Eosinophils # (Auto) 0.2 x10^3/uL (0.0-0.7) Basophils # (Auto) 0.0 x10^3/uL (0.0-0.2) Sodium Level 139 mmol/L (136-145) Potassium Level 4.1 mmol/L (3.5-5.1) Chloride Level 103 mmol/L (98-107) Carbon Dioxide Level 33 mmol/L (21-32) Anion Gap 3 (6-14) Blood Urea Nitrogen 8 mg/dL (8-26) Creatinine 1.2 mg/dL (0.7-1.3) Estimated GFR (Cockcroft-Gault) 61.8 BUN/Creatinine Ratio 7 (6-20) Glucose Level 50 mg/dL (70-99) Calcium Level 8.2 mg/dL (8.5-10.1) Total Bilirubin 0.2 mg/dL (0.2-1.0) Aspartate Amino Transf (AST/SGOT) 18 U/L (15-37) Alanine Aminotransferase (ALT/SGPT) < 6 U/L (16-63) Alkaline Phosphatase 44 U/L (46-116) Total Protein 8.0 g/dL (6.4-8.2) Albumin 2.1 g/dL (3.4-5.0) Albumin/Globulin Ratio 0.4 (1.0-1.7) Test 12/06/18 08:12 12/06/18 12:16 Glucose (Fingerstick) 83 mg/dL (70-99) 90 mg/dL (70-99) Laboratory Tests Test 12/05/18 16:41 12/05/18 20:23 12/06/18 05:15 12/06/18 08:12 Glucose (Fingerstick) 143 mg/dL (70-99) 115 mg/dL (70-99) 83 mg/dL (70-99) White Blood Count 7.2 x10^3/uL (4.0-11.0) Red Blood Count 3.02 x10^6/uL (4.30-5.70) Hemoglobin 8.1 g/dL (13.0-17.5) Hematocrit 24.7 % (39.0-53.0) Mean Corpuscular Volume 82 fL (79-100) Mean Corpuscular Hemoglobin 27 pg (25-35) Mean Corpuscular Hemoglobin Concent 33 g/dL (31-37) Red Cell Distribution Width 16.8 % (11.5-14.5) Platelet Count 291 x10^3/uL (140-400) Neutrophils (%) (Auto) 62 % (31-73) Lymphocytes (%) (Auto) 26 % (24-48) Monocytes (%) (Auto) 8 % (0-9) Eosinophils (%) (Auto) 3 % (0-3) Basophils (%) (Auto) 1 % (0-3) Neutrophils # (Auto) 4.5 x10^3/uL (1.8-7.7) Lymphocytes # (Auto) 1.9 x10^3/uL (1.0-4.8) Monocytes # (Auto) 0.6 x10^3/uL (0.0-1.1) Eosinophils # (Auto) 0.2 x10^3/uL (0.0-0.7) Basophils # (Auto) 0.0 x10^3/uL (0.0-0.2) Sodium Level 139 mmol/L (136-145) Potassium Level 4.1 mmol/L (3.5-5.1) Chloride Level 103 mmol/L (98-107) Carbon Dioxide Level 33 mmol/L (21-32) Anion Gap 3 (6-14) Blood Urea Nitrogen 8 mg/dL (8-26) Creatinine 1.2 mg/dL (0.7-1.3) Estimated GFR (Cockcroft-Gault) 61.8 BUN/Creatinine Ratio 7 (6-20) Glucose Level 50 mg/dL (70-99) Calcium Level 8.2 mg/dL (8.5-10.1) Total Bilirubin 0.2 mg/dL (0.2-1.0) Aspartate Amino Transf (AST/SGOT) 18 U/L (15-37) Alanine Aminotransferase (ALT/SGPT) < 6 U/L (16-63) Alkaline Phosphatase 44 U/L (46-116) Total Protein 8.0 g/dL (6.4-8.2) Albumin 2.1 g/dL (3.4-5.0) Albumin/Globulin Ratio 0.4 (1.0-1.7) Test 12/06/18 12:16 Glucose (Fingerstick) 90 mg/dL (70-99) Microbiology 11/28/18 Blood Culture - Final, Complete NO GROWTH AFTER 5 DAYS Medications Current Medications Cefazolin Sodium/ Dextrose 50 ml @ 100 mls/hr 1X ONCE IV Last administered on 11/28/18at 21:54; Start 11/28/18 at 21:00; Stop 11/28/18 at 21:29; Status DC Vancomycin HCl 250 ml @ 250 mls/hr 1X ONCE IV Last administered on 11/28/18at 22:20; Start 11/28/18 at 21:00; Stop 11/28/18 at 21:59; Status DC Fentanyl Citrate (Fentanyl 2ml Vial) 50 mcg PRN Q2HR PRN IV SEVERE PAIN 7-10 Last administered on 12/06/18at 08:24; Start 11/29/18 at 01:00 Insulin Human Lispro (HumaLOG) 0-5 UNITS TIDWMEALS SQ ; Start 11/29/18 at 08:00; Stop 11/29/18 at 08:12; Status DC Dextrose (Dextrose 50%-Water Syringe) 12.5 gm PRN Q15MIN PRN IV SEE COMMENTS; Start 11/29/18 at 01:15; Status Cancel Insulin Human Lispro (HumaLOG) 0-9 UNITS TIDWMEALS SQ Last administered on 12/05/18at 08:12; Start 11/29/18 at 09:00 Dextrose (Dextrose 50%-Water Syringe) 12.5 gm PRN Q15MIN PRN IV SEE COMMENTS Last administered on 12/04/18at 10:22; Start 11/29/18 at 08:15 Acetaminophen (Tylenol) 500 mg PRN Q6HRS PRN PO MILD PAIN / TEMP; Start 11/29/18 at 08:15 Fentanyl Citrate (Fentanyl 2ml Vial) 50 mcg PRN Q2HR PRN IV PAIN; Start 11/29/18 at 08:15; Stop 11/30/18 at 11:35; Status DC Tramadol HCl (Ultram) 50 mg PRN Q6HRS PRN PO MODERATE PAIN; Start 11/29/18 at 08:15 Zolpidem Tartrate (Ambien) 5 mg PRN QHS PRN PO INSOMNIA Last administered on 12/04/18 22:55; Start 11/29/18 at 08:15 Cyclobenzaprine HCl (Flexeril) 10 mg BID PO Last administered on 12/05/18 21:04; Start 11/29/18 at 09:00 Duloxetine HCl (Cymbalta) 30 mg BID PO Last administered on 12/06/18 08:18; Start 11/29/18 at 09:00 Levetiracetam (Keppra) 500 mg BID PO Last administered on 12/06/18 08:17; Start 11/29/18 at 09:00 Methadone HCl (Dolophine) 10 mg TID PO Last administered on 12/06/18 08:19; Start 11/29/18 at 09:00 Non-Formulary Medication (Duloxetine Hcl (Cymbalta)) 60 mg DAILY PO ; Start 11/29/18 at 09:00; Status UNV Insulin Glargine (Lantus Syringe) 20 unit BID SQ Last administered on 12/05/18 21:05; Start 11/29/18 at 09:00 Non-Formulary Medication (Lisinopril/ Hydrochlorothiazide (Lisinopril-Hctz 20- 12.5 Mg Tab)) 2 tab DAILY PO ; Start 11/29/18 at 09:00; Status UNV Oxycodone HCl (Roxicodone) 10 mg PRN Q6HRS PRN PO SEVERE PAIN Last administered on 12/05/18 03:57; Start 11/29/18 at 08:30; Stop 12/05/18 at 08:56; Status DC Pregabalin (Lyrica) 100 mg BID PO Last administered on 12/06/18 08:17; Start 11/29/18 at 09:00 Famotidine (Pepcid) 20 mg BID PO Last administered on 12/06/18 08:19; Start 11/29/18 at 09:00 Linagliptin (Tradjenta) 5 mg DAILY PO Last administered on 12/06/18 08:18; Start 11/29/18 at 09:00 Hydroxyzine HCl (Atarax) 50 mg DAILY PO Last administered on 12/06/18 08:18; Start 11/29/18 at 09:00 Lisinopril (Prinivil) 40 mg DAILY PO Last administered on 12/06/18at 08:23; Start 11/29/18 at 09:00 Hydrochlorothiazide (Hydrodiuril) 25 mg DAILY PO Last administered on 12/06/18at 08:19; Start 11/29/18 at 09:00 Potassium Chloride (Klor-Con) 40 meq 1X ONCE PO Last administered on 11/29/18at 11:22; Start 11/29/18 at 10:30; Stop 11/29/18 at 10:31; Status DC Vancomycin HCl (Vanco Per Pharmacy) 1 each PRN DAILY PRN MC SEE COMMENTS Last administered on 12/01/18at 02:13; Start 11/29/18 at 10:15; Stop 12/01/18 at 11:47; Status DC Piperacillin Sod/ Tazobactam Sod (Zosyn Per Pharmacy) 1 each PRN DAILY PRN MC SEE COMMENTS; Start 11/29/18 at 10:15; Stop 11/30/18 at 10:03; Status DC Piperacillin Sod/ Tazobactam Sod 4.5 gm/Sodium Chloride 100 ml @ 200 mls/hr Q6HRS IV Last administered on 11/30/18at 05:40; Start 11/29/18 at 11:00; Stop 11/30/18 at 10:03; Status DC Vancomycin HCl 2 gm/Sodium Chloride 500 ml @ 250 mls/hr 1X ONCE IV Last administered on 11/29/18at 12:38; Start 11/29/18 at 11:00; Stop 11/29/18 at 12:59; Status DC Vancomycin HCl 2 gm/Sodium Chloride 500 ml @ 250 mls/hr Q12H IV Last administered on 11/30/18at 12:57; Start 11/30/18 at 01:00; Stop 12/01/18 at 0 1:53; Status DC Vancomycin HCl (Vancomycin Trough Level) 1 each 1X ONCE MC Last administered on 12/01/18at 00:30; Start 12/01/18 at 00:30; Stop 12/01/18 at 00:31; Status DC Piperacillin Sod/ Tazobactam Sod 3.375 gm/Sodium Chloride 50 ml @ 100 mls/hr Q6 HRS IV Last administered on 12/05/18at 12:03; Start 11/30/18 at 12:00; Stop 12/05/18 at 15:30; Status DC Lactobacillus Rhamnosus (Culturelle) 1 cap BID PO Last administered on 12/06/18at 08:18; Start 11/30/18 at 21:00 Vancomycin HCl (Vancomycin Random Level) 1 each 1X ONCE MC ; Start 12/01/18 at 10:00; Stop 12/01/18 at 10:01; Status DC Vancomycin HCl 2 gm/Sodium Chloride 500 ml @ 250 mls/hr Q18H IV ; Start 12/01/18 at 11:30; Stop 12/01/18 at 11:47; Status DC Vancomycin HCl (Vancomycin Trough Level) 1 each 1X ONCE MC ; Start 12/02/18 at 23:00; Stop 12/01/18 at 11:55; Status DC Ascorbic Acid (Vitamin C) 500 mg DAILY PO Last administered on 12/06/18at 08:18; Start 12/01/18 at 13:00 Multivitamins (Thera M Plus) 1 tab DAILY PO Last administered on 12/06/18at 08:18; Start 12/01/18 at 13:00 Iodixanol (Visipaque 320) 100 ml STK-MED ONCE .ROUTE ; Start 12/02/18 at 10:01; Stop 12/02/18 at 10:01; Status DC Lidocaine/Sodium Bicarbonate (Buffered Lidocaine 1%) 3 ml STK-MED ONCE .ROUTE ; Start 12/02/18 at 10:01; Stop 12/02/18 at 10:01; Status DC Heparin Sodium/ Sodium Chloride 1,000 ml @ As Directed STK-MED ONCE .ROUTE ; Start 12/02/18 at 10:03; Stop 12/02/18 at 10:03; Status DC Midazolam HCl (Versed) 5 mg STK-MED ONCE .ROUTE ; Start 12/02/18 at 10:16; Stop 12/02/18 at 10:16; Status DC Fentanyl Citrate (Fentanyl 5ml Vial) 250 mcg STK-MED ONCE .ROUTE ; Start 12/02/18 at 10:16; Stop 12/02/18 at 10:16; Status DC Heparin Sodium (Porcine) (Heparin Sodium) 10,000 unit STK-MED ONCE .ROUTE ; Start 12/02/18 at 10:16; Stop 12/02/18 at 10:16; Status DC Diphenhydramine HCl (Benadryl) 50 mg STK-MED ONCE .ROUTE ; Start 12/02/18 at 10:49; Stop 12/02/18 at 10:49; Status DC Lidocaine/Sodium Bicarbonate (Buffered Lidocaine 1%) 3 ml 1X ONCE IJ Last administered on 12/02/18at 11:15; Start 12/02/18 at 11:15; Stop 12/02/18 at 11:16; Status DC Midazolam HCl (Versed) 5 mg 1X ONCE IV Last administered on 12/02/18at 11:15; Start 12/02/18 at 11:15; Stop 12/02/18 at 11:16; Status DC Fentanyl Citrate (Fentanyl 5ml Vial) 100 mcg 1X ONCE IV Last administered on 12/02/18at 11:15; Start 12/02/18 at 11:15; Stop 12/02/18 at 11:16; Status DC Iodixanol (Visipaque 320) 100 ml 1X ONCE IART Last administered on 12/02/18at 11:15; Start 12/02/18 at 11:15; Stop 12/02/18 at 11:16; Status DC Heparin Sodium (Porcine) (Heparin Sodium) 5,000 unit 1X ONCE IV Last administered on 12/02/18at 11:15; Start 12/02/18 at 11:15; Stop 12/02/18 at 11:16; Status DC Diphenhydramine HCl (Benadryl) 25 mg 1X ONCE IVP Last administered on 12/02/18at 11:15; Start 12/02/18 at 11:15; Stop 12/02/18 at 11:16; Status DC Clopidogrel Bisulfate (Plavix) 300 mg 1X ONCE PO Last administered on 9at 12:28; Start 12/02/18 at 12:30; Stop 12/02/18 at 12:31; Status DC Clopidogrel Bisulfate (Plavix) 75 mg DAILYWBKFT PO Last administered on 12/06/18at 08:17; Start 12/03/18 at 08:00 Ondansetron HCl (Zofran) 4 mg PRN Q6HRS PRN IV NAUSEA/VOMITING; Start 12/04/18 at 07:00; Stop 12/05/18 at 06:59; Status DC Fentanyl Citrate (Fentanyl 2ml Vial) 25 mcg PRN Q5MIN PRN IV MILD PAIN 1-3; Start 12/04/18 at 07:00; Stop 12/05/18 at 06:59; Status DC Fentanyl Citrate (Fentanyl 2ml Vial) 50 mcg PRN Q5MIN PRN IV MODERATE TO SEVERE PAIN; Start 12/04/18 at 07:00; Stop 12/05/18 at 06:59; Status DC Morphine Sulfate (Morphine Sulfate) 1 mg PRN Q10MIN PRN IV SEVERE PAIN 7-10; Start 12/04/18 at 07:00; Stop 12/05/18 at 06:59; Status UNV Ringer's Solution 1,000 ml @ 30 mls/hr Q24H IV Last administered on 12/04/18at 10:06; Start 12/04/18 at 07:00; Stop 12/04/18 at 18:59; Status DC Lidocaine HCl (Xylocaine-Mpf 1% 2ml Vial) 2 ml PRN 1X PRN ID PRIOR TO IV START; Start 12/04/18 at 07:00; Stop 12/05/18 at 06:59; Status DC Hydromorphone HCl (Dilaudid) 0.5 mg PRN Q10MIN PRN IV SEV PAIN, Second choice; Start 12/04/18 at 07:00; Stop 12/05/18 at 06:59; Status UNV Prochlorperazine Edisylate (Compazine) 5 mg PACU PRN PRN IV NAUSEA, MRX1 Last administered on 12/04/18at 13:35; Start 12/04/18 at 07:00; Stop 12/05/18 at 06:59; Status DC Lidocaine HCl (Lidocaine Pf 2% Vial) 5 ml STK-MED ONCE .ROUTE ; Start 12/04/18 at 08:12; Stop 12/04/18 at 08:12; Status DC Propofol 20 ml @ As Directed STK-MED ONCE IV ; Start 12/04/18 at 08:12; Stop 12/04/18 at 08:12; Status DC Fentanyl Citrate (Fentanyl 2ml Vial) 100 mcg STK-MED ONCE .ROUTE ; Start 12/04/18 at 08:12; Stop 12/04/18 at 08:12; Status DC Rocuronium [place] (Zemuron) 50 mg STK-MED ONCE .ROUTE ; Start 12/04/18 at 08:12; Stop 12/04/18 at 08:12; Status DC Cefazolin Sodium/ Dextrose 50 ml @ 100 mls/hr 1X ONCE IV Last administered on 12/04/18at 10:32; Start 12/04/18 at 10:30; Stop 12/04/18 at 10:59; Status DC Lidocaine HCl (Xylocaine 1% Pf 30ml Vial) 30 ml STK-MED ONCE .ROUTE ; Start 12/04/18 at 10:10; Stop 12/04/18 at 10:11; Status DC Bupivacaine HCl (Sensorcaine Mpf 0.5%) 30 ml STK-MED ONCE .ROUTE ; Start at 10:11; Stop 12/04/18 at 10:11; Status DC Ondansetron HCl (Zofran) 4 mg STK-MED ONCE .ROUTE ; Start 12/04/18 at 10:43; St op 12/04/18 at 10:43; Status DC Dexamethasone Sodium Phosphate (Decadron) 4 mg STK-MED ONCE .ROUTE ; Start 12/04/18 at 10:43; Stop 12/04/18 at 10:43; Status DC Glycopyrrolate (Robinul) 1 mg STK-MED ONCE .ROUTE ; Start 12/04/18 at 10:44; Stop 12/04/18 at 10:44; Status DC Neostigmine Methylsulfate (Neostigmine Methylsulfate) 5 mg STK-MED ONCE .ROUTE ; Start 12/04/18 at 10:44; Stop 12/04/18 at 10:44; Status DC Ketamine HCl (Ketamine) 50 mg STK-MED ONCE .ROUTE ; Start 12/04/18 at 10:44; Stop 12/04/18 at 10:45; Status DC Cefazolin Sodium (Ancef) 1 gm STK-MED ONCE .ROUTE ; Start 12/04/18 at 11:01; Stop 12/04/18 at 11:01; Status DC Phenylephrine HCl (PHENYLEPHRINE in 0.9% NACL PF) 1 mg STK-MED ONCE IV ; Start 12/04/18 at 13:06; Stop 12/04/18 at 13:06; Status DC Ephedrine Sulfate (ePHEDrine PF IN SALINE SYRINGE) 50 mg STK-MED ONCE IV ; Start 12/04/18 at 13:06; Stop 12/04/18 at 13:06; Status DC Albumin Human 500 ml @ As Directed STK-MED ONCE IV ; Start 12/04/18 at 13:06; Stop 12/04/18 at 13:06; Status DC Sevoflurane (Ultane) 90 ml STK-MED ONCE IH ; Start 12/04/18 at 13:06; Stop 12/04/18 at 13:06; Status DC Fentanyl Citrate (Fentanyl 2ml Vial) 100 mcg STK-MED ONCE .ROUTE ; Start 12/04/18 at 13:06; Stop 12/04/18 at 13:07; Status DC Fentanyl Citrate (Fentanyl 2ml Vial) 100 mcg STK-MED ONCE .ROUTE ; Start 12/04/18 at 13:29; Stop 12/04/18 at 13:29; Status DC Prochlorperazine Edisylate (Compazine) 10 mg STK-MED ONCE .ROUTE ; Start 12/04/18 at 13:29; Stop 12/04/18 at 13:29; Status DC Hydromorphone HCl (Dilaudid) 2 mg STK-MED ONCE .ROUTE ; Start 12/04/18 at 13:34; Stop 12/04/18 at 13:34; Status DC Hydromorphone HCl (Dilaudid) 0.5 mg PRN Q10MIN PRN IV PAIN Last administered on 12/04/18at 14:48; Start 12/04/18 at 13:45; Stop 12/05/18 at 10:13; Status DC Cefazolin Sodium 3 gm/Dextrose 100 ml @ 200 mls/hr Q6H IV Last administered on 12/05/18at 03:52; Start 12/04/18 at 16:00; Stop 12/05/18 at 04:29; Status DC Hydromorphone HCl (Dilaudid) 2 mg STK-MED ONCE .ROUTE ; Start 12/04/18 at 14:01; Stop 12/04/18 at 14:02; Status DC Dextrose/Sodium Chloride 1,000 ml @ 75 mls/hr [id number] IV Last administered on 12/04/18at 23:59; Start 12/04/18 at 14:15; Stop 12/05/18 at 13:50; Status DC Sodium Chloride 1,000 ml @ 0 mls/hr 1X ONCE IV Last administered on 12/04/18at 13:09; Start 12/04/18 at 14:15; Stop 12/04/18 at 14:18; Status DC Oxycodone HCl (Roxicodone) 20 mg PRN Q3HRS PRN PO SEVERE PAIN Last administered on 12/06/18at 08:24; Start 12/05/18 at 09:00 Sodium Chloride 1,000 ml @ 75 mls/hr [id number] IV Last administered on 12/06/18at 03:20; Start 12/05/18 at 14:00 Cefazolin Sodium 2 gm/Dextrose 50 ml @ 100 mls/hr Q8HRS IV Last administered on 12/06/18at 06:19; Start 12/05/18 at 22:00 Active Scripts Active Keppra (Levetiracetam) 500 Mg Tablet 500 Mg PO BID 30 Days Reported Oxycodone Hcl 5 Mg Capsule 10 Mg PO PRN Q6HRS PRN Methadone Hcl 10 Mg Tablet 10 Mg PO TID Lyrica (Pregabalin) 100 Mg Capsule 100 Mg PO BID Zantac (Ranitidine Hcl) 150 Mg Tablet 150 Mg PO BID Hydroxyzine Pamoate 50 Mg Capsule 50 Mg PO Cyclobenzaprine Hcl 10 Mg Tablet 10 Mg PO BID Cymbalta (Duloxetine Hcl) 30 Mg Capsule.dr 30 Mg PO BID Augmentin 875-125 Tablet (Amoxicillin/Potassium Clav) 1 Each Tablet 1 Tab PO BID Cipro (Ciprofloxacin Hcl) 500 Mg Tablet 500 Mg PO BID Levemir (Insulin Detemir) 100 Unit/1 Ml Vial 20 Unit SQ BID Cymbalta (Duloxetine Hcl) 60 Mg Capsule.dr 60 Mg PO DAILY Tramadol Hcl 50 Mg Tablet 100 Mg PO Q6H PRN Lisinopril-Hctz 20-12.5 Mg Tab (Lisinopril/Hydrochlorothiazide) 1 Each Tablet 2 Tab PO DAILY Januvia (Sitagliptin Phosphate) 100 Mg Tablet 100 Mg PO DAILY Vitals/I & O Vital Sign - Last 24 Hours 12/05/18 12/05/18 12/05/18 12/05/18 12:38 13:50 15:00 15:12 Temp 97.8 97.8 Pulse 80 Resp 16 B/P (MAP) 156/70 (98) Pulse Ox 96 O2 Delivery Room Air Room Air Room Air Room Air 12/05/18 12/05/18 12/05/18 12/05/18 17:31 17:31 18:48 18:48 O2 Delivery Room Air Room Air Room Air Room Air 12/05/18 12/05/18 12/05/18 12/05/18 19:00 20:00 21:06 21:36 Temp 97.4 97.4 Pulse 78 Resp 20 B/P (MAP) 154/68 (96) Pulse Ox 97 97 97 O2 Delivery Room Air Room Air Room Air Room Air O2 Flow Rate 12.0 12/05/18 12/06/18 12/06/18 12/06/18 23:04 03:04 06:19 06:49 Temp 97.9 98.0 97.9 98.0 Pulse 67 74 Resp 20 20 B/P (MAP) 159/78 (105) 145/78 (100) Pulse Ox 96 96 96 96 O2 Delivery Room Air Room Air Room Air Room Air O2 Flow Rate 12.0 12.0 12/06/18 12/06/18 12/06/18 12/06/18 07:00 08:00 08:23 08:24 Temp 97.9 97.9 Pulse 79 74 Resp 20 20 B/P (MAP) 150/79 (102) 145/78 Pulse Ox 98 96 O2 Delivery Room Air Room Air Room Air 12/06/18 12/06/18 12/06/18 08:24 08:54 09:24 Resp 20 16 16 Pulse Ox 96 97 97 O2 Delivery Room Air Room Air Room Air Intake and Output 12/05/18 12/05/18 12/06/18 15:00 23:00 07:00 Intake Total 360 ml Output Total 30 ml 500 ml Balance 330 ml -500 ml LUCY RONQUILLO MD Dec 06, 2018 12:29
[2018-12-06] MEDS ORDERED: diphenhydrAMINE HCL 25 MG CAPSULE PO PRN (12:30)
[2018-12-06 15:00] VITALS: BP 150/74
--- NOTE | 2018-12-06 16:00 | NUR ---
Called to room by patient. Hemovac was pulled out laying on the bed. Dr. Tapia notified of this, no new orders.
--- NOTE | 2018-12-06 16:29 | NUR ---
Kirstie notified of order of need to fit pt with a right lower leg prosthetic.
[2018-12-06 19:00] VITALS: BP 130/48
[2018-12-06 23:00] VITALS: BP 135/68
[2018-12-07 03:00] VITALS: BP 154/86
[2018-12-07] MEDS: oxyCODONE IR 5 MG TABLET PO PRN ×4 (03:32→17:39)
[2018-12-07] MEDS: fentaNYL PF VIAL 100 MCG/2 ML VIAL IV PRN ×3 (04:26→23:44)
[2018-12-07] MEDS: IV NORMAL SALINE 1000ML BAG 1,000 ML IV SCH ×2 (05:27→17:38)
[2018-12-07] MEDS: ceFAZolin SODIUM 2 GM in IV DEXTROSE 5% 50 ML IV SCH ×3 (05:27→22:16)
[2018-12-07 05:48] LABS: BASO # 0.1 x10^3/uL (0.0-0.2); BASO % 1 % (0-3); EOS # 0.2 x10^3/uL (0.0-0.7); EOS % 3 % (0-3); HEMATOCRIT 24.3 % (39.0-53.0); LYMPH # 1.7 x10^3/uL (1.0-4.8); LYMPH % 24 % (24-48); MEAN CORPUSCULAR HEMOGLOBIN 27 pg (25-35); MEAN CORPUSCULAR HGB CONC 33 g/dL (31-37); MEAN CORPUSCULAR VOLUME 82 fL (79-100); MONO # 0.4 x10^3/uL (0.0-1.1); MONO % 6 % (0-9); NEUT # 4.5 x10^3/uL (1.8-7.7); NEUT % 66 % (31-73); PLATELET COUNT 300 x10^3/uL (140-400); RED BLOOD COUNT 2.96 x10^6/uL (4.30-5.70); RED CELL DISTRIBUTION WIDTH 16.7 % (11.5-14.5); WHITE BLOOD COUNT 6.8 x10^3/uL (4.0-11.0)
[2018-12-07 06:02] LABS: ALBUMIN 2.2 g/dL (3.4-5.0); ALBUMIN/GLOBULIN RATIO 0.4 (1.0-1.7); CALCIUM 8.2 mg/dL (8.5-10.1); CREATININE 1.2 mg/dL (0.7-1.3); GFR 61.8; POTASSIUM 3.8 mmol/L (3.5-5.1); TOTAL BILIRUBIN 0.2 mg/dL (0.2-1.0); TOTAL PROTEIN 7.7 g/dL (6.4-8.2)
[2018-12-07 07:00] VITALS: BP 163/49
[2018-12-07] MEDS: INSULIN LISPRO 300 UNITS/3 ML VIAL. SQ SCH ×3 (08:00→17:00)
[2018-12-07] MEDS: hydrOXYzine 25 MG TABLET PO SCH (08:53)
[2018-12-07] MEDS: LACTOBACILLUS RHAMNOSUS GG 1 CAPSULE. PO SCH ×2 (08:53→22:15)
[2018-12-07] MEDS: CYCLOBENZAPRINE 10 MG TABLET. PO SCH ×3 (08:53→21:00)
[2018-12-07] MEDS: METHADONE 10 MG TABLET. PO SCH ×3 (08:53→22:16)
[2018-12-07] MEDS: PREGABALIN 50 MG CAPSULE PO SCH ×2 (08:53→22:15)
[2018-12-07] MEDS: FAMOTIDINE 20 MG TABLET. PO SCH ×2 (08:53→22:15)
[2018-12-07] MEDS: levETIRAcetam 500 MG TABLET PO SCH ×2 (08:53→22:15)
[2018-12-07] MEDS: hydroCHLOROthiazide 25 MG TABLET PO SCH (08:54)
[2018-12-07] MEDS: ASCORBIC ACID 500 MG TABLET PO SCH (08:54)
[2018-12-07] MEDS: MULTIVITAMIN with MINERAL TABLET. PO SCH (08:54)
[2018-12-07] MEDS: LISINOPRIL 20 MG TABLET PO SCH (08:54)
[2018-12-07] MEDS: DULoxetine HCL 30 MG CAPSULE.DR PO SCH ×2 (08:54→22:15)
[2018-12-07] MEDS: CLOPIDOGREL BISULFATE 75 MG TABLET PO SCH (08:54)
[2018-12-07] MEDS: LINAGLIPTIN 5 MG TABLET PO SCH (08:54)
--- NOTE | 2018-12-07 10:48 | PDOC ---
Infectious Disease Note Subjective Subjective Pain better controlled but hurts with movement Denies F/C/S/N/V/D/SOA ROS ROS per HPI Vital Sign Vital Signs Vital Signs Date Time Temp Pulse Resp B/P (MAP) Pulse Ox O2 Delivery O2 Flow Rate FiO2 12/07/18 10:23 Room Air 12/07/18 08:54 80 163/49 12/07/18 07:00 98.3 18 93 98.3 12/07/18 04:56 12.0 Physical Exam PHYSICAL EXAM GENERAL: Propped up in bed, alert, eting ice cream HEENT: Pupils equal, oropharynx pink and moist, edentulous NECK: Supple. LUNGS: Clear to auscultation. HEART: S1, S2. ABDOMEN: Obese, soft, nontender with bowel sounds present. EXTREMITIES: s/p right BKA dressing dry SKIN: Warm to touch. No signs of rash. NEUROLOGIC: Alert and answering questions appropriately. PICC IV - clean -LUE. Labs Lab Laboratory Tests Test 12/06/18 12:16 12/06/18 17:11 12/06/18 20:44 12/07/18 05:15 Glucose (Fingerstick) 90 mg/dL (70-99) 81 mg/dL (70-99) 105 mg/dL (70-99) White Blood Count 6.8 x10^3/uL (4.0-11.0) Red Blood Count 2.96 x10^6/uL (4.30-5.70) Hemoglobin 8.0 g/dL (13.0-17.5) Hematocrit 24.3 % (39.0-53.0) Mean Corpuscular Volume 82 fL (79-100) Mean Corpuscular Hemoglobin 27 pg (25-35) Mean Corpuscular Hemoglobin Concent 33 g/dL (31-37) Red Cell Distribution Width 16.7 % (11.5-14.5) Platelet Count 300 x10^3/uL (140-400) Neutrophils (%) (Auto) 66 % (31-73) Lymphocytes (%) (Auto) 24 % (24-48) Monocytes (%) (Auto) 6 % (0-9) Eosinophils (%) (Auto) 3 % (0-3) Basophils (%) (Auto) 1 % (0-3) Neutrophils # (Auto) 4.5 x10^3/uL (1.8-7.7) Lymphocytes # (Auto) 1.7 x10^3/uL (1.0-4.8) Monocytes # (Auto) 0.4 x10^3/uL (0.0-1.1) Eosinophils # (Auto) 0.2 x10^3/uL (0.0-0.7) Basophils # (Auto) 0.1 x10^3/uL (0.0-0.2) Sodium Level 140 mmol/L (136-145) Potassium Level 3.8 mmol/L (3.5-5.1) Chloride Level 102 mmol/L (98-107) Carbon Dioxide Level 33 mmol/L (21-32) Anion Gap 5 (6-14) Blood Urea Nitrogen 8 mg/dL (8-26) Creatinine 1.2 mg/dL (0.7-1.3) Estimated GFR (Cockcroft-Gault) 61.8 BUN/Creatinine Ratio 7 (6-20) Glucose Level 89 mg/dL (70-99) Calcium Level 8.2 mg/dL (8.5-10.1) Total Bilirubin 0.2 mg/dL (0.2-1.0) Aspartate Amino Transf (AST/SGOT) 15 U/L (15-37) Alanine Aminotransferase (ALT/SGPT) 7 U/L (16-63) Alkaline Phosphatase 54 U/L (46-116) Total Protein 7.7 g/dL (6.4-8.2) Albumin 2.2 g/dL (3.4-5.0) Albumin/Globulin Ratio 0.4 (1.0-1.7) Test 12/07/18 08:02 Glucose (Fingerstick) 97 mg/dL (70-99) Micro 11/25. BLD CULT RESULT 1 Final Staphylococcus aureus MICS are expressed in micrograms per mL Antibiotic RSLT#1 Ciprofloxacin I =2 Gentamicin S<=0.5 Levofloxacin S =1 Linezolid S =2 Moxifloxacin S<=0.25 Nitrofurantoin S<=16 Oxacillin S =0.5 Penicillin R>=0.5 Quinupristin/Dalfopristin S<=0.25 Rifampin S<=0.5 Tetracycline S<=1 Trimethoprim/Sulfa R>=320 Vancomycin S<=0.5 11/25. Right foot ANAEROBIC RES 1 PENDING AEROBIC RES 1 Final Staphylococcus aureus MICS are expressed in micrograms per mL Antibiotic RSLT#1 Ciprofloxacin I =2 Clindamycin S<=0.25 Erythromycin S =0.5 Gentamicin S<=0.5 Levofloxacin S =2 Linezolid S =2 Moxifloxacin S =0.5 Oxacillin S =0.5 Penicillin R>=0.5 Quinupristin/Dalfopristin S<=0.25 Rifampin S<=0.5 Tetracycline S<=1 Trimethoprim/Sulfa R>=320 Vancomycin S =1 ANAEROBIC RES 1 Final Comment No anaerobic growth in 72 hours. 11/26. BLOOD CULTURE Preliminary NO GROWTH AFTER 5 DAYS 11/28. BLOOD CULTURE Preliminary NO GROWTH AFTER 3 DAY Objective Assessment MSSA bacteremia from 11/25. Repeat BC 11/26 & neg. TTE neg Infected diabetic ulcer w/ OM, right foot. 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 Wright Attending Co-Sign Attending Co-Sign The patient was seen and interviewed as well as examined at the bedside. The chart was reviewed. The case was discussed. Agree with the plan of care. KRISTIE GREENE APRN Dec 07, 2018 10:48 MAI GONSALEZ MD Dec 07, 2018 14:51
[2018-12-07 11:00] VITALS: BP 147/74
--- NOTE | 2018-12-07 11:17 | PDOC ---
ORTHO PROGRESS NOTES Subjective Pain better, c/o loose stools Vitals Vital Signs Date Time Temp Pulse Resp B/P (MAP) Pulse Ox O2 Delivery O2 Flow Rate FiO2 12/07/18 10:23 Room Air 12/07/18 08:54 80 163/49 12/07/18 07:00 98.3 18 93 98.3 12/07/18 04:56 12.0 Labs Laboratory Tests Test 12/05/18 11:18 12/05/18 16:41 12/05/18 20:23 12/06/18 05:15 Glucose (Fingerstick) 66 mg/dL (70-99) 143 mg/dL (70-99) 115 mg/dL (70-99) White Blood Count 7.2 x10^3/uL (4.0-11.0) Red Blood Count 3.02 x10^6/uL (4.30-5.70) Hemoglobin 8.1 g/dL (13.0-17.5) Hematocrit 24.7 % (39.0-53.0) Mean Corpuscular Volume 82 fL (79-100) Mean Corpuscular Hemoglobin 27 pg (25-35) Mean Corpuscular Hemoglobin Concent 33 g/dL (31-37) Red Cell Distribution Width 16.8 % (11.5-14.5) Platelet Count 291 x10^3/uL (140-400) Neutrophils (%) (Auto) 62 % (31-73) Lymphocytes (%) (Auto) 26 % (24-48) Monocytes (%) (Auto) 8 % (0-9) Eosinophils (%) (Auto) 3 % (0-3) Basophils (%) (Auto) 1 % (0-3) Neutrophils # (Auto) 4.5 x10^3/uL (1.8-7.7) Lymphocytes # (Auto) 1.9 x10^3/uL (1.0-4.8) Monocytes # (Auto) 0.6 x10^3/uL (0.0-1.1) Eosinophils # (Auto) 0.2 x10^3/uL (0.0-0.7) Basophils # (Auto) 0.0 x10^3/uL (0.0-0.2) Sodium Level 139 mmol/L (136-145) Potassium Level 4.1 mmol/L (3.5-5.1) Chloride Level 103 mmol/L (98-107) Carbon Dioxide Level 33 mmol/L (21-32) Anion Gap 3 (6-14) Blood Urea Nitrogen 8 mg/dL (8-26) Creatinine 1.2 mg/dL (0.7-1.3) Estimated GFR (Cockcroft-Gault) 61.8 BUN/Creatinine Ratio 7 (6-20) Glucose Level 50 mg/dL (70-99) Calcium Level 8.2 mg/dL (8.5-10.1) Total Bilirubin 0.2 mg/dL (0.2-1.0) Aspartate Amino Transf (AST/SGOT) 18 U/L (15-37) Alanine Aminotransferase (ALT/SGPT) < 6 U/L (16-63) Alkaline Phosphatase 44 U/L (46-116) Total Protein 8.0 g/dL (6.4-8.2) Albumin 2.1 g/dL (3.4-5.0) Albumin/Globulin Ratio 0.4 (1.0-1.7) Test 12/06/18 08:12 12/06/18 12:16 12/06/18 17:11 12/06/18 20:44 Glucose (Fingerstick) 83 mg/dL (70-99) 90 mg/dL (70-99) 81 mg/dL (70-99) 105 mg/dL (70-99) Test 12/07/18 05:15 12/07/18 08:02 White Blood Count 6.8 x10^3/uL (4.0-11.0) Red Blood Count 2.96 x10^6/uL (4.30-5.70) Hemoglobin 8.0 g/dL (13.0-17.5) Hematocrit 24.3 % (39.0-53.0) Mean Corpuscular Volume 82 fL (79-100) Mean Corpuscular Hemoglobin 27 pg (25-35) Mean Corpuscular Hemoglobin Concent 33 g/dL (31-37) Red Cell Distribution Width 16.7 % (11.5-14.5) Platelet Count 300 x10^3/uL (140-400) Neutrophils (%) (Auto) 66 % (31-73) Lymphocytes (%) (Auto) 24 % (24-48) Monocytes (%) (Auto) 6 % (0-9) Eosinophils (%) (Auto) 3 % (0-3) Basophils (%) (Auto) 1 % (0-3) Neutrophils # (Auto) 4.5 x10^3/uL (1.8-7.7) Lymphocytes # (Auto) 1.7 x10^3/uL (1.0-4.8) Monocytes # (Auto) 0.4 x10^3/uL (0.0-1.1) Eosinophils # (Auto) 0.2 x10^3/uL (0.0-0.7) Basophils # (Auto) 0.1 x10^3/uL (0.0-0.2) Sodium Level 140 mmol/L (136-145) Potassium Level 3.8 mmol/L (3.5-5.1) Chloride Level 102 mmol/L (98-107) Carbon Dioxide Level 33 mmol/L (21-32) Anion Gap 5 (6-14) Blood Urea Nitrogen 8 mg/dL (8-26) Creatinine 1.2 mg/dL (0.7-1.3) Estimated GFR (Cockcroft-Gault) 61.8 BUN/Creatinine Ratio 7 (6-20) Glucose Level 89 mg/dL (70-99) Calcium Level 8.2 mg/dL (8.5-10.1) Total Bilirubin 0.2 mg/dL (0.2-1.0) Aspartate Amino Transf (AST/SGOT) 15 U/L (15-37) Alanine Aminotransferase (ALT/SGPT) 7 U/L (16-63) Alkaline Phosphatase 54 U/L (46-116) Total Protein 7.7 g/dL (6.4-8.2) Albumin 2.2 g/dL (3.4-5.0) Albumin/Globulin Ratio 0.4 (1.0-1.7) Glucose (Fingerstick) 97 mg/dL (70-99) Laboratory Tests Test 12/06/18 12:16 12/06/18 17:11 12/06/18 20:44 12/07/18 05:15 Glucose (Fingerstick) 90 mg/dL (70-99) 81 mg/dL (70-99) 105 mg/dL (70-99) White Blood Count 6.8 x10^3/uL (4.0-11.0) Red Blood Count 2.96 x10^6/uL (4.30-5.70) Hemoglobin 8.0 g/dL (13.0-17.5) Hematocrit 24.3 % (39.0-53.0) Mean Corpuscular Volume 82 fL (79-100) Mean Corpuscular Hemoglobin 27 pg (25-35) Mean Corpuscular Hemoglobin Concent 33 g/dL (31-37) Red Cell Distribution Width 16.7 % (11.5-14.5) Platelet Count 300 x10^3/uL (140-400) Neutrophils (%) (Auto) 66 % (31-73) Lymphocytes (%) (Auto) 24 % (24-48) Monocytes (%) (Auto) 6 % (0-9) Eosinophils (%) (Auto) 3 % (0-3) Basophils (%) (Auto) 1 % (0-3) Neutrophils # (Auto) 4.5 x10^3/uL (1.8-7.7) Lymphocytes # (Auto) 1.7 x10^3/uL (1.0-4.8) Monocytes # (Auto) 0.4 x10^3/uL (0.0-1.1) Eosinophils # (Auto) 0.2 x10^3/uL (0.0-0.7) Basophils # (Auto) 0.1 x10^3/uL (0.0-0.2) Sodium Level 140 mmol/L (136-145) Potassium Level 3.8 mmol/L (3.5-5.1) Chloride Level 102 mmol/L (98-107) Carbon Dioxide Level 33 mmol/L (21-32) Anion Gap 5 (6-14) Blood Urea Nitrogen 8 mg/dL (8-26) Creatinine 1.2 mg/dL (0.7-1.3) Estimated GFR (Cockcroft-Gault) 61.8 BUN/Creatinine Ratio 7 (6-20) Glucose Level 89 mg/dL (70-99) Calcium Level 8.2 mg/dL (8.5-10.1) Total Bilirubin 0.2 mg/dL (0.2-1.0) Aspartate Amino Transf (AST/SGOT) 15 U/L (15-37) Alanine Aminotransferase (ALT/SGPT) 7 U/L (16-63) Alkaline Phosphatase 54 U/L (46-116) Total Protein 7.7 g/dL (6.4-8.2) Albumin 2.2 g/dL (3.4-5.0) Albumin/Globulin Ratio 0.4 (1.0-1.7) Test 12/07/18 08:02 Glucose (Fingerstick) 97 mg/dL (70-99) Notes A and A some bloody drainage, but wound looks ok Assessment and Plan awaiting [facility] no new recs per DARIANA Robb II, MD Dec 07, 2018 11:17
--- NOTE | 2018-12-07 13:25 | PDOC ---
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 He was treated with IV antibiotics, outpatient, until transportation issues arose. He apparently was switched to oral antibiotics up until about a month ago. The patient says over the last 2 weeks or so, he has been having worsening pain, redness and swelling of right foot. On 11/25, he was seen here at [facility]. A foot x-ray at that time showed extensive soft tissue swelling and soft tissue gas at the Lisfranc joint resection site consistent with cellulitis. 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 He is pleasant today. Hemovac in place, pain well controlled. Labs reviewed. Feel his pain is controlled. He is amenable to discharge to rehab. Denies SOB or chest pain. Vitals Vitals Vital Signs Date Time Temp Pulse Resp B/P (MAP) Pulse Ox O2 Delivery O2 Flow Rate FiO2 12/07/18 11:00 98.0 75 14 147/74 (98) 96 Room Air 98.0 12/07/18 04:56 12.0 Physical Exam Physical Exam GENERAL: Propped up in bed, alert, eting ice cream HEENT: Pupils equal, oropharynx pink and moist, edentulous NECK: Supple. LUNGS: Clear to auscultation. HEART: S1, S2. ABDOMEN: Obese, soft, nontender with bowel sounds present. EXTREMITIES: s/p right BKA dressing dry SKIN: Warm to touch. No signs of rash. NEUROLOGIC: Alert and answering questions appropriately. PICC IV - clean -LUE. General: Alert, Oriented X3, Cooperative, No acute distress Heart: Regular rate Lungs: Clear Abdomen: Normal bowel sounds, Soft, No tenderness, No hepatosplenomegaly, No masses Extremities: No clubbing, Other (left femoral access site dressing dry and inta ct) Skin: Other (right foot dressing soaked with drainage.) Labs LABS Laboratory Tests Test 12/06/18 17:11 12/06/18 20:44 12/07/18 05:15 12/07/18 08:02 Glucose (Fingerstick) 81 mg/dL (70-99) 105 mg/dL (70-99) 97 mg/dL (70-99) White Blood Count 6.8 x10^3/uL (4.0-11.0) Red Blood Count 2.96 x10^6/uL (4.30-5.70) Hemoglobin 8.0 g/dL (13.0-17.5) Hematocrit 24.3 % (39.0-53.0) Mean Corpuscular Volume 82 fL (79-100) Mean Corpuscular Hemoglobin 27 pg (25-35) Mean Corpuscular Hemoglobin Concent 33 g/dL (31-37) Red Cell Distribution Width 16.7 % (11.5-14.5) Platelet Count 300 x10^3/uL (140-400) Neutrophils (%) (Auto) 66 % (31-73) Lymphocytes (%) (Auto) 24 % (24-48) Monocytes (%) (Auto) 6 % (0-9) Eosinophils (%) (Auto) 3 % (0-3) Basophils (%) (Auto) 1 % (0-3) Neutrophils # (Auto) 4.5 x10^3/uL (1.8-7.7) Lymphocytes # (Auto) 1.7 x10^3/uL (1.0-4.8) Monocytes # (Auto) 0.4 x10^3/uL (0.0-1.1) Eosinophils # (Auto) 0.2 x10^3/uL (0.0-0.7) Basophils # (Auto) 0.1 x10^3/uL (0.0-0.2) Sodium Level 140 mmol/L (136-145) Potassium Level 3.8 mmol/L (3.5-5.1) Chloride Level 102 mmol/L (98-107) Carbon Dioxide Level 33 mmol/L (21-32) Anion Gap 5 (6-14) Blood Urea Nitrogen 8 mg/dL (8-26) Creatinine 1.2 mg/dL (0.7-1.3) Estimated GFR (Cockcroft-Gault) 61.8 BUN/Creatinine Ratio 7 (6-20) Glucose Level 89 mg/dL (70-99) Calcium Level 8.2 mg/dL (8.5-10.1) Total Bilirubin 0.2 mg/dL (0.2-1.0) Aspartate Amino Transf (AST/SGOT) 15 U/L (15-37) Alanine Aminotransferase (ALT/SGPT) 7 U/L (16-63) Alkaline Phosphatase 54 U/L (46-116) Total Protein 7.7 g/dL (6.4-8.2) Albumin 2.2 g/dL (3.4-5.0) Albumin/Globulin Ratio 0.4 (1.0-1.7) Assessment and Plan Assessmemt and Plan Problems Medical Problems: (1) Acute kidney injury Status: Acute (2) Cellulitis, unspecified Status: Acute Comment Review of Relevant I have reviewed the following items wilber (where applicable) has been applied. Labs Laboratory Tests Test 12/05/18 16:41 12/05/18 20:23 12/06/18 05:15 12/06/18 08:12 Glucose (Fingerstick) 143 mg/dL (70-99) 115 mg/dL (70-99) 83 mg/dL (70-99) White Blood Count 7.2 x10^3/uL (4.0-11.0) Red Blood Count 3.02 x10^6/uL (4.30-5.70) Hemoglobin 8.1 g/dL (13.0-17.5) Hematocrit 24.7 % (39.0-53.0) Mean Corpuscular Volume 82 fL (79-100) Mean Corpuscular Hemoglobin 27 pg (25-35) Mean Corpuscular Hemoglobin Concent 33 g/dL (31-37) Red Cell Distribution Width 16.8 % (11.5-14.5) Platelet Count 291 x10^3/uL (140-400) Neutrophils (%) (Auto) 62 % (31-73) Lymphocytes (%) (Auto) 26 % (24-48) Monocytes (%) (Auto) 8 % (0-9) Eosinophils (%) (Auto) 3 % (0-3) Basophils (%) (Auto) 1 % (0-3) Neutrophils # (Auto) 4.5 x10^3/uL (1.8-7.7) Lymphocytes # (Auto) 1.9 x10^3/uL (1.0-4.8) Monocytes # (Auto) 0.6 x10^3/uL (0.0-1.1) Eosinophils # (Auto) 0.2 x10^3/uL (0.0-0.7) Basophils # (Auto) 0.0 x10^3/uL (0.0-0.2) Sodium Level 139 mmol/L (136-145) Potassium Level 4.1 mmol/L (3.5-5.1) Chloride Level 103 mmol/L (98-107) Carbon Dioxide Level 33 mmol/L (21-32) Anion Gap 3 (6-14) Blood Urea Nitrogen 8 mg/dL (8-26) Creatinine 1.2 mg/dL (0.7-1.3) Estimated GFR (Cockcroft-Gault) 61.8 BUN/Creatinine Ratio 7 (6-20) Glucose Level 50 mg/dL (70-99) Calcium Level 8.2 mg/dL (8.5-10.1) Total Bilirubin 0.2 mg/dL (0.2-1.0) Aspartate Amino Transf (AST/SGOT) 18 U/L (15-37) Alanine Aminotransferase (ALT/SGPT) < 6 U/L (16-63) Alkaline Phosphatase 44 U/L (46-116) Total Protein 8.0 g/dL (6.4-8.2) Albumin 2.1 g/dL (3.4-5.0) Albumin/Globulin Ratio 0.4 (1.0-1.7) Test 12/06/18 12:16 12/06/18 17:11 12/06/18 20:44 12/07/18 05:15 Glucose (Fingerstick) 90 mg/dL (70-99) 81 mg/dL (70-99) 105 mg/dL (70-99) White Blood Count 6.8 x10^3/uL (4.0-11.0) Red Blood Count 2.96 x10^6/uL (4.30-5.70) Hemoglobin 8.0 g/dL (13.0-17.5) Hematocrit 24.3 % (39.0-53.0) Mean Corpuscular Volume 82 fL (79-100) Mean Corpuscular Hemoglobin 27 pg (25-35) Mean Corpuscular Hemoglobin Concent 33 g/dL (31-37) Red Cell Distribution Width 16.7 % (11.5-14.5) Platelet Count 300 x10^3/uL (140-400) Neutrophils (%) (Auto) 66 % (31-73) Lymphocytes (%) (Auto) 24 % (24-48) Monocytes (%) (Auto) 6 % (0-9) Eosinophils (%) (Auto) 3 % (0-3) Basophils (%) (Auto) 1 % (0-3) Neutrophils # (Auto) 4.5 x10^3/uL (1.8-7.7) Lymphocytes # (Auto) 1.7 x10^3/uL (1.0-4.8) Monocytes # (Auto) 0.4 x10^3/uL (0.0-1.1) Eosinophils # (Auto) 0.2 x10^3/uL (0.0-0.7) Basophils # (Auto) 0.1 x10^3/uL (0.0-0.2) Sodium Level 140 mmol/L (136-145) Potassium Level 3.8 mmol/L (3.5-5.1) Chloride Level 102 mmol/L (98-107) Carbon Dioxide Level 33 mmol/L (21-32) Anion Gap 5 (6-14) Blood Urea Nitrogen 8 mg/dL (8-26) Creatinine 1.2 mg/dL (0.7-1.3) Estimated GFR (Cockcroft-Gault) 61.8 BUN/Creatinine Ratio 7 (6-20) Glucose Level 89 mg/dL (70-99) Calcium Level 8.2 mg/dL (8.5-10.1) Total Bilirubin 0.2 mg/dL (0.2-1.0) Aspartate Amino Transf (AST/SGOT) 15 U/L (15-37) Alanine Aminotransferase (ALT/SGPT) 7 U/L (16-63) Alkaline Phosphatase 54 U/L (46-116) Total Protein 7.7 g/dL (6.4-8.2) Albumin 2.2 g/dL (3.4-5.0) Albumin/Globulin Ratio 0.4 (1.0-1.7) Test 12/07/18 08:02 Glucose (Fingerstick) 97 mg/dL (70-99) Laboratory Tests Test 12/06/18 17:11 12/06/18 20:44 12/07/18 05:15 12/07/18 08:02 Glucose (Fingerstick) 81 mg/dL (70-99) 105 mg/dL (70-99) 97 mg/dL (70-99) White Blood Count 6.8 x10^3/uL (4.0-11.0) Red Blood Count 2.96 x10^6/uL (4.30-5.70) Hemoglobin 8.0 g/dL (13.0-17.5) Hematocrit 24.3 % (39.0-53.0) Mean Corpuscular Volume 82 fL (79-100) Mean Corpuscular Hemoglobin 27 pg (25-35) Mean Corpuscular Hemoglobin Concent 33 g/dL (31-37) Red Cell Distribution Width 16.7 % (11.5-14.5) Platelet Count 300 x10^3/uL (140-400) Neutrophils (%) (Auto) 66 % (31-73) Lymphocytes (%) (Auto) 24 % (24-48) Monocytes (%) (Auto) 6 % (0-9) Eosinophils (%) (Auto) 3 % (0-3) Basophils (%) (Auto) 1 % (0-3) Neutrophils # (Auto) 4.5 x10^3/uL (1.8-7.7) Lymphocytes # (Auto) 1.7 x10^3/uL (1.0-4.8) Monocytes # (Auto) 0.4 x10^3/uL (0.0-1.1) Eosinophils # (Auto) 0.2 x10^3/uL (0.0-0.7) Basophils # (Auto) 0.1 x10^3/uL (0.0-0.2) Sodium Level 140 mmol/L (136-145) Potassium Level 3.8 mmol/L (3.5-5.1) Chloride Level 102 mmol/L (98-107) Carbon Dioxide Level 33 mmol/L (21-32) Anion Gap 5 (6-14) Blood Urea Nitrogen 8 mg/dL (8-26) Creatinine 1.2 mg/dL (0.7-1.3) Estimated GFR (Cockcroft-Gault) 61.8 BUN/Creatinine Ratio 7 (6-20) Glucose Level 89 mg/dL (70-99) Calcium Level 8.2 mg/dL (8.5-10.1) Total Bilirubin 0.2 mg/dL (0.2-1.0) Aspartate Amino Transf (AST/SGOT) 15 U/L (15-37) Alanine Aminotransferase (ALT/SGPT) 7 U/L (16-63) Alkaline Phosphatase 54 U/L (46-116) Total Protein 7.7 g/dL (6.4-8.2) Albumin 2.2 g/dL (3.4-5.0) Albumin/Globulin Ratio 0.4 (1.0-1.7) Microbiology 11/28/18 Blood Culture - Final, Complete NO GROWTH AFTER 5 DAYS Medications Current Medications Cefazolin Sodium/ Dextrose 50 ml @ 100 mls/hr 1X ONCE IV Last administered on 11/28/18at 21:54; Start 11/28/18 at 21:00; Stop 11/28/18 at 21:29; Status DC Vancomycin HCl 250 ml @ 250 mls/hr 1X ONCE IV Last administered on 11/28/18at 22:20; Start 11/28/18 at 21:00; Stop 11/28/18 at 21:59; Status DC Fentanyl Citrate (Fentanyl 2ml Vial) 50 mcg PRN Q2HR PRN IV SEVERE PAIN 7-10 Last administered on 12/06/18at 08:24; Start 11/29/18 at 01:00; Stop 12/06/18 at 12:28; Status DC Insulin Human Lispro (HumaLOG) 0-5 UNITS TIDWMEALS SQ ; Start 11/29/18 at 08:00; Stop 11/29/18 at 08:12; Status DC Dextrose (Dextrose 50%-Water Syringe) 12.5 gm PRN Q15MIN PRN IV SEE COMMENTS; Start 11/29/18 at 01:15; Status Cancel Insulin Human Lispro (HumaLOG) 0-9 UNITS TIDWMEALS SQ Last administered on 12/05/18 08:12; Start 11/29/18 at 09:00 Dextrose (Dextrose 50%-Water Syringe) 12.5 gm PRN Q15MIN PRN IV SEE COMMENTS L ast administered on 12/04/18 10:22; Start 11/29/18 at 08:15 Acetaminophen (Tylenol) 500 mg PRN Q6HRS PRN PO MILD PAIN / TEMP; Start 11/29/18 at 08:15 Fentanyl Citrate (Fentanyl 2ml Vial) 50 mcg PRN Q2HR PRN IV PAIN; Start 11/29/18 at 08:15; Stop 11/30/18 at 11:35; Status DC Tramadol HCl (Ultram) 50 mg PRN Q6HRS PRN PO MODERATE PAIN; Start 11/29/18 at 08:15 Zolpidem Tartrate (Ambien) 5 mg PRN QHS PRN PO INSOMNIA Last administered on 12/04/18 22:55; Start 11/29/18 at 08:15 Cyclobenzaprine HCl (Flexeril) 10 mg BID PO Last administered on 12/05/18 21:04; Start 11/29/18 at 09:00 Duloxetine HCl (Cymbalta) 30 mg BID PO Last administered on 12/07/18 08:54; Start 11/29/18 at 09:00 Levetiracetam (Keppra) 500 mg BID PO Last administered on 12/07/18 08:53; Start 11/29/18 at 09:00 Methadone HCl (Dolophine) 10 mg TID PO Last administered on 12/07/18 08:53; Start 11/29/18 at 09:00 Non-Formulary Medication (Duloxetine Hcl (Cymbalta)) 60 mg DAILY PO ; Start 11/29/18 at 09:00; Status UNV Insulin Glargine (Lantus Syringe) 20 unit BID SQ Last administered on 12/05/18 21:05; Start 11/29/18 at 09:00; Stop 12/06/18 at 12:40; Status DC Non-Formulary Medication (Lisinopril/ Hydrochlorothiazide (Lisinopril-Hctz 20- 12.5 Mg Tab)) 2 tab DAILY PO ; Start 11/29/18 at 09:00; Status UNV Oxycodone HCl (Roxicodone) 10 mg PRN Q6HRS PRN PO SEVERE PAIN Last administered on 12/05/18 03:57; Start 11/29/18 at 08:30; Stop 12/05/18 at 08:56; Status DC Pregabalin (Lyrica) 100 mg BID PO Last administered on 12/07/18 08:53; Start 11/29/18 at 09:00 Famotidine (Pepcid) 20 mg BID PO Last administered on 12/07/18 08:53; Start 11/29/18 at 09:00 Linagliptin (Tradjenta) 5 mg DAILY PO Last administered on 12/07/18 08:54; Start 11/29/18 at 09:00 Hydroxyzine HCl (Atarax) 50 mg DAILY PO Last administered on 12/07/18 08:53; Start 11/29/18 at 09:00 Lisinopril (Prinivil) 40 mg DAILY PO Last administered on 12/07/18 08:54; Start 11/29/18 at 09:00 Hydrochlorothiazide (Hydrodiuril) 25 mg DAILY PO Last administered on 12/07/18 08:54; Start 11/29/18 at 09:00 Potassium Chloride (Klor-Con) 40 meq 1X ONCE PO Last administered on 11/29/18at 11:22; Start 11/29/18 at 10:30; Stop 11/29/18 at 10:31; Status DC Vancomycin HCl (Vanco Per Pharmacy) 1 each PRN DAILY PRN MC SEE COMMENTS Last administered on 12/01/18at 02:13; Start 11/29/18 at 10:15; Stop 12/01/18 at 11:47; Status DC Piperacillin Sod/ Tazobactam Sod (Zosyn Per Pharmacy) 1 each PRN DAILY PRN MC SEE COMMENTS; Start 11/29/18 at 10:15; Stop 11/30/18 at 10:03; Status DC Piperacillin Sod/ Tazobactam Sod 4.5 gm/Sodium Chloride 100 ml @ 200 mls/hr Q6HRS IV Last administered on 11/30/18at 05:40; Start 11/29/18 at 11:00; Stop 11/30/18 at 10:03; Status DC Vancomycin HCl 2 gm/Sodium Chloride 500 ml @ 250 mls/hr 1X ONCE IV Last administered on 11/29/18at 12:38; Start 11/29/18 at 11:00; Stop 11/29/18 at 12:59; Status DC Vancomycin HCl 2 gm/Sodium Chloride 500 ml @ 250 mls/hr Q12H IV Last administered on 11/30/18at 12:57; Start 11/30/18 at 01:00; Stop 12/01/18 at 01:53; Status DC Vancomycin HCl (Vancomycin Trough Level) 1 each 1X ONCE MC Last administered on 12/01/18at 00:30; Start 12/01/18 at 00:30; Stop 12/01/18 at 00:31; Status DC Piperacillin Sod/ Tazobactam Sod 3.375 gm/Sodium Chloride 50 ml @ 100 mls/hr Q6HRS IV Last administered on 12/05/18at 12:03; Start 11/30/18 at 12:00; Stop 12/05/18 at 15:30; Status DC Lactobacillus Rhamnosus (Culturelle) 1 cap BID PO Last administered on 12/07/18at 08:53; Start 11/30/18 at 21:00 Vancomycin HCl (Vancomycin Random Level) 1 each 1X ONCE MC ; Start 12/01/18 at 10:00; Stop 12/01/18 at 10:01; Status DC Vancomycin HCl 2 gm/Sodium Chloride 500 ml @ 250 mls/hr Q18H IV ; Start 11/04 at 11:30; Stop 12/01/18 at 11:47; Status DC Vancomycin HCl (Vancomycin Trough Level) 1 each 1X ONCE MC ; Start 12/02/18 at 23:00; Stop 12/01/18 at 11:55; Status DC Ascorbic Acid (Vitamin C) 500 mg DAILY PO Last administered on 12/07/18at 08:54; Start 12/01/18 at 13:00 Multivitamins (Thera M Plus) 1 tab DAILY PO Last administered on 12/07/18at 08:54; Start 12/01/18 at 13:00 Iodixanol (Visipaque 320) 100 ml STK-MED ONCE .ROUTE ; Start 12/02/18 at 10:01; Stop 12/02/18 at 10:01; Status DC Lidocaine/Sodium Bicarbonate (Buffered Lidocaine 1%) 3 ml STK-MED ONCE .ROUTE ; Start 12/02/18 at 10:01; Stop 12/02/18 at 10:01; Status DC Heparin Sodium/ Sodium Chloride 1,000 ml @ As Directed STK-MED ONCE .ROUTE ; Start 12/02/18 at 10:03; Stop 12/02/18 at 10:03; Status DC Midazolam HCl (Versed) 5 mg STK-MED ONCE .ROUTE ; Start 12/02/18 at 10:16; Stop 12/02/18 at 10:16; Status DC Fentanyl Citrate (Fentanyl 5ml Vial) 250 mcg STK-MED ONCE .ROUTE ; Start 12/02/18 at 10:16; Stop 12/02/18 at 10:16; Status DC Heparin Sodium (Porcine) (Heparin Sodium) 10,000 unit STK-MED ONCE .ROUTE ; Start 12/02/18 at 10:16; Stop 12/02/18 at 10:16; Status DC Diphenhydramine HCl (Benadryl) 50 mg STK-MED ONCE .ROUTE ; Start 12/02/18 at 10:49; Stop 12/02/18 at 10:49; Status DC Lidocaine/Sodium Bicarbonate (Buffered Lidocaine 1%) 3 ml 1X ONCE IJ Last administered on 12/02/18at 11:15; Start 12/02/18 at 11:15; Stop 12/02/18 at 11:16; Status DC Midazolam HCl (Versed) 5 mg 1X ONCE IV Last administered on 12/02/18at 11:15; Start 12/02/18 at 11:15; Stop 12/02/18 at 11:16; Status DC Fentanyl Citrate (Fentanyl 5ml Vial) 100 mcg 1X ONCE IV Last administered on 12/02/18at 11:15; Start 12/02/18 at 11:15; Stop 12/02/18 at 11:16; Status DC Iodixanol (Visipaque 320) 100 ml 1X ONCE IART Last administered on 12/02/18at 11:15; Start 12/02/18 at 11:15; Stop 12/02/18 at 11:16; Status DC Heparin Sodium (Porcine) (Heparin Sodium) 5,000 unit 1X ONCE IV Last administered on 12/02/18at 11:15; Start 12/02/18 at 11:15; Stop 12/02/18 at 11:16; Status DC Diphenhydramine HCl (Benadryl) 25 mg 1X ONCE IVP Last administered on 12/02/18at 11:15; Start 12/02/18 at 11:15; Stop 12/02/18 at 11:16; Status DC Clopidogrel Bisulfate (Plavix) 300 mg 1X ONCE PO Last administered on 12/02/18at 12:28; Start 12/02/18 at 12:30; Stop 12/02/18 at 12:31; Status DC Clopidogrel Bisulfate (Plavix) 75 mg [id number] PO Last administered on 12/07/18at 08:54; Start 12/03/18 at 08:00 Ondansetron HCl (Zofran) 4 mg PRN Q6HRS PRN IV NAUSEA/VOMITING; Start 12/04/18 at 07:00; Stop 12/05/18 at 06:59; Status DC Fentanyl Citrate (Fentanyl 2ml Vial) 25 mcg PRN Q5MIN PRN IV MILD PAIN 1-3; Start 12/04/18 at 07:00; Stop 12/05/18 at 06:59; Status DC Fentanyl Citrate (Fentanyl 2ml Vial) 50 mcg PRN Q5MIN PRN IV MODERATE TO SEVERE PAIN; Start 12/04/18 at 07:00; Stop 12/05/18 at 06:59; Status DC Morphine Sulfate (Morphine Sulfate) 1 mg PRN Q10MIN PRN IV SEVERE PAIN 7-10; S tart 12/04/18 at 07:00; Stop 12/05/18 at 06:59; Status UNV Ringer's Solution 1,000 ml @ 30 mls/hr Q24H IV Last administered on 12/04/18at 10:06; Start 12/04/18 at 07:00; Stop 12/04/18 at 18:59; Status DC Lidocaine HCl (Xylocaine-Mpf 1% 2ml Vial) 2 ml PRN 1X PRN ID PRIOR TO IV START; Start 12/04/18 at 07:00; Stop 12/05/18 at 06:59; Status DC Hydromorphone HCl (Dilaudid) 0.5 mg PRN Q10MIN PRN IV SEV PAIN, Second choice; Start 12/04/18 at 07:00; Stop 12/05/18 at 06:59; Status UNV Prochlorperazine Edisylate (Compazine) 5 mg PACU PRN PRN IV NAUSEA, MRX1 Last administered on 12/04/18at 13:35; Start 12/04/18 at 07:00; Stop 12/05/18 at 06:59; Status DC Lidocaine HCl (Lidocaine Pf 2% Vial) 5 ml STK-MED ONCE .ROUTE ; Start 12/04/18 at 08:12; Stop 12/04/18 at 08:12; Status DC Propofol 20 ml @ As Directed STK-MED ONCE IV ; Start 12/04/18 at 08:12; Stop 12/04/18 at 08:12; Status DC Fentanyl Citrate (Fentanyl 2ml Vial) 100 mcg STK-MED ONCE .ROUTE ; Start 12/04/18 at 08:12; Stop 12/04/18 at 08:12; Status DC Rocuronium [place] (Zemuron) 50 mg STK-MED ONCE .ROUTE ; Start 12/04/18 at 08:12; Stop 12/04/18 at 08:12; Status DC Cefazolin Sodium/ Dextrose 50 ml @ 100 mls/hr 1X ONCE IV Last administered on 12/04/18at 10:32; Start 12/04/18 at 10:30; Stop 12/04/18 at 10:59; Status DC Lidocaine HCl (Xylocaine 1% Pf 30ml Vial) 30 ml STK-MED ONCE .ROUTE ; Start 12/04/18 at 10:10; Stop 12/04/18 at 10:11; Status DC Bupivacaine HCl (Sensorcaine Mpf 0.5%) 30 ml STK-MED ONCE .ROUTE ; Start 12/04/18 at 10:11; Stop 12/04/18 at 10:11; Status DC Ondansetron HCl (Zofran) 4 mg STK-MED ONCE .ROUTE ; Start 12/04/18 at 10:43; Stop 12/04/18 at 10:43; Status DC Dexamethasone Sodium Phosphate (Decadron) 4 mg STK-MED ONCE .ROUTE ; Start 12/04/18 at 10:43; Stop 12/04/18 at 10:43; Status DC Glycopyrrolate (Robinul) 1 mg STK-MED ONCE .ROUTE ; Start 12/04/18 at 10:44; Stop 12/04/18 at 10:44; Status DC Neostigmine Methylsulfate (Neostigmine Methylsulfate) 5 mg STK-MED ONCE .ROUTE ; Start 12/04/18 at 10:44; Stop 12/04/18 at 10:44; Status DC Ketamine HCl (Ketamine) 50 mg STK-MED ONCE .ROUTE ; Start 12/04/18 at 10:44; Stop 12/04/18 at 10:45; Status DC Cefazolin Sodium (Ancef) 1 gm STK-MED ONCE .ROUTE ; Start 12/04/18 at 11:01; Stop 12/04/18 at 11:01; Status DC Phenylephrine HCl (PHENYLEPHRINE in 0.9% NACL PF) 1 mg STK-MED ONCE IV ; Start 12/04/18 at 13:06; Stop 12/04/18 at 13:06; Status DC Ephedrine Sulfate (ePHEDrine PF IN SALINE SYRINGE) 50 mg STK-MED ONCE IV ; Start 12/04/18 at 13:06; Stop 12/04/18 at 13:06; Status DC Albumin Human 500 ml @ As Directed STK-MED ONCE IV ; Start 12/04/18 at 13:06; Stop 12/04/18 at 13:06; Status DC Sevoflurane (Ultane) 90 ml STK-MED ONCE IH ; Start 12/04/18 at 13:06; Stop 12/04/18 at 13:06; Status DC Fentanyl Citrate (Fentanyl 2ml Vial) 100 mcg STK-MED ONCE .ROUTE ; Start 12/04/18 at 13:06; Stop 12/04/18 at 13:07; Status DC Fentanyl Citrate (Fentanyl 2ml Vial) 100 mcg STK-MED ONCE .ROUTE ; Start 12/04/18 at 13:29; Stop 12/04/18 at 13:29; Status DC Prochlorperazine Edisylate (Compazine) 10 mg STK-MED ONCE .ROUTE ; Start 12/04/18 at 13:29; Stop 12/04/18 at 13:29; Status DC Hydromorphone HCl (Dilaudid) 2 mg STK-MED ONCE .ROUTE ; Start 12/04/18 at 13:34; Stop 12/04/18 at 13:34; Status DC Hydromorphone HCl (Dilaudid) 0.5 mg PRN Q10MIN PRN IV PAIN Last administered on 12/04/18at 14:48; Start 12/04/18 at 13:45; Stop 12/05/18 at 10:13; Status DC Cefazolin Sodium 3 gm/Dextrose 100 ml @ 200 mls/hr Q6H IV Last administered on 12/05/18at 03:52; Start 12/04/18 at 16:00; Stop 12/05/18 at 04:29; Status DC Hydromorphone HCl (Dilaudid) 2 mg STK-MED ONCE .ROUTE ; Start 12/04/18 at 14:01; Stop 12/04/18 at 14:02; Status DC Dextrose/Sodium Chloride 1,000 ml @ 75 mls/hr [id number] IV Last administered on 12/04/18at 23:59; Start 12/04/18 at 14:15; Stop 12/05/18 at 13:50; Status DC Sodium Chloride 1,000 ml @ 0 mls/hr 1X ONCE IV Last administered on 12/04/18at 13:09; Start 12/04/18 at 14:15; Stop 12/04/18 at 14:18; Status DC Oxycodone HCl (Roxicodone) 20 mg PRN Q3HRS PRN PO SEVERE PAIN Last administered on 12/07/18at 08:55; Start 12/05/18 at 09:00 Sodium Chloride 1,000 ml @ 75 mls/hr [id number] IV Last administered on 12/07/18 05:27; Start 12/05/18 at 14:00 Cefazolin Sodium 2 gm/Dextrose 50 ml @ 100 mls/hr Q8HRS IV Last administered on 12/07/18at 05:27; Start 12/05/18 at 22:00 Fentanyl Citrate (Fentanyl 2ml Vial) 100 mcg PRN Q2HR PRN IV SEVERE PAIN 7-10 Last administered on 12/07/18at 10:23; Start 12/06/18 at 12:30 Diphenhydramine HCl (Benadryl) 25 mg PRN Q6HRS PRN PO ITCHING; Start 12/06/18 at 12:30 Active Scripts Active Keppra (Levetiracetam) 500 Mg Tablet 500 Mg PO BID 30 Days Reported Oxycodone Hcl 5 Mg Capsule 10 Mg PO PRN Q6HRS PRN Methadone Hcl 10 Mg Tablet 10 Mg PO TID Lyrica (Pregabalin) 100 Mg Capsule 100 Mg PO BID Zantac (Ranitidine Hcl) 150 Mg Tablet 150 Mg PO BID Hydroxyzine Pamoate 50 Mg Capsule 50 Mg PO Cyclobenzaprine Hcl 10 Mg Tablet 10 Mg PO BID Cymbalta (Duloxetine Hcl) 30 Mg Capsule.dr 30 Mg PO BID Augmentin 875-125 Tablet (Amoxicillin/Potassium Clav) 1 Each Tablet 1 Tab PO BID Cipro (Ciprofloxacin Hcl) 500 Mg Tablet 500 Mg PO BID Levemir (Insulin Detemir) 100 Unit/1 Ml Vial 20 Unit SQ BID Cymbalta (Duloxetine Hcl) 60 Mg Capsule.dr 60 Mg PO DAILY Tramadol Hcl 50 Mg Tablet 100 Mg PO Q6H PRN Lisinopril-Hctz 20-12.5 Mg Tab (Lisinopril/Hydrochlorothiazide) 1 Each Tablet 2 Tab PO DAILY Januvia (Sitagliptin Phosphate) 100 Mg Tablet 100 Mg PO DAILY Vitals/I & O Vital Sign - Last 24 Hours 12/06/18 12/06/18 12/06/18 12/06/18 13:27 13:27 13:57 14:27 Resp 22 22 16 16 O2 Delivery Room Air Room Air Room Air Room Air 12/06/18 12/06/18 12/06/18 12/06/18 15:00 19:00 19:51 19:51 Temp 98.0 98.1 98.0 98.1 Pulse 73 78 Resp 16 18 B/P (MAP) 150/74 (99) 130/48 (75) Pulse Ox 95 91 95 95 O2 Delivery Room Air Room Air Room Air Room Air O2 Flow Rate 12.0 12.0 12/06/18 12/06/18 12/06/18 12/06/18 20:00 20:21 20:51 23:00 Temp 98.1 98.1 Pulse 81 Resp 18 B/P (MAP) 135/68 (90) Pulse Ox 95 95 94 O2 Delivery Room Air Room Air Room Air Room Air O2 Flow Rate 12.0 12.0 12/06/18 12/06/18 12/07/18 12/07/18 23:19 23:49 03:00 03:32 Temp 97.9 97.9 Pulse 77 Resp 18 B/P (MAP) 154/86 (108) Pulse Ox 95 95 96 95 O2 Delivery Room Air Room Air Room Air Room Air O2 Flow Rate 12.0 12.0 12.0 12/07/18 12/07/18 12/07/18 12/07/18 04:26 04:32 04:56 07:00 Temp 98.3 98.3 Pulse 80 Resp 18 B/P (MAP) 163/49 (87) Pulse Ox 95 95 95 93 O2 Delivery Room Air Room Air Room Air Room Air O2 Flow Rate 12.0 12.0 12.0 12/07/18 12/07/18 12/07/18 12/07/18 08:00 08:54 08:55 10:23 Pulse 80 B/P (MAP) 163/49 O2 Delivery Room Air Room Air Room Air 12/07/18 11:00 Temp 98.0 98.0 Pulse 75 Resp 14 B/P (MAP) 147/74 (98) Pulse Ox 96 O2 Delivery Room Air Intake and Output 12/06/18 12/06/18 12/07/18 15:00 23:00 07:00 Intake Total 290 ml 480 ml Output Total 1700 ml 800 ml Balance -1410 ml 480 ml -800 ml CLAYTON LEARY MD Dec 07, 2018 13:25
[2018-12-07] MEDS ORDERED: OXYC5TAB4 PO (13:30)
[2018-12-07] MEDS ORDERED: CLOP75TA PO (13:30)
[2018-12-07] MEDS ORDERED: METH10TA2 PO (13:30)
[2018-12-07] MEDS ORDERED: INSU100I11 SQ (13:30)
[2018-12-07 15:00] VITALS: BP 160/63
[2018-12-07 19:00] VITALS: BP 130/61
[2018-12-07 23:41] VITALS: BP 134/64
[2018-12-08] MEDS: oxyCODONE IR 5 MG TABLET PO PRN ×6 (03:15→20:22)
[2018-12-08 03:28] VITALS: BP 150/70
[2018-12-08] MEDS: ceFAZolin SODIUM 2 GM in IV DEXTROSE 5% 50 ML IV SCH ×3 (05:41→22:00)
[2018-12-08 05:53] LABS: BASO # 0.1 x10^3/uL (0.0-0.2); BASO % 1 % (0-3); EOS # 0.2 x10^3/uL (0.0-0.7); EOS % 4 % (0-3); HEMATOCRIT 27.6 % (39.0-53.0); HEMOGLOBIN 9.2 g/dL (13.0-17.5); LYMPH # 1.4 x10^3/uL (1.0-4.8); LYMPH % 28 % (24-48); MEAN CORPUSCULAR HEMOGLOBIN 27 pg (25-35); MEAN CORPUSCULAR HGB CONC 33 g/dL (31-37); MEAN CORPUSCULAR VOLUME 82 fL (79-100); MONO # 0.3 x10^3/uL (0.0-1.1); MONO % 6 % (0-9); NEUT # 3.1 x10^3/uL (1.8-7.7); NEUT % 61 % (31-73); PLATELET COUNT 276 x10^3/uL (140-400); RED BLOOD COUNT 3.37 x10^6/uL (4.30-5.70); RED CELL DISTRIBUTION WIDTH 16.9 % (11.5-14.5); WHITE BLOOD COUNT 5.2 x10^3/uL (4.0-11.0)
[2018-12-08 06:22] LABS: ALBUMIN 2.4 g/dL (3.4-5.0); ALBUMIN/GLOBULIN RATIO 0.4 (1.0-1.7); CALCIUM 8.9 mg/dL (8.5-10.1); CREATININE 1.1 mg/dL (0.7-1.3); GFR 68.3; TOTAL BILIRUBIN 0.2 mg/dL (0.2-1.0); TOTAL PROTEIN 8.3 g/dL (6.4-8.2)
[2018-12-08 07:00] VITALS: BP 176/87
[2018-12-08] MEDS: INSULIN LISPRO 300 UNITS/3 ML VIAL. SQ SCH ×3 (08:00→17:00)
[2018-12-08] MEDS: CYCLOBENZAPRINE 10 MG TABLET. PO SCH ×2 (09:00→20:22)
[2018-12-08] MEDS: hydroCHLOROthiazide 25 MG TABLET PO SCH (09:11)
[2018-12-08] MEDS: DULoxetine HCL 30 MG CAPSULE.DR PO SCH ×2 (09:13→20:22)
[2018-12-08] MEDS: levETIRAcetam 500 MG TABLET PO SCH ×2 (09:13→20:22)
[2018-12-08] MEDS: ASCORBIC ACID 500 MG TABLET PO SCH (09:13)
[2018-12-08] MEDS: LINAGLIPTIN 5 MG TABLET PO SCH (09:13)
[2018-12-08] MEDS: PREGABALIN 50 MG CAPSULE PO SCH ×2 (09:13→20:21)
[2018-12-08] MEDS: LACTOBACILLUS RHAMNOSUS GG 1 CAPSULE. PO SCH ×2 (09:14→20:22)
[2018-12-08] MEDS: MULTIVITAMIN with MINERAL TABLET. PO SCH (09:14)
[2018-12-08] MEDS: CLOPIDOGREL BISULFATE 75 MG TABLET PO SCH (09:14)
[2018-12-08] MEDS: METHADONE 10 MG TABLET. PO SCH ×3 (09:14→20:22)
[2018-12-08] MEDS: FAMOTIDINE 20 MG TABLET. PO SCH ×2 (09:14→20:22)
[2018-12-08] MEDS: LISINOPRIL 20 MG TABLET PO SCH (09:15)
[2018-12-08] MEDS: fentaNYL PF VIAL 100 MCG/2 ML VIAL IV PRN (10:06)
[2018-12-08] MEDS: hydrOXYzine 25 MG TABLET PO SCH (10:06)
--- NOTE | 2018-12-08 10:33 | PDOC ---
ORTHO PROGRESS NOTES Subjective He is feeling phantom pain at his right foot. No other complaints or concerns today Vitals Vital Signs Date Time Temp Pulse Resp B/P (MAP) Pulse Ox O2 Delivery O2 Flow Rate FiO2 12/08/18 10:06 Room Air 12/08/18 09:15 71 176/87 12/08/18 07:00 97.6 16 97 97.6 12/08/18 06:22 12.0 Labs Laboratory Tests Test 12/06/18 12:16 12/06/18 17:11 12/06/18 20:44 12/07/18 05:15 Glucose (Fingerstick) 90 mg/dL (70-99) 81 mg/dL (70-99) 105 mg/dL (70-99) White Blood Count 6.8 x10^3/uL (4.0-11.0) Red Blood Count 2.96 x10^6/uL (4.30-5.70) Hemoglobin 8.0 g/dL (13.0-17.5) Hematocrit 24.3 % (39.0-53.0) Mean Corpuscular Volume 82 fL (79-100) Mean Corpuscular Hemoglobin 27 pg (25-35) Mean Corpuscular Hemoglobin Concent 33 g/dL (31-37) Red Cell Distribution Width 16.7 % (11.5-14.5) Platelet Count 300 x10^3/uL (140-400) Neutrophils (%) (Auto) 66 % (31-73) Lymphocytes (%) (Auto) 24 % (24-48) Monocytes (%) (Auto) 6 % (0-9) Eosinophils (%) (Auto) 3 % (0-3) Basophils (%) (Auto) 1 % (0-3) Neutrophils # (Auto) 4.5 x10^3/uL (1.8-7.7) Lymphocytes # (Auto) 1.7 x10^3/uL (1.0-4.8) Monocytes # (Auto) 0.4 x10^3/uL (0.0-1.1) Eosinophils # (Auto) 0.2 x10^3/uL (0.0-0.7) Basophils # (Auto) 0.1 x10^3/uL (0.0-0.2) Sodium Level 140 mmol/L (136-145) Potassium Level 3.8 mmol/L (3.5-5.1) Chloride Level 102 mmol/L (98-107) Carbon Dioxide Level 33 mmol/L (21-32) Anion Gap 5 (6-14) Blood Urea Nitrogen 8 mg/dL (8-26) Creatinine 1.2 mg/dL (0.7-1.3) Estimated GFR (Cockcroft-Gault) 61.8 BUN/Creatinine Ratio 7 (6-20) Glucose Level 89 mg/dL (70-99) Calcium Level 8.2 mg/dL (8.5-10.1) Total Bilirubin 0.2 mg/dL (0.2-1.0) Aspartate Amino Transf (AST/SGOT) 15 U/L (15-37) Alanine Aminotransferase (ALT/SGPT) 7 U/L (16-63) Alkaline Phosphatase 54 U/L (46-116) Total Protein 7.7 g/dL (6.4-8.2) Albumin 2.2 g/dL (3.4-5.0) Albumin/Globulin Ratio 0.4 (1.0-1.7) Test 12/07/18 08:02 12/07/18 11:45 12/07/18 16:51 12/07/18 16:53 Glucose (Fingerstick) 97 mg/dL (70-99) 88 mg/dL (70-99) 20 mg/dL (70-99) 87 mg/dL (70-99) Test 12/07/18 21:24 12/08/18 05:00 12/08/18 07:39 Glucose (Fingerstick) 86 mg/dL (70-99) 153 mg/dL (70-99) White Blood Count 5.2 x10^3/uL (4.0-11.0) Red Blood Count 3.37 x10^6/uL (4.30-5.70) Hemoglobin 9.2 g/dL (13.0-17.5) Hematocrit 27.6 % (39.0-53.0) Mean Corpuscular Volume 82 fL (79-100) Mean Corpuscular Hemoglobin 27 pg (25-35) Mean Corpuscular Hemoglobin Concent 33 g/dL (31-37) Red Cell Distribution Width 16.9 % (11.5-14.5) Platelet Count 276 x10^3/uL (140-400) Neutrophils (%) (Auto) 61 % (31-73) Lymphocytes (%) (Auto) 28 % (24-48) Monocytes (%) (Auto) 6 % (0-9) Eosinophils (%) (Auto) 4 % (0-3) Basophils (%) (Auto) 1 % (0-3) Neutrophils # (Auto) 3.1 x10^3/uL (1.8-7.7) Lymphocytes # (Auto) 1.4 x10^3/uL (1.0-4.8) Monocytes # (Auto) 0.3 x10^3/uL (0.0-1.1) Eosinophils # (Auto) 0.2 x10^3/uL (0.0-0.7) Basophils # (Auto) 0.1 x10^3/uL (0.0-0.2) Sodium Level 141 mmol/L (136-145) Potassium Level 4.0 mmol/L (3.5-5.1) Chloride Level 103 mmol/L (98-107) Carbon Dioxide Level 33 mmol/L (21-32) Anion Gap 5 (6-14) Blood Urea Nitrogen 10 mg/dL (8-26) Creatinine 1.1 mg/dL (0.7-1.3) Estimated GFR (Cockcroft-Gault) 68.3 BUN/Creatinine Ratio 9 (6-20) Glucose Level 107 mg/dL (70-99) Calcium Level 8.9 mg/dL (8.5-10.1) Total Bilirubin 0.2 mg/dL (0.2-1.0) Aspartate Amino Transf (AST/SGOT) 16 U/L (15-37) Alanine Aminotransferase (ALT/SGPT) 7 U/L (16-63) Alkaline Phosphatase 67 U/L (46-116) Total Protein 8.3 g/dL (6.4-8.2) Albumin 2.4 g/dL (3.4-5.0) Albumin/Globulin Ratio 0.4 (1.0-1.7) Laboratory Tests Test 12/07/18 11:45 12/07/18 16:51 12/07/18 16:53 12/07/18 21:24 Glucose (Fingerstick) 88 mg/dL (70-99) 20 mg/dL (70-99) 87 mg/dL (70-99) 86 mg/dL (70-99) Test 12/08/18 05:00 12/08/18 07:39 White Blood Count 5.2 x10^3/uL (4.0-11.0) Red Blood Count 3.37 x10^6/uL (4.30-5.70) Hemoglobin 9.2 g/dL (13.0-17.5) Hematocrit 27.6 % (39.0-53.0) Mean Corpuscular Volume 82 fL (79-100) Mean Corpuscular Hemoglobin 27 pg (25-35) Mean Corpuscular Hemoglobin Concent 33 g/dL (31-37) Red Cell Distribution Width 16.9 % (11.5-14.5) Platelet Count 276 x10^3/uL (140-400) Neutrophils (%) (Auto) 61 % (31-73) Lymphocytes (%) (Auto) 28 % (24-48) Monocytes (%) (Auto) 6 % (0-9) Eosinophils (%) (Auto) 4 % (0-3) Basophils (%) (Auto) 1 % (0-3) Neutrophils # (Auto) 3.1 x10^3/uL (1.8-7.7) Lymphocytes # (Auto) 1.4 x10^3/uL (1.0-4.8) Monocytes # (Auto) 0.3 x10^3/uL (0.0-1.1) Eosinophils # (Auto) 0.2 x10^3/uL (0.0-0.7) Basophils # (Auto) 0.1 x10^3/uL (0.0-0.2) Sodium Level 141 mmol/L (136-145) Potassium Level 4.0 mmol/L (3.5-5.1) Chloride Level 103 mmol/L (98-107) Carbon Dioxide Level 33 mmol/L (21-32) Anion Gap 5 (6-14) Blood Urea Nitrogen 10 mg/dL (8-26) Creatinine 1.1 mg/dL (0.7-1.3) Estimated GFR (Cockcroft-Gault) 68.3 BUN/Creatinine Ratio 9 (6-20) Glucose Level 107 mg/dL (70-99) Calcium Level 8.9 mg/dL (8.5-10.1) Total Bilirubin 0.2 mg/dL (0.2-1.0) Aspartate Amino Transf (AST/SGOT) 16 U/L (15-37) Alanine Aminotransferase (ALT/SGPT) 7 U/L (16-63) Alkaline Phosphatase 67 U/L (46-116) Total Protein 8.3 g/dL (6.4-8.2) Albumin 2.4 g/dL (3.4-5.0) Albumin/Globulin Ratio 0.4 (1.0-1.7) Glucose (Fingerstick) 153 mg/dL (70-99) Notes He is awake and alert. Examination of his TKA wound reveals a small amount of drainage, otherwise everything looks to be healing appropriately Assessment and Plan I did talk with him about the importance of the early BKA orthosis. We will continue to monitor his wound healing. I am okay if he is discharged, transferred to facility. He'll follow up with me in 2 weeks. DARIANA GREGORIO II, MD Dec 08, 2018 10:33
--- NOTE | 2018-12-08 10:38 | NUR ---
SS following up with discharge planning. SS met with pt to re-discuss discharge planning. Pt now agreeable to acute rehabilitation. SS discussed options and proximity to [facility] with pt. Pt requested referral be phoned and faxed to [facility], ; fax [phone]. SS will await acceptance decision and will proceed accordingly with discharge planning.
[2018-12-08 11:00] VITALS: BP 177/79
--- NOTE | 2018-12-08 11:03 | PDOC3 ---
Discharge Summary Visit Information Date of Admission: Nov 28, 2018 Date of Discharge: Dec 08, 2018 Admitting Diagnosis Comment: Osteomyelitis, right foot Diabetes type 2 - A1c 7.7 Diabetes type 2 with neuropathy H/o TMA - rt foot one and half months ago [facility] Peripheral arterial disease - confirmed with RLE arterial doppler opioid tolerance and chronic pain Final Diagnosis Problems Medical Problems: (1) Acute kidney injury Status: Acute (2) Cellulitis, unspecified Status: Acute Brief Hospital Course Allergies Allergies Coded Allergies Type Severity Reaction Last Updated Verified aspirin Allergy Intermediate 12/04/18 Yes gabapentin Allergy Intermediate 12/04/18 Yes morphine Allergy Intermediate 12/04/18 Yes Vital Signs Vital Signs Date Time Temp Pulse Resp B/P (MAP) Pulse Ox O2 Delivery O2 Flow Rate FiO2 12/08/18 10:37 Room Air 12/08/18 09:15 71 176/87 12/08/18 07:00 97.6 16 97 97.6 12/08/18 06:22 12.0 Lab Results Laboratory Tests Test 12/06/18 12:16 12/06/18 17:11 12/06/18 20:44 12/07/18 05:15 Glucose (Fingerstick) 90 mg/dL (70-99) 81 mg/dL (70-99) 105 mg/dL (70-99) White Blood Count 6.8 x10^3/uL (4.0-11.0) Red Blood Count 2.96 x10^6/uL (4.30-5.70) Hemoglobin 8.0 g/dL (13.0-17.5) Hematocrit 24.3 % (39.0-53.0) Mean Corpuscular Volume 82 fL (79-100) Mean Corpuscular Hemoglobin 27 pg (25-35) Mean Corpuscular Hemoglobin Concent 33 g/dL (31-37) Red Cell Distribution Width 16.7 % (11.5-14.5) Platelet Count 300 x10^3/uL (140-400) Neutrophils (%) (Auto) 66 % (31-73) Lymphocytes (%) (Auto) 24 % (24-48) Monocytes (%) (Auto) 6 % (0-9) Eosinophils (%) (Auto) 3 % (0-3) Basophils (%) (Auto) 1 % (0-3) Neutrophils # (Auto) 4.5 x10^3/uL (1.8-7.7) Lymphocytes # (Auto) 1.7 x10^3/uL (1.0-4.8) Monocytes # (Auto) 0.4 x10^3/uL (0.0-1.1) Eosinophils # (Auto) 0.2 x10^3/uL (0.0-0.7) Basophils # (Auto) 0.1 x10^3/uL (0.0-0.2) Sodium Level 140 mmol/L (136-145) Potassium Level 3.8 mmol/L (3.5-5.1) Chloride Level 102 mmol/L (98-107) Carbon Dioxide Level 33 mmol/L (21-32) Anion Gap 5 (6-14) Blood Urea Nitrogen 8 mg/dL (8-26) Creatinine 1.2 mg/dL (0.7-1.3) Estimated GFR (Cockcroft-Gault) 61.8 BUN/Creatinine Ratio 7 (6-20) Glucose Level 89 mg/dL (70-99) Calcium Level 8.2 mg/dL (8.5-10.1) Total Bilirubin 0.2 mg/dL (0.2-1.0) Aspartate Amino Transf (AST/SGOT) 15 U/L (15-37) Alanine Aminotransferase (ALT/SGPT) 7 U/L (16-63) Alkaline Phosphatase 54 U/L (46-116) Total Protein 7.7 g/dL (6.4-8.2) Albumin 2.2 g/dL (3.4-5.0) Albumin/Globulin Ratio 0.4 (1.0-1.7) Test 12/07/18 08:02 12/07/18 11:45 12/07/18 16:51 12/07/18 16:53 Glucose (Fingerstick) 97 mg/dL (70-99) 88 mg/dL (70-99) 20 mg/dL (70-99) 87 mg/dL (70-99) Test 12/07/18 21:24 12/08/18 05:00 12/08/18 07:39 Glucose (Fingerstick) 86 mg/dL (70-99) 153 mg/dL (70-99) White Blood Count 5.2 x10^3/uL (4.0-11.0) Red Blood Count 3.37 x10^6/uL (4.30-5.70) Hemoglobin 9.2 g/dL (13.0-17.5) Hematocrit 27.6 % (39.0-53.0) Mean Corpuscular Volume 82 fL (79-100) Mean Corpuscular Hemoglobin 27 pg (25-35) Mean Corpuscular Hemoglobin Concent 33 g/dL (31-37) Red Cell Distribution Width 16.9 % (11.5-14.5) Platelet Count 276 x10^3/uL (140-400) Neutrophils (%) (Auto) 61 % (31-73) Lymphocytes (%) (Auto) 28 % (24-48) Monocytes (%) (Auto) 6 % (0-9) Eosinophils (%) (Auto) 4 % (0-3) Basophils (%) (Auto) 1 % (0-3) Neutrophils # (Auto) 3.1 x10^3/uL (1.8-7.7) Lymphocytes # (Auto) 1.4 x10^3/uL (1.0-4.8) Monocytes # (Auto) 0.3 x10^3/uL (0.0-1.1) Eosinophils # (Auto) 0.2 x10^3/uL (0.0-0.7) Basophils # (Auto) 0.1 x10^3/uL (0.0-0.2) Sodium Level 141 mmol/L (136-145) Potassium Level 4.0 mmol/L (3.5-5.1) Chloride Level 103 mmol/L (98-107) Carbon Dioxide Level 33 mmol/L (21-32) Anion Gap 5 (6-14) Blood Urea Nitrogen 10 mg/dL (8-26) Creatinine 1.1 mg/dL (0.7-1.3) Estimated GFR (Cockcroft-Gault) 68.3 BUN/Creatinine Ratio 9 (6-20) Glucose Level 107 mg/dL (70-99) Calcium Level 8.9 mg/dL (8.5-10.1) Total Bilirubin 0.2 mg/dL (0.2-1.0) Aspartate Amino Transf (AST/SGOT) 16 U/L (15-37) Alanine Aminotransferase (ALT/SGPT) 7 U/L (16-63) Alkaline Phosphatase 67 U/L (46-116) Total Protein 8.3 g/dL (6.4-8.2) Albumin 2.4 g/dL (3.4-5.0) Albumin/Globulin Ratio 0.4 (1.0-1.7) Laboratory Tests Test 12/07/18 11:45 12/07/18 16:51 12/07/18 16:53 12/07/18 21:24 Glucose (Fingerstick) 88 mg/dL (70-99) 20 mg/dL (70-99) 87 mg/dL (70-99) 86 mg/dL (70-99) Test 12/08/18 05:00 12/08/18 07:39 White Blood Count 5.2 x10^3/uL (4.0-11.0) Red Blood Count 3.37 x10^6/uL (4.30-5.70) Hemoglobin 9.2 g/dL (13.0-17.5) Hematocrit 27.6 % (39.0-53.0) Mean Corpuscular Volume 82 fL (79-100) Mean Corpuscular Hemoglobin 27 pg (25-35) Mean Corpuscular Hemoglobin Concent 33 g/dL (31-37) Red Cell Distribution Width 16.9 % (11.5-14.5) Platelet Count 276 x10^3/uL (140-400) Neutrophils (%) (Auto) 61 % (31-73) Lymphocytes (%) (Auto) 28 % (24-48) Monocytes (%) (Auto) 6 % (0-9) Eosinophils (%) (Auto) 4 % (0-3) Basophils (%) (Auto) 1 % (0-3) Neutrophils # (Auto) 3.1 x10^3/uL (1.8-7.7) Lymphocytes # (Auto) 1.4 x10^3/uL (1.0-4.8) Monocytes # (Auto) 0.3 x10^3/uL (0.0-1.1) Eosinophils # (Auto) 0.2 x10^3/uL (0.0-0.7) Basophils # (Auto) 0.1 x10^3/uL (0.0-0.2) Sodium Level 141 mmol/L (136-145) Potassium Level 4.0 mmol/L (3.5-5.1) Chloride Level 103 mmol/L (98-107) Carbon Dioxide Level 33 mmol/L (21-32) Anion Gap 5 (6-14) Blood Urea Nitrogen 10 mg/dL (8-26) Creatinine 1.1 mg/dL (0.7-1.3) Estimated GFR (Cockcroft-Gault) 68.3 BUN/Creatinine Ratio 9 (6-20) Glucose Level 107 mg/dL (70-99) Calcium Level 8.9 mg/dL (8.5-10.1) Total Bilirubin 0.2 mg/dL (0.2-1.0) Aspartate Amino Transf (AST/SGOT) 16 U/L (15-37) Alanine Aminotransferase (ALT/SGPT) 7 U/L (16-63) Alkaline Phosphatase 67 U/L (46-116) Total Protein 8.3 g/dL (6.4-8.2) Albumin 2.4 g/dL (3.4-5.0) Albumin/Globulin Ratio 0.4 (1.0-1.7) Glucose (Fingerstick) 153 mg/dL (70-99) Brief Hospital Course Mr. Pires is a 58 old DM who came for DM foot ulcer and osteo, he is slated to to rehab or SNu with iv ABx and libby has a PICC< I see him first time today and we are on the dc phase, WOund dressed,dry has this special gadget for the stump from [facility] and has been cleared from ortho (as well as likely ID )- will wait for ID rounds MAR done by DR Levine consults: Dr Wright, ID Discharge Information Condition at Discharge: Improved, Stable Disposition/Orders: Other (snu or rehab) Scheduled Clopidogrel Bisulfate (Clopidogrel) 75 Mg Tablet, 75 MG PO DAILYWBKFT for PVD for 30 Days, #30 Prescribed by: CLAYTON LEVINE MD on 12/07/18 1330 Cyclobenzaprine Hcl (Cyclobenzaprine Hcl) 10 Mg Tablet, 10 MG PO BID, (Reported) Entered as Reported by: KIRSTEN VAZQUEZ RN on 11/26/18 0518 Last Action: Continued on 11/29/18 0811 by JAGUAR VIDALES Duloxetine Hcl (Cymbalta) 60 Mg Capsule.dr, 60 MG PO DAILY, (Reported) Entered as Reported by: William Shah on 05/21/16156 Last Action: Converted on 11/29/18810 by JAGUAR VIDALES Duloxetine Hcl (Cymbalta) 30 Mg Capsule.dr, 30 MG PO BID, (Reported) Entered as Reported by: KIRSTEN VAZQUEZ RN on 11/26/18517 Last Action: Continued on 11/29/18810 by JAGUAR VIDALES Insulin Detemir (Levemir) 100 Unit/1 Ml Vial, 20 UNIT SQ BID, (Reported) Entered as Reported by: KIRSTEN VAZQUEZ RN on 11/26/18517 Last Action: Converted on 11/29/18810 by JAGUAR VIDALES Insulin Lispro (Humalog) 100 Unit/1 Ml Insuln.pen, 0 UNITS SQ TIDWMEALS for DM2 for 30 Days, #1 BG 151-200 - 4u BG 201-250 - 5u BG 251-300 - 7u BG 301-350 - 9u BG > 351 CALL MD Prescribed by: CLAYTON LEVINE MD on 12/07/18 1330 Levetiracetam (Keppra) 500 Mg Tablet, 500 MG PO BID for 30 Days Prescribed by: RAKEL LI MD on 05/21/16 1508 Last Action: Continued on 11/29/18810 by JAGUAR VIDALES Lisinopril/Hydrochlorothiazide (Lisinopril-Hctz 20-12.5 Mg Tab) 1 Each Tablet, 2 TAB PO DAILY, #90 Ref 3 (Reported) Entered as Reported by: William Shah on 05/21/16156 Last Action: Converted on 11/29/18810 by JAGUAR VIDALES Methadone Hcl (Methadone Hcl) 10 Mg Tablet, 10 MG PO TID for Pain for 10 Days, #30 Prescribed by: CLAYTON LEVINE MD on 12/07/18 1330 Pregabalin (Lyrica) 100 Mg Capsule, 100 MG PO BID, Ref 0 (Reported) Entered as Reported by: KIRSTEN VAZQUEZ RN on 11/26/18517 Last Action: Converted on 11/29/18810 by JAGUAR VIDALES Ranitidine Hcl (Zantac) 150 Mg Tablet, 150 MG PO BID, (Reported) Entered as Reported by: KIRSTEN VAZQUEZ RN on 11/26/18517 Last Action: Converted on 11/29/18810 by JAGUAR VIDALES Sitagliptin Phosphate (Januvia) 100 Mg Tablet, 100 MG PO DAILY, (Reported) Entered as Reported by: William Shah on 05/21/16156 Last Action: Converted on 11/29/18810 by JAGUAR VIDALES Scheduled PRN Oxycodone Hcl (Oxycodone Hcl Immed.release ) 5 Mg Tablet, 20 MG PO PRN Q3HRS PRN for SEVERE PAIN for 6 Days, #18 Prescribed by: CLAYTON LEVINE MD on 12/07/18 1330 Miscellaneous Medications Hydroxyzine Pamoate (Hydroxyzine Pamoate) 50 Mg Capsule, 50 MG PO, (Reported) Entered as Reported by: KIRSTEN VAZQUEZ RN on 11/26/18517 Last Action: Converted on 11/29/18810 by JAGUAR VIDALES Discontinued Medications Amoxicillin/Potassium Clav (Augmentin 875-125 Tablet) 1 Each Tablet, 1 TAB PO BID, Ref 0 (Reported) Entered as Reported by: KIRSTNE VAZQUEZ RN on 11/26/18517 Last Action: HELD on 11/29/18810 by JAGUAR VIDALES Ciprofloxacin Hcl (Cipro) 500 Mg Tablet, 500 MG PO BID, Ref 0 (Reported) Entered as Reported by: KIRSTEN VAZQUEZ RN on 11/26/18517 Last Action: HELD on 11/29/18810 by JAGUAR VIDALES Oxycodone Hcl (Oxycodone Hcl) 5 Mg Capsule, 10 MG PO PRN Q6HRS PRN for PAIN, Ref 0 (Reported) Entered as Reported by: KIRSTEN VAZQUEZ RN on 11/26/18517 Last Action: Converted on 11/29/18810 by JAGUAR VIDALES Tramadol Hcl (Tramadol Hcl) 50 Mg Tablet, 100 MG PO Q6H PRN for PAIN, (Reported) Entered as Reported by: William Shah on 05/21/16156 Last Action: HELD on 11/29/18 0811 by JAGUAR FREEMAN MD Dec 08, 2018 11:03
--- NOTE | 2018-12-08 11:59 | PDOC ---
Infectious Disease Note Subjective Subjective Pain better controlled but hurts with movement Denies F/C/S/N/V/D/SOA ROS ROS o/w neg Vital Sign Vital Signs Vital Signs Date Time Temp Pulse Resp B/P (MAP) Pulse Ox O2 Delivery O2 Flow Rate FiO2 12/08/18 10:37 Room Air 12/08/18 09:15 71 176/87 12/08/18 07:00 97.6 16 97 97.6 12/08/18 06:22 12.0 Physical Exam PHYSICAL EXAM GENERAL: Propped up in chair, alert, eating ice cream HEENT: Pupils equal, oropharynx pink and moist, edentulous NECK: Supple. LUNGS: Clear to auscultation. HEART: S1, S2. ABDOMEN: Obese, soft, nontender with bowel sounds present. EXTREMITIES: s/p right BKA dressing dry SKIN: Warm to touch. No signs of rash. NEUROLOGIC: Alert and answering questions appropriately. PICC IV - clean -LUE. Labs Lab Laboratory Tests Test 12/07/18 16:51 12/07/18 16:53 12/07/18 21:24 12/08/18 05:00 Glucose (Fingerstick) 20 mg/dL (70-99) 87 mg/dL (70-99) 86 mg/dL (70-99) White Blood Count 5.2 x10^3/uL (4.0-11.0) Red Blood Count 3.37 x10^6/uL (4.30-5.70) Hemoglobin 9.2 g/dL (13.0-17.5) Hematocrit 27.6 % (39.0-53.0) Mean Corpuscular Volume 82 fL (79-100) Mean Corpuscular Hemoglobin 27 pg (25-35) Mean Corpuscular Hemoglobin Concent 33 g/dL (31-37) Red Cell Distribution Width 16.9 % (11.5-14.5) Platelet Count 276 x10^3/uL (140-400) Neutrophils (%) (Auto) 61 % (31-73) Lymphocytes (%) (Auto) 28 % (24-48) Monocytes (%) (Auto) 6 % (0-9) Eosinophils (%) (Auto) 4 % (0-3) Basophils (%) (Auto) 1 % (0-3) Neutrophils # (Auto) 3.1 x10^3/uL (1.8-7.7) Lymphocytes # (Auto) 1.4 x10^3/uL (1.0-4.8) Monocytes # (Auto) 0.3 x10^3/uL (0.0-1.1) Eosinophils # (Auto) 0.2 x10^3/uL (0.0-0.7) Basophils # (Auto) 0.1 x10^3/uL (0.0-0.2) Sodium Level 141 mmol/L (136-145) Potassium Level 4.0 mmol/L (3.5-5.1) Chloride Level 103 mmol/L (98-107) Carbon Dioxide Level 33 mmol/L (21-32) Anion Gap 5 (6-14) Blood Urea Nitrogen 10 mg/dL (8-26) Creatinine 1.1 mg/dL (0.7-1.3) Estimated GFR (Cockcroft-Gault) 68.3 BUN/Creatinine Ratio 9 (6-20) Glucose Level 107 mg/dL (70-99) Calcium Level 8.9 mg/dL (8.5-10.1) Total Bilirubin 0.2 mg/dL (0.2-1.0) Aspartate Amino Transf (AST/SGOT) 16 U/L (15-37) Alanine Aminotransferase (ALT/SGPT) 7 U/L (16-63) Alkaline Phosphatase 67 U/L (46-116) Total Protein 8.3 g/dL (6.4-8.2) Albumin 2.4 g/dL (3.4-5.0) Albumin/Globulin Ratio 0.4 (1.0-1.7) Test 12/08/18 07:39 12/08/18 10:40 Glucose (Fingerstick) 153 mg/dL (70-99) 84 mg/dL (70-99) Micro Microbiology 11/28/18 Blood Culture - Final, Complete NO GROWTH AFTER 5 DAYS Objective Assessment MSSA bacteremia from 11/25. Repeat BC 11/26 & neg. TTE neg Infected diabetic ulcer w/ OM, right foot. MSSA s/p BKA 12/04 Leukopenia - better TANG - better PAD s/p angioplasty right leg, 12/02 s/p TMA right foot around August 2018 at [facility] quit OP IV abx due to transportation issues and was switched to orals Peripheral neuropathy HTN Plan Plan of Care Continue Cefazolin 12/05 for treatment of MSSA bacteremia through 12/23 Pain management per primary SNF plans in the works Ok to transfer Can f/u ID office 2 weeks MAI GONSALEZ MD Dec 08, 2018 11:59
--- NOTE | 2018-12-08 12:28 | NUR ---
SS following up with discharge planning. Pt accepted at [facility], ; fax [phone], for acute rehabilitation. Per [facility] bed available in the AM tomorrow. SS notified physician and faxed script for antibiotics. SS will send discharge orders once received.
--- NOTE | 2018-12-08 14:07 | PATHOLOGY ---
[facility] Accession Number: [id number] . 01 Material submitted: . leg - RIGHT LOWER LEG. Modifiers: right, lower . 01 Clinical history: . Right foot diabetic ulcer . 02 Diagnosis: Extremity, right lower leg, below knee amputation: - Viable tissue present at margin of excision. - Skin with areas of ulceration and necrosis. - Anterior and posterior tibial vasculature with focal mild atherosclerosis without calcifications. (SKM:[facility]; 12/08/2018) [facility] 12/08/2018 1208 Local . 02 Electronically signed: . Michael Gray MD, Pathologist NPI- [id number] . 01 Gross description: . The specimen is received fresh in a red biohazard bag, labeled "Lang Pires, right lower leg". Received is a [id number] amputation measuring 22.2 cm from heel to distal stump of foot, 20.8 cm from heel to skin margin, 35.7 cm from heel to tibial bone margin, and 36.7 cm from heel to fibular bone margin. The skin and soft tissue margins are viable. All five toes are absent. The distal aspect of the foot displays a previous incision site, which is well-healed measuring approximately 17.1 cm in length. On the medial aspect of the incision site, there is a well-circumscribed, focally ulcerated and pink-red lesion measuring 2.0 x 0.5 cm. Cutting into this lesion releases a large amount of blood coagulum. At the distal most aspect of the previous incision site, the skin is light bryant, slightly crusted to flaky in appearance. On the plantar aspect of the foot, there are two well-circumscribed, focally ulcerated and pink-bryant lesions measuring 2.3 x 0.8 and 2.6 x 2.6 cm. Sectioning through the larger of these two lesions releases a moderate amount of blood coagulum. The skin overlying the lateral aspect and heel of the foot is light bryant, slightly verrucoid and flaky in appearance. Sectioning through the anterior and posterior tibial vasculatures reveals patent lumens. The specimen is submitted representatively as follows: . A1 skin and soft tissue margin A2 business office representative section of lesion on medial aspect of previous incision site A3 business office representative section of lesion on distal aspect of previous incision site A4 business office representative sections of lesion on plantar aspect of foot A5 anterior tibial vasculature A6 posterior tibial vasculature. (CAA; 12/05/2018) QAC/QAC 12/05/2018 0908 Local . 02 Pathologist provided ICD-10: I70.239 . 02 CPT . 471702 Specimen Comment: A courtesy copy of this report has been sent to Specimen Comment: [phone], , . Specimen Comment: Report sent to ,DR VIDALES / DR ZAPIEN Performed at: [facility] [address] [facility] [address], [place] [id number] MD Augustus West MD Phone: [phone] [facility]formed [facility]: [facility] [address], [place] [id number] MD Vaughn Mason MD Phone: [phone]
[2018-12-08 15:00] VITALS: BP 171/82
--- NOTE | 2018-12-08 16:01 | SNU/HH DC ---
DISCHARGE ORDERS DISCHARGE INFORMATION: DISCHARGE DATE: Dec 08, 2018 FINAL DIAGNOSIS Problems Medical Problems: (1) Acute kidney injury Status: Acute (2) Cellulitis, unspecified Status: Acute CONDITION ON DISCHARGE: Stable CODE STATUS: Code Status: Full INTERMEDIATE: SNF STAY <30 DAYS: Yes HOSPICE: HOSPICE: No HOSPICE EVAL & TREAT: No LTAC: ADMIT TO LTAC: No POST DISCHARGE ORDERS: ACTIVITY ORDERS: Activity as tolerated WEIGHT BEARING STATUS: Full weight bearing CHECKS AFTER DISCHARGE: CHECKS AFTER DISCHARGE: Check blood press - daily FOLLOW-UP: PHYSICIAN FOLLOW-UP: ID on rehab dc e abx TREATMENT/EQUIPMENT ORDERS: Physical Therapy For: Evalulation/Treatment Occupational Therapy For: Evaluation/Treatment DISCHARGE MEDICATIONS: Home Meds Active Scripts Oxycodone Hcl (OXYCODONE HCL IMMED.RELEASE ) 5 Mg Tablet, 20 MG PO PRN Q3HRS PRN for SEVERE PAIN for 6 Days, #18 TAB Prov:CLAYTON LEARY MD 12/07/18 Insulin Lispro (HUMALOG) 100 Unit/1 Ml Insuln.pen, 0 UNITS SQ TIDWMEALS for DM2 for 30 Days, #1 EACH BG 151-200 - 4u BG 201-250 - 5u BG 251-300 - 7u BG 301-350 - 9u BG > 351 CALL MD Prov:CLAYTON LEARY MD 12/07/18 Clopidogrel Bisulfate (CLOPIDOGREL) 75 Mg Tablet, 75 MG PO DAILYWBKFT for PVD for 30 Days, #30 TAB Prov:CLAYTON LEARY MD 12/07/18 Methadone Hcl (METHADONE HCL) 10 Mg Tablet, 10 MG PO TID for Pain for 10 Days, #30 TAB Prov:CLAYTON LEARY MD 12/07/18 Levetiracetam (KEPPRA) 500 Mg Tablet, 500 MG PO BID for 30 Days, TAB Prov:RAKEL LI MD 05/21/16 Reported Medications Pregabalin (LYRICA) 100 Mg Capsule, 100 MG PO BID, CAP 0 Refills 11/26/18 Ranitidine Hcl (ZANTAC) 150 Mg Tablet, 150 MG PO BID, TAB 11/26/18 Hydroxyzine Pamoate (HYDROXYZINE PAMOATE) 50 Mg Capsule, 50 MG PO, CAP 11/26/18 Cyclobenzaprine Hcl (CYCLOBENZAPRINE HCL) 10 Mg Tablet, 10 MG PO BID, TAB 11/26/18 Duloxetine Hcl (CYMBALTA) 30 Mg Capsule.dr, 30 MG PO BID, CAP 11/26/18 Insulin Detemir (LEVEMIR) 100 Unit/1 Ml Vial, 20 UNIT SQ BID, VIAL 11/26/18 Duloxetine Hcl (CYMBALTA) 60 Mg Capsule.dr, 60 MG PO DAILY, CAP 05/21/16 Lisinopril/Hydrochlorothiazide (LISINOPRIL-HCTZ 20-12.5 MG TAB) 1 Each Tablet, 2 TAB PO DAILY, #90 TAB 3 Refills 05/21/16 Sitagliptin Phosphate (JANUVIA) 100 Mg Tablet, 100 MG PO DAILY, TAB 05/21/16 Discontinued Reported Medications Oxycodone Hcl (OXYCODONE HCL) 5 Mg Capsule, 10 MG PO PRN Q6HRS PRN for PAIN, TAB 0 Refills 11/26/18 Amoxicillin/Potassium Clav (AUGMENTIN 875-125 TABLET) 1 Each Tablet, 1 TAB PO BID, TAB 0 Refills 11/26/18 Ciprofloxacin Hcl (CIPRO) 500 Mg Tablet, 500 MG PO BID, TAB 0 Refills 11/26/18 Tramadol Hcl (TRAMADOL HCL) 50 Mg Tablet, 100 MG PO Q6H PRN for PAIN, TAB 05/21/16 JAGUAR VIDALES MD Dec 08, 2018 16:01
--- NOTE | 2018-12-08 16:27 | NUR ---
SS following up with discharge planning. SS phoned and faxed discharge orders to [facility], ; fax [phone]. SS spoke with Sophia from [facility]. Sophia reported that she would contact SS in the morning to schedule transport to facility.
[2018-12-08 19:00] VITALS: BP 157/66
[2018-12-08 23:00] VITALS: BP 167/75
[2018-12-09] MEDS: oxyCODONE IR 5 MG TABLET PO PRN ×3 (02:10→14:11)
[2018-12-09 03:00] VITALS: BP 141/72
[2018-12-09 03:10] LABS: BASO # 0.1 x10^3/uL (0.0-0.2); BASO % 1 % (0-3); EOS # 0.2 x10^3/uL (0.0-0.7); EOS % 3 % (0-3); HEMOGLOBIN 8.8 g/dL (13.0-17.5); LYMPH # 1.7 x10^3/uL (1.0-4.8); LYMPH % 25 % (24-48); MEAN CORPUSCULAR HEMOGLOBIN 27 pg (25-35); MEAN CORPUSCULAR HGB CONC 33 g/dL (31-37); MEAN CORPUSCULAR VOLUME 82 fL (79-100); MONO # 0.5 x10^3/uL (0.0-1.1); MONO % 8 % (0-9); NEUT # 4.3 x10^3/uL (1.8-7.7); NEUT % 63 % (31-73); PLATELET COUNT 287 x10^3/uL (140-400); RED BLOOD COUNT 3.32 x10^6/uL (4.30-5.70); RED CELL DISTRIBUTION WIDTH 17.1 % (11.5-14.5); WHITE BLOOD COUNT 6.8 x10^3/uL (4.0-11.0)
[2018-12-09 03:22] LABS: ALBUMIN 2.5 g/dL (3.4-5.0); ALBUMIN/GLOBULIN RATIO 0.4 (1.0-1.7); CALCIUM 8.9 mg/dL (8.5-10.1); CREATININE 1.2 mg/dL (0.7-1.3); GFR 61.8; POTASSIUM 3.8 mmol/L (3.5-5.1); TOTAL BILIRUBIN 0.2 mg/dL (0.2-1.0); TOTAL PROTEIN 8.5 g/dL (6.4-8.2)
[2018-12-09] MEDS: ceFAZolin SODIUM 2 GM in IV DEXTROSE 5% 50 ML IV SCH ×2 (05:47→14:06)
[2018-12-09 07:00] VITALS: BP 175/85
[2018-12-09] MEDS: FAMOTIDINE 20 MG TABLET. PO SCH (07:37)
[2018-12-09] MEDS: hydroCHLOROthiazide 25 MG TABLET PO SCH (07:37)
[2018-12-09] MEDS: METHADONE 10 MG TABLET. PO SCH ×2 (07:38→14:06)
[2018-12-09] MEDS: DULoxetine HCL 30 MG CAPSULE.DR PO SCH (07:38)
[2018-12-09] MEDS: PREGABALIN 50 MG CAPSULE PO SCH (07:38)
[2018-12-09] MEDS: CLOPIDOGREL BISULFATE 75 MG TABLET PO SCH (07:38)
[2018-12-09] MEDS: LACTOBACILLUS RHAMNOSUS GG 1 CAPSULE. PO SCH (07:39)
[2018-12-09] MEDS: hydrOXYzine 25 MG TABLET PO SCH (07:39)
[2018-12-09] MEDS: LINAGLIPTIN 5 MG TABLET PO SCH (07:39)
[2018-12-09] MEDS: ASCORBIC ACID 500 MG TABLET PO SCH (07:39)
[2018-12-09] MEDS: MULTIVITAMIN with MINERAL TABLET. PO SCH (07:39)
[2018-12-09] MEDS: levETIRAcetam 500 MG TABLET PO SCH (07:39)
[2018-12-09] MEDS: LISINOPRIL 20 MG TABLET PO SCH (07:43)
[2018-12-09] MEDS: INSULIN LISPRO 300 UNITS/3 ML VIAL. SQ SCH ×2 (07:46→12:04)
[2018-12-09] MEDS: CYCLOBENZAPRINE 10 MG TABLET. PO SCH (09:00)
--- NOTE | 2018-12-09 09:37 | PDOC ---
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 Madsen Vitals/I&O Vitals/I&O: Vital Signs Date Time Temp Pulse Resp B/P (MAP) Pulse Ox O2 Delivery O2 Flow Rate FiO2 12/09/18 07:43 74 175/85 12/09/18 07:40 20 12/09/18 07:00 97.7 98 Room Air 97.7 12/08/18 20:22 12.0 I & O 12/08/18 12/08/18 12/09/18 14:59 22:59 06:59 Intake Total 180 ml 230 ml Output Total 700 ml 1125 ml Balance -520 ml -895 ml Physical Exam Physical Exam: GENERAL: Propped up in chair, alert, eating ice cream HEENT: Pupils equal, oropharynx pink and moist, edentulous NECK: Supple. LUNGS: Clear to auscultation. HEART: S1, S2. ABDOMEN: Obese, soft, nontender with bowel sounds present. EXTREMITIES: s/p right BKA dressing dry SKIN: Warm to touch. No signs of rash. NEUROLOGIC: Alert and answering questions appropriately. PICC IV - clean -LUE. General: Alert, Oriented X3, Cooperative, No acute distress Heart: Regular rate Lungs: Clear Abdomen: Normal bowel sounds, Soft, No tenderness, No hepatosplenomegaly, No masses Extremities: No clubbing, Other (left femoral access site dressing dry and intact) Skin: Other (right foot dressing soaked with drainage.) Labs Labs: Laboratory Tests Test 12/08/18 10:40 12/08/18 16:57 12/08/18 20:54 12/09/18 02:50 Glucose (Fingerstick) 84 mg/dL (70-99) 109 mg/dL (70-99) 132 mg/dL (70-99) White Blood Count 6.8 x10^3/uL (4.0-11.0) Red Blood Count 3.32 x10^6/uL (4.30-5.70) Hemoglobin 8.8 g/dL (13.0-17.5) Hematocrit 27.0 % (39.0-53.0) Mean Corpuscular Volume 82 fL (79-100) Mean Corpuscular Hemoglobin 27 pg (25-35) Mean Corpuscular Hemoglobin Concent 33 g/dL (31-37) Red Cell Distribution Width 17.1 % (11.5-14.5) Platelet Count 287 x10^3/uL (140-400) Neutrophils (%) (Auto) 63 % (31-73) Lymphocytes (%) (Auto) 25 % (24-48) Monocytes (%) (Auto) 8 % (0-9) Eosinophils (%) (Auto) 3 % (0-3) Basophils (%) (Auto) 1 % (0-3) Neutrophils # (Auto) 4.3 x10^3/uL (1.8-7.7) Lymphocytes # (Auto) 1.7 x10^3/uL (1.0-4.8) Monocytes # (Auto) 0.5 x10^3/uL (0.0-1.1) Eosinophils # (Auto) 0.2 x10^3/uL (0.0-0.7) Basophils # (Auto) 0.1 x10^3/uL (0.0-0.2) Sodium Level 138 mmol/L (136-145) Potassium Level 3.8 mmol/L (3.5-5.1) Chloride Level 101 mmol/L (98-107) Carbon Dioxide Level 32 mmol/L (21-32) Anion Gap 5 (6-14) Blood Urea Nitrogen 12 mg/dL (8-26) Creatinine 1.2 mg/dL (0.7-1.3) Estimated GFR (Cockcroft-Gault) 61.8 BUN/Creatinine Ratio 10 (6-20) Glucose Level 104 mg/dL (70-99) Calcium Level 8.9 mg/dL (8.5-10.1) Total Bilirubin 0.2 mg/dL (0.2-1.0) Aspartate Amino Transf (AST/SGOT) 14 U/L (15-37) Alanine Aminotransferase (ALT/SGPT) 9 U/L (16-63) Alkaline Phosphatase 71 U/L (46-116) Total Protein 8.5 g/dL (6.4-8.2) Albumin 2.5 g/dL (3.4-5.0) Albumin/Globulin Ratio 0.4 (1.0-1.7) Test 12/09/18 07:44 Glucose (Fingerstick) 92 mg/dL (70-99) Review of Systems Review of Systems: Pt co pain Pt denies headache Pt denies dyspnea Assessment and Plan Assessmemt and Plan Problems Medical Problems: (1) Acute kidney injury Status: Acute (2) Cellulitis, unspecified Status: Acute Assessment Right BKA Osteomyelitis of right foot Diabetes mellitus Peripheral artery disease Diabetic neuropathy S/p right leg angioplasty Plan Discharge to [facility] Rehab in progress Wound care IV abx per ID PT/OT Full code Appreciate recommendations from vascular surgery and ortho Comment Review of Relevant I have reviewed the following items wilber (where applicable) has been applied. EZEKIEL TONG III DO Dec 09, 2018 09:37
--- NOTE | 2018-12-09 09:49 | NUR ---
upon arrival this am; he had blood tinge towels on the floor. states that he had a ingrown toenail and was trying to fix it. cleansed old blood off. he had/has a callus in the right great toe ball. cleansed Aquacel ag foam then wrapped with Lisbet. instructed not to pull or play with his incisions. could cause infection. he verbalized that he other foot started that way. again told not to play with his foot and make it bleed.
--- NOTE | 2018-12-09 10:49 | NUR ---
SS following up with discharge planning. 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 She requested report be called to Ravi at [phone]. Pt, pt's spouse, and pt's RN notified.
[2018-12-09 11:00] VITALS: BP 158/73
[2018-12-09 13:10] VITALS: BP 158/73
--- NOTE | 2018-12-09 14:15 | NUR ---
Patient discharge to [facility]. Report called to Ravi COOLEY at facility. Thorough report provided. Discharge packet given to transport engineer. Patient assisted to wheelchair. PICC line intact and covered securely. Patients here. Patient assisted out in wheelchair at this time.
== END 2018-12-09 14:15 | DRG 239 ==
LOC: ER 19:48 → 4 NORTH 21:35
PROVIDERS: ADMIT Internal Medicine; ATTEND Internal Medicine
PROC: 047M3ZZ Dilation of Right Popliteal Artery, Percutaneous Approach (ICD-10-PCS; 2018-12-02)
PROC: B4101ZZ Fluoroscopy of Abdominal Aorta using Low Osmolar Contrast (ICD-10-PCS; 2018-12-02)
PROC: B41F1ZZ Fluoroscopy of Right Lower Extremity Arteries using Low Osmolar Contrast (ICD-10-PCS; 2018-12-02)
PROC: 30233N1 Transfusion of Nonautologous Red Blood Cells into Peripheral Vein, Percutaneous Approach (ICD-10-PCS; 2018-12-04)
PROC: 0Y6H0Z1 Detachment at Right Lower Leg, High, Open Approach (ICD-10-PCS; principal; 2018-12-04 10:00)
PROC: 05HY33Z Insertion of Infusion Device into Upper Vein, Percutaneous Approach (ICD-10-PCS; 2018-12-05)
DX: E11.52 Type 2 diabetes mellitus with diabetic peripheral angiopathy with gangrene (principal); E43 Unspecified severe protein-calorie malnutrition; R78.81 Bacteremia; M86.8X7 Other osteomyelitis, ankle and foot; L03.115 Cellulitis of right lower limb; N17.9 Acute kidney failure, unspecified; E11.69 Type 2 diabetes mellitus with other specified complication; I70.238 Atherosclerosis of native arteries of right leg with ulceration of other part of lower leg; E11.621 Type 2 diabetes mellitus with foot ulcer; B95.61 Methicillin susceptible Staphylococcus aureus infection as the cause of diseases classified elsewhere; K21.9 Gastro-esophageal reflux disease without esophagitis; E87.6 Hypokalemia; E78.5 Hyperlipidemia, unspecified; G54.6 Phantom limb syndrome with pain; G89.4 Chronic pain syndrome; L97.519 Non-pressure chronic ulcer of other part of right foot with unspecified severity; D64.9 Anemia, unspecified; E11.42 Type 2 diabetes mellitus with diabetic polyneuropathy; I10 Essential (primary) hypertension; F41.9 Anxiety disorder, unspecified; F32.9 Major depressive disorder, single episode, unspecified; Z89.421 Acquired absence of other right toe(s); Z88.6 Allergy status to analgesic agent; Z88.8 Allergy status to other drugs, medicaments and biological substances; Z98.62 Peripheral vascular angioplasty status; Z83.3 Family history of diabetes mellitus; Z82.49 Family history of ischemic heart disease and other diseases of the circulatory system; Z88.5 Allergy status to narcotic agent
CPT/HCPCS: 36415; 36569; 37224; 73630; 73718; 75625; 75710; 76937; 80053; 80202; 82565; 82962; 83036; 83605; 84145; 85007; 85025; 85027; 85610; 85651; 85730; 86850; 86900; 86901; 86920; 87040; 87071; 87075; 87077; 87186; 87205; 88305; 93306; 93926; 96365; 97168; 99152; 99153; A7015; C1725; C1760; C1769; C1892; C1894; G0269; J0171; J0690; J0696; J0780; J1100; J1170; J1200; J1644; J1815; J2001; J2250; J2370; J2405; J2543; J2704; J2710; J3010; J3370; J3490; J7030; J7040; J7042; J7120; P9016; P9045; Q9967; 97110; 97116; 97530; 97535; 99285-25; G0378